=== PATIENT | male | born 1960 | race Caucasian/White ===

== ENCOUNTER 2018-11-19 22:18 | Emergency (ER) | payer OTHER ==
[2018-11-19 22:23] VITALS: TEMP 98.4
[2018-11-19] MEDS ORDERED: hydrALAZINE HCL 20 MG/ML 1 ML VIAL IM STA (22:52)
--- NOTE | 2018-11-19 22:57 | ED ---
Wound/Laceration HPI - General Source: patient Mode of arrival: ambulatory Limitations: no limitations <Karey Christensen - Last Filed: 11/20/18 03:23> <Ariane Topete - Last Filed: 11/20/18 04:32> - General Chief Complaint: Wound/Laceration Stated Complaint: IHS-Finger injury Time Seen by Provider: 11/19/18 22:42 - History of Present Illness Initial Comments: 58-year-old male past medical history of hypertension who has been out of his lisinopril for the past month presented for chief complaint of right fourth finger laceration. Patient states that at 9:30 PM while at work, at [employer]. He was pushing a sterile cart when his right fourth digit caught in a machine, he states it pulled his right finger, he denies amputation or gross dislocation. Patient states it caused a laceration to the finger. Patient states his tetanus was updated 4 months ago. Patient denies numbness tingling loss sensation, gross deformity. Patient admits to the swelling of the digits and pain at the site of laceration, remaining ROS (-), patient denies any recent fever, chills, shortness of breath, chest pain, back pain, abdominal pain, nausea or vomiting, numbness or tingling, dysuria or hematuria, constipation or diarrhea, oliguria, anuria, dizziness, headaches or visual changes, or any other complaints. Upon arrival pt BP elevated, pt states he has been out of his blood pressure medication for the past month as have known hypertension. (Karey Christensen) - Related Data Previous Rx's Medication Instructions Recorded Cephalexin [Keflex] 500 mg PO Q8HR 5 Days #15 cap 11/20/18 Lisinopril [Zestril] 40 mg PO DAILY 15 Days #15 tablet 11/20/18 Allergies Allergy/AdvReac Type Severity Reaction Status Date / Time No Known Allergies Allergy Verified 11/19/18 22:22 Review of Systems ROS Other: All systems not noted in ROS Statement are negative. <Karey Christensen - Last Filed: 11/20/18 03:23> ROS Other: All systems not noted in ROS Statement are negative. <Ariane Topete - Last Filed: 11/20/18 04:32> ROS Statement: Those systems with pertinent positive or pertinent negative responses have been documented in the HPI. Past Medical History Past Medical History: Hypertension History of Any Multi-Drug Resistant Organisms: None Reported Additional Past Surgical History / Comment(s): Aorta repairt Past Psychological History: No Psychological Hx Reported Smoking Status: Current every day smoker Past Alcohol Use History: Daily Past Drug Use History: None Reported <Karey Chritsensen - Last Filed: 11/20/18 03:23> General Exam Limitations: no limitations <Karey Christensen - Last Filed: 11/20/18 03:23> - General Exam Comments Initial Comments: General: The patient is awake and alert, in no distress, and does not appear acutely ill. Eye: +3 mm pupils are equal, round and reactive to light, extra-ocular movements are intact. No nystagmus. There is normal conjunctiva bilaterally. No signs of icterus. Ears, nose, mouth and throat: There are moist mucous membranes and no oral lesions. Neck: The neck is supple, there is no tenderness or JVD. Cardiovascular: There is a regular rate and rhythm. No murmur, rub or gallop is appreciated. Respiratory: Lungs are clear to auscultation, respirations are non-labored, br eath sounds are equal. No wheezes, stridor, rales, or rhonchi. Gastrointestinal: Soft, non-distended, non-tender abdomen without masses or organomegaly noted. There is no rebound or guarding present. Musculoskeletal: Normal ROM of all 5 digits of right hand, pain at laceration site, denies joint pain Strength 5/5 of all 5 digits of the right hand equal comparison the left including isolation of ectopy DIP and PIP joints. Sensation intact both proximal and distal to injury site equal comparison with unaffected extremity. Radial pulses equal bilaterally 2+. Neurological: A&O x 3. CN II-XII intact, There are no obvious motor or sensory deficits. Coordination appears grossly intact. Speech is normal. Skin: Skin is warm and dry and no rashes or lesions are noted. 1.5cm irregular laceration of the ventral surface of 4th right digit between MPT and PIP. Psychiatric: Cooperative, appropriate mood & affect, normal judgment. (Karey Christensen) Course Vital Signs 11/19/18 11/20/18 11/20/18 22:20 00:16 00:51 Temperature 98.4 F Pulse Rate 104 H 96 110 H Respiratory 20 18 20 Rate Blood Pressure 239/106 205/130 203/136 O2 Sat by Pulse 96 98 100 Oximetry 11/20/18 01:10 Temperature Pulse Rate Respiratory Rate Blood Pressure 182/122 O2 Sat by Pulse Oximetry Procedures - Laceration Laceration #2 Consent Obtained: verbal consent Indication: laceration Site: hand (right 4th digit) Size (cm): 2 (1.5cm) Description: irregular Depth: simple, single layer Anesthetic Used: lidocaine 1% Anesthesia Technique: nerve block Amount (mls): 3 Pre-repair: wound explored, irrigated extensively, deep structures intact Type of Sutures: nylon Size of Sutures: 5-0 Number of Sutures: 4 Technique: simple, interrupted Patient Tolerated Procedure: well, no complications <Karey Christensen - Last Filed: 11/20/18 03:23> - Laceration Laceration #2 Additional Comments: Finger irrigated extensively. Cleansed with iodine. Sutures placed. Wound edges approximated to the best of ability however wound edges are regular-minor skin tearing occured during the suturing process. Patient tolerated procedure well. Bacitracin and bandage applied. (Karey Christensen) Medical Decision Making <Karey Christensen - Last Filed: 11/20/18 03:23> <Ariane Topete - Last Filed: 11/20/18 04:32> - Medical Decision Making 58-year-old male presenting for suture repair after finger injury. No acute osseous injury on imaging studies. I reviewed imaging studies myself. Ring was removed using a ring cutter-with patient permission, patient requested ring be cut. Patient has full strength of digits of the right hand. No obvious tendon injury. Pt tetanus UTD. Patient wound edges approximated to best of my ability. Patient started on keflex for infection ppx. Since beginning a patient's stay emergency department blood pressure elevated. Patient states he has been out of his medication lisinopril 40 mg daily. Patient given 20mg hydralazine as well as 0.2 mg of Catapres. Minimal improvement in blood pressure. Patient denies any other associated symptoms. No concerning physical examination findings. Patient states that he would like to leave, he states he will follow up outpatient for elevated blood pressure. Urged patient to stay for management however patient refused. Patient discharged appearing well. Discussed return parameters for suture removal as well as all suture care. Patient provided work note as well as work restrictions. I did consult attending provider Dr. Topete during case management. (Karey Christensen) I was available for consultation in the emergency department. The history and physical exam were done by the midlevel provider. I was consulted for this patient's care. I reviewed the case with the midlevel provider and based on their presentation of the patient, I agree with the assessment, medical decision making and plan of care as documented. (Ariane Topete) Disposition Is patient prescribed a controlled substance at d/c from ED?: No Time of Disposition: 00:27 <Karey Christensen - Last Filed: 11/20/18 03:23> <Ariane Topete - Last Filed: 11/20/18 04:32> Clinical Impression: Finger laceration, Elevated blood pressure reading Disposition: HOME SELF-CARE Condition: Good Instructions (If sedation given, give patient instructions): Care For Your Stitches (ED), Finger Laceration (ED) Additional Instructions: Please use medication as discussed. Please follow-up with family doctor in the next 2 days for elevated blood pressure, please return for suture removal in 7 days. Please return to emergency room if the symptoms increase or worsen or for any other concerns. Prescriptions: Cephalexin [Keflex] 500 mg PO Q8HR 5 Days #15 cap Lisinopril [Zestril] 40 mg PO DAILY 15 Days #15 tablet Referrals: Nonstaff,Physician [Primary Care Provider] - 1-2 days [facility],Clinic [REFERRING] - 1-2 days [facility] [NON-STAFF] - 1-2 days
--- NOTE | 2018-11-19 23:01 | XR ---
EXAM: XR Right Finger(s), 2 or More Views CLINICAL HISTORY: Jammed 4th digit, pain/laceration ITS.REASON XR Reason: Pain TECHNIQUE: Frontal, lateral and oblique views of finger(s) of the right hand. COMPARISON: No relevant prior studies available. FINDINGS: Limitations: Evaluation limited by presence of ring. Bones/joints: Questionable irregularity at the base of the middle phalanx at the palmar aspect. Otherwise, no acute fracture. Soft tissues: Punctate opacities at the tip of the finger. Soft tissue irregularity, may be related to history of laceration. IMPRESSION: 1. Limited study, as above. Questionable irregularity at the base of the middle phalanx. Correlate with focal tenderness. 2. Punctate opacities at the tip of the finger. Correlate clinically to exclude foreign body.
[2018-11-19] MEDS ORDERED: LIDOCAINE 1% INJ 10MG/ML (20 ML MDV) SQ ONE (23:05)
[2018-11-20] MEDS ORDERED: cloNIDine HCL 0.2 MG TAB PO STA (00:08)
[2018-11-20 00:52] VITALS: PULSE 110; RESP 20
[2018-11-20 01:13] VITALS: BP 182/122
== END 2018-11-20 01:10 | disposition home or self-care (01) ==
LOC: EC 22:18
DX: S61.214A Laceration without foreign body of right ring finger without damage to nail, initial encounter (principal); I10 Essential (primary) hypertension; F17.200 Nicotine dependence, unspecified, uncomplicated; W31.9XXA Contact with unspecified machinery, initial encounter; Y92.69 Other specified industrial and construction area as the place of occurrence of the external cause; Y99.0 Civilian activity done for income or pay
CPT/HCPCS: 73140; 99283; 12001; 96372; J0360; J2001

== ENCOUNTER → 2018-11-27 | Outpatient (CLI) | payer OTHER ==
--- NOTE | 2018-11-27 15:30 | XR ---
EXAMINATION TYPE: XR hand complete RT DATE OF EXAM: 11/27/2018 COMPARISON: NONE HISTORY: 58-year-old male right fourth digit contusion on November 19. Pain. TECHNIQUE: 3 views FINDINGS: There is fusiform soft tissue swelling especially along the ulnar aspect of the proximal fourth finge r. Underlying degenerative change at the third MCP joint with joint space narrowing and some marginal spurring. No acute fracture, subluxation, or dislocation is seen. IMPRESSION: 1. Soft tissue swelling involving the proximal aspect of the fourth digit. No underlying acute or hea ling fracture seen. 2. Some degenerative joint space narrowing particularly at the third MCP joint.
== END | disposition home or self-care (01) ==
LOC: RADXRMAIN 14:54
PROVIDERS: ATTEND Emergency Medicine
DX: M19.041 Primary osteoarthritis, right hand (principal); M79.89 Other specified soft tissue disorders

== ENCOUNTER → 2020-01-13 | Outpatient (CLI) | payer OTHER ==
--- NOTE | 2020-01-13 11:29 | XR ---
EXAMINATION TYPE: XR elbow complete RT DATE OF EXAM: 01/13/2020 CLINICAL HISTORY: Right elbow pain with no known injury. Right elbow joint pain and edema. TECHNIQUE: Frontal, lateral and oblique images of the right elbow are obtained. COMPARISON: None FINDINGS: Well-corticated oval densities of the medial and lateral epicondyles are seen. There is no acute fracture/dislocation evident in the right elbow. No abnormal fat pad signs are seen. The over lying soft tissue demonstrates mild soft tissue swelling. IMPRESSION: 1. No acute fracture or dislocation in the right elbow. 2. Enthesophytes or calcific tendinosis of the common extensor and common flexor tendons. Correlate f or both lateral and medial epicondylitis. Given the nontraumatic soft tissue swelling of the elbow ar thropathies or gout should also be considered.
== END | disposition home or self-care (01) ==
LOC: RADXRMAIN 11:03
PROVIDERS: ATTEND Emergency Medicine
DX: M79.89 Other specified soft tissue disorders (principal)

== ENCOUNTER 2021-01-10 00:20 | Inpatient (IN) | payer OTHER ==
--- NOTE | 2021-01-10 00:42 | ED ---
General Adult HPI - General Chief complaint: Nausea/Vomiting/Diarrhea Stated complaint: Weakness Time Seen by Provider: 01/10/21 00:23 Source: patient, EMS Mode of arrival: EMS Limitations: no limitations - History of Present Illness Initial comments: 's patient is a 60-year-old man who presents to be evaluated for suspected dehydration. He notes that probably for the past 3 days she has been feeling very weak and lightheaded when he stands up. He had been having vomiting and diarrhea and felt he was getting dehydrated. He started drinking more fluids but continued to have episodes of vomiting and diarrhea. Patient states that over the past day he had tried electrolyte solution and was not feeling much better. Patient denies pains. No focal weakness. He does feel better when he is lying down and the symptoms get much worse. Tries to stand up and walk. Onset/Timin -: days(s) Severity scale (1-10): 0 Consistency: constant Improves with: none Worsens with: movement, other (Standing) Associated Symptoms: nausea/vomiting - Related Data Home Medications Medication Instructions Recorded Confirmed Allopurinol [Zyloprim] 100 mg PO DAILY@1600 01/10/21 01/10/21 Lisinopril-Hctz 20-25 mg 1 tab PO DAILY@1600 01/10/21 01/10/21 [Zestoretic 20-25] Allergies Allergy/AdvReac Type Severity Reaction Status Date / Time No Known Allergies Allergy Verified 01/10/21 07:19 Review of Systems ROS Statement: Those systems with pertinent positive or pertinent negative responses have been documented in the HPI. ROS Other: All systems not noted in ROS Statement are negative. Constitutional: Reports: weakness. Denies: fever, chills Eyes: Denies: vision change Respiratory: Denies: cough, dyspnea, wheezes Cardiovascular: Reports: syncope. Denies: chest pain, palpitations, orthopnea, edema Gastrointestinal: Reports: nausea, vomiting, diarrhea. Denies: abdominal pain, constipation, hematemesis, melena, hematochezia Genitourinary: Denies: dysuria, frequency, hematuria Musculoskeletal: Denies: back pain Skin: Denies: rash Neurological: Denies: headache, weakness, numbness, paresthesias, confusion Past Medical History Past Medical History: Hypertension History of Any Multi-Drug Resistant Organisms: None Reported Additional Past Surgical History / Comment(s): Aorta repairt Past Psychological History: No Psychological Hx Reported Smoking Status: Current every day smoker Past Alcohol Use History: Daily Past Drug Use History: None Reported General Exam Limitations: no limitations General appearance: alert, in no apparent distress Head exam: Present: atraumatic, normocephalic Eye exam: Present: normal appearance, PERRL, EOMI. Absent: scleral icterus, conjunctival injection ENT exam: Present: mucous membranes dry Neck exam: Present: normal inspection, full ROM. Absent: tenderness Respiratory exam: Present: normal lung sounds bilaterally. Absent: respiratory distress, wheezes, rales, rhonchi, stridor Cardiovascular Exam: Present: regular rate, normal rhythm, normal heart sounds. Absent: systolic murmur, diastolic murmur, rubs, gallop GI/Abdominal exam: Present: soft. Absent: distended, tenderness, guarding, rebound, rigid, mass Extremities exam: Present: normal inspection, normal capillary refill. Absent: pedal edema, calf tenderness Back exam: Present: normal inspection. Absent: CVA tenderness (R), CVA tenderness (L) Neurological exam: Present: alert, oriented X3. Absent: motor sensory deficit Skin exam: Present: warm, dry, intact, normal color. Absent: rash Course Vital Signs 01/10/21 01/10/21 01/10/21 00:21 00:51 02:58 Temperature 98 F Pulse Rate 99 105 H 96 Respiratory 16 16 18 Rate Blood Pressure 68/47 105/76 78/48 O2 Sat by Pulse 90 L 98 95 Oximetry 01/10/21 01/10/21 01/10/21 04:14 06:52 08:03 Temperature Pulse Rate 97 102 H 104 H Respiratory 18 16 16 Rate Blood Pressure 79/46 79/49 91/54 O2 Sat by Pulse 97 95 96 Oximetry 01/10/21 01/10/21 01/10/21 09:21 09:49 10:27 Temperature Pulse Rate 104 H 115 H Respiratory 16 18 Rate Blood Pressure 72/47 83/53 87/66 O2 Sat by Pulse 94 L 93 L Oximetry 01/10/21 01/10/21 01/10/21 11:27 12:03 12:08 Temperature Pulse Rate 123 H 122 H 105 H Respiratory 18 20 Rate Blood Pressure 92/58 77/45 O2 Sat by Pulse 89 L Oximetry 0501/10/21 01/10/21 12:20 12:26 12:41 Temperature 98.2 F Pulse Rate 100 104 H Respiratory 18 Rate Blood Pressure 82/52 O2 Sat by Pulse 90 L 91 L Oximetry 01/10/21 01/10/21 01/10/21 13:04 13:58 15:02 Temperature Pulse Rate 93 107 H 99 Respiratory 18 18 18 Rate Blood Pressure 80/57 94/64 108/63 O2 Sat by Pulse 90 L 93 L 88 L Oximetry 01/10/21 01/10/21 01/10/21 16:04 16:25 16:33 Temperature Pulse Rate 98 98 95 Respiratory 18 Rate Blood Pressure 103/68 O2 Sat by Pulse 93 L Oximetry 01/10/21 01/10/21 01/10/21 17:02 18:08 18:57 Temperature 98.1 F Pulse Rate 98 100 99 Respiratory 18 18 18 Rate Blood Pressure 95/65 103/73 102/67 O2 Sat by Pulse 93 L 92 L 92 L Oximetry 01/10/21 01/10/21 01/10/21 20:00 20:17 20:28 Temperature 98.5 F Pulse Rate 98 98 101 H Respiratory 20 Rate Blood Pressure 104/67 O2 Sat by Pulse 93 L Oximetry 01/10/21 20:29 Temperature Pulse Rate Respiratory Rate Blood Pressure O2 Sat by Pulse 93 L Oximetry EKG Findings - EKG Results: EKG: interpreted by ERMD, sinus rhythm (Rate 97 bpm), normal axis - Blocks, [place], Hypertrophy, ST Abn: Repolarization changes or abnormalities: Q-T interval prolongation - [place], Pacemaker, Normal: Myocardial infarction: inferior [place] (old age indeterminate) Procedures - Sepsis Sepsis Focused Exam #1 Sepsis Focused Exam Date: 01/10/21 Sepsis Focused Exam Time: 05:00 Sepsis Focused Exam Complete: Yes Vital Signs & RN Notes Reviewed: Yes Capillary Refill: < 2 Seconds: Fingers Peripheral Pulses: Normal: Radial (R) Skin Color: Normal for Patient Respiratory Exam: wheezes Cardiovascular Exam: regular rate Medical Decision Making - Lab Data Result diagrams: 01/10/21 16:41 01/10/21 16:41 Lab Results 01/10/21 01/10/21 01/10/21 Range/Units 00:37 00:37 00:37 WBC 29.9 H (3.8-10.6) k/uL RBC 3.45 L (4.30-5.90) m/uL Hgb 13.4 (13.0-17.5) gm/dL Hct 40.0 (39.0-53.0) % MCV 115.9 H (80.0-100.0) fL MCH 38.8 H (25.0-35.0) pg MCHC 33.5 (31.0-37.0) g/dL RDW 18.5 H (11.5-15.5) % Plt Count 170 (150-450) k/uL MPV 8.1 Neutrophils % 92 % Lymphocytes % 3 % Monocytes % 3 % Eosinophils % 1 % Basophils % 0 % Neutrophils # 27.5 H (1.3-7.7) k/uL Lymphocytes # 1.0 (1.0-4.8) k/uL Monocytes # 1.0 (0-1.0) k/uL Eosinophils # 0.2 (0-0.7) k/uL Basophils # 0.1 (0-0.2) k/uL Manual Slide Review Performed Toxic Vacuolation Present Polychromasia Present Anisocytosis Slight Macrocytosis Marked A PT 10.9 (9.0-12.0) sec INR 1.0 (<1.2) APTT 25.4 (22.0-30.0) sec Sodium (137-145) mmol/L Potassium (3.5-5.1) mmol/L Chloride (98-107) mmol/L Carbon Dioxide (22-30) mmol/L Anion Gap mmol/L BUN (9-20) mg/dL Creatinine (0.66-1.25) mg/dL Est GFR (CKD-EPI)AfAm (>60 ml/min/1.73 sqM) Est GFR (CKD-EPI)NonAf (>60 ml/min/1.73 sqM) Glucose (74-99) mg/dL Lactic Ac Sepsis Rflx Plasma Lactic Acid Dimitris (0.7-2.0) mmol/L Calcium (8.4-10.2) mg/dL Total Bilirubin (0.2-1.3) mg/dL AST (17-59) U/L ALT (4-49) U/L Alkaline Phosphatase (38-126) U/L Troponin I (0.000-0.034) ng/mL Total Protein (6.3-8.2) g/dL Albumin (3.5-5.0) g/dL Procalcitonin (0.02-0.09) ng/mL Urine Color Yellow Urine Appearance Clear (Clear) Urine pH 6.0 (5.0-8.0) Ur Specific [place] 1.007 (1.001-1.035) Urine Protein 1+ H (Negative) Urine Glucose (UA) 3+ H (Negative) Urine Ketones 1+ H (Negative) Urine Blood Small H (Negative) Urine Nitrite Negative (Negative) Urine Bilirubin Negative (Negative) Urine Urobilinogen <2.0 (<2.0) mg/dL Ur Leukocyte Esterase Negative (Negative) Urine WBC 3 (0-5) /hpf Amorphous Sediment Occasional H (None) /hpf Hyaline Casts 5 H (0-2) /lpf Urine Mucus Rare H (None) /hpf Influenza Type A (PCR) (Not Detectd) Influenza Type B (PCR) (Not Detectd) RSV (PCR) (Not Detectd) SARS-CoV-2 (PCR) (Not Detectd) 01/10/21 01/10/21 01/10/21 Range/Units 00:37 00:37 00:37 WBC (3.8-10.6) k/uL RBC (4.30-5.90) m/uL Hgb (13.0-17.5) gm/dL Hct (39.0-53.0) % MCV (80.0-100.0) fL MCH (25.0-35.0) pg MCHC (31.0-37.0) g/dL RDW (11.5-15.5) % Plt Count (150-450) k/uL MPV Neutrophils % % Lymphocytes % % Monocytes % % Eosinophils % % Basophils % % Neutrophils # (1.3-7.7) k/uL Lymphocytes # (1.0-4.8) k/uL Monocytes # (0-1.0) k/uL Eosinophils # (0-0.7) k/uL Basophils # (0-0.2) k/uL Manual Slide Review Toxic Vacuolation Polychromasia Anisocytosis Macrocytosis PT (9.0-12.0) sec INR (<1.2) APTT (22.0-30.0) sec Sodium 128 L (137-145) mmol/L Potassium 2.7 L* (3.5-5.1) mmol/L Chloride 82 L (98-107) mmol/L Carbon Dioxide 32 H (22-30) mmol/L Anion Gap 14 mmol/L BUN 38 H (9-20) mg/dL Creatinine 3.28 H (0.66-1.25) mg/dL Est GFR (CKD-EPI)AfAm 22 (>60 ml/min/1.73 sqM) Est GFR (CKD-EPI)NonAf 19 (>60 ml/min/1.73 sqM) Glucose 104 H (74-99) mg/dL Lactic Ac Sepsis Rflx Plasma Lactic Acid Dimitris 3.2 H* (0.7-2.0) mmol/L Calcium 8.5 (8.4-10.2) mg/dL Total Bilirubin 1.4 H (0.2-1.3) mg/dL AST 49 (17-59) U/L ALT 27 (4-49) U/L Alkaline Phosphatase 73 (38-126) U/L Troponin I 0.110 H* (0.000-0.034) ng/mL Total Protein 6.0 L (6.3-8.2) g/dL Albumin 3.3 L (3.5-5.0) g/dL Procalcitonin (0.02-0.09) ng/mL Urine Color Urine Appearance (Clear) Urine pH (5.0-8.0) Ur Specific [place] (1.001-1.035) Urine Protein (Negative) Urine Glucose (UA) (Negative) Urine Ketones (Negative) Urine Blood (Negative) Urine Nitrite (Negative) Urine Bilirubin (Negative) Urine Urobilinogen (<2.0) mg/dL Ur Leukocyte Esterase (Negative) Urine WBC (0-5) /hpf Amorphous Sediment (None) /hpf Hyaline Casts (0-2) /lpf Urine Mucus (None) /hpf Influenza Type A (PCR) (Not Detectd) Influenza Type B (PCR) (Not Detectd) RSV (PCR) (Not Detectd) SARS-CoV-2 (PCR) (Not Detectd) 01/10/21 01/10/21 01/10/21 Range/Units 00:37 00:37 01:25 WBC (3.8-10.6) k/uL RBC (4.30-5.90) m/uL Hgb (13.0-17.5) gm/dL Hct (39.0-53.0) % MCV (80.0-100.0) fL MCH (25.0-35.0) pg MCHC (31.0-37.0) g/dL RDW (11.5-15.5) % Plt Count (150-450) k/uL MPV Neutrophils % % Lymphocytes % % Monocytes % % Eosinophils % % Basophils % % Neutrophils # (1.3-7.7) k/uL Lymphocytes # (1.0-4.8) k/uL Monocytes # (0-1.0) k/uL Eosinophils # (0-0.7) k/uL Basophils # (0-0.2) k/uL Manual Slide Review Toxic Vacuolation Polychromasia Anisocytosis Macrocytosis PT (9.0-12.0) sec INR (<1.2) APTT (22.0-30.0) sec Sodium (137-145) mmol/L Potassium (3.5-5.1) mmol/L Chloride (98-107) mmol/L Carbon Dioxide (22-30) mmol/L Anion Gap mmol/L BUN (9-20) mg/dL Creatinine (0.66-1.25) mg/dL Est GFR (CKD-EPI)AfAm (>60 ml/min/1.73 sqM) Est GFR (CKD-EPI)NonAf (>60 ml/min/1.73 sqM) Glucose (74-99) mg/dL Lactic Ac Sepsis Rflx Y Plasma Lactic Acid Dimitris (0.7-2.0) mmol/L Calcium (8.4-10.2) mg/dL Total Bilirubin (0.2-1.3) mg/dL AST (17-59) U/L ALT (4-49) U/L Alkaline Phosphatase (38-126) U/L Troponin I (0.000-0.034) ng/mL Total Protein (6.3-8.2) g/dL Albumin (3.5-5.0) g/dL Procalcitonin 0.74 H (0.02-0.09) ng/mL Urine Color Urine Appearance (Clear) Urine pH (5.0-8.0) Ur Specific [place] (1.001-1.035) Urine Protein (Negative) Urine Glucose (UA) (Negative) Urine Ketones (Negative) Urine Blood (Negative) Urine Nitrite (Negative) Urine Bilirubin (Negative) Urine Urobilinogen (<2.0) mg/dL Ur Leukocyte Esterase (Negative) Urine WBC (0-5) /hpf Amorphous Sediment (None) /hpf Hyaline Casts (0-2) /lpf Urine Mucus (None) /hpf Influenza Type A (PCR) Not Detected (Not Detectd) Influenza Type B (PCR) Not Detected (Not Detectd) RSV (PCR) Not Detected (Not Detectd) SARS-CoV-2 (PCR) Not Detected (Not Detectd) Disposition Clinical Impression: Dehydration, Hyponatremia, Hypokalemia, Acute kidney injury, Elevated troponin Disposition: ADMITTED IP TO THIS HOSP Condition: Serious
[2021-01-10] MEDS: SODIUM CHLORIDE 0.9% 500 ML 500 ML IV SCH ×3 (00:47→02:13)
[2021-01-10] MEDS: SODIUM CHLORIDE 0.9% 1,000 ML IV SCH ×3 (00:47→16:16)
[2021-01-10 01:06] LABS: Albumin 3.3 g/dL (3.5-5.0); Calcium 8.5 mg/dL (8.4-10.2); Total Bilirubin 1.4 mg/dL (0.2-1.3)
[2021-01-10 01:16] LABS: Partial Thromboplastin Time 25.4 sec (22.0-30.0); Prothrombin Time 10.9 sec (9.0-12.0)
[2021-01-10 01:17] LABS: Anisocytosis Slight; Basophils # (A) 0.1 k/uL (0-0.2); Basophils % (A) 0 %; Eosinophils # (A) 0.2 k/uL (0-0.7); Eosinophils % (A) 1 %; HGB 13.4 gm/dL (13.0-17.5); Lymphocytes % (A) 3 %; MCH 38.8 pg (25.0-35.0); MCHC 33.5 g/dL (31.0-37.0); MCV 115.9 fL (80.0-100.0); Macrocytosis Marked; Mean Platelet Volume 8.1; Monocytes % (A) 3 %; Neutrophils # (A) 27.5 k/uL (1.3-7.7); Neutrophils % (A) 92 %; Platelet Count 170 k/uL (150-450); RBC 3.45 m/uL (4.30-5.90); RDW 18.5 % (11.5-15.5); WBC 29.9 k/uL (3.8-10.6)
[2021-01-10 01:30] LABS: Potassium 2.7 mmol/L (3.5-5.1)
[2021-01-10] MEDS ORDERED: SODIUM CHLORIDE 0.9% 1,000 ML IV ONE ×3 (01:33→09:13)
--- NOTE | 2021-01-10 01:36 | XR ---
EXAM: XR Chest, 1 View CLINICAL HISTORY: ITS.REASON XR Reason: Fever TECHNIQUE: Frontal view of the chest. COMPARISON: No relevant prior studies available. FINDINGS: Lungs: Patchy medial right base opacity. Streaky left base opacity. Pleural space: Unremarkable. No pneumothorax. Heart: Unremarkable. No cardiomegaly. Mediastinum: Unremarkable. Bones/joints: Unremarkable. IMPRESSION: Patchy medial right base opacity which may be due to aspiration or infection. Streaky left base opacity favored to be due to atelectasis.
[2021-01-10] MEDS ORDERED: POTASSIUM CHLORIDE ER 20 MEQ TAB.ER PO STA (03:06)
[2021-01-10] MEDS ORDERED: NALOXONE 0.4 MG/ML 1 ML VIAL IV PRN (03:07)
[2021-01-10] MEDS ORDERED: ACETAMINOPHEN TAB 325 MG TAB PO PRN (03:07)
[2021-01-10] MEDS ORDERED: ONDANSETRON 4 MG/2 ML VIAL IVP PRN (03:07)
[2021-01-10] MEDS ORDERED: THIAMINE 100 MG/ML 2 ML VIAL IM STA (03:10)
[2021-01-10] MEDS ORDERED: LORazepam 2 MG/ML INJ IV PRN ×2 (03:10)
[2021-01-10 03:23] LABS: Polychromasia Present
[2021-01-10 03:25] LABS: Toxic Vacuolation Present
[2021-01-10] MEDS ORDERED: THIAMINE 100 MG TAB PO SCH (07:30)
[2021-01-10] MEDS ORDERED: NOREPINEPHRINE 4 MG in SODIUM CHLORIDE 0.9% 250 ML IV ONE (07:30)
--- NOTE | 2021-01-10 08:43 | P.HPIM ---
History of Present Illness This is a pleasant 6 years old male with a cigarette smoker and past medical history of hypertension. He follows up in the [place] [facility]. Patient presents with nausea vomiting and diarrhea for 3 days duration. Patient for the last couple days stating that he feels dehydrated and he has postural dizziness whenever he has to stand up he cannot and he has to crawl to the restroom. Also he is complaining of from some abdominal pain around the umbilicus but he is more tenderness in the left lower quadrant, no rebound tenderness. His pain currently is 67/10, it was 5/10 yesterday. Threadlike pinching pain is been going on for 3 days. Also patient has been vomiting. His vomiting stopped today. He has diarrhea about twice yesterday, it looked soft brown with no blood in it. He denies any respiratory symptoms no chest pain or dyspnea or coughing He smokes 1 pack per day and he was counseled and wants to quit but he declined nicotine patch. He drinks alcohol occasionally and he did not drink anything for the last 4 days as he states. No illicit drugs. Blood pressure on the low side currently 79/49, slightly tachycardic at 102. Afebrile and his saturation 95% on 2 L , Not showing leukocytosis of 29.9, hemoglobin 13.4. INR is 1.0. Sodium is 128, potassium 2.7, creatinine 3.2, unknown baseline. Troponin are elevated 0.12. Boyce virus and influenza virus are not detected EKG showing normal sinus rhythm at [address] depression on the lateral lytes. QTC is 553. Chest x-ray:Patchy medial right base opacity which may be due to aspiration or infection. Streaky left basilar opacity favored to be due to atelectasis in the emergency room he got about 4.5 L of normal saline, and currently his fluids running at 1:30 milliliters per hour. Blood pressure is 76/44 He did get some Levophed yesterday but it was stopped later on CT of the abdomen and pelvis ordered and results pending Review of Systems CONSTITUTIONAL: No fever, no malaise, no fatigue. HEENT: No recent visual problems or hearing problems. Denied any sore throat. CARDIOVASCULAR: No orthopnea, PND, no palpitations, no syncope. PULMONARY: No shortness of breath, no cough, no hemoptysis. GASTROINTESTINAL: No constipation. Normoactive bowel sounds. NEUROLOGICAL: No headaches, no weakness, no numbness. HEMATOLOGICAL: Denies any bleeding or petechiae. GENITOURINARY: Denies any burning micturition, frequency, or urgency. MUSCULOSKELETAL/RHEUMATOLOGICAL: Denies any joint pain, swelling, or any muscle pain. ENDOCRINE: Denies any polyuria or polydipsia. Past Medical History Past Medical History: Hypertension History of Any Multi-Drug Resistant Organisms: None Reported Additional Past Surgical History / Comment(s): Aorta repairt Past Psychological History: No Psychological Hx Reported Smoking Status: Current every day smoker Past Alcohol Use History: Daily Past Drug Use History: None Reported Medications and Allergies Home Medications Medication Instructions Recorded Confirmed Type Allopurinol [Zyloprim] 100 mg PO DAILY@1600 01/10/21 01/10/21 History Lisinopril-Hctz 20-25 mg 1 tab PO DAILY@159901/10/21 01/10/21 History [Zestoretic 20-25] Allergies Allergy/AdvReac Type Severity Reaction Status Date / Time No Known Allergies Allergy Verified 01/10/21 07:19 Physical Exam Vitals: Vital Signs Temp Pulse Resp BP Pulse Ox 01/10/21 06:52 102 H 16 79/49 95 01/10/21 04:14 97 18 79/46 97 01/10/21 02:58 96 18 78/48 95 01/10/21 00:51 105 H 16 105/76 98 01/10/21 00:21 98 F 99 16 68/47 90 L Intake and Output 01/09/21 01/10/21 01/10/21 22:59 06:59 14:59 Other: Weight 86.183 kg GENERAL: The patient is alert and oriented x3, not in any acute distress. Well developed, well nourished. HEENT: Pupils are round and equally reacting to light. EOMI. No scleral icterus. No conjunctival pallor. Normocephalic, atraumatic. No pharyngeal erythema. No thyromegaly. CARDIOVASCULAR: S1 and S2 present. No murmurs, rubs, or gallops. PULMONARY: Chest is clear to auscultation, no wheezing or crackles. -ABDOMEN: Soft, periumbilical tenderness, more in the left lower quadrant, no rebound tenderness or guarding, nondistended, normoactive bowel sounds. No palpable organomegaly. MUSCULOSKELETAL: No joint swelling or deformity. EXTREMITIES: No cyanosis, clubbing, or pedal edema. NEUROLOGICAL: Gross neurological examination did not reveal any focal deficits. SKIN: No rashes. No petechiae Results CBC & Chem 7: 01/10/21 00:37 01/10/21 00:37 Labs: Abnormal Lab Results - Last 24 Hours (Table) 01/10/21 01/10/21 01/10/21 Range/Units 00:37 00:37 00:37 WBC 29.9 H (3.8-10.6) k/uL RBC 3.45 L (4.30-5.90) m/uL MCV 115.9 H (80.0-100.0) fL MCH 38.8 H (25.0-35.0) pg RDW 18.5 H (11.5-15.5) % Neutrophils # 27.5 H (1.3-7.7) k/uL Macrocytosis Marked A Sodium 128 L (137-145) mmol/L Potassium 2.7 L* (3.5-5.1) mmol/L Chloride 82 L (98-107) mmol/L Carbon Dioxide 32 H (22-30) mmol/L BUN 38 H (9-20) mg/dL Creatinine 3.28 H (0.66-1.25) mg/dL Glucose 104 H (74-99) mg/dL Plasma Lactic Acid Dimitris 3.2 H* (0.7-2.0) mmol/L Total Bilirubin 1.4 H (0.2-1.3) mg/dL Troponin I (0.000-0.034) ng/mL Total Protein 6.0 L (6.3-8.2) g/dL Albumin 3.3 L (3.5-5.0) g/dL 01/10/21 01/10/21 Range/Units 00:37 04:20 WBC (3.8-10.6) k/uL RBC (4.30-5.90) m/uL MCV (80.0-100.0) fL MCH (25.0-35.0) pg RDW (11.5-15.5) % Neutrophils # (1.3-7.7) k/uL Macrocytosis Sodium (137-145) mmol/L Potassium (3.5-5.1) mmol/L Chloride (98-107) mmol/L Carbon Dioxide (22-30) mmol/L BUN (9-20) mg/dL Creatinine (0.66-1.25) mg/dL Glucose (74-99) mg/dL Plasma Lactic Acid Dimitris (0.7-2.0) mmol/L Total Bilirubin (0.2-1.3) mg/dL Troponin I 0.110 H* 0.110 H* (0.000-0.034) ng/mL Total Protein (6.3-8.2) g/dL Albumin (3.5-5.0) g/dL Assessment and Plan Assessment: Acute gastroenteritis. Rule out diverticulitis Right lower lobe pneumonia, possible aspiration pneumonia Elevated troponin, rule out cardiac causes. Could be also due to renal disease electrolyte abnormality with hyponatremia and hypokalemia Acute kidney injury Hypertension Alcohol abuse at-risk of alcohol withdrawal Plan: this is a pleasant 60 years old male who presents with pneumonia, acute kidney injury. Patient has had troponin. we'll do serial troponin. Check echocardiogram. Cardiology consult. Continue with aspirin Continue with Zosyn. Sputum culture. Check procalcitonin. Continue with IV hydration. Consult nephrology and continue with IV fluids and monitor lactic acid Consults surgery team. Follow-up CAT scan of the abdomen and pelvis. continue with CIWA protocol and vitamin follow-up CT of the abdomen and pelvis ordered by the emergency room team Labs and medication were reviewed.. Continue same treatment. Continue with symptomatic treatment. Resume home medication. Monitor lytes and vitals. DVT and GI prophylaxis. Further recommendations depends on the clinical course of the patient DVT prophylaxis: Subcutaneous heparin GI Prophylaxis: Pepcid PT/OT: Pending Prognosis is guarded
[2021-01-10] MEDS ORDERED: DOXYCYCLINE 100 MG in SODIUM CHLORIDE 0.9% 100 ML IVPB SCH (09:00)
[2021-01-10] MEDS ORDERED: FAMOTIDINE 20 MG TAB PO SCH (09:00)
[2021-01-10] MEDS ORDERED: MAGNESIUM OXIDE 400 MG TAB PO SCH (09:00)
--- NOTE | 2021-01-10 09:00 | CT ---
EXAMINATION TYPE: CT abdomen pelvis wo con DATE OF EXAM: 01/10/2021 COMPARISON: None HISTORY: leukocytosis CT DLP: 870.6 mGycm Automated exposure control for dose reduction was used. TECHNIQUE: Helical acquisition of images was performed from the lung bases through the pelvis. FINDINGS: LUNG BASES: Bilateral lower lobe infiltrate greater on the right. Basilar bronchiectasis noted. LIVER/GB: Multiple small gallstones seen. PANCREAS: No significant abnormality is seen. SPLEEN: No significant abnormality is seen. ADRENALS: No significant abnormality is seen. KIDNEYS: Right kidney is atrophic relative to the left with 2 punctate nonobstructing. Left kidney de monstrates no hydronephrosis. ADENOPATHY: None visualized. OSSEOUS STRUCTURES: Hypertrophic and degenerative change of the spine. BOWEL: Changes of diverticulosis with mild stranding seen involving the sigmoid colon suggestive of acute diverticulitis. Bowel gas pattern nonspecific. OTHER: There is a abdominal aortic aneurysm originating above the renal arteries measuring a maximal dimension 4 cm. Ectasia of the iliac arteries. Fat-containing bilateral inguinal hernia. Prostate roxy cifications noted. IMPRESSION: 1. Findings suggestive of acute diverticulitis involving sigmoid and left colon. Colitis not excluded . Prominent small bowel loops may represent a reactive ileus rather than obstruction. Correlate clini carl. 2. Bilateral lower lobe infiltrate. 3. Cholelithiasis. 4. There is a abdominal aortic aneurysm measuring 4 cm. 5. Nonobstructing right renal calculi. Left kidney appears markedly enlarged relative to the right co rrelate for chronic medical renal disease. Correlate with urinalysis.
[2021-01-10] MEDS: PIPERACILLIN-TAZOBACTAM 3.375 GM in SODIUM CHLORIDE 0.9% 100 ML IVPB SCH ×2 (09:34→18:53)
[2021-01-10] MEDS: HEPARIN SODIUM,PORCINE/PF 5,000 UNIT/0.5 ML SYRINGE SQ SCH ×2 (09:35→20:37)
[2021-01-10] MEDS: POTASSIUM CHLORIDE ER 20 MEQ TAB.ER PO SCH ×3 (09:35→21:21)
[2021-01-10] MEDS: ASPIRIN 81 MG PO SCH (09:35)
[2021-01-10] MEDS: NOREPINEPHRINE 4 MG in SODIUM CHLORIDE 0.9% 250 ML IV SCH ×2 (09:53→18:54)
[2021-01-10 10:01] LABS: Albumin 2.2 g/dL (3.5-5.0); Calcium 6.8 mg/dL (8.4-10.2); Total Bilirubin 0.9 mg/dL (0.2-1.3); Total Protein 4.5 g/dL (6.3-8.2)
[2021-01-10 10:56] LABS: Anisocytosis Slight; Basophils # (A) 0.1 k/uL (0-0.2); Basophils % (A) 0 %; Eosinophils # (A) 0.4 k/uL (0-0.7); Eosinophils % (A) 1 %; HCT 32.8 % (39.0-53.0); HGB 10.8 gm/dL (13.0-17.5); Lymphocytes # (A) 1.1 k/uL (1.0-4.8); Lymphocytes % (A) 4 %; MCH 39.6 pg (25.0-35.0); MCV 119.9 fL (80.0-100.0); Macrocytosis Marked; Mean Platelet Volume 7.6; Monocytes % (A) 3 %; Neutrophils # (A) 27.5 k/uL (1.3-7.7); Neutrophils % (A) 91 %; Platelet Count 171 k/uL (150-450); RBC 2.74 m/uL (4.30-5.90); RDW 18.5 % (11.5-15.5)
[2021-01-10 11:07] LABS: WBC 30.2 k/uL (3.8-10.6)
[2021-01-10] MEDS ORDERED: IPRATROPIUM-ALBUTEROL 3 ML NEB INHALATION PRN (11:47)
--- NOTE | 2021-01-10 11:59 | P.CNPUL ---
History of Present Illness Consult date: 01/10/21 Requesting physician: Mando E Oswald Reason for consult: other Chief complaint: Nausea, vomiting and diarrhea History of present illness: 60-year-old white male patient who follows with [facility] [place], with past medical history of hypertension, COPD with home oxygen on as needed basis, 2 pack a day current smoker for 30 years, ETOH (drinks a fifth of vodka daily), previous hx of abdominal aortic aneurysm repair, who presented to the emergency department on 01/10/2021 with a 3 day history of feeling very weak, lightheaded, vomiting and diarrhea. Patient was trying to drink more fluids including electrolyte solutions, but continued to have episodes of vomiting and diarrhea. No fever, no complaints of chest pain, did have increased shortness of breath during episodes of exertion and trying to stand up. Has some wheezing and phlegm production. His lab work showed leukocytosis with a white blood cell count of 29.9, hemoglobin was 13.4, sodium of 128, potassium is 2.7, chloride is 82, CO2 is 32, BUN of 38, creatinine is 3.28, plasma lactic acid was 3.2, LFTs were within normal limits, total bilirubin was 1.4, patient had troponin elevation of 0.110, his viral panel including influenza A and B, RSV and COVID- 19 were negative. Chest x-ray showed patchy medial right base opacity streaky left base opacity. Patient's blood pressure was 68/47, patient is tachycardic but in sinus mechanism. Abdominal and pelvis CT showed findings suggestive of acute diverticulitis involving sigmoid and left colon, colitis was not excluded, there were prominent small bowel loops that could represent a reactive ileus rather than obstruction, there was cholelithiasis, nonobstructing right renal calculi with markedly enlarged left kidney. And there was a abdominal aortic aneurysm measuring 4 cm. Patient has received 4-1/2 L of fluid boluses, and despite that remains hypotensive, requiring vasopressor support initiation, surgical consult was requested. Follow-up labs this morning show sodium of 129, potassium is 3.0, chloride is 96, BUN of 37 and creatinine is 3.17. He was give n a dose of Rocephin in the emergency department, and his antibiotic coverage was switched to Zosyn, he continues on IV fluids at 130 ML per hour, he is awaiting placement in the intensive care unit. His most recent lactic acid is down to 1.0. He was started on norepinephrine at 0.05 mics per kilo per minute. No complaints of chest pain, echocardiogram has been ordered and pending, blood urine and sputum cultures are ordered and pending. Patient had an episode of watery bowel movement in the ER, with possibility of blood in it. Surg consult is pending, mild lower abd tenderness to palpation, but no guarding, rigidity, abd soft. Review of Systems All systems: negative Constitutional: Denies chills, Denies fever Eyes: denies blurred vision, denies pain Ears, nose, mouth and throat: Denies headache, Denies sore throat Cardiovascular: Denies chest pain, Denies shortness of breath Respiratory: Denies cough Gastrointestinal: Reports diarrhea, Reports nausea, Reports vomiting, Denies abdominal pain Musculoskeletal: Denies myalgias Integumentary: Denies pruritus, Denies rash Neurological: Denies numbness, Denies weakness Psychiatric: Denies anxiety, Denies depression Endocrine: Denies fatigue, Denies weight change Past Medical History Past Medical History: Hypertension History of Any Multi-Drug Resistant Organisms: None Reported Additional Past Surgical History / Comment(s): Aorta repairt Past Psychological History: No Psychological Hx Reported Smoking Status: Current every day smoker Past Alcohol Use History: Daily Past Drug Use History: None Reported Medications and Allergies Home Medications Medication Instructions Recorded Confirmed Type Allopurinol [Zyloprim] 100 mg PO DAILY@1600 01/10/21 01/10/21 History Lisinopril-Hctz 20-25 mg 1 tab PO DAILY@1600 01/10/21 01/10/21 History [Zestoretic 20-25] Allergies Allergy/AdvReac Type Severity Reaction Status Date / Time No Known Allergies Allergy Verified 01/10/21 07:19 Physical Exam Vitals: Vital Signs Temp Pulse Resp BP Pulse Ox 01/10/21 10:27 115 H 18 87/66 93 L 01/10/21 09:49 83/53 01/10/21 09:21 104 H 16 72/47 94 L 01/10/21 08:03 104 H 16 91/54 96 01/10/21 06:52 102 H 16 79/49 95 01/10/21 04:14 97 18 79/46 97 01/10/21 02:58 96 18 78/48 95 01/10/21 00:51 105 H 16 105/76 98 01/10/21 00:21 98 F 99 16 68/47 90 L Intake and Output 01/09/21 01/10/21 01/10/21 22:59 06:59 14:59 Other: Weight 86.183 kg GENERAL EXAM: Alert, very pleasant, 60-year-old white male, seen in the emergency department, resting on the gurney, on room air with pulse ox of 93%, appears weak, but no signs of acute respiratory distress. HEAD: Normocephalic/atraumatic. EYES: Normal reaction of pupils, equal size. Conjunctiva pink, sclera white. NOSE: Clear with pink turbinates. THROAT: No erythema or exudates. NECK: No masses, no JVD, no thyroid enlargement, no adenopathy. CHEST: No chest wall deformity. Symmetrical expansion. LUNGS: Equal air entry with no crackles, wheeze, rhonchi or dullness. CVS: Regular rate and rhythm, normal S1 and S2, no gallops, no murmurs, no rubs ABDOMEN: Soft, nontender. No hepatosplenomegaly, normal bowel sounds, no guarding or rigidity. EXTREMITIES: No clubbing, no edema, no cyanosis, 2+ pulses and upper and lower extremities. MUSCULOSKELETAL: Muscle strength and tone normal. SPINE: No scoliosis or deformity SKIN: No rashes CENTRAL NERVOUS SYSTEM: Alert and oriented -3. No focal deficits, tone is normal in all 4 extremities. PSYCHIATRIC: Alert and oriented -3. Appropriate affect. Intact judgment and insight. Results - Laboratory Findings CBC and BMP: 01/10/21 10:33 01/10/21 06:20 PT/INR, D-dimer PT 10.9 sec (9.0-12.0) 01/10/21 00:37 INR 1.0 (<1.2) 01/10/21 00:37 Abnormal lab findings: Abnormal Labs 01/10/21 01/10/21 01/10/21 00:37 00:37 00:37 WBC 29.9 H RBC 3.45 L MCV 115.9 H MCH 38.8 H RDW 18.5 H Neutrophils # 27.5 H Macrocytosis Marked A Sodium 128 L Potassium 2.7 L* Chloride 82 L Carbon Dioxide 32 H BUN 38 H Creatinine 3.28 H Glucose 104 H Plasma Lactic Acid Dimitris 3.2 H* Calcium Total Bilirubin 1.4 H Troponin I Total Protein 6.0 L Albumin 3.3 L 01/10/21 01/10/21 01/10/21 00:37 04:20 06:20 WBC RBC MCV MCH RDW Neutrophils # Macrocytosis Sodium 129 L Potassium 3.0 L Chloride 96 L Carbon Dioxide BUN 37 H Creatinine 3.17 H Glucose Plasma Lactic Acid Dimitris Calcium 6.8 L Total Bilirubin Troponin I 0.110 H* 0.110 H* Total Protein 4.5 L Albumin 2.2 L 01/10/21 06:40 WBC RBC MCV MCH RDW Neutrophils # Macrocytosis Sodium Potassium Chloride Carbon Dioxide BUN Creatinine Glucose Plasma Lactic Acid Dimitris Calcium Total Bilirubin Troponin I 0.110 H* Total Protein Albumin - Diagnostic Findings Chest x-ray: report reviewed, image reviewed Additional studies: CT of the abdomen and pelvis reviewed, EKG reviewed, chest x-ray reviewed Assessment and Plan Plan: Assessment: #1. Acute diverticulitis involving the sigmoid and left colon, and possibility of colitis. Patient tested negative for COVID-19, RSV and influenza A and B #2. Vomiting and diarrhea, lightheadedness and dizziness related to dehydration #3. Hypotension, related to hypovolemic and possibly septic shock, related to acute diverticulitis #4. Acute kidney injury related to ATN, dehydration #5. Hyponatremia, hypovolemic #6. Hypochloremic hypokalemia related to diarrhea #7. Elevated troponin, rule out possibility of non-ST elevated [place] #8. Leukocytosis, related to acute diverticulitis #9. History of hypertension #10. 2 pack a day smoker for 30 years #11. Abdominal aortic aneurysm measuring 4 cm seen in the CT of abdomen and pelvis #12. Nonobstructing right renal calculi, and enlarged left kidney #14. Chronic ETOH abuse, drinks a fifth of vodka daily (last drink a week ago) #15. COPD on home oxygen on as needed basis #16. Acute COPD exacerbation Plan: Continue IV fluids at current rate, patient has received 4 and half liters of fluid boluses Continue norepinephrine infusion, patient may need additional fluid boluses Chest x-ray has been reviewed, showing mild bibasilar opacities, possibly atelectasis, or infiltrates Continue with current antibiotic coverage We will add breathing treatments, IV steroids Surgical consultation is pending, keep NPO until seen except for ice chips CIWA protocol Maintain safety precautions Nephrology consultation is pending Lactic acid has improved, electrolytes are improving, replace serum potassium per protocol Troponin level remains elevated, echocardiogram is pending no complaints of chest discomfort Continue close hemodynamic monitoring, patient is awaiting placement in the intensive care unit. I performed a history & physical examination of the patient and discussed their management with my nurse practitioner, Karen Denis. I reviewed the nurse practitioner's note and agree with the documented findings and plan of care. Lung sounds are positive for diminished breath sounds. The findings and the impression was discussed with the patient. I attest to the documentation by the nurse practitioner. Time with Patient: Greater than 30
[2021-01-10] MEDS: IPRATROPIUM-ALBUTEROL 3 ML NEB INHALATION SCH ×3 (12:02→20:16)
[2021-01-10 12:37] LABS: Amorphous Sediment,Urine Occasional /hpf; Appearance,Urine Clear (Clear); Bilirubin,Urine Negative (Negative); Blood,Urine Small (Negative); Color,Urine Yellow; Glucose,Urine (UA) 3+ (Negative); Hyaline Casts,Urine 5 /lpf (0-2); Ketones,Urine 1+ (Negative); Leukocyte Esterase,Urine Negative (Negative); Mucus,Urine Rare /hpf; Nitrite,Urine Negative (Negative); Protein,Urine 1+ (Negative); Specific Gravity,Urine 1.007 (1.001-1.035); Urobilinogen,Urine <2.0 mg/dL (<2.0); WBC,Urine 3 /hpf (0-5)
[2021-01-10 12:45] LABS: Calcium 6.8 mg/dL (8.4-10.2); Potassium 2.8 mmol/L (3.5-5.1)
[2021-01-10 13:40] LABS: Glucose,Whole Blood 101 mg/dL (75-99)
[2021-01-10] MEDS: INSULIN ASPART (NovoLOG) 100 UNIT/ML VIAL SQ SCH ×3 (13:48→21:16)
[2021-01-10] MEDS: PANTOPRAZOLE 40 MG/10 ML VIAL IVP SCH ×2 (13:59→20:34)
[2021-01-10] MEDS: methylPREDNISolone SOD SUCCI 40 MG/ML 1 ML VIAL IV SCH ×2 (14:04→20:33)
--- NOTE | 2021-01-10 16:34 | P.GSCN ---
History of Present Illness Consult date: 01/10/21 History of present illness: CHIEF COMPLAINT: Abdominal pain HISTORY OF PRESENT ILLNESS: The patient is a 60-year-old male presented acutely to the emergency room with generalized abdominal pain. Reports his abdominal pain has been lower abdominal ongoing for over 3 days since . He presented with elevated lactate over 3.0. He also came with acute renal failure creatinine over 3.0. With his abdominal pain, additional diagnostic studies were obtained. Features are consistent with diverticulitis. Gentle surgeries consulted. Patient does report change in bowel habits. He also reports past history of colonoscopy 7 years ago with history of polyps for which he is overdue. He is hungry. He reports his down pain has improved since admission. PAST MEDICAL HISTORY: See list and reviewed PAST SURGICAL HISTORY: See list and reviewed MEDICATIONS: See list and reviewed ALLERGIES: See list and reviewed SOCIAL HISTORY: See list and reviewed FAMILY HISTORY: See list and reviewed REVIEW OF ORGAN SYSTEMS: CONSTITUTIONAL: No fevers or chills. No recent weight loss. EYES: Denies any trouble with vision. No glasses. HEENT: No difficulties with hearing. No nosebleeds. No difficulty swallowing. RESPIRATORY: CARDIOVASCULAR: Denies any chest pain, palpitations, or recent heart attacks. GASTROINTESTINAL: Has change in bowel habits and gas bloat. Past colonoscopy over 7 years ago with history of polyps. GENITOURINARY: Denies any blood in urine or increased urinary frequency. NEUROLOGICAL: Denies any numbness or tingling along the distal extremities. No seizure disorders or headaches. MUSCULOSKELETAL: Has back pain, stiffness or joint arthritis. SKIN: No current skin cancer. No rash. PSYCHIATRIC: Denies current depression or suicidal thoughts. ENDOCRINE: Denies current thyroid disorders. Denies any blood sugar glucose i ntolerance. HEME/LYMPHATIC: Denies any lumps and bumps around the neck. No recent deep venous thrombosis. ALLERGY/IMMUNOLOGY: No immunoglobulin therapy. No immune deficiencies. BREAST: Denies current breast lumps, pain or nipple discharge. PHYSICAL EXAM: VITALS: Reviewed CONSTITUTIONAL: Well developed and in no acute distress. EYES: Conjuctivae without sclera icterus. Pupils are equally round and reactive to light. Extraocular movements grossly intact. HEAD, EARS, NOSE, THROAT: Moist buccal mucosa. Head is atraumatic, normocephalic. Hears conversational speech. No nasal drainage. NECK: Supple. No JV distention. No thyroidomegaly. RESPIRATORY: Non-labored respirations and equal bilateral excursions. No gross wheezes. CARDIOVASCULAR: Regular rate and rhythm. Extremities without moderate edema. Palpable 2+ radial pulses. ABDOMEN: No peritonitis. Mild tenderness bilateral lower abdomen. LYMPH: No neck lymphadenopathy. No axillary lymphadenopathy. MUSCULOSKELETAL: Nail and fingers with good capillary refill. SKIN: Warm and well perfused with good skin turgor. NEUROLOGIC: Cranial nerves II through XII grossly intact. Sensation upper and extremities intact. No focal or lateralizing signs. PSYCH: Appropriate affect. Alert and oriented to person, place and time. Displays appropriate insight. CLINCAL LABS: Reviewed. Creatinine elevated over 3.0. White count elevated over 30,000. Troponins elevated IMAGING: Independently reviewed CT of the abdomen and pelvis without contrast demonstrates inflammatory changes along the sigmoid colon. No free air or perforation identified. This is my independent interpretation. RADIOLOGY: Report reviewed with CT of the abdomen and pelvis consistent with sigmoid diverticulitis. Presence of gallstones including kidney stones. ASSESSMENT: 1. Diverticulitis with sepsis 2. Lactic acidosis with acute renal failure 3. Elevated troponins PLAN: 1. Recommend IV fluid hydration to correct lactic acidosis 2. Clinically, patient does not have peritonitis. May start of liquids as abdominal pain has improved 3. Overall, patient presents with extreme is with sepsis and agree with intensive care admission ADVANCE DIRECTIVE: At this time, patient does not have advanced directive. Family at bedside. Past Medical History Past Medical History: Hypertension History of Any Multi-Drug Resistant Organisms: None Reported Additional Past Surgical History / Comment(s): Aorta repairt Past Psychological History: No Psychological Hx Reported Smoking Status: Current every day smoker Past Alcohol Use History: Daily Past Drug Use History: None Reported Medications and Allergies Home Medications Medication Instructions Recorded Confirmed Type Allopurinol [Zyloprim] 100 mg PO DAILY@1600 01/10/21 01/10/21 History Lisinopril-Hctz 20-25 mg 1 tab PO DAILY@1600 01/10/21 01/10/21 History [Zestoretic 20-25] Allergies Allergy/AdvReac Type Severity Reaction Status Date / Time No Known Allergies Allergy Verified 01/10/21 07:19 Surgical - Exam Vital Signs Temp Pulse Resp BP Pulse Ox 98 F 99 16 68/47 90 L 01/10/21 00:21 01/10/21 00:21 01/10/21 00:21 01/10/21 00:21 01/10/21 00:21 Results - Labs 01/10/21 10:33 01/10/21 10:33 Abnormal Lab Results - Last 24 Hours (Table) 01/10/21 01/10/21 01/10/21 Range/Units 00:37 00:37 00:37 WBC 29.9 H (3.8-10.6) k/uL RBC 3.45 L (4.30-5.90) m/uL Hgb (13.0-17.5) gm/dL Hct (39.0-53.0) % MCV 115.9 H (80.0-100.0) fL MCH 38.8 H (25.0-35.0) pg RDW 18.5 H (11.5-15.5) % Neutrophils # 27.5 H (1.3-7.7) k/uL Macrocytosis Marked A Sodium 128 L (137-145) mmol/L Potassium 2.7 L* (3.5-5.1) mmol/L Chloride 82 L (98-107) mmol/L Carbon Dioxide 32 H (22-30) mmol/L BUN 38 H (9-20) mg/dL Creatinine 3.28 H (0.66-1.25) mg/dL Glucose 104 H (74-99) mg/dL POC Glucose (mg/dL) (75-99) mg/dL Plasma Lactic Acid Dimitris (0.7-2.0) mmol/L Calcium (8.4-10.2) mg/dL Total Bilirubin 1.4 H (0.2-1.3) mg/dL Troponin I (0.000-0.034) ng/mL Total Protein 6.0 L (6.3-8.2) g/dL Albumin 3.3 L (3.5-5.0) g/dL Procalcitonin (0.02-0.09) ng/mL Urine Protein 1+ H (Negative) Urine Glucose (UA) 3+ H (Negative) Urine Ketones 1+ H (Negative) Urine Blood Small H (Negative) Amorphous Sediment Occasional H (None) /hpf Hyaline Casts 5 H (0-2) /lpf Urine Mucus Rare H (None) /hpf 01/10/21 01/10/21 01/10/21 Range/Units 00:37 00:37 00:37 WBC (3.8-10.6) k/uL RBC (4.30-5.90) m/uL Hgb (13.0-17.5) gm/dL Hct (39.0-53.0) % MCV (80.0-100.0) fL MCH (25.0-35.0) pg RDW (11.5-15.5) % Neutrophils # (1.3-7.7) k/uL Macrocytosis Sodium (137-145) mmol/L Potassium (3.5-5.1) mmol/L Chloride (98-107) mmol/L Carbon Dioxide (22-30) mmol/L BUN (9-20) mg/dL Creatinine (0.66-1.25) mg/dL Glucose (74-99) mg/dL POC Glucose (mg/dL) (75-99) mg/dL Plasma Lactic Acid Dimitris 3.2 H* (0.7-2.0) mmol/L Calcium (8.4-10.2) mg/dL Total Bilirubin (0.2-1.3) mg/dL Troponin I 0.110 H* (0.000-0.034) ng/mL Total Protein (6.3-8.2) g/dL Albumin (3.5-5.0) g/dL Procalcitonin 0.74 H (0.02-0.09) ng/mL Urine Protein (Negative) Urine Glucose (UA) (Negative) Urine Ketones (Negative) Urine Blood (Negative) Amorphous Sediment (None) /hpf Hyaline Casts (0-2) /lpf Urine Mucus (None) /hpf 01/10/21 01/10/21 01/10/21 Range/Units 04:20 06:20 06:40 WBC (3.8-10.6) k/uL RBC (4.30-5.90) m/uL Hgb (13.0-17.5) gm/dL Hct (39.0-53.0) % MCV (80.0-100.0) fL MCH (25.0-35.0) pg RDW (11.5-15.5) % Neutrophils # (1.3-7.7) k/uL Macrocytosis Sodium 129 L (137-145) mmol/L Potassium 3.0 L (3.5-5.1) mmol/L Chloride 96 L (98-107) mmol/L Carbon Dioxide (22-30) mmol/L BUN 37 H (9-20) mg/dL Creatinine 3.17 H (0.66-1.25) mg/dL Glucose (74-99) mg/dL POC Glucose (mg/dL) (75-99) mg/dL Plasma Lactic Acid Dimitris (0.7-2.0) mmol/L Calcium 6.8 L (8.4-10.2) mg/dL Total Bilirubin (0.2-1.3) mg/dL Troponin I 0.110 H* 0.110 H* (0.000-0.034) ng/mL Total Protein 4.5 L (6.3-8.2) g/dL Albumin 2.2 L (3.5-5.0) g/dL Procalcitonin (0.02-0.09) ng/mL Urine Protein (Negative) Urine Glucose (UA) (Negative) Urine Ketones (Negative) Urine Blood (Negative) Amorphous Sediment (None) /hpf Hyaline Casts (0-2) /lpf Urine Mucus (None) /hpf 01/10/21 01/10/21 01/10/21 Range/Units 10:33 10:33 13:39 WBC 30.2 H (3.8-10.6) k/uL RBC 2.74 L (4.30-5.90) m/uL Hgb 10.8 L (13.0-17.5) gm/dL Hct 32.8 L (39.0-53.0) % MCV 119.9 H (80.0-100.0) fL MCH 39.6 H (25.0-35.0) pg RDW 18.5 H (11.5-15.5) % Neutrophils # 27.5 H (1.3-7.7) k/uL Macrocytosis Marked A Sodium 131 L (137-145) mmol/L Potassium 2.8 L (3.5-5.1) mmol/L Chloride (98-107) mmol/L Carbon Dioxide 21 L (22-30) mmol/L BUN 34 H (9-20) mg/dL Creatinine 3.13 H (0.66-1.25) mg/dL Glucose (74-99) mg/dL POC Glucose (mg/dL) 101 H (75-99) mg/dL Plasma Lactic Acid Dimitris (0.7-2.0) mmol/L Calcium 6.8 L (8.4-10.2) mg/dL Total Bilirubin (0.2-1.3) mg/dL Troponin I (0.000-0.034) ng/mL Total Protein (6.3-8.2) g/dL Albumin (3.5-5.0) g/dL Procalcitonin (0.02-0.09) ng/mL Urine Protein (Negative) Urine Glucose (UA) (Negative) Urine Ketones (Negative) Urine Blood (Negative) Amorphous Sediment (None) /hpf Hyaline Casts (0-2) /lpf Urine Mucus (None) /hpf Diabetes panel 01/10/21 01/10/21 01/10/21 Range/Units 00:37 06:20 10:33 Sodium 128 L 129 L 131 L (137-145) mmol/L Potassium 2.7 L* 3.0 L 2.8 L (3.5-5.1) mmol/L Chloride 82 L 96 L 99 (98-107) mmol/L Carbon Dioxide 32 H 23 21 L (22-30) mmol/L BUN 38 H 37 H 34 H (9-20) mg/dL Creatinine 3.28 H 3.17 H 3.13 H (0.66-1.25) mg/dL Glucose 104 H 97 85 (74-99) mg/dL Calcium 8.5 6.8 L 6.8 L (8.4-10.2) mg/dL AST 49 40 (17-59) U/L ALT 27 16 (4-49) U/L Alkaline Phosphatase 73 55 (38-126) U/L Total Protein 6.0 L 4.5 L (6.3-8.2) g/dL Albumin 3.3 L 2.2 L (3.5-5.0) g/dL Calcium panel 01/10/21 01/10/21 01/10/21 Range/Units 00:37 06:20 10:33 Calcium 8.5 6.8 L 6.8 L (8.4-10.2) mg/dL Albumin 3.3 L 2.2 L (3.5-5.0) g/dL Pituitary panel 01/10/21 01/10/21 01/10/21 Range/Units 00:37 06:20 10:33 Sodium 128 L 129 L 131 L (137-145) mmol/L Potassium 2.7 L* 3.0 L 2.8 L (3.5-5.1) mmol/L Chloride 82 L 96 L 99 (98-107) mmol/L Carbon Dioxide 32 H 23 21 L (22-30) mmol/L BUN 38 H 37 H 34 H (9-20) mg/dL Creatinine 3.28 H 3.17 H 3.13 H (0.66-1.25) mg/dL Glucose 104 H 97 85 (74-99) mg/dL Calcium 8.5 6.8 L 6.8 L (8.4-10.2) mg/dL Adrenal panel 01/10/21 01/10/21 01/10/21 Range/Units 00:37 06:20 10:33 Sodium 128 L 129 L 131 L (137-145) mmol/L Potassium 2.7 L* 3.0 L 2.8 L (3.5-5.1) mmol/L Chloride 82 L 96 L 99 (98-107) mmol/L Carbon Dioxide 32 H 23 21 L (22-30) mmol/L BUN 38 H 37 H 34 H (9-20) mg/dL Creatinine 3.28 H 3.17 H 3.13 H (0.66-1.25) mg/dL Glucose 104 H 97 85 (74-99) mg/dL Calcium 8.5 6.8 L 6.8 L (8.4-10.2) mg/dL Total Bilirubin 1.4 H 0.9 (0.2-1.3) mg/dL AST 49 40 (17-59) U/L ALT 27 16 (4-49) U/L Alkaline Phosphatase 73 55 (38-126) U/L Total Protein 6.0 L 4.5 L (6.3-8.2) g/dL Albumin 3.3 L 2.2 L (3.5-5.0) g/dL
--- NOTE | 2021-01-10 16:36 | P.NPCON ---
History of Present Illness - Reason for Consult Consult date: 01/10/21 acute renal failure - Chief Complaint Diarrhea and weakness. - History of Present Illness Coming to the hospital with the above complaints. He denies any renal problems in the past, no previous nephrology care. He had 2-3 days history of diarrhea associated with decreased oral intake. Denies diabetes. History of hypertension takes lisinopril hydrochlorothiazide at home. On admission serum c reatinine was 3.2, potassium of 3 with a sodium of 129. He was hypotensive with a systolic blood pressure in 60s and 70s. He got 6 L of fluid bolus currently on levo. He could not empty the bladder, [place] catheter was placed and currently has 500 ML's of urine in her [place]. He also has history of alcohol abuse. Denies NSAID use or recent contrast studies. Computed tomography scan of the abdomen pelvis consistent with diverticulitis/colitis. CT also shows left atrophic kidney. Review of Systems Constitutional: Reports as per HPI Past Medical History Past Medical History: Hypertension History of Any Multi-Drug Resistant Organisms: None Reported Additional Past Surgical History / Comment(s): Aorta repairt Past Psychological History: No Psychological Hx Reported Smoking Status: Current every day smoker Past Alcohol Use History: Daily Past Drug Use History: None Reported Medications and Allergies Home Medications Medication Instructions Recorded Confirmed Type Allopurinol [Zyloprim] 100 mg PO DAILY@1600 01/10/21 01/10/21 History Lisinopril-Hctz 20-25 mg 1 tab PO DAILY@1600 01/10/21 01/10/21 History [Zestoretic 20-25] Allergies Allergy/AdvReac Type Severity Reaction Status Date / Time No Known Allergies Allergy Verified 01/10/21 07:19 Physical Exam Vitals: Vital Signs Temp Pulse Resp BP Pulse Ox 01/10/21 16:25 98 01/10/21 16:04 98 18 103/68 93 L 01/10/21 15:02 99 18 108/63 88 L 01/10/21 13:58 107 H 18 94/64 93 L 01/10/21 13:04 93 18 80/57 90 L 01/10/21 12:41 98.2 F 104 H 18 82/52 91 L 01/10/21 12:26 90 L 01/10/21 12:20 100 01/10/21 12:08 105 H 20 77/45 01/10/21 12:03 122 H 01/10/21 11:27 123 H 18 92/58 89 L 01/10/21 10:27 115 H 18 87/66 93 L 01/10/21 09:49 83/53 01/10/21 09:21 104 H 16 72/47 94 L 01/10/21 08:03 104 H 16 91/54 96 01/10/21 06:52 102 H 16 79/49 95 01/10/21 04:14 97 18 79/46 97 01/10/21 02:58 96 18 78/48 95 01/10/21 00:51 105 H 16 105/76 98 01/10/21 00:21 98 F 99 16 68/47 90 L Intake and Output 01/10/21 01/10/21 01/10/21 06:59 14:59 22:59 Intake Total 43.508 Balance 43.508 Intake: Intake, IV Titration 43.508 Amount Norepinephrine 4 mg In 43.508 Sodium Chloride 0.9% 250 ml @ 0.05 MCG/KG/MIN 16. 418 mls/hr IV .[id number] [facility] Rx#:[id number] Other: Weight 86.183 kg No acute distress S1-S2 heard Lungs clear Abdomen soft No edema Results - Lab Results Most recent lab results Calcium 6.8 mg/dL (8.4-10.2) L 01/10/21 10:33 01/10/21 10:33 01/10/21 10:33 Assessment and Plan Assessment: #1 acute kidney injury, nonoliguric secondary to prerenal process progressing to hemodynamic ATN. 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 Hemodynamically stable. #2 agree with holding lisinopril and hydrochlorothiazide. Also hold allopuri nol. #3 glycosuria with proteinuria on UA. No history of diabetes. #4 strict ins and outs. #5 avoid nephrotoxic agents. No acute indication for SUPERVISING NURSE at this time.
[2021-01-10 16:57] LABS: Anisocytosis Slight; Basophils % (A) 0 %; Eosinophils # (A) 0.4 k/uL (0-0.7); Eosinophils % (A) 2 %; HCT 34.8 % (39.0-53.0); HGB 11.1 gm/dL (13.0-17.5); Lymphocytes # (A) 0.6 k/uL (1.0-4.8); Lymphocytes % (A) 2 %; MCH 38.9 pg (25.0-35.0); MCV 121.5 fL (80.0-100.0); Mean Platelet Volume 7.3; Monocytes # (A) 0.5 k/uL (0-1.0); Monocytes % (A) 2 %; Neutrophils % (A) 94 %; Platelet Count 181 k/uL (150-450); RBC 2.86 m/uL (4.30-5.90); RDW 18.3 % (11.5-15.5); WBC 28.4 k/uL (3.8-10.6)
[2021-01-10 17:15] LABS: Albumin 2.4 g/dL (3.5-5.0); Potassium 3.1 mmol/L (3.5-5.1); Total Bilirubin 0.9 mg/dL (0.2-1.3); Total Protein 4.7 g/dL (6.3-8.2)
[2021-01-10 17:23] LABS: Macrocytosis Marked; Neutrophils # (A) 26.7 k/uL (1.3-7.7)
[2021-01-10 20:44] LABS: Glucose,Whole Blood 147 mg/dL (75-99)
[2021-01-11] MEDS: SODIUM CHLORIDE 0.9% 1,000 ML IV SCH ×2 (00:25→10:15)
[2021-01-11] MEDS: PIPERACILLIN-TAZOBACTAM 3.375 GM in SODIUM CHLORIDE 0.9% 100 ML IVPB SCH ×3 (02:13→18:00)
[2021-01-11 04:21] LABS: Anisocytosis Slight; Basophils % (A) 0 %; Eosinophils # (A) 0.1 k/uL (0-0.7); Eosinophils % (A) 1 %; HCT 32.1 % (39.0-53.0); HGB 10.9 gm/dL (13.0-17.5); Lymphocytes # (A) 0.7 k/uL (1.0-4.8); Lymphocytes % (A) 3 %; MCH 40.8 pg (25.0-35.0); MCHC 33.8 g/dL (31.0-37.0); MCV 120.5 fL (80.0-100.0); Macrocytosis Marked; Mean Platelet Volume 7.8; Monocytes # (A) 0.4 k/uL (0-1.0); Monocytes % (A) 2 %; Neutrophils # (A) 25.3 k/uL (1.3-7.7); Neutrophils % (A) 95 %; Platelet Count 209 k/uL (150-450); RBC 2.66 m/uL (4.30-5.90); RDW 17.9 % (11.5-15.5); WBC 26.6 k/uL (3.8-10.6)
[2021-01-11 04:44] LABS: Albumin 2.6 g/dL (3.5-5.0); Calcium 7.8 mg/dL (8.4-10.2); Potassium 3.8 mmol/L (3.5-5.1); Total Bilirubin 0.7 mg/dL (0.2-1.3); Total Protein 5.1 g/dL (6.3-8.2)
[2021-01-11] MEDS: NOREPINEPHRINE 4 MG in SODIUM CHLORIDE 0.9% 250 ML IV SCH (05:19)
[2021-01-11] MEDS: methylPREDNISolone SOD SUCCI 40 MG/ML 1 ML VIAL IV SCH ×2 (05:32→09:39)
[2021-01-11 08:14] LABS: Glucose,Whole Blood 149 mg/dL (75-99)
--- NOTE | 2021-01-11 08:53 | P.PN ---
Subjective Progress Note Date: 01/11/21 60-year-old white male patient who follows with [facility] in [place], with louis weldon medical history of hypertension, COPD with home oxygen on as needed basis, 2 pack a day current smoker for 30 years, ETOH (drinks a fifth of vodka daily), previous hx of abdominal aortic aneurysm repair, who presented to the emergency department on 01/10/2021 with a 3 day history of feeling very weak, lightheaded, vomiting and diarrhea. Patient was trying to drink more fluids including electrolyte solutions, but continued to have episodes of vomiting and diarrhea. No fever, no complaints of chest pain, did have increased shortness of breath during episodes of exertion and trying to stand up. Has some wheezing and phlegm production. His lab work showed leukocytosis with a white blood cell count of 29.9, hemoglobin was 13.4, sodium of 128, potassium is 2.7, chloride is 82, CO2 is 32, BUN of 38, creatinine is 3.28, plasma lactic acid was 3.2, LFTs were within normal limits, total bilirubin was 1.4, patient had troponin elevation of 0.110, his viral panel including influenza A and B, RSV and COVID- 19 were negative. Chest x-ray showed patchy medial right base opacity streaky left base opacity. Patient's blood pressure was 68/47, patient is tachycardic but in sinus mechanism. Abdominal and pelvis CT showed findings suggestive of acute diverticulitis involving sigmoid and left colon, colitis was not excluded, there were prominent small bowel loops that could represent a reactive ileus rather than obstruction, there was cholelithiasis, nonobstructing right renal calculi with markedly enlarged left kidney. And there was a abdominal aortic aneurysm measuring 4 cm. Patient has received 4-1/2 L of fluid boluses, and despite that remains hypotensive, requiring vasopressor support initiation, surgical consult was requested. Follow-up labs this morning show sodium of 129, potassium is 3.0, chloride is 96, BUN of 37 and creatinine is 3.17. He was given a dose of Rocephin in the emergency department, and his antibiotic coverage was switched to Zosyn, he continues on IV fluids at 130 ML per hour, he is awaiting placement in the intensive care unit. His most recent lactic acid is down to 1.0. He was started on norepinephrine at 0.05 mics per kilo per minute. No complaints of chest pain, echocardiogram has been ordered and pending, blood urine and sputum cultures are ordered and pending. Patient had an episode of watery bowel movement in the ER, with possibility of blood in it. Surg consult is pending, mild lower abd tenderness to palpation, but no guarding, rigidity, abd soft. On today's evaluation of 02/07/2021, the patient is quite anxious and angry and nervous. He tells me that he has been infected for around 4-5 days and he wants to eat. I told him that I cannot make the decision as long as abdomen is glory hole tender and it final decision hasn't been made by general surgery. He remains nothing by mouth. His white cell count is 26.6. His renal function is abnormal with a creatinine of 3.1 and a BUN of 32. He remains on IV fluids at half-federica l at the rate of 75 mL an hour with multivitamins and the patient is still on IV Zosyn. The patient norepinephrine infusion which is currently running at 0.05 mcg/kg per minute. Urine output is in order of 30-40 mL an hour and the patient has a Medina catheter in place. No signs of any delirium tremens at this point in time. The patient was quite bronchospastic and wheezy on yesterday's evaluat ion and for that reason the patient was started on a combination of bronchodilators and steroids. The patient is also on DuoNeb nebulized units [id number]. His main concern remains food. Objective - Vital Signs Vital signs: Vital Signs Temp 98.5 F 01/10/21 20:00 Pulse 93 01/11/21 06:00 Resp 18 01/11/21 06:00 BP 115/87 01/11/21 06:00 Pulse Ox 91 L 01/11/21 06:00 Intake & Output 01/10/21 01/11/21 01/11/21 18:59 06:59 18:59 Intake Total 329.213 5810.2 Output Total 3250 Balance 242.491 -1984.8 Intake: Intake, IV Titration 159.066 6196.2 Amount Mvi, Adult No.4 with Vit 1011.2 K 10 ml Thiamine 100 mg Folic Acid 1 mg In 0.9% NaCl with KCl 20 Meq/l 1, 000 ml @ 100 mls/hr IV . BY DURATION [facility] Rx#: [id number] Norepinephrine 4 mg In 242.491 254 Sodium Chloride 0.9% 250 ml @ 0.05 MCG/KG/MIN 16. 418 mls/hr IV .[id number] [facility] Rx#:[id number] Output: Urine 3250 - Exam GENERAL EXAM: Alert, very pleasant, 60-year-old white male, seen in the emergency department, resting on the gurney, on room air with pulse ox of 93%, appears weak, but no signs of acute respiratory distress. She is currently on 4 L of oxygen by nasal cannula HEAD: Normocephalic/atraumatic. EYES: Normal reaction of pupils, equal size. Conjunctiva pink, sclera white. NOSE: Clear with pink turbinates. THROAT: No erythema or exudates. NECK: No masses, no JVD, no thyroid enlargement, no adenopathy. CHEST: No chest wall deformity. Symmetrical expansion. LUNGS: Equal air entry with no crackles, wheeze, rhonchi or dullness. CVS: Regular rate and rhythm, normal S1 and S2, no gallops, no murmurs, no rubs ABDOMEN: The patient continues to have tenderness in his lower abdomen bilaterally. Bowel sounds are present. There is direct tenderness. No hepatosplenomegaly, normal bowel sounds, no guarding or rigidity. EXTREMITIES: No clubbing, no edema, no cyanosis, 2+ pulses and upper and lower extremities. MUSCULOSKELETAL: Muscle strength and tone normal. SPINE: No scoliosis or deformity SKIN: No rashes CENTRAL NERVOUS SYSTEM: Alert and oriented -3. No focal deficits, tone is normal in all 4 extremities. PSYCHIATRIC: Alert and oriented -3. Appropriate affect. Intact judgment and insight. - Labs CBC & Chem 7: 01/11/21 03:10 01/11/21 03:10 Labs: Abnormal Lab Results - Last 24 Hours (Table) 01/10/21 01/10/21 01/10/21 Range/Units 00:37 00:37 06:20 WBC (3.8-10.6) k/uL RBC (4.30-5.90) m/uL Hgb (13.0-17.5) gm/dL Hct (39.0-53.0) % MCV (80.0-100.0) fL MCH (25.0-35.0) pg RDW (11.5-15.5) % Neutrophils # (1.3-7.7) k/uL Lymphocytes # (1.0-4.8) k/uL Macrocytosis Sodium 129 L (137-145) mmol/L Potassium 3.0 L (3.5-5.1) mmol/L Chloride 96 L (98-107) mmol/L Carbon Dioxide (22-30) mmol/L BUN 37 H (9-20) mg/dL Creatinine 3.17 H (0.66-1.25) mg/dL Glucose (74-99) mg/dL POC Glucose (mg/dL) (75-99) mg/dL Calcium 6.8 L (8.4-10.2) mg/dL Total Protein 4.5 L (6.3-8.2) g/dL Albumin 2.2 L (3.5-5.0) g/dL Procalcitonin 0.74 H (0.02-0.09) ng/mL Urine Protein 1+ H (Negative) Urine Glucose (UA) 3+ H (Negative) Urine Ketones 1+ H (Negative) Urine Blood Small H (Negative) Amorphous Sediment Occasional H (None) /hpf Hyaline Casts 5 H (0-2) /lpf Urine Mucus Rare H (None) /hpf 01/10/21 01/10/21 01/10/21 Range/Units 10:33 10:33 13:39 WBC 30.2 H (3.8-10.6) k/uL RBC 2.74 L (4.30-5.90) m/uL Hgb 10.8 L (13.0-17.5) gm/dL Hct 32.8 L (39.0-53.0) % MCV 119.9 H (80.0-100.0) fL MCH 39.6 H (25.0-35.0) pg RDW 18.5 H (11.5-15.5) % Neutrophils # 27.5 H (1.3-7.7) k/uL Lymphocytes # (1.0-4.8) k/uL Macrocytosis Marked A Sodium 131 L (137-145) mmol/L Potassium 2.8 L (3.5-5.1) mmol/L Chloride (98-107) mmol/L Carbon Dioxide 21 L (22-30) mmol/L BUN 34 H (9-20) mg/dL Creatinine 3.13 H (0.66-1.25) mg/dL Glucose (74-99) mg/dL POC Glucose (mg/dL) 101 H (75-99) mg/dL Calcium 6.8 L (8.4-10.2) mg/dL Total Protein (6.3-8.2) g/dL Albumin (3.5-5.0) g/dL Procalcitonin (0.02-0.09) ng/mL Urine Protein (Negative) Urine Glucose (UA) (Negative) Urine Ketones (Negative) Urine Blood (Negative) Amorphous Sediment (None) /hpf Hyaline Casts (0-2) /lpf Urine Mucus (None) /hpf 01/10/21 01/10/21 01/10/21 Range/Units 16:41 16:41 20:43 WBC 28.4 H (3.8-10.6) k/uL RBC 2.86 L (4.30-5.90) m/uL Hgb 11.1 L (13.0-17.5) gm/dL Hct 34.8 L (39.0-53.0) % MCV 121.5 H (80.0-100.0) fL MCH 38.9 H (25.0-35.0) pg RDW 18.3 H (11.5-15.5) % Neutrophils # 26.7 H (1.3-7.7) k/uL Lymphocytes # 0.6 L (1.0-4.8) k/uL Macrocytosis Marked A Sodium 132 L (137-145) mmol/L Potassium 3.1 L (3.5-5.1) mmol/L Chloride (98-107) mmol/L Carbon Dioxide 18 L (22-30) mmol/L BUN 32 H (9-20) mg/dL Creatinine 3.07 H (0.66-1.25) mg/dL Glucose 117 H (74-99) mg/dL POC Glucose (mg/dL) 147 H (75-99) mg/dL Calcium 7.0 L (8.4-10.2) mg/dL Total Protein 4.7 L (6.3-8.2) g/dL Albumin 2.4 L (3.5-5.0) g/dL Procalcitonin (0.02-0.09) ng/mL Urine Protein (Negative) Urine Glucose (UA) (Negative) Urine Ketones (Negative) Urine Blood (Negative) Amorphous Sediment (None) /hpf Hyaline Casts (0-2) /lpf Urine Mucus (None) /hpf 01/11/21 01/11/21 01/11/21 Range/Units 03:10 03:10 08:12 WBC 26.6 H (3.8-10.6) k/uL RBC 2.66 L (4.30-5.90) m/uL Hgb 10.9 L (13.0-17.5) gm/dL Hct 32.1 L (39.0-53.0) % MCV 120.5 H (80.0-100.0) fL MCH 40.8 H (25.0-35.0) pg RDW 17.9 H (11.5-15.5) % Neutrophils # 25.3 H (1.3-7.7) k/uL Lymphocytes # 0.7 L (1.0-4.8) k/uL Macrocytosis Marked A Sodium (137-145) mmol/L Potassium (3.5-5.1) mmol/L Chloride 109 H (98-107) mmol/L Carbon Dioxide 20 L (22-30) mmol/L BUN 32 H (9-20) mg/dL Creatinine 3.14 H (0.66-1.25) mg/dL Glucose 117 H (74-99) mg/dL POC Glucose (mg/dL) 149 H (75-99) mg/dL Calcium 7.8 L (8.4-10.2) mg/dL Total Protein 5.1 L (6.3-8.2) g/dL Albumin 2.6 L (3.5-5.0) g/dL Procalcitonin (0.02-0.09) ng/mL Urine Protein (Negative) Urine Glucose (UA) (Negative) Urine Ketones (Negative) Urine Blood (Negative) Amorphous Sediment (None) /hpf Hyaline Casts (0-2) /lpf Urine Mucus (None) /hpf Microbiology - Last 24 Hours (Table) 01/10/21 00:50 Blood Culture - Preliminary Blood No Growth after 24 hours 01/10/21 00:35 Blood Culture - Preliminary Blood No Growth after 24 hours Assessment and Plan Plan: #1. Acute diverticulitis involving the sigmoid and left colon, and possibility of colitis. Patient tested negative for COVID-19, RSV and influenza A and B. The patient presented to leukocytosis and hypotension, possibly septic and the patient is still requiring low-dose pressors. White cell count remains elevated. Abdomen is glory hole tender. Lactic acid level is improved. #2. Vomiting and diarrhea, lightheadedness and dizziness related to dehydration, improved #3. Hypotension, related to hypovolemic and possibly septic shock, related to acute diverticulitis the patient is currently on IV pressors at the low dose. #4. Acute kidney injury related to ATN, dehydration And on today's at 3.1, also suspect an underlying chronic kidney disease based on the CAT scan findings that showed left atrophic kidney #5. Hyponatremia, hypovolemic improvement in sodium level is at 138 #6. Hypochloremic hypokalemia related to diarrhea, improved #7. Elevated troponin, rule out possibility of non-ST elevated [facility] #8. Leukocytosis, related to acute diverticulitis #9. History of hypertension #10. Smoker , 2 pack a day smoker for 30 years #11. Abdominal aortic aneurysm measuring 4 cm seen in the CT of abdomen and pelvis , post repair #12. Nonobstructing right renal calculi, and enlarged left kidney #14. Chronic ETOH abuse, drinks a fifth of vodka daily (last drink a week ago) #15. COPD on home oxygen on as needed basis #16. Acute COPD exacerbation Plan: Continue IV fluids at current rate, patient has received 4 and half liters of fluid boluses Continue norepinephrine infusion, in addition to IV fluids of D5 half-normal saline at rate of 75 mL an hour. Requiring low-dose pressors at this point in time. Try to wean off the pressors over the next 24 hours. Chest x-ray has been reviewed, showing mild bibasilar opacities, possibly atelectasis, or infiltrates Continue with current antibiotic coverage, currently on IV Zosyn Continue the bronchodilators AND IV SOLU-MEDROL TO 40 MG ONCE A DAY. Surgical consultation is pending, keep NPO until seen except for ice chips [facility] protocol Maintain safety precautions Nephrology consultation completed and input is appreciated Lactic acid has improved, electrolytes are improving, replace serum potassium per protocol Troponin level remains elevated, echocardiogram is pending no complaints of chest discomfort Continue close hemodynamic monitoring, patient is awaiting placement in the intensive care unit.
[2021-01-11] MEDS: PANTOPRAZOLE 40 MG/10 ML VIAL IVP SCH ×2 (09:41→22:23)
[2021-01-11] MEDS: POTASSIUM CHLORIDE ER 20 MEQ TAB.ER PO SCH ×3 (09:52→22:24)
[2021-01-11] MEDS: ASPIRIN 81 MG PO SCH (09:52)
[2021-01-11] MEDS: HEPARIN SODIUM,PORCINE/PF 5,000 UNIT/0.5 ML SYRINGE SQ SCH ×2 (09:55→22:24)
[2021-01-11] MEDS: INSULIN ASPART (NovoLOG) 100 UNIT/ML VIAL SQ SCH ×4 (09:57→22:42)
[2021-01-11 10:50] LABS: Glucose,Whole Blood 106 mg/dL (75-99)
[2021-01-11] MEDS: IPRATROPIUM-ALBUTEROL 3 ML NEB INHALATION SCH ×4 (11:20→19:22)
--- NOTE | 2021-01-11 12:00 | P.CRDCN ---
History of Present Illness History of present illness: 60-year-old white male patient who [facility] [place], with past medical history of hypertension, COPD with home oxygen on as needed basis, 1-2 packs a day current smoker for 30 years, ETOH (drinks a fifth of vodka daily and drinks beers), previous hx of abdominal aortic aneurysm repair. 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 We are being consulted for elevated troponin. Patient presented to the emergency department on 01/10/2021 with a 3 day history of feeling very weak, lightheaded, vomiting and diarrhea. He states he became really lightheaded and passed out at home. He had 2-3 days history of diarrhea associated with decreased oral intake. On admission TR, patient's blood pressure 68/47, heart rate 99, 90% on room air. Patient received 4L IV Boluses and required vasopressor support. CMP revealed sodium 128, potassium 2.7, serum creatinine 3.28, lactate 3.2. He denies symptoms of chest pain, palpitations, shortness of breath, lower extremity edema. He denies symptoms of orthopnea or PND. He is a nondiabetic. He denies illicit drug use. Current home cardiac medications include lisinoprilhydrothiazide 2025 milligrams daily. DIAGNOSTICS EKG reveals sinus rhythm, heart rate 97, no significant STT wave abnormalities, prolonged QT. No prior EKG to compare Telemetry tracings indicate sinus tachycardia HR 100s Chest xray patchy medial right base opacity may be aspiration versus infection CT abdomen and pelvis revealed acute diverticulitis involving sigmoid and left colon, colitis was not excluded, there were prominent small bowel loops that co uld represent a reactive ileus rather than obstruction, there was cholelithiasis, nonobstructing right renal calculi with markedly enlarged left kidney. Laboratory reviewed today, sodium 129, potassium 3.0, serum creatinine 3.17, BUN 37, lactate 1.0, liver enzymes within normal limits, COVID-19 negative, viral PCR negative REVIEW OF SYSTEMS At the time of my exam: CONSTITUTIONAL: Denies fever or chills. CARDIOVASCULAR: Denies chest pain, shortness of breath, orthopnea, PND or palpitations. RESPIRATORY: Denies cough. GASTROINTESTINAL: + abdominal pain, +diarrhea, +nausea +vomiting. MUSCULOSKELETAL: Denies myalgias. NEUROLOGIC: Denies numbness, tingling, headacbe or weakness. ENDOCRINE: + fatigue, weight change, polydipsia or polyurina. GENITOURINARY: Denies burning, hematuria or urgency with micturation. HEMATOLOGIC: Denies history of anemia or bleeding. PHYSICAL EXAMINATION Blood pressure 130/76 heart rate 96 afebrile and maintaining oxygen saturation 93% on 5 L high flow nasal cannula CONSTITUTIONAL: No apparent distress. HEENT: Head is normocephalic. Pupils are equal, round. Sclerae anicteric. Mucous membranes of the mouth are moist. No JVD. No carotid bruit. CHEST EXAMINATION: Lungs are clear to auscultation. No chest wall tenderness is noted on palpation or with deep breathing. HEART EXAMINATION: Regular rate and rhythm. S1, S2 heard. No murmurs, gallops or rub. ABDOMEN: Soft, nontender. Positive bowel sounds. EXTREMITIES: 2+ peripheral pulses, no lower extremity edema and no calf tenderness. SKIN: intact NEUROLOGIC EXAMINATION: Patient is awake, alert and oriented x3. ASSESSMENT: -History of hypertension- hypotensive on admission -Acute on chronic kidney injury -Elevated troponin- 0.11 x 3, EKG with no ischemic changes, patient without chest discomfort. Most likely related to hypotension, dehydration and acute kidney injury. -Acute diverticulitis -Alcohol dependence -Nicotine dependence -Hypokalemia- being replaced -Hyponatremia PLAN Obtain 2D echocardiogram and doppler study to assess cardiac structure and function. Will start metoprolol tartrate 12.5mg BID, hold if SBP <100 or HR <60 Surgery, Pulmonary, Nephrology consulted and following patient Smoking and alcohol cessation discussed and highly recommended. Further recommendations based on clinical course. Nurse Practitioner note has been reviewed, I agree with a documented findings and plan of care. Patient was seen and examined. Past Medical History Past Medical History: Hypertension History of Any Multi-Drug Resistant Organisms: None Reported Additional Past Surgical History / Comment(s): Aorta repairt Past Psychological History: No Psychological Hx Reported Smoking Status: Current every day smoker Past Alcohol Use History: Daily Past Drug Use History: None Reported - Past Family History Father Additional Family Medical History / Comment(s): Pt declined answering. Mother Additional Family Medical History / Comment(s): Pt declined answering. Medications and Allergies Home Medications Medication Instructions Recorded Confirmed Type Allopurinol [Zyloprim] 100 mg PO DAILY@1600 01/10/01/10/21 History Lisinopril-Hctz 20-25 mg 1 tab PO DAILY@159901/10/21 01/10/21 History [Zestoretic 20-25] Allergies Allergy/AdvReac Type Severity Reaction Status Date / Time No Known Allergies Allergy Verified 01/10/21 07:19 Physical Exam Vitals: Vital Signs Temp Pulse Resp BP Pulse Ox 01/11/21 09:29 124/81 01/11/21 09:00 96 20 130/76 92 L 01/11/21 08:00 102 H 18 133/90 93 L 01/11/21 07:00 86 18 115/81 95 01/11/21 06:00 93 18 115/87 91 L 01/11/21 05:00 91 18 96/68 92 L 01/11/21 04:00 94 18 120/97 92 L 01/11/21 03:00 91 17 110/70 91 L 01/11/21 02:00 95 16 109/76 90 L 01/11/21 01:00 107 H 18 115/78 92 L 01/11/21 00:05 100 18 110/73 93 L 01/11/21 00:00 105 H 16 113/74 92 L 01/10/21 23:00 103 H 18 93/63 92 L 01/10/21 22:00 108 H 18 104/64 92 L 01/10/21 21:00 105 H 18 107/69 93 L 01/10/21 20:29 93 L 01/10/21 20:28 101 H 01/10/21 20:17 98 01/10/21 20:00 98.5 F 98 20 104/67 93 L 01/10/21 18:57 98.1 F 99 18 102/67 92 L 01/10/21 18:08 100 18 103/73 92 L 01/10/21 17:02 98 18 95/65 93 L 01/10/21 16:33 95 01/10/21 16:25 98 01/10/21 16:04 98 18 103/68 93 L 01/10/21 15:02 99 18 108/63 88 L 01/10/21 13:58 107 H 18 94/64 93 L 01/10/21 13:04 93 18 80/57 90 L 01/10/21 12:41 98.2 F 104 H 18 82/52 91 L 01/10/21 12:26 90 L 01/10/21 12:20 100 01/10/21 12:08 105 H 20 77/45 01/10/21 12:03 122 H 01/10/21 11:27 123 H 18 92/58 89 L 01/10/21 10:27 115 H 18 87/66 93 L 01/10/21 09:49 83/53 Intake and Output 01/10/21 01/11/21 01/11/21 22:59 06:59 14:59 Intake Total 856.845 1155.2 98.014 Output Total 1350 1900 250 Balance -1151.017 -634.8 -151.986 Intake: Intake, IV Titration 023.404 2901.2 98.014 Amount Mvi, Adult No.4 with Vit 1011.2 K 10 ml Thiamine 100 mg Folic Acid 1 mg In 0.9% NaCl with KCl 20 Meq/l 1, 000 ml @ 100 mls/hr IV . BY DURATION [facility] Rx#: [id number] Norepinephrine 4 mg In 198.983 254 98.014 Sodium Chloride 0.9% 250 ml @ 0.05 MCG/KG/MIN 16. 418 mls/hr IV .[id number] [facility] Rx#:[id number] Output: Urine 1350 1900 250 Results 01/11/21 03:10 01/11/21 03:10 Cardiac Enzymes 01/10/21 01/10/21 01/11/21 Range/Units 06:20 16:41 03:10 AST 40 38 40 (17-59) U/L CBC 01/10/21 01/10/21 01/11/21 Range/Units 10:33 16:41 03:10 WBC 30.2 H 28.4 H 26.6 H (3.8-10.6) k/uL RBC 2.74 L 2.86 L 2.66 L (4.30-5.90) m/uL Hgb 10.8 L 11.1 L 10.9 L (13.0-17.5) gm/dL Hct 32.8 L 34.8 L 32.1 L (39.0-53.0) % Plt Count 171 181 209 (150-450) k/uL Comprehensive Metabolic Panel 01/10/21 01/10/21 01/10/21 Range/Units 06:20 10:33 16:41 Sodium 129 L 131 L 132 L (137-145) mmol/L Potassium 3.0 L 2.8 L 3.1 L (3.5-5.1) mmol/L Chloride 96 L 99 105 (98-107) mmol/L Carbon Dioxide 23 21 L 18 L (22-30) mmol/L BUN 37 H 34 H 32 H (9-20) mg/dL Creatinine 3.17 H 3.13 H 3.07 H (0.66-1.25) mg/dL Glucose 97 85 117 H (74-99) mg/dL Calcium 6.8 L 6.8 L 7.0 L (8.4-10.2) mg/dL AST 40 38 (17-59) U/L ALT 16 18 (4-49) U/L Alkaline Phosphatase 55 59 (38-126) U/L Total Protein 4.5 L 4.7 L (6.3-8.2) g/dL Albumin 2.2 L 2.4 L (3.5-5.0) g/dL 01/11/21 Range/Units 03:10 Sodium 138 (137-145) mmol/L Potassium 3.8 (3.5-5.1) mmol/L Chloride 109 H (98-107) mmol/L Carbon Dioxide 20 L (22-30) mmol/L BUN 32 H (9-20) mg/dL Creatinine 3.14 H (0.66-1.25) mg/dL Glucose 117 H (74-99) mg/dL Calcium 7.8 L (8.4-10.2) mg/dL AST 40 (17-59) U/L ALT 20 (4-49) U/L Alkaline Phosphatase 75 (38-126) U/L Total Protein 5.1 L (6.3-8.2) g/dL Albumin 2.6 L (3.5-5.0) g/dL Current Medications Generic Name Dose Route Start Last Admin Trade Name Freq PRN Reason Stop Dose Admin Acetaminophen 650 mg 01/10/21 03:07 01/10/21 09:35 Acetaminophen Tab 325 Mg Tab PO 650 mg Q6HR PRN Administration Mild Pain or Fever > 100.5 Albuterol/Ipratropium 3 ml 01/10/21 12:00 01/10/21 20:16 Ipratropium-Albuterol 3 Ml Neb INHALATION 3 ml RT-QID [facility] Administration Albuterol/Ipratropium 3 ml 01/10/21 11:47 Ipratropium-Albuterol 3 Ml Neb INHALATION RT-Q2H PRN Shortness Of Breath Or Wheezing Aspirin 81 mg 01/10/21 09:00 01/10/21 09:35 Aspirin 81 Mg PO 81 mg DAILY [facility] Administration Heparin Sodium (Porcine) 5,000 unit 01/10/21 09:00 01/10/21 20:37 Heparin Sodium,Porcine/Pf 5,000 Unit/0.5 Ml Syringe SQ 5,000 unit Q12HR [facility] Administration Piperacillin Sod/Tazobactam 100 mls @ 25 mls/hr 01/10/21 10:00 01/11/21 02:13 Sod 3.375 gm/ Sodium Chloride IVPB 25 mls/hr Q8H [facility] Administration Norepinephrine Bitartrate 4 mg 254 mls @ 16.418 mls/hr 01/10/21 10:00 01/11/21 08:38 / Sodium Chloride IV 0.05 mcg/kg/min .[id number] [facility] 16.418 mls/hr Titration Protocol 0.05 MCG/KG/MIN Parenteral Vitamin Supplement 1,011.2 mls @ 100 mls/hr 01/10/21 13:00 01/11/21 02:04 10 ml/ Thiamine HCl 100 mg/ IV Infused Folic Acid 1 mg/ Potassium .BY DURATION [facility] Infusion Chloride/Sodium Chloride Potassium Chloride/Sodium Chloride 1,000 mls @ 100 mls/hr 01/10/21 13:00 01/11/21 02:13 Ns-Kcl 20 Meq/L Iv Solution IV 100 mls/hr .BY DURATION [facility] Administration Insulin Aspart 0 unit 01/10/21 12:30 01/10/21 21:16 Insulin Aspart (Novolog) 100 Unit/Ml Vial SQ Not Given ACHS [facility] Protocol Lorazepam 1 mg 01/10/21 03:10 Lorazepam 2 Mg/Ml Inj IV Q2HR PRN CIWA 8 or 9 Lorazepam 1 mg 01/10/21 03:10 Lorazepam 2 Mg/Ml Inj IV Q1HR PRN CIWA 10 to 15 Lorazepam 2 mg 01/10/21 03:10 Lorazepam 2 Mg/Ml Inj IV 01/12/21 03:10 Q10M PRN CIWA 16 or higher Methylprednisolone Sodium Succinate 40 mg 01/11/21 09:00 Methylprednisolone Sod Succi 40 Mg/Ml 1 Ml Vial IV DAILY [facility] Naloxone HCl 0.2 mg 01/10/21 03:07 Naloxone 0.4 Mg/Ml 1 Ml Vial IV Q2M PRN Opioid Reversal Ondansetron HCl 4 mg 01/10/21 03:07 Ondansetron 4 Mg/2 Ml Vial IVP Q8HR PRN Nausea And Vomiting Pantoprazole Sodium 40 mg 01/10/21 12:00 01/10/21 20:34 Pantoprazole 40 Mg/10 Ml Vial IVP 40 mg BID [facility] Administration Potassium Chloride 40 meq 01/10/21 09:00 01/10/21 21:21 Potassium Chloride Er 20 Meq Tab.Er PO 40 meq TID [facility] Administration Intake and Output 01/10/21 01/11/21 01/11/21 22:59 06:59 14:59 Intake Total 407.781 2985.2 98.014 Output Total 1350 1900 250 Balance -1151.017 -634.8 -151.986 Intake: Intake, IV Titration 133.513 3199.2 98.014 Amount Mvi, Adult No.4 with Vit 1011.2 K 10 ml Thiamine 100 mg Folic Acid 1 mg In 0.9% NaCl with KCl 20 Meq/l 1, 000 ml @ 100 mls/hr IV . BY DURATION [facility] Rx#: [id number] Norepinephrine 4 mg In 198.983 254 98.014 Sodium Chloride 0.9% 250 ml @ 0.05 MCG/KG/MIN 16. 418 mls/hr IV .[id number] [facility] Rx#:[id number] Output: Urine 1350 1900 250 01/11/21 03:10 01/11/21 03:10
[2021-01-11] MEDS ORDERED: SODIUM CHLORIDE 0.9% 1,000 ML IV SCH (12:30)
--- NOTE | 2021-01-11 12:59 | ECHOF ---
Referral Reason:Rule out heart disease MEASUREMENTS -------- HEIGHT: 167.6 cm WEIGHT: 86.2 kg BP: RVIDd: 3.2 cm (< 3.3) IVSd: 1.1 cm (0.6 - 1.1) LVIDd: 4.0 cm (3.9 - 5.3) LVPWd: 1.1 cm (0.6 - 1.1) IVSs: 2.0 cm LVIDs: 3.1 cm LVPWs: 1.9 cm LAESV Index (A-L): 22.24 ml/m Ao Diam: 3.9 cm (2.0 - 3.7) AV Cusp: 2.3 cm (1.5 - 2.6) LA Diam: 2.9 cm (2.7 - 3.8) MV EXCURSION: 8.330 mm (> 18.000) MV EF SLOPE: 97 mm/s (70 - 150) EPSS: 1.1 cm MV E Uriah: 0.74 m/s MV DecT: 105 ms MV A Uriah: 1.07 m/s MV E/A Ratio: 0.69 RAP: 20.00 mmHg RVSP: 42.25 mmHg FINDINGS -------- This was a technically good study. The left ventricular size is normal. Left ventricular wall thickness is normal. Overall left vent ricular systolic function is normal with, an EF between 55 - 60 %. Normal LAP Grade 1 Diastolic Dys function. The right ventricle is normal in size. The left atrial size is normal. Normal LA size by volume 22+/-6 ml/m2. The right atrial size is normal. Suboptimal images of the intratrial septum. Cannot exclude ASD with possible color flow noted howeve r no RV or RA enlargement noted. May conisder BOYD or bubble study if clinical concern of ASD/PFO. The aortic valve is trileaflet and appears structurally normal. The mitral valve is normal. Mild mitral regurgitation is present. The tricuspid valve appears structurally normal. Mild tricuspid regurgitation present. There is m ild pulmonary hypertension. The right ventricular systolic pressure, as measured by Doppler, is 42. 25mmHg. There is no pulmonic regurgitation present. The aortic root and ascending aorta are dilated measuring up to 3.9 cm. The inferior vena cava is dilated with no significant inspiratory collapse which is consistent estima rupa right atrial pressure of >20 mmHg. There is no pericardial effusion. CONCLUSIONS -------- 1. The left ventricular size is normal. 2. Left ventricular wall thickness is normal. 3. Overall left ventricular systolic function is normal with, an EF between 55 - 60 %. 4. Normal LAP Grade 1 Diastolic Dysfunction. 5. Suboptimal images of the intratrial septum. Cannot exclude ASD with possible color flow noted how ever no RV or RA enlargement noted. May conisder BOYD or bubble study if clinical concern of ASD/PFO. 6. Mild mitral regurgitation is present. 7. Mild tricuspid regurgitation present. 8. There is mild pulmonary hypertension. 9. The right ventricular systolic pressure, as measured by Doppler, is 42.25mmHg. 10. The aortic root and ascending aorta are dilated measuring up to 3.9 cm. 11. There is no pericardial effusion. BAR CAPTAIN: Roselia Chavira RDCS
--- NOTE | 2021-01-11 13:10 | P.PN ---
<Yoana Tarango - Last Filed: 01/11/21 13:01> Subjective Progress Note Date: 01/11/21 CHIEF COMPLAINT: Abdominal pain HISTORY OF PRESENT ILLNESS: he patient is a 60-year-old male presented acutely to the emergency room with generalized abdominal pain. Reports his abdominal pain has been lower abdominal ongoing for over 3 days since . He presented with elevated lactate over 3.0. He also came with acute renal failure creatinine over 3.0. With his abdominal pain, additional diagnostic studies were obtained. Features are consistent with diverticulitis. Last colonoscopy 7 years ago with history of polyps. Patient is currently in the ICU. Patient has had no improvement in abdominal pain. He has been hypotensive and required vasopressors. Afebrile. WBC 26.6 hemoglobin 10.9 platelets 209 sodium 138 creatinine 3.14 PHYSICAL EXAM: VITAL SIGNS: Reviewed GENERAL: Well-developed in no acute distress. HEENT: No sclera icterus. Extraocular movements grossly intact. Moist buccal mucosa. Head is atraumatic, normocephalic. Hears conversational speech. No nasal drainage. NECK: Supple without lymphadenopathy. CHEST: Non-labored respirations and equal bilateral excursions. CARDIOVASCULAR: Palpable 2+ radial pulses. ABDOMEN: Tenderness bilateral lower abdomen MUSCULOSKELETAL: No clubbing or cyanosis. NEUROLOGIC: No focal or lateralizing signs. Cranial nerves II through XII grossly intact. PSYCH: Patient is slightly confused. He did know the month and his name. SKIN: Well perfused. Good skin turgor. ASSESSMENT: 1. Diverticulitis with sepsis 2. Lactic acidosis with acute renal failure 3. Elevated troponins being followed by cardiology 4. Daily alcohol use PLAN: -Keep patient nothing by mouth except for ice chips -Continue to monitor patient closely -Continue antibiotics -Continue CIWA protocol and banana bag -Continue ICU management -Continue supportive care Physician Desktop Publishing Associate note has been reviewed by physician. Signing provider agrees with the documented findings, assessment, and plan of care. Objective - Vital Signs Vital signs: Vital Signs Temp 98.5 F 01/10/21 20:00 Pulse 97 01/11/21 09:30 Resp 13 01/11/21 09:30 BP 124/81 01/11/21 09:30 Pulse Ox 93 L 01/11/21 09:30 Intake & Output 01/10/21 01/11/21 01/11/21 18:59 06:59 18:59 Intake Total 129.261 2671.2 98.014 Output Total 3250 375 Balance 242.491 -1984.8 -276.986 Weight 86.183 kg Intake: Intake, IV Titration 932.269 9748.2 98.014 Amount Mvi, Adult No.4 with Vit 1011.2 K 10 ml Thiamine 100 mg Folic Acid 1 mg In 0.9% NaCl with KCl 20 Meq/l 1, 000 ml @ 100 mls/hr IV . BY DURATION [facility] Rx#: [id number] Norepinephrine 4 mg In 242.491 254 98.014 Sodium Chloride 0.9% 250 ml @ 0.05 MCG/KG/MIN 16. 418 mls/hr IV .[id number] [facility] Rx#:[id number] Output: Urine 3250 375 - Labs CBC & Chem 7: 01/11/21 03:10 01/11/21 03:10 Labs: Abnormal Lab Results - Last 24 Hours (Table) 01/10/21 01/10/21 01/10/21 Range/Units 13:39 16:41 16:41 WBC 28.4 H (3.8-10.6) k/uL RBC 2.86 L (4.30-5.90) m/uL Hgb 11.1 L (13.0-17.5) gm/dL Hct 34.8 L (39.0-53.0) % MCV 121.5 H (80.0-100.0) fL MCH 38.9 H (25.0-35.0) pg RDW 18.3 H (11.5-15.5) % Neutrophils # 26.7 H (1.3-7.7) k/uL Lymphocytes # 0.6 L (1.0-4.8) k/uL Macrocytosis Marked A Sodium 132 L (137-145) mmol/L Potassium 3.1 L (3.5-5.1) mmol/L Chloride (98-107) mmol/L Carbon Dioxide 18 L (22-30) mmol/L BUN 32 H (9-20) mg/dL Creatinine 3.07 H (0.66-1.25) mg/dL Glucose 117 H (74-99) mg/dL POC Glucose (mg/dL) 101 H (75-99) mg/dL Calcium 7.0 L (8.4-10.2) mg/dL Total Protein 4.7 L (6.3-8.2) g/dL Albumin 2.4 L (3.5-5.0) g/dL 01/10/21 01/11/21 01/11/21 Range/Units 20:43 03:10 03:10 WBC 26.6 H (3.8-10.6) k/uL RBC 2.66 L (4.30-5.90) m/uL Hgb 10.9 L (13.0-17.5) gm/dL Hct 32.1 L (39.0-53.0) % MCV 120.5 H (80.0-100.0) fL MCH 40.8 H (25.0-35.0) pg RDW 17.9 H (11.5-15.5) % Neutrophils # 25.3 H (1.3-7.7) k/uL Lymphocytes # 0.7 L (1.0-4.8) k/uL Macrocytosis Marked A Sodium (137-145) mmol/L Potassium (3.5-5.1) mmol/L Chloride 109 H (98-107) mmol/L Carbon Dioxide 20 L (22-30) mmol/L BUN 32 H (9-20) mg/dL Creatinine 3.14 H (0.66-1.25) mg/dL Glucose 117 H (74-99) mg/dL POC Glucose (mg/dL) 147 H (75-99) mg/dL Calcium 7.8 L (8.4-10.2) mg/dL Total Protein 5.1 L (6.3-8.2) g/dL Albumin 2.6 L (3.5-5.0) g/dL 01/11/21 01/11/21 Range/Units 08:12 10:46 WBC (3.8-10.6) k/uL RBC (4.30-5.90) m/uL Hgb (13.0-17.5) gm/dL Hct (39.0-53.0) % MCV (80.0-100.0) fL MCH (25.0-35.0) pg RDW (11.5-15.5) % Neutrophils # (1.3-7.7) k/uL Lymphocytes # (1.0-4.8) k/uL Macrocytosis Sodium (137-145) mmol/L Potassium (3.5-5.1) mmol/L Chloride (98-107) mmol/L Carbon Dioxide (22-30) mmol/L BUN (9-20) mg/dL Creatinine (0.66-1.25) mg/dL Glucose (74-99) mg/dL POC Glucose (mg/dL) 149 H 106 H (75-99) mg/dL Calcium (8.4-10.2) mg/dL Total Protein (6.3-8.2) g/dL Albumin (3.5-5.0) g/dL Microbiology - Last 24 Hours (Table) 01/10/21 00:50 Blood Culture - Preliminary Blood No Growth after 24 hours 01/10/21 00:35 Blood Culture - Preliminary Blood No Growth after 24 hours <Shiloh Zee N - Last Filed: 01/11/21 19:36> Subjective Patient seen and evaluated. Has left lower quadrant abdominal pain. Continue nothing by mouth. Objective - Vital Signs Vital signs: Vital Signs Temp 97.8 F 01/11/21 16:00 Pulse 105 H 01/11/21 18:00 Resp 22 01/11/21 18:00 BP 136/94 01/11/21 18:00 Pulse Ox 91 L 01/11/21 18:00 Intake & Output 01/11/21 01/11/21 01/12/21 06:59 18:59 06:59 Intake Total 1265.2 798.014 Output Total 3250 970 Balance -1984.8 -171.986 Weight 86.183 kg Intake: Intake, IV Titration 1265.2 798.014 Amount 0.9% NaCl with KCl 20 Meq 700 /l 1,000 ml @ 100 mls/hr IV .BY DURATION [facility] Rx#: [id number] Mvi, Adult No.4 with Vit 1011.2 K 10 ml Thiamine 100 mg Folic Acid 1 mg In 0.9% NaCl with KCl 20 Meq/l 1, 000 ml @ 75 mls/hr IV .BY DURATION [facility] Rx#: [id number] Norepinephrine 4 mg In 254 98.014 Sodium Chloride 0.9% 250 ml @ 0.05 MCG/KG/MIN 16. 418 mls/hr IV .[id number] [facility] Rx#:[id number] Output: Urine 3250 970 Other: Voiding Method Indwelling Catheter - Labs CBC & Chem 7: 01/11/21 03:10 01/11/21 03:10 Labs: Abnormal Lab Results - Last 24 Hours (Table) 01/10/21 01/11/21 01/11/21 Range/Units 20:43 03:10 03:10 WBC 26.6 H (3.8-10.6) k/uL RBC 2.66 L (4.30-5.90) m/uL Hgb 10.9 L (13.0-17.5) gm/dL Hct 32.1 L (39.0-53.0) % MCV 120.5 H (80.0-100.0) fL MCH 40.8 H (25.0-35.0) pg RDW 17.9 H (11.5-15.5) % Neutrophils # 25.3 H (1.3-7.7) k/uL Lymphocytes # 0.7 L (1.0-4.8) k/uL Macrocytosis Marked A Chloride 109 H (98-107) mmol/L Carbon Dioxide 20 L (22-30) mmol/L BUN 32 H (9-20) mg/dL Creatinine 3.14 H (0.66-1.25) mg/dL Glucose 117 H (74-99) mg/dL POC Glucose (mg/dL) 147 H (75-99) mg/dL Calcium 7.8 L (8.4-10.2) mg/dL Total Protein 5.1 L (6.3-8.2) g/dL Albumin 2.6 L (3.5-5.0) g/dL 01/11/21 01/11/21 01/11/21 Range/Units 08:12 10:46 16:37 WBC (3.8-10.6) k/uL RBC (4.30-5.90) m/uL Hgb (13.0-17.5) gm/dL Hct (39.0-53.0) % MCV (80.0-100.0) fL MCH (25.0-35.0) pg RDW (11.5-15.5) % Neutrophils # (1.3-7.7) k/uL Lymphocytes # (1.0-4.8) k/uL Macrocytosis Chloride (98-107) mmol/L Carbon Dioxide (22-30) mmol/L BUN (9-20) mg/dL Creatinine (0.66-1.25) mg/dL Glucose (74-99) mg/dL POC Glucose (mg/dL) 149 H 106 H 107 H (75-99) mg/dL Calcium (8.4-10.2) mg/dL Total Protein (6.3-8.2) g/dL Albumin (3.5-5.0) g/dL Microbiology - Last 24 Hours (Table) 01/10/21 00:50 Blood Culture - Preliminary Blood No Growth after 24 hours 01/10/21 00:35 Blood Culture - Preliminary Blood No Growth after 24 hours
--- NOTE | 2021-01-11 13:16 | PN ---
PROGRESS NOTE Patient is seen for followup for acute kidney injury. He was admitted to the hospital with a creatinine of 3.28. It is down to about 3.0 to 3.1 now. No previous labs available for comparison. The patient was hypotensive requiring Levophed. He currently just come off of Levophed. CAT scan shows evidence of possible diverticulitis, acute diverticulitis involving the sigmoid and left colon. The patient has nonobstructive right renal calculi and right kidney is atrophic. Left kidney appears larger, but no hydronephrosis was noted. Urine output currently for 24 hours was about 3.2 L. Overall patient states he is feeling better. PHYSICAL EXAMINATION: On examination today, blood pressure 124/81, heart rate 96 per minute. He is afebrile. EXAMINATION OF THE HEART: S1, S2. EXAMINATION OF THE LUNGS: Bilateral breath sounds are heard. Abdomen is soft, nontender. Examination of lower extremities shows no evidence of edema. 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 LABS: Labs show hemoglobin 10.9, white cell count 26.6, sodium 138, potassium 3.8, BUN 32, creatinine 3.1. UA shows 1+ protein, ketones and small blood noted, WBCs 3. ASSESSMENT: 1. Acute kidney injury, acute tubular necrosis, secondary to hypotension, sepsis, currently nonoliguric with creatinine staying at about 3.0-3.1. Admission creatinine was 3.29. The patient is maintained on IV fluids. He was on KELLI inhibitors and diuretics which are currently on hold. The patient does have an atrophic right kidney. 2. Sepsis with diverticulitis. 3. Possible underlying chronic kidney disease, most likely from ischemic nephropathy with atrophic left kidney. 4. History of abdominal aortic aneurysm. 5. History of chronic obstructive pulmonary disease. 6. Hypovolemic hyponatremia. 7. Hypokalemia secondary to gastrointestinal fluid loss from diarrhea. PLAN: Repeat labs in a.m. Continue with antibiotics. Continue with IV fluids and avoid nephrotoxic agents. MMODL / IJN: [id number] /
[2021-01-11] MEDS: METOPROLOL TARTRATE 12.5 MG TAB PO SCH ×3 (13:18→15:59)
[2021-01-11] MEDS: NICOTINE 21MG/24HR PATCH TRANSDERM SCH (16:00)
[2021-01-11 16:39] LABS: Glucose,Whole Blood 107 mg/dL (75-99)
[2021-01-11] MEDS: DEXTROSE 5%-0.45% NACL 1,000 ML IV SCH (22:25)
[2021-01-11 22:40] LABS: Glucose,Whole Blood 96 mg/dL (75-99)
[2021-01-12] MEDS: LORazepam 2 MG/ML INJ IV PRN ×2 (00:43→04:40)
[2021-01-12] MEDS: PIPERACILLIN-TAZOBACTAM 3.375 GM in SODIUM CHLORIDE 0.9% 100 ML IVPB SCH ×2 (02:23→10:39)
--- NOTE | 2021-01-12 04:08 | P.PN ---
Subjective This is a pleasant 6 years old male with a cigarette smoker and past medical history of hypertension. He follows up in the [facility] clinic. Patient presents with nausea vomiting and diarrhea for 3 days duration. Patient for the last couple days stating that he feels dehydrated and he has postural dizziness whenever he has to stand up he cannot and he has to crawl to the restroom. Also he is complaining of from some abdominal pain around the umbilicus but he is more tenderness in the left lower quadrant, no rebound tenderness. His pain currently is 67/10, it was 5/10 yesterday. Threadlike pinching pain is been going on for 3 days. Also patient has been vomiting. His vomiting stopped today. He has diarrhea about twice yesterday, it looked soft brown with no blood in it. He denies any respiratory symptoms no chest pain or dyspnea or coughing He smokes 1 pack per day and he was counseled and wants to quit but he declined nicotine patch. He drinks alcohol occasionally and he did not drink anything for the last 4 days as he states. No illicit drugs. Blood pressure on the low side currently 79/49, slightly tachycardic at 102. Afebrile and his saturation 95% on 2 L , Not showing leukocytosis of 29.9, hemoglobin 13.4. INR is 1.0. Sodium is 128, potassium 2.7, creatinine 3.2, unknown baseline. Troponin are elevated 0.12. Boyce virus and influenza virus are not detected EKG showing normal sinus rhythm at [address] depression on the lateral lytes. QTC is 553. Chest x-ray:Patchy medial right base opacity which may be due to aspiration or infection. Streaky left basilar opacity favored to be due to atelectasis in the emergency room he got about 4.5 L of normal saline, and currently his fluids running at 1:30 milliliters per hour. Blood pressure is 76/44 He did get some Levophed yesterday but it was stopped later on CT of the abdomen and pelvis ordered and results pending 01/11/2021 this is a pleasant 6 years old male who presents with diverticulitis with secondary mild septic shock currently on low dose pressors of levophed and IV fluids. Patient was sitting up in bed does not look in distress however he still complaining from left lower quadrant pain and tenderness. 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 Creatinine is stable around 23 and currently 3.14, most likely secondary to sepsis and hypotension on the top of he was using KELLI inhibitor and diuretics which are old. Also patient with history of atrophic right kidney. He is not oliguric. His oxygen saturations as an 90s with 3 L via nasal cannula. Surgery team on board and the recommend may keep monitoring the patient. Patient is currently covered with [employer]. Also he is on CIWA protocol and Solu- Medrol 40 mg prescribed for him by Dr. Christianson yesterday Review of Systems CONSTITUTIONAL: No fever, no malaise, no fatigue. HEENT: No recent visual problems or hearing problems. Denied any sore throat. CARDIOVASCULAR: No orthopnea, PND, no palpitations, no syncope. PULMONARY: No shortness of breath, no cough, no hemoptysis. GASTROINTESTINAL: No constipation. Normoactive bowel sounds. Active Medications Generic Name Dose Route Start Last Admin Trade Name Freq PRN Reason Stop Dose Admin Acetaminophen 650 mg 01/10/21 03:07 01/10/21 09:35 Acetaminophen Tab 325 Mg Tab PO 650 mg Q6HR PRN Administration Mild Pain or Fever > 100.5 Albuterol/Ipratropium 3 ml 01/10/21 12:00 01/11/21 19:22 Ipratropium-Albuterol 3 Ml Neb INHALATION Not Given RT-QID [facility] Albuterol/Ipratropium 3 ml 01/10/21 11:47 Ipratropium-Albuterol 3 Ml Neb INHALATION RT-Q2H PRN Shortness Of Breath Or Wheezing Aspirin 81 mg 01/10/21 09:00 01/11/21 09:52 Aspirin 81 Mg PO 81 mg DAILY KERMIT Administration Heparin Sodium (Porcine) 5,000 unit 01/10/21 09:00 01/11/21 22:24 Heparin Sodium,Porcine/Pf 5,000 Unit/0.5 Ml Syringe SQ 5,000 unit Q12HR KERMIT Administration Piperacillin Sod/Tazobactam 100 mls @ 25 mls/hr 01/10/21 10:00 01/11/21 18:00 Sod 3.375 gm/ Sodium Chloride IVPB 25 mls/hr Q8H K[facility] Administration Norepinephrine Bitartrate 4 mg 254 mls @ 16.418 mls/hr 01/10/21 10:00 01/11/21 08:38 / Sodium Chloride IV 0.05 mcg/kg/min .[id number] KERMIT 16.418 mls/hr Titration Protocol 0.05 MCG/KG/MIN Dextrose/Sodium Chloride 1,000 mls @ 75 mls/hr 01/11/21 22:30 01/11/21 22:25 Dextrose 5%-1/2ns Iv Soln IV 75 mls/hr .[id number] KERMIT Administration Parenteral Vitamin Supplement 1,011.2 mls @ 75 mls/hr 01/12/21 01:30 10 ml/ Thiamine HCl 100 mg/ IV Folic Acid 1 mg/ Potassium .BY DURATION KERMIT Chloride/Sodium Chloride Potassium Chloride/Sodium Chloride 1,000 mls @ 100 mls/hr 01/12/21 01:30 01/12/21 02:23 Ns-Kcl 20 Meq/L Iv Solution IV 100 mls/hr .BY DURATION [facility]MIT Administration Insulin Aspart 0 unit 01/10/21 12:30 01/11/21 22:42 Insulin Aspart (Novolog) 100 Unit/Ml Vial SQ Not Given ACHS [facility] Protocol Lorazepam 1 mg 01/10/21 03:10 01/11/21 09:44 Lorazepam 2 Mg/Ml Inj IV 1 mg Q2HR PRN Administration CIWA 8 or 9 Lorazepam 1 mg 01/10/21 03:10 01/12/21 00:43 Lorazepam 2 Mg/Ml Inj IV 1 mg Q1HR PRN Administration CIWA 10 to 15 Methylprednisolone Sodium Succinate 40 mg 01/11/21 09:00 01/11/21 09:39 Methylprednisolone Sod Succi 40 Mg/Ml 1 Ml Vial IV 40 mg DAILY KERMIT Administration Metoprolol Tartrate 12.5 mg 01/11/21 10:00 01/11/21 15:59 Metoprolol Tartrate 12.5 Mg Tab PO Not Given BID KERMIT Naloxone HCl 0.2 mg 01/10/21 03:07 Naloxone 0.4 Mg/Ml 1 Ml Vial IV Q2M PRN Opioid Reversal Nicotine 1 patch 01/11/21 15:15 01/11/21 16:00 Nicotine 21mg/24hr Patch TRANSDERM 1 patch DAILY KER[facility] Administration Ondansetron HCl 4 mg 01/10/21 03:07 Ondansetron 4 Mg/2 Ml Vial IVP Q8HR PRN Nausea And Vomiting Pantoprazole Sodium 40 mg 01/10/21 12:00 01/11/21 22:23 Pantoprazole 40 Mg/10 Ml Vial IVP 40 mg BID KERMIT Administration Potassium Chloride 40 meq 01/10/21 09:00 01/11/21 22:24 Potassium Chloride Er 20 Meq Tab.Er PO 40 meq TID KERMIT Administration Objective - Vital Signs Vital signs: Vital Signs Temp 98.5 F 01/10/21 20:00 Pulse 116 H 01/11/21 13:00 Resp 30 H 01/11/21 13:00 BP 129/84 01/11/21 13:00 Pulse Ox 89 L 01/11/21 13:00 Intake & Output 01/10/21 01/11/21 01/11/21 18:59 06:59 18:59 Intake Total 833.636 1609.2 323.014 Output Total 3250 600 Balance 242.491 -1984.8 -276.986 Weight 86.183 kg Intake: Intake, IV Titration 977.519 4684.2 323.014 Amount Mvi, Adult No.4 with Vit 1011.2 K 10 ml Thiamine 100 mg Folic Acid 1 mg In 0.9% NaCl with KCl 20 Meq/l 1, 000 ml @ 100 mls/hr IV . BY DURATION [facility], [facility] Rx#: [id number] Norepinephrine 4 mg In 242.491 254 98.014 Sodium Chloride 0.9% 250 ml @ 0.05 MCG/KG/MIN 16. 418 mls/hr IV .[id number] [facility] Rx#:[id number] Sodium Chloride 0.9% 1, 225 000 ml @ 75 mls/hr IV . [id number] [facility] Rx#:[id number] Output: Urine 3250 600 - Labs CBC & Chem 7: 01/11/21 03:10 01/11/21 03:10 Labs: Abnormal Lab Results - Last 24 Hours (Table) 01/10/21 01/10/21 01/10/21 Range/Units 16:41 16:41 20:43 WBC 28.4 H (3.8-10.6) k/uL RBC 2.86 L (4.30-5.90) m/uL Hgb 11.1 L (13.0-17.5) gm/dL Hct 34.8 L (39.0-53.0) % MCV 121.5 H (80.0-100.0) fL MCH 38.9 H (25.0-35.0) pg RDW 18.3 H (11.5-15.5) % Neutrophils # 26.7 H (1.3-7.7) k/uL Lymphocytes # 0.6 L (1.0-4.8) k/uL Macrocytosis Marked A Sodium 132 L (137-145) mmol/L Potassium 3.1 L (3.5-5.1) mmol/L Chloride (98-107) mmol/L Carbon Dioxide 18 L (22-30) mmol/L BUN 32 H (9-20) mg/dL Creatinine 3.07 H (0.66-1.25) mg/dL Glucose 117 H (74-99) mg/dL POC Glucose (mg/dL) 147 H (75-99) mg/dL Calcium 7.0 L (8.4-10.2) mg/dL Total Protein 4.7 L (6.3-8.2) g/dL Albumin 2.4 L (3.5-5.0) g/dL 01/11/21 01/11/21 01/11/21 Range/Units 03:10 03:10 08:12 WBC 26.6 H (3.8-10.6) k/uL RBC 2.66 L (4.30-5.90) m/uL Hgb 10.9 L (13.0-17.5) gm/dL Hct 32.1 L (39.0-53.0) % MCV 120.5 H (80.0-100.0) fL MCH 40.8 H (25.0-35.0) pg RDW 17.9 H (11.5-15.5) % Neutrophils # 25.3 H (1.3-7.7) k/uL Lymphocytes # 0.7 L (1.0-4.8) k/uL Macrocytosis Marked A Sodium (137-145) mmol/L Potassium (3.5-5.1) mmol/L Chloride 109 H (98-107) mmol/L Carbon Dioxide 20 L (22-30) mmol/L BUN 32 H (9-20) mg/dL Creatinine 3.14 H (0.66-1.25) mg/dL Glucose 117 H (74-99) mg/dL POC Glucose (mg/dL) 149 H (75-99) mg/dL Calcium 7.8 L (8.4-10.2) mg/dL Total Protein 5.1 L (6.3-8.2) g/dL Albumin 2.6 L (3.5-5.0) g/dL 01/11/21 Range/Units 10:46 WBC (3.8-10.6) k/uL RBC (4.30-5.90) m/uL Hgb (13.0-17.5) gm/dL Hct (39.0-53.0) % MCV (80.0-100.0) fL MCH (25.0-35.0) pg RDW (11.5-15.5) % Neutrophils # (1.3-7.7) k/uL Lymphocytes # (1.0-4.8) k/uL Macrocytosis Sodium (137-145) mmol/L Potassium (3.5-5.1) mmol/L Chloride (98-107) mmol/L Carbon Dioxide (22-30) mmol/L BUN (9-20) mg/dL Creatinine (0.66-1.25) mg/dL Glucose (74-99) mg/dL POC Glucose (mg/dL) 106 H (75-99) mg/dL Calcium (8.4-10.2) mg/dL Total Protein (6.3-8.2) g/dL Albumin (3.5-5.0) g/dL Microbiology - Last 24 Hours (Table) 01/10/21 00:50 Blood Culture - Preliminary Blood No Growth after 24 hours 01/10/21 00:35 Blood Culture - Preliminary Blood No Growth after 24 hours Assessment and Plan Assessment: Acute diverticulitis Acute kidney injury, with atrophic right kidney Right lower lobe pneumonia, possible aspiration pneumonia. Chest x-ray showing bilateral infiltrates Elevated troponin, rule out cardiac causes. Could be also due to renal disease electrolyte abnormality with hyponatremia and hypokalemia Hypertension Alcohol abuse at-risk of alcohol withdrawal Possibly Acute COPD exacerbation Plan: this is a pleasant 60 years old male who presents with pneumonia, acute kidney injury. Patient has had troponin. we'll do serial troponin. Check echocardiogram. Cardiology consult. Continue with aspirin Continue with Zosyn. Sputum culture. Check procalcitonin. Continue with IV hydration. Consult nephrology and continue with IV fluids and monitor lactic acid Consults surgery team. Follow-up CAT scan of the abdomen and pelvis. continue with CIWA protocol and vitamin follow-up CT of the abdomen and pelvis ordered by the emergency room team Labs and medication were reviewed.. Continue same treatment. Continue with sy mptomatic treatment. Resume home medication. Monitor lytes and vitals. DVT and GI prophylaxis. Further recommendations depends on the clinical course of the patient DVT prophylaxis: Subcutaneous heparin GI Prophylaxis: Pepcid PT/OT: Pending Prognosis is guarded after round,Service was transferred to Dr. abrams upon pt request as he has family member who works in his office
[2021-01-12 04:26] LABS: Anisocytosis Slight; Basophils % (A) 0 %; Eosinophils # (A) 0.1 k/uL (0-0.7); Eosinophils % (A) 1 %; HCT 30.7 % (39.0-53.0); HGB 10.1 gm/dL (13.0-17.5); Hypochromasia Slight; Lymphocytes # (A) 0.8 k/uL (1.0-4.8); Lymphocytes % (A) 4 %; MCH 41.2 pg (25.0-35.0); MCV 124.7 fL (80.0-100.0); Mean Platelet Volume 7.4; Monocytes # (A) 1.1 k/uL (0-1.0); Monocytes % (A) 5 %; Neutrophils # (A) 18.5 k/uL (1.3-7.7); Platelet Count 192 k/uL (150-450); RBC 2.46 m/uL (4.30-5.90); RDW 17.8 % (11.5-15.5); WBC 20.8 k/uL (3.8-10.6)
[2021-01-12 04:51] LABS: Albumin 2.4 g/dL (3.5-5.0); Calcium 8.3 mg/dL (8.4-10.2); Potassium 4.6 mmol/L (3.5-5.1); Total Bilirubin 0.5 mg/dL (0.2-1.3); Total Protein 4.7 g/dL (6.3-8.2)
[2021-01-12 05:25] LABS: Macrocytosis Marked
[2021-01-12 06:54] LABS: Glucose,Whole Blood 91 mg/dL (75-99)
[2021-01-12] MEDS: IPRATROPIUM-ALBUTEROL 3 ML NEB INHALATION SCH ×5 (07:01→20:23)
--- NOTE | 2021-01-12 07:19 | P.PN ---
Subjective Progress Note Date: 01/12/21 60-year-old white male patient who follows with ID system in [place], with louis weldon medical history of hypertension, COPD with home oxygen on as needed basis, 2 pack a day current smoker for 30 years, ETOH (drinks a fifth of vodka daily), previous hx of abdominal aortic aneurysm repair, who presented to the emergency department on 01/10/2021 with a 3 day history of feeling very weak, lightheaded, vomiting and diarrhea. Patient was trying to drink more fluids including electrolyte solutions, but continued to have episodes of vomiting and diarrhea. No fever, no complaints of chest pain, did have increased shortness of breath during episodes of exertion and trying to stand up. Has some wheezing and phlegm production. His lab work showed leukocytosis with a white blood cell count of 29.9, hemoglobin was 13.4, sodium of 128, potassium is 2.7, chloride is 82, CO2 is 32, BUN of 38, creatinine is 3.28, plasma lactic acid was 3.2, LFTs were within normal limits, total bilirubin was 1.4, patient had troponin elevation of 0.110, his viral panel including influenza A and B, RSV and COVID- 19 were negative. Chest x-ray showed patchy medial right base opacity streaky left base opacity. Patient's blood pressure was 68/47, patient is tachycardic but in sinus mechanism. Abdominal and pelvis CT showed findings suggestive of acute diverticulitis involving sigmoid and left colon, colitis was not excluded, there were prominent small bowel loops that could represent a reactive ileus rather than obstruction, there was cholelithiasis, nonobstructing right renal calculi with markedly enlarged left kidney. And there was a abdominal aortic aneurysm measuring 4 cm. Patient has received 4-1/2 L of fluid boluses, and despite that remains hypotensive, requiring vasopressor support initiation, surgical consult was requested. Follow-up labs this morning show sodium of 129, potassium is 3.0, chloride is 96, BUN of 37 and creatinine is 3.17. He was given a dose of Rocephin in the emergency department, and his antibiotic coverage was switched to Zosyn, he continues on IV fluids at 130 ML per hour, he is awaiting placement in the intensive care unit. His most recent lactic acid is down to 1.0. He was started on norepinephrine at 0.05 mics per kilo per minute. No complaints of chest pain, echocardiogram has been ordered and pending, blood urine and sputum cultures are ordered and pending. Patient had an episode of watery bowel movement in the ER, with possibility of blood in it. Surg consult is pending, mild lower abd tenderness to palpation, but no guarding, rigidity, abd soft. On today's evaluation of 01/11/2021, the patient is quite anxious and angry and n ervous. He tells me that he has been infected for around 4-5 days and he wants to eat. 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 He remains nothing by mouth. His white cell count is 26.6. His renal function is abnormal with a creatinine of 3.1 and a BUN of 32. He remains on IV fluids at half-normal at the rate of 75 mL an hour with multivitamins and the patient is still on IV Zosyn. The patient norepinephrine infusion which is currently running at 0.05 mcg/kg per minute. Urine output is in order of 30-40 mL an hour and the patient has a Medina catheter in place. No signs of any delirium tremens at this point in time. The patient was quite bronchospastic and wheezy on yesterday's evaluation and for that reason the patient was started on a combination of bronchodilators and steroids. The patient is also on DuoNeb nebulized units [id number]. His main concern remains food. 01/12/2021, the patient is being seen in follow-up in the intensive care units. This is a 60-year-old male patient, known history of COPD, hypertension, alcoholism, previous abdominal aortic aneurysm repair who came into the hospital, quite septic, having abdominal pain and CAT scan of the abdomen was s uggestive of an acute diverticulitis involving the sigmoid and the left colon. The patient was started on broad-spectrum antibiotics and the patient was started on IV fluids. The patient was in the emergency department yesterday got transferred to the intensive care unit. She was quite anxious and nervous and tremulous yesterday. Overnight as of 6 PM, the patient became more aggressive, confused, delirious and agitated. He was given Ativan and he was placed in 4. restraints. I was told that on few occasions, Mr. loera was also involved in his care. Meanwhile, the patient was kept on IV fluids and he is currently receiving D5 half normal state rate of 75 mL an hour. He is still on IV Zosyn 3.375 g every 8 hours. He was taken off the pressors. He is producing adequate amount of urine output. The fluid balance over the past 24 hours is +388 mL. The creatinine is improving and the creatinine is currently down to 2.7. He is producing adequate amount of urine output. His white cell count is down to 20.8 with hemoglobin of 10.1. Platelets of 192. He is still receiving nebulized treatment with still bronchospastic and wheezy on examination. He was also given IV Solu Medrol because of his extensive bronchospasm and wheezing over the past 24 hours. The lactic acid level is down to 1. Troponin maxed was at 0.11, stool for C. diff has been negative. Blood cultures been negative. The patient has a mid line in his left upper extremity. Objective - Vital Signs Vital signs: Vital Signs Temp 97.7 F 01/12/21 04:00 Pulse 88 01/12/21 07:01 Resp 27 H 01/12/21 07:01 BP 117/90 01/12/21 07:00 Pulse Ox 88 L 01/12/21 07:01 Intake & Output 01/11/21 01/12/21 01/12/21 18:59 06:59 18:59 Intake Total 534.374 7013 Output Total 970 1415 Balance -171.986 560 Weight 86.183 kg 84.5 kg Intake: IV 1875 0.9% NaCl with KCl 20 Meq 500 /l 1,000 ml @ 100 mls/hr IV .BY DURATION [facility] Rx#: [id number] Dextrose 5%-0.45% NaCl 1, 675 000 ml @ 75 mls/hr IV . [id number] KERMIT Rx#:[id number] Mvi, Adult No.4 with Vit 700 K 10 ml Thiamine 100 mg Folic Acid 1 mg In 0.9% NaCl with KCl 20 Meq/l 1, 000 ml @ 75 mls/hr IV .BY DURATION [facility] Rx#: [id number] Intake, IV Titration 798.014 100 Amount 0.9% NaCl with KCl 20 Meq 700 100 /l 1,000 ml @ 100 mls/hr IV .BY DURATION [facility] Rx#: [id number] Norepinephrine 4 mg In 98.014 Sodium Chloride 0.9% 250 ml @ 0.05 MCG/KG/MIN 16. 418 mls/hr IV .[id number] [facility] Rx#:[id number] Output: Urine 970 1415 Other: Voiding Method Indwelling Catheter Indwelling Catheter # Bowel Movements 1 - Exam GENERAL EXAM: Alert, very pleasant, 60-year-old white male, currently confused, delirious, 6 L by nasal cannula with a pulse is 88% HEAD: Normocephalic/atraumatic. EYES: Normal reaction of pupils, equal size. Conjunctiva pink, sclera white. NOSE: Clear with pink turbinates. THROAT: No erythema or exudates. NECK: No masses, no JVD, no thyroid enlargement, no adenopathy. CHEST: No chest wall deformity. Symmetrical expansion. LUNGS: Equal air entry with no crackles, wheeze, rhonchi or dullness. CVS: Regular rate and rhythm, normal S1 and S2, no gallops, no murmurs, no rubs ABDOMEN: The patient continues to have tenderness in his lower abdomen bilaterally, abdomen is less tender compared to yesterday, Bowel sounds are present. There is direct tenderness. No hepatosplenomegaly, normal bowel sounds, no guarding or rigidity. EXTREMITIES: No clubbing, no edema, no cyanosis, 2+ pulses and upper and lower extremities. MUSCULOSKELETAL: Muscle strength and tone normal. SPINE: No scoliosis or deformity SKIN: No rashes CENTRAL NERVOUS SYSTEM: Confused, delirious, agitated, moving all 4 extremities. The patient has received Ativan, total of 5 mg of anterior was given overnight and currently she is doing more rested and sedated. PSYCHIATRIC: Unable to complete - Labs CBC & Chem 7: 01/12/21 03:43 01/12/21 03:43 Labs: Abnormal Lab Results - Last 24 Hours (Table) 01/11/21 01/11/21 01/11/21 Range/Units 08:12 10:46 16:37 WBC (3.8-10.6) k/uL RBC (4.30-5.90) m/uL Hgb (13.0-17.5) gm/dL Hct (39.0-53.0) % MCV (80.0-100.0) fL MCH (25.0-35.0) pg RDW (11.5-15.5) % Neutrophils # (1.3-7.7) k/uL Lymphocytes # (1.0-4.8) k/uL Monocytes # (0-1.0) k/uL Macrocytosis Chloride (98-107) mmol/L Carbon Dioxide (22-30) mmol/L BUN (9-20) mg/dL Creatinine (0.66-1.25) mg/dL POC Glucose (mg/dL) 149 H 106 H 107 H (75-99) mg/dL Calcium (8.4-10.2) mg/dL Total Protein (6.3-8.2) g/dL Albumin (3.5-5.0) g/dL 01/12/21 01/12/21 Range/Units 03:43 03:43 WBC 20.8 H (3.8-10.6) k/uL RBC 2.46 L (4.30-5.90) m/uL Hgb 10.1 L (13.0-17.5) gm/dL Hct 30.7 L (39.0-53.0) % MCV 124.7 H (80.0-100.0) fL MCH 41.2 H (25.0-35.0) pg RDW 17.8 H (11.5-15.5) % Neutrophils # 18.5 H (1.3-7.7) k/uL Lymphocytes # 0.8 L (1.0-4.8) k/uL Monocytes # 1.1 H (0-1.0) k/uL Macrocytosis Marked A Chloride 115 H (98-107) mmol/L Carbon Dioxide 18 L (22-30) mmol/L BUN 31 H (9-20) mg/dL Creatinine 2.72 H (0.66-1.25) mg/dL POC Glucose (mg/dL) (75-99) mg/dL Calcium 8.3 L (8.4-10.2) mg/dL Total Protein 4.7 L (6.3-8.2) g/dL Albumin 2.4 L (3.5-5.0) g/dL Microbiology - Last 24 Hours (Table) 01/10/21 00:50 Blood Culture - Preliminary Blood No Growth after 48 hours 01/10/21 00:35 Blood Culture - Preliminary Blood No Growth after 48 hours Assessment and Plan Plan: #1. Acute diverticulitis involving the sigmoid and left colon, and possibility of colitis. Patient tested negative for COVID-19, RSV and influenza A and B. The patient presented to the ED, septic with secondary leukocytosis and hypotension, possibly septic and the patient was resuscitated IV fluids, pressors and the patient is currently off levo fed. #2. Vomiting and diarrhea, lightheadedness and dizziness related to dehydration, improved #3. Hypotension, related to hypovolemic and possibly septic shock, improved and the patient is currently off levo fed. #4. Acute kidney injury related to ATN, dehydration, creatinine is improving is down to 2.7 also suspect an underlying chronic kidney disease based on the CAT scan findings that showed left atrophic kidney #5. Altered mental status, consider metabolic encephalopathy, consider delirium tremens secondary to his previous alcohol use. #6. Hypochloremic hypokalemia related to diarrhea, improved #7. Elevated troponin, rule out possibility of non-ST elevated MD #8. Leukocytosis, related to acute diverticulitis, improving and the white cell count is down to 20 #9. History of hypertension #10. Smoker , 2 pack a day smoker for 30 years #11. Abdominal aortic aneurysm measuring 4 cm seen in the CT of abdomen and pelvis , post repair #12. Nonobstructing right renal calculi, and enlarged left kidney #14. Chronic ETOH abuse, drinks a fifth of vodka daily (last drink a week ago) #15. COPD on home oxygen on as needed basis #16. Acute COPD exacerbation, currently on a combination of bronchodilators and steroids. Plan: Continue IV fluids and increase the rate to 125 mL an hour Currently on no pressors Keep same antibiotics Haldol 1 mg every 2-3 hours for agitation and combination with Ativan. Try to avoid benzodiazepines Chest x-ray from yesterday was showing some atelectatic changes. We'll try to obtain a follow-up chest x-ray as long as the patient is more rested. Unable to complete a morning chest x-ray because of his agitation. Continue with current antibiotic coverage, currently on IV Zosyn Continue the bronchodilators AND IV SOLU-MEDROL TO 40 MG ONCE A DAY. Surgical consultation is pending, keep NPO until seen except for ice chips [facility] protocol Nephrology consultation appreciated We'll discuss the need for TPN. My understanding that the patient has not had any adequate oral intake for the past week or so. A dietary consultation will be obtained and if agreeable, we'll proceed with CPAP for nutritional support. Consult interventional radiology for a PICC line insertion Lactic acid has improved, electrolytes are improving, replace serum potassium pe r protocol Troponin level remains elevated, echocardiogram showing an ejection fraction of 55-60%. Questionable ASD. Questionable PFO. There is a [id number] component of pulmonary hypertension with a PA pressure 42. Ascending aortic root is around 3.9 cm in size. Continue close hemodynamic monitoring, and keep the patient in the intensive care unit for now.
[2021-01-12] MEDS: INSULIN ASPART (NovoLOG) 100 UNIT/ML VIAL SQ SCH ×4 (07:48→20:39)
--- NOTE | 2021-01-12 08:56 | PN ---
PROGRESS NOTE Mr. Gerardo was seen by me yesterday in the emergency room mainly because of elevated troponin. His troponin profile does not suggest myocardial injury. Echo revealed preserved systolic function. Patient, however, has acute on chronic renal failure with significant altered mental status. Possibility of underlying alcoholism should be considered. There is also possibility of a neurological issue as well. It is unclear if his encephalopathy is neurological or metabolic. I am recommending a neurology evaluation as well. Hemodynamically stable. No chest pain. Maintaining sinus rhythm. His creatinine is actually improved after modest hydration. I am unable to communicate meaningfully with the patient. He does have history of hypertension, has been on Levophed yesterday but this has been discontinued. PHYSICAL EXAMINATION: Blood pressure today is 118/70, pulse rate is 88, sinus with nonspecific ST changes. There is no JVD. S1 and S2 are heard normally with a short systolic murmur. Lungs reveal diminished air entry bilateral lung west. Abdomen is soft. Lower extremities reveal diminished pulses. Central nervous system assessment was not performed. Echo revealed sinus mechanism with a possibility of a small PFO or an ASD. However, the right side is not enlarged and I do not think this is significant. I would recommend no intervention for elevated troponins as this may not be suggestive of myocardial injury. I am recommending a neurology evaluation to rule out any neurological issues. Prognosis remains guarded. MMODL / IJN: [id number] /
[2021-01-12] MEDS: HALOPERIDOL LACTATE 5 MG/ML 1 ML VIAL IVP PRN ×3 (10:39→20:43)
[2021-01-12] MEDS: PANTOPRAZOLE 40 MG/10 ML VIAL IVP SCH ×2 (10:39→20:42)
[2021-01-12] MEDS: HEPARIN SODIUM,PORCINE/PF 5,000 UNIT/0.5 ML SYRINGE SQ SCH ×3 (10:39→20:42)
[2021-01-12] MEDS: methylPREDNISolone SOD SUCCI 40 MG/ML 1 ML VIAL IV SCH (10:39)
[2021-01-12] MEDS: NICOTINE 21MG/24HR PATCH TRANSDERM SCH (11:11)
[2021-01-12] MEDS: NOREPINEPHRINE 4 MG in SODIUM CHLORIDE 0.9% 250 ML IV SCH ×2 (11:20→23:58)
[2021-01-12] MEDS: METOPROLOL TARTRATE 12.5 MG TAB PO SCH ×2 (11:45→20:40)
[2021-01-12] MEDS: DEXTROSE 5%-0.45% NACL 1,000 ML IV SCH ×2 (11:45→20:41)
[2021-01-12] MEDS: POTASSIUM CHLORIDE ER 20 MEQ TAB.ER PO SCH ×2 (11:46→15:43)
[2021-01-12] MEDS: ASPIRIN 81 MG PO SCH (11:46)
--- NOTE | 2021-01-12 11:55 | XR ---
EXAMINATION TYPE: XR chest 1V portable DATE OF EXAM: 01/12/2021 COMPARISON: 01/10/2021 INDICATION: Increased wheezing, desaturation TECHNIQUE: Single frontal view of the chest is obtained. FINDINGS: The heart size is normal. The pulmonary vasculature is normal. Diffuse perihilar and left lower lobe infiltrates have developed over the interval. Findings are nons pecific. Correlate for atypical pneumonia IMPRESSION: 1. Perihilar and lower lung field infiltrates. Correlate for atypical pneumonia.
--- NOTE | 2021-01-12 11:59 | P.PN ---
<Yoana Tarango - Last Filed: 01/12/21 11:52> Subjective Progress Note Date: 01/12/21 CHIEF COMPLAINT: Abdominal pain HISTORY OF PRESENT ILLNESS: he patient is a 60-year-old male presented acutely to the emergency room with generalized abdominal pain. Reports his abdominal pain has been lower abdominal ongoing for over 3 days since . He presented with elevated lactate over 3.0. He also came with acute renal failure creatinine over 3.0. With his abdominal pain, additional diagnostic studies were obtained. Features are consistent with diverticulitis. Last colonoscopy 7 years ago with history of polyps. Patient is currently in the ICU. No new or increased abdominal pain reported. He is currently off of vasopressors. He is scheduled for PICC line today. Afebrile. WBC 20.8 hemoglobin 10.1 platelets 192 sodium 138 creatinine 3.14 PHYSICAL EXAM: VITAL SIGNS: Reviewed GENERAL: Well-developed in no acute distress. HEENT: No sclera icterus. Extraocular movements grossly intact. Moist buccal mucosa. Head is atraumatic, normocephalic. Hears conversational speech. No nasal drainage. NECK: Supple without lymphadenopathy. CHEST: Non-labored respirations and equal bilateral excursions. CARDIOVASCULAR: Palpable 2+ radial pulses. ABDOMEN: Tenderness left lower quadrant MUSCULOSKELETAL: No clubbing or cyanosis. NEUROLOGIC: No focal or lateralizing signs. Cranial nerves II through XII grossly intact. PSYCH: Patient is confused. Alert and orientated 1 his name only SKIN: Well perfused. Good skin turgor. ASSESSMENT: 1. Diverticulitis with sepsis 2. Lactic acidosis with acute renal failure 3. Elevated troponins being followed by cardiology 4. Daily alcohol use PLAN: -Keep patient nothing by mouth except for ice chips -Continue to monitor patient closely -Continue antibiotics -Continue CIWA protocol and banana bag -Continue ICU management -Continue supportive care Physician Box Lining Machine Operator note has been reviewed by physician. Signing provider agrees with the documented findings, assessment, and plan of care. Objective - Vital Signs Vital signs: Vital Signs Temp 97.2 F L 01/12/21 08:00 Pulse 85 01/12/21 11:21 Resp 24 01/12/21 11:21 BP 138/92 01/12/21 11:00 Pulse Ox 85 L 01/12/21 11:00 Intake & Output 01/11/21 01/12/21 01/12/21 18:59 06:59 18:59 Intake Total 099.234 9524 1055.986 Output Total 970 1415 500 Balance -171.986 560 555.986 Weight 86.183 kg 84.5 kg 84.5 kg Intake: IV 1875 900 0.9% NaCl with KCl 20 Meq 500 400 /l 1,000 ml @ 100 mls/hr IV .BY DURATION [facility] Rx#: [id number] Dextrose 5%-0.45% NaCl 1, 675 500 000 ml @ 125 mls/hr IV . Q8H [facility] Rx#:[id number] Mvi, Adult No.4 with Vit 700 K 10 ml Thiamine 100 mg Folic Acid 1 mg In 0.9% NaCl with KCl 20 Meq/l 1, 000 ml @ 75 mls/hr IV .BY DURATION [facility] Rx#: [id number] Intake, IV Titration 798.014 100 155.986 Amount 0.9% NaCl with KCl 20 Meq 700 100 /l 1,000 ml @ 100 mls/hr IV .BY DURATION [facility]MIT Rx#: [id number] Norepinephrine 4 mg In 98.014 155.986 Sodium Chloride 0.9% 250 ml @ 0.05 MCG/KG/MIN 16. 418 mls/hr IV .[id number] [facility] Rx#:[id number] Output: Urine 970 1415 500 Other: Voiding Method Indwelling Catheter Indwelling Catheter # Bowel Movements 1 - Labs CBC & Chem 7: 01/12/21 03:43 01/12/21 03:43 Labs: Abnormal Lab Results - Last 24 Hours (Table) 01/11/21 01/12/21 01/12/21 Range/Units 16:37 03:43 03:43 WBC 20.8 H (3.8-10.6) k/uL RBC 2.46 L (4.30-5.90) m/uL Hgb 10.1 L (13.0-17.5) gm/dL Hct 30.7 L (39.0-53.0) % MCV 124.7 H (80.0-100.0) fL MCH 41.2 H (25.0-35.0) pg RDW 17.8 H (11.5-15.5) % Neutrophils # 18.5 H (1.3-7.7) k/uL Lymphocytes # 0.8 L (1.0-4.8) k/uL Monocytes # 1.1 H (0-1.0) k/uL Macrocytosis Marked A Chloride 115 H (98-107) mmol/L Carbon Dioxide 18 L (22-30) mmol/L BUN 31 H (9-20) mg/dL Creatinine 2.72 H (0.66-1.25) mg/dL POC Glucose (mg/dL) 107 H (75-99) mg/dL Calcium 8.3 L (8.4-10.2) mg/dL Total Protein 4.7 L (6.3-8.2) g/dL Albumin 2.4 L (3.5-5.0) g/dL Microbiology - Last 24 Hours (Table) 01/10/21 00:50 Blood Culture - Preliminary Blood No Growth after 48 hours 01/10/21 00:35 Blood Culture - Preliminary Blood No Growth after 48 hours <Shiloh Zee N - Last Filed: 01/12/21 22:07> Subjective Patient seen and evaluated Objective - Vital Signs Vital signs: Vital Signs Temp 97.3 F L 01/12/21 12:00 Pulse 96 01/12/21 21:00 Resp 18 01/12/21 21:00 BP 130/82 01/12/21 21:00 Pulse Ox 94 L 01/12/21 21:00 Intake & Output 01/12/21 01/12/21 01/13/21 06:59 18:59 06:59 Intake Total 1975 1655.986 150 Output Total 1415 3825 1200 Balance 560 -2169.014 -1050 Weight 84.5 kg 84.5 kg Intake: IV 1875 1500 150 0.9% NaCl with KCl 20 Meq 500 400 /l 1,000 ml @ 100 mls/hr IV .BY DURATION [facility] Rx#: [id number] Dextrose 5%-0.45% NaCl 1, 675 1100 150 000 ml @ 75 mls/hr IV . [id number] [facility] Rx#:[id number] Mvi, Adult No.4 with Vit 700 K 10 ml Thiamine 100 mg Folic Acid 1 mg In 0.9% NaCl with KCl 20 Meq/l 1, 000 ml @ 75 mls/hr IV .BY DURATION [facility]MIT Rx#: [id number] Intake, IV Titration 100 155.986 Amount 0.9% NaCl with KCl 20 Meq 100 /l 1,000 ml @ 100 mls/hr IV .BY DURATION KERMIT Rx#: [id number] Norepinephrine 4 mg In 155.986 Sodium Chloride 0.9% 250 ml @ 0.05 MCG/KG/MIN 16. 418 mls/hr IV .[id number] [facility]ERMIT Rx#:[id number] Output: Urine 1415 3825 1200 Other: Voiding Method Indwelling Catheter Indwelling Catheter Indwelling Catheter # Bowel Movements 1 1 - Labs CBC & Chem 7: 01/12/21 03:43 01/12/21 03:43 Labs: Abnormal Lab Results - Last 24 Hours (Table) 01/12/21 01/12/21 01/12/21 Range/Units 03:43 03:43 20:35 WBC 20.8 H (3.8-10.6) k/uL RBC 2.46 L (4.30-5.90) m/uL Hgb 10.1 L (13.0-17.5) gm/dL Hct 30.7 L (39.0-53.0) % MCV 124.7 H (80.0-100.0) fL MCH 41.2 H (25.0-35.0) pg RDW 17.8 H (11.5-15.5) % Neutrophils # 18.5 H (1.3-7.7) k/uL Lymphocytes # 0.8 L (1.0-4.8) k/uL Monocytes # 1.1 H (0-1.0) k/uL Macrocytosis Marked A Chloride 115 H (98-107) mmol/L Carbon Dioxide 18 L (22-30) mmol/L BUN 31 H (9-20) mg/dL Creatinine 2.72 H (0.66-1.25) mg/dL POC Glucose (mg/dL) 126 H (75-99) mg/dL Calcium 8.3 L (8.4-10.2) mg/dL Total Protein 4.7 L (6.3-8.2) g/dL Albumin 2.4 L (3.5-5.0) g/dL Microbiology - Last 24 Hours (Table) 01/10/21 00:50 Blood Culture - Preliminary Blood No Growth after 48 hours 01/10/21 00:35 Blood Culture - Preliminary Blood No Growth after 48 hours
[2021-01-12 12:22] LABS: Glucose,Whole Blood 98 mg/dL (75-99)
[2021-01-12] MEDS ORDERED: FUROSEMIDE 10 MG/ML 4 ML VIAL IV STA (12:53)
[2021-01-12 13:00] LABS: Magnesium 1.7 mg/dL (1.6-2.3); Phosphorus 3.9 mg/dL (2.5-4.5)
--- NOTE | 2021-01-12 13:56 | PN ---
PROGRESS NOTE Patient is seen for followup for acute kidney injury. He is currently seen in the ICU. Patient is maintained on IV fluids. He is confused. He is in soft restraints. PHYSICAL EXAMINATION: On examination today, blood pressure was 133/53, heart rate 83 per minute. He is afebrile. Patient is awake. He is arousable. He is confused. EXAMINATION OF THE HEART: S1, S2. EXAMINATION OF LUNGS: Decreased breath sounds at bases. Abdomen is soft, nontender. Examination of lower extremities shows no evidence of edema. DIRECTOR OF CATEGORY MANAGEMENT exam shows patient moving all 4 extremities. Mentation simental, he is confused. LABS: Labs show sodium 142, potassium 4.6, chloride 115, CO2 is 18, BUN 31, creatinine 2.72. TSH 1.5. ASSESSMENT: 1. Acute kidney injury, acute tubular necrosis, secondary to sepsis hypotension. Renal function is slightly improved. The patient's urine output is at about 125 mL an hour. He is maintained on IV fluids. He is off of pressors. 2. Diverticulitis, maintained on antibiotics. 3. Hypotension from sepsis, currently improved. Patient is off of pressors. 4. History of chronic obstructive pulmonary disease. 5. History of abdominal aortic aneurysm. 6. Chronic kidney disease most likely ischemic nephropathy with atrophic left kidney. PLAN: Continue with IV fluids. Repeat labs in a.m. MMODL / IJN: [id number] /
--- NOTE | 2021-01-12 15:05 | P.CNNES ---
History of Present Illness Consult date: 01/12/21 Requesting physician: Latha Ryder Reason for Consult: Mental status changes History of Present Illness: Patient is a 60-year-old male came to the hospital by ambulance 2 days ago on 01/10/2021, shortly after midnight at 12:20 AM for 3 days history of feeling weak and lightheaded when standing up. He has been having vomiting and diarrhea and was feeling getting dehydrated. He started drinking more fluids but con tinued to have episodes of vomiting and diarrhea. EMS flow sheet not available in the chart. Vital signs arrival but pressure was 68/47, pulse and 19 and temperature 98.4. Patient's blood pressures stayed low until almost 5 PM when it improved to 95/65 and then 103/73. CT of abdomen and pelvis revealed findings suggestive of acute diverticulitis involving sigmoid and left colon. Colitis not excluded. Prominent small bowel loops may represent a reactive IDS rather than obstruction. Correlate clinically. Bilateral lower lobe infiltrate. Cholelithiasis. Abdominal aortic aneurysm measuring 4 cm. Nonobstructing right renal calculi. Left kidney appears markedly enlarged relative to the right correlate for chronic medical renal disease. EKG shows normal sinus rhythm, inferior infarct, age and remained. Her chest x-ray with patchy medial right base opacity which may be due to aspiration or infection. 2-D echo revealed normal left ventricular size. Normal left ventricular wall thickness. EF is 55-60%. Patient's blood test on arrival shows WBC 29.9, hemoglobin 13.4, platelets 170. Sodium was 128 potassium 2.7, BUN 38, creatinine 3.28, elevated plasma lactic acid 3.2. Infl uenza screen, RSV and SARS Cov-2 PCR negative. Most recent blood test shows WBC 20.8 hemoglobin 10.1 with highly elevated MCV 124.7, platelets 192. Electrolytes are normal, BUN 31, creatinine 2.72. Hepatic panel normal. C. diff negative. Troponins mildly elevated 0.110. Patient was diagnosed with diverticulitis with sepsis, lactic acidosis with acute renal failure and elevated troponins. Patient also has history of alcoholism, as reported by patient's daughter. Patient drinks a fifth of vodka a day for years. Because he was feeling sick, he stopped drinking in the last drink was on 01/10/2021. Patient's daughter has mentioned that he has never gone into DTs. Patient at present is sedated. He was given Haldol because of agitation. History not able to be obtained from the patient. Review of Systems Patient did admit to not having any headache or any body pain. Did not answer to other questions. ROS unobtainable: due to mental status Past Medical History Past Medical History: Hypertension Additional Past Medical History / Comment(s): Gout L foot/ankle/very painful to touch and pain increases with activity/ambulation, AAA repair for aneurysm. History of Any Multi-Drug Resistant Organisms: None Reported Additional Past Surgical History / Comment(s): Aorta repairt Past Anesthesia/Blood Transfusion Reactions: Unable to Obtain Additional Past Anesthesia/Blood Transfusion Reaction / Comment(s): Ptdeclined answering. Past Psychological History: No Psychological Hx Reported Smoking Status: Current every day smoker Past Alcohol Use History: Daily Past Drug Use History: None Reported - Past Family History Father Additional Family Medical History / Comment(s): Pt declined answering. Mother Additional Family Medical History / Comment(s): Pt declined answering. Medications and Allergies Home Medications Medication Instructions Recorded Confirmed Type Allopurinol [Zyloprim] 100 mg PO DAILY@1600 01/10/21 01/10/21 History Lisinopril-Hctz 20-25 mg 1 tab PO DAILY@1600 01/10/21 01/10/21 History [Zestoretic 20-25] Allergies Allergy/AdvReac Type Severity Reaction Status Date / Time No Known Allergies Allergy Verified 01/10/21 07:19 Physical Examination - Vital Signs Vital Signs: Vital Signs Temp Pulse Resp BP Pulse Ox 01/12/21 07:06 88 27 H 01/12/21 07:01 88 27 H 88 L 01/12/21 07:00 77 22 117/90 85 L 01/12/21 06:00 87 25 H 119/79 91 L 01/12/21 05:00 84 23 124/88 91 L 01/12/21 04:00 97.7 F 77 24 116/84 90 L 01/12/21 03:00 83 26 H 101/68 87 L 01/12/21 02:00 82 23 121/88 94 L 01/12/21 01:00 90 25 H 116/87 91 L 01/12/21 00:00 97.7 F 79 32 H 103/73 92 L 01/11/21 23:15 67 23 103/73 94 L 01/11/21 23:00 79 18 97/65 93 L 01/11/21 22:00 87 27 H 118/75 91 L 01/11/21 21:00 91 18 137/94 92 L 01/11/21 20:00 98 F 105 H 28 H 116/77 90 L 01/11/21 19:00 108 H 26 H 125/86 93 L 01/11/21 18:00 105 H 22 136/94 91 L 01/11/21 17:00 91 24 126/84 96 01/11/21 16:00 97.8 F 105 H 12 110/83 97 01/11/21 15:00 107 H 0 L 108/75 95 01/11/21 14:00 105 H 19 126/85 87 L 01/11/21 13:00 116 H 30 H 129/84 89 L 01/11/21 12:00 107 H 22 125/79 96 01/11/21 11:00 114 H 17 92 L 01/11/21 10:00 108 H 18 121/80 93 L 01/11/21 09:30 97 13 124/81 93 L 01/11/21 09:29 124/81 Intake and Output 01/11/21 01/12/21 01/12/21 22:59 06:59 14:59 Intake Total 800 1575 Output Total 745 1040 Balance 55 535 Intake: IV 300 1575 0.9% NaCl with KCl 20 Meq 500 /l 1,000 ml @ 100 mls/hr IV .BY DURATION KERMIT Rx#: [id number] Dextrose 5%-0.45% NaCl 1, 675 000 ml @ 75 mls/hr IV . [id number] KERMIT Rx#:[id number] Mvi, Adult No.4 with Vit 300 400 K 10 ml Thiamine 100 mg Folic Acid 1 mg In 0.9% NaCl with KCl 20 Meq/l 1, 000 ml @ 75 mls/hr IV .BY DURATION KERMIT Rx#: [id number] Intake, IV Titration 500 Amount 0.9% NaCl with KCl 20 Meq 500 /l 1,000 ml @ 100 mls/hr IV .BY DURATION KERMIT Rx#: [id number] Output: Urine 745 1040 Other: Voiding Method Indwelling Catheter Indwelling Catheter # Bowel Movements 1 Weight 84.5 kg On examination patient is a middle aged male, who is sleeping, and somewhat dosing. On calling his name, he did not open his eyes, but tried to m ove. Later on I reexamined the patient and he was slightly more awake, stated does not have any headache. He shouldn't did not speak much, was still somnolent. His pupils are round and reacting. Visual west could not be tested as he would not open the eyes. Face is symmetric. Visual west could not be tested. Hearing, tongue palate and shoulders could not be tested. Tone is equal bilaterally. Patient did not cooperate for checking of his arms and legs. Reflexes are 1+ and plantars are withdrawal bilaterally. Cerebellar functions and gait could not be tested. No seizure-like activity. No rash. Chest is clear, abdomen is soft. Peripheral pulses present. No bruit or murmur. Results - Laboratory Findings CBC and BMP: 01/12/21 03:43 01/12/21 03:43 Abnormal Lab Findings: Abnormal Labs 01/10/21 01/10/21 01/10/21 00:37 00:37 00:37 WBC 29.9 H RBC 3.45 L Hgb Hct MCV 115.9 H MCH 38.8 H RDW 18.5 H Neutrophils # 27.5 H Lymphocytes # Monocytes # Macrocytosis Marked A Sodium 128 L Potassium 2.7 L* Chloride 82 L Carbon Dioxide 32 H BUN 38 H Creatinine 3.28 H Glucose 104 H POC Glucose (mg/dL) Plasma Lactic Acid Dimitris Calcium Total Bilirubin 1.4 H Troponin I Total Protein 6.0 L Albumin 3.3 L Procalcitonin Urine Protein 1+ H Urine Glucose (UA) 3+ H Urine Ketones 1+ H Urine Blood Small H Amorphous Sediment Occasional H Hyaline Casts 5 H Urine Mucus Rare H 01/10/21 01/10/21 01/10/21 00:37 00:37 00:37 WBC RBC Hgb Hct MCV MCH RDW Neutrophils # Lymphocytes # Monocytes # Macrocytosis Sodium Potassium Chloride Carbon Dioxide BUN Creatinine Glucose POC Glucose (mg/dL) Plasma Lactic Acid Dimitris 3.2 H* Calcium Total Bilirubin Troponin I 0.110 H* Total Protein Albumin Procalcitonin 0.74 H Urine Protein Urine Glucose (UA) Urine Ketones Urine Blood Amorphous Sediment Hyaline Casts Urine Mucus 01/10/21 01/10/21 01/10/21 04:20 06:20 06:40 WBC RBC Hgb Hct MCV MCH RDW Neutrophils # Lymphocytes # Monocytes # Macrocytosis Sodium 129 L Potassium 3.0 L Chloride 96 L Carbon Dioxide BUN 37 H Creatinine 3.17 H Glucose POC Glucose (mg/dL) Plasma Lactic Acid Dimitris Calcium 6.8 L Total Bilirubin Troponin I 0.110 H* 0.110 H* Total Protein 4.5 L Albumin 2.2 L Procalcitonin Urine Protein Urine Glucose (UA) Urine Ketones Urine Blood Amorphous Sediment Hyaline Casts Urine Mucus 01/10/21 01/10/21 01/10/21 10:33 10:33 13:39 WBC 30.2 H RBC 2.74 L Hgb 10.8 L Hct 32.8 L MCV 119.9 H MCH 39.6 H RDW 18.5 H Neutrophils # 27.5 H Lymphocytes # Monocytes # Macrocytosis Marked A Sodium 131 L Potassium 2.8 L Chloride Carbon Dioxide 21 L BUN 34 H Creatinine 3.13 H Glucose POC Glucose (mg/dL) 101 H Plasma Lactic Acid Dimitris Calcium 6.8 L Total Bilirubin Troponin I Total Protein Albumin Procalcitonin Urine Protein Urine Glucose (UA) Urine Ketones Urine Blood Amorphous Sediment Hyaline Casts Urine Mucus 01/10/21 01/10/21 01/10/21 16:41 16:41 20:43 WBC 28.4 H RBC 2.86 L Hgb 11.1 L Hct 34.8 L MCV 121.5 H MCH 38.9 H RDW 18.3 H Neutrophils # 26.7 H Lymphocytes # 0.6 L Monocytes # Macrocytosis Marked A Sodium 132 L Potassium 3.1 L Chloride Carbon Dioxide 18 L BUN 32 H Creatinine 3.07 H Glucose 117 H POC Glucose (mg/dL) 147 H Plasma Lactic Acid Dimitris Calcium 7.0 L Total Bilirubin Troponin I Total Protein 4.7 L Albumin 2.4 L Procalcitonin Urine Protein Urine Glucose (UA) Urine Ketones Urine Blood Amorphous Sediment Hyaline Casts Urine Mucus 01/11/21 01/11/21 01/11/21 03:10 03:10 08:12 WBC 26.6 H RBC 2.66 L Hgb 10.9 L Hct 32.1 L MCV 120.5 H MCH 40.8 H RDW 17.9 H Neutrophils # 25.3 H Lymphocytes # 0.7 L Monocytes # Macrocytosis Marked A Sodium Potassium Chloride 109 H Carbon Dioxide 20 L BUN 32 H Creatinine 3.14 H Glucose 117 H POC Glucose (mg/dL) 149 H Plasma Lactic Acid Dimitris Calcium 7.8 L Total Bilirubin Troponin I Total Protein 5.1 L Albumin 2.6 L Procalcitonin Urine Protein Urine Glucose (UA) Urine Ketones Urine Blood Amorphous Sediment Hyaline Casts Urine Mucus 01/11/21 01/11/21 01/12/21 10:46 16:37 03:43 WBC 20.8 H RBC 2.46 L Hgb 10.1 L Hct 30.7 L MCV 124.7 H MCH 41.2 H RDW 17.8 H Neutrophils # 18.5 H Lymphocytes # 0.8 L Monocytes # 1.1 H Macrocytosis Marked A Sodium Potassium Chloride Carbon Dioxide BUN Creatinine Glucose POC Glucose (mg/dL) 106 H 107 H Plasma Lactic Acid Dimitris Calcium Total Bilirubin Troponin I Total Protein Albumin Procalcitonin Urine Protein Urine Glucose (UA) Urine Ketones Urine Blood Amorphous Sediment Hyaline Casts Urine Mucus 01/12/21 03:43 WBC RBC Hgb Hct MCV MCH RDW Neutrophils # Lymphocytes # Monocytes # Macrocytosis Sodium Potassium Chloride 115 H Carbon Dioxide 18 L BUN 31 H Creatinine 2.72 H Glucose POC Glucose (mg/dL) Plasma Lactic Acid Dimitris Calcium 8.3 L Total Bilirubin Troponin I Total Protein 4.7 L Albumin 2.4 L Procalcitonin Urine Protein Urine Glucose (UA) Urine Ketones Urine Blood Amorphous Sediment Hyaline Casts Urine Mucus Assessment and Plan Assessment: * Altered mental status, probably related to toxic metabolic encephalopathy, probable alcohol withdrawal. * Long-standing history of alcoholism, stopped drinking 2 days ago, now probably in some degree of withdrawals. * Acute diverticulitis involving the sigmoid and left:, Possibility of colitis. Sepsis and leukocytosis. * Vomiting diarrhea, dehydration, hypotension * Acute kidney injury, improving. * Elevated troponin, rule out possibility of non-STEMI * Hypertension * Tobacco use 2 pack per day for 30 years * Abdominal aortic aneurysm measuring [address] abdomen and pelvis. Postrepair. * COPD Plan: * Patient's altered mental status is likely due to metabolic encephalopathy and alcohol withdrawals. * Continue CIWA protocol. * Patient has received Haldol at 10:40 AM and now is somewhat somnolent. Agitation has improved. * We will follow patient clinically. * Discussed with nursing staff and patient's daughter in detail.
--- NOTE | 2021-01-12 18:51 | PN ---
PROGRESS NOTE CHIEF COMPLAINT: Diverticulitis and sepsis. HISTORY OF PRESENT ILLNESS: This gentleman seems to be improving. His vital signs seem to be stable at the present time. He is sleeping at this time and he cannot be wakened for questioning. PHYSICAL EXAMINATION: Breath sounds are clear on both sides. The cardiac exam is normal sinus rhythm. Abdomen seems soft and nontender. Extremities are normal. IMPRESSION: 1. Diverticulitis. 2. Septic shock. 3. Renal failure. 4. Chronic obstructive pulmonary disease. 5. History of alcoholism. PLAN: Continue with ICU supportive efforts until he is able to be stable enough to move out of ICU. MMODL / IJN: [id number] /
[2021-01-12 20:37] LABS: Glucose,Whole Blood 126 mg/dL (75-99)
[2021-01-12] MEDS: POTASSIUM CHLORIDE 10 MEQ in WATER FOR INJECTION 1 100ML.BAG IVPB SCH (23:59)
[2021-01-13 01:35] LABS: Folate, Serum 5.9 ng/mL
[2021-01-13] MEDS: PIPERACILLIN-TAZOBACTAM 3.375 GM in SODIUM CHLORIDE 0.9% 100 ML IVPB SCH ×3 (02:00→18:19)
[2021-01-13 03:49] LABS: Albumin 2.7 g/dL (3.5-5.0); Calcium 8.6 mg/dL (8.4-10.2); Magnesium 1.6 mg/dL (1.6-2.3); Potassium 3.8 mmol/L (3.5-5.1); Total Bilirubin 0.7 mg/dL (0.2-1.3); Total Protein 5.3 g/dL (6.3-8.2)
[2021-01-13 03:52] LABS: Ionized Calcium 5.3 mg/dL (4.5-5.3)
[2021-01-13 06:40] LABS: Glucose,Whole Blood 95 mg/dL (75-99)
--- NOTE | 2021-01-13 07:17 | P.PN ---
Subjective Progress Note Date: 01/13/21 60-year-old white male patient who follows with [facility] in [place], with louis weldno medical history of hypertension, COPD with home oxygen on as needed basis, 2 pack a day current smoker for 30 years, ETOH (drinks a fifth of vodka daily), previous hx of abdominal aortic aneurysm repair, who presented to the emergency department on 01/10/2021 with a 3 day history of feeling very weak, lightheaded, vomiting and diarrhea. Patient was trying to drink more fluids including electrolyte solutions, but continued to have episodes of vomiting and diarrhea. No fever, no complaints of chest pain, did have increased shortness of breath during episodes of exertion and trying to stand up. Has some wheezing and phlegm production. His lab work showed leukocytosis with a white blood cell count of 29.9, hemoglobin was 13.4, sodium of 128, potassium is 2.7, chloride is 82, CO2 is 32, BUN of 38, creatinine is 3.28, plasma lactic acid was 3.2, LFTs were within normal limits, total bilirubin was 1.4, patient had troponin elevation of 0.110, his viral panel including influenza A and B, RSV and COVID- 19 were negative. Chest x-ray showed patchy medial right base opacity streaky left base opacity. Patient's blood pressure was 68/47, patient is tachycardic but in sinus mechanism. Abdominal and pelvis CT showed findings suggestive of acute diverticulitis involving sigmoid and left colon, colitis was not excluded, there were prominent small bowel loops that could represent a reactive ileus rather than obstruction, there was cholelithiasis, nonobstructing right renal calculi with markedly enlarged left kidney. And there was a abdominal aortic aneurysm measuring 4 cm. Patient has received 4-1/2 L of fluid boluses, and despite that remains hypotensive, requiring vasopressor support initiation, surgical consult was requested. Follow-up labs this morning show sodium of 129, potassium is 3.0, chloride is 96, BUN of 37 and creatinine is 3.17. He was given a dose of Rocephin in the emergency department, and his antibiotic coverage was switched to Zosyn, he continues on IV fluids at 130 ML per hour, he is awaiting placement in the intensive care unit. His most recent lactic acid is down to 1.0. He was started on norepinephrine at 0.05 mics per kilo per minute. No complaints of chest pain, echocardiogram has been ordered and pending, blood urine and sputum cultures are ordered and pending. Patient had an episode of watery bowel movement in the ER, with possibility of blood in it. Surg consult is pending, mild lower abd tenderness to palpation, but no guarding, rigidity, abd soft. On today's evaluation of 01/11/2021, the patient is quite anxious and angry and n ervous. He tells me that he has been infected for around 4-5 days and he wants to eat. I told him that I cannot make the decision as long as abdomen is automation tender and it final decision hasn't been made by general surgery. He remains nothing by mouth. His white cell count is 26.6. His renal function is abnormal with a creatinine of 3.1 and a BUN of 32. He remains on IV fluids at half-normal at the rate of 75 mL an hour with multivitamins and the patient is still on IV Zosyn. The patient norepinephrine infusion which is currently running at 0.05 mcg/kg per minute. Urine output is in order of 30-40 mL an hour and the patient has a Medina catheter in place. No signs of any delirium tremens at this point in time. The patient was quite bronchospastic and wheezy on yesterday's evaluation and for that reason the patient was started on a combination of bronchodilators and steroids. The patient is also on DuoNeb nebulized units [id number]. His main concern remains food. 01/12/2021, the patient is being seen in follow-up in the intensive care units. This is a 60-year-old male patient, known history of COPD, hypertension, alcoholism, previous abdominal aortic aneurysm repair who came into the hospital, quite septic, having abdominal pain and CAT scan of the abdomen was s uggestive of an acute diverticulitis involving the sigmoid and the left colon. The patient was started on broad-spectrum antibiotics and the patient was started on IV fluids. The patient was in the emergency department yesterday got transferred to the intensive care unit. She was quite anxious and nervous and tremulous yesterday. Overnight as of 6 PM, the patient became more aggressive, confused, delirious and agitated. He was given Ativan and he was placed in 4. restraints. I was told that on few occasions, Mr. loera was also involved in his care. Meanwhile, the patient was kept on IV fluids and he is currently receiving D5 half normal state rate of 75 mL an hour. He is still on IV Zosyn 3.375 g every 8 hours. He was taken off the pressors. He is producing adequate amount of urine output. The fluid balance over the past 24 hours is +388 mL. The creatinine is improving and the creatinine is currently down to 2.7. He is producing adequate amount of urine output. His white cell count is down to 20.8 with hemoglobin of 10.1. Platelets of 192. He is still receiving nebulized treatment with still bronchospastic and wheezy on examination. He was also given IV Solu Medrol because of his extensive bronchospasm and wheezing over the past 24 hours. The lactic acid level is down to 1. Troponin maxed was at 0.11, stool for C. diff has been negative. Blood cultures been negative. The patient has a mid line in his left upper extremity. 2020, the patient is being seen for a follow-up. This morning, his, comfortable and seems to be well rested. The patient is still confused however his not as aggressive as the patient was given a combination of Haldol and Ativan. He is currently resting comfortably in bed. No focal neurological deficit at this point in time. The patient presented to us with difficulties with abdominal pain and the patient was diagnosed having acute diverticulitis involving the sigmoid colon in the left colon and the patient was placed on broad-spectrum antibiotics, IV fluids and pressors. Hemodynamically, the patient has done well. He is currently on no pressors. He is receiving IV fluids in the form of D5 for 5 D5 half-normal at the rate of 75 mL an hour and is producing adequate amount of urine output. Yesterday, we felt that the patient was getting only vessel congestion and for that reason he was given Lasix and he diuresed extensively following Lasix administration. His white cell count was down to 20.8 and the follow-up white cell count from today is pending. Renal function continues to improve in the creatinine is down to 2.08 and as mentioned the patient is currently on no pressors. Cultures including blood cultures of been all negative and the patient remains on IV Zosyn in addition to D5 normal half-normal seen at the rate of 75 mL an hour. The patient remains nothing by mouth for now. General surgeries on the case. In terms of his COPD, his last bronchus spastic and wheezy. He remains on bronchodilators with DuoNeb nebulized treatments around the clock and he is also on IV Solu-Medrol. The est x-ray showing stable perihilar and lower lobe pulmonary infiltrates. Echocardiogram showed a preserved LV function with an ejection fraction of 55- 60%. He did have a component of mild to moderate pulmonary hypertension with a PA pressure of around 42 mmHg. Stool for C. diff has been negative. Objective - Vital Signs Vital signs: Vital Signs Temp 97.5 F L 01/13/21 04:00 Pulse 90 01/13/21 05:00 Resp 22 01/13/21 05:00 BP 149/86 01/13/21 05:00 Pulse Ox 97 01/13/21 05:00 Intake & Output 01/12/21 01/13/21 01/13/21 18:59 06:59 18:59 Intake Total 1655.986 825 Output Total 3825 2810 Balance - Weight 84.5 kg 83.2 kg Intake: IV 1500 825 0.9% NaCl with KCl 20 Meq 400 /l 1,000 ml @ 100 mls/hr IV .BY DURATION [facility]MIT Rx#: [id number] Dextrose 5%-0.45% NaCl 1, 1100 825 000 ml @ 75 mls/hr IV . [id number] [facility] Rx#:[id number] Intake, IV Titration 155.986 Amount Norepinephrine 4 mg In 155.986 Sodium Chloride 0.9% 250 ml @ 0.05 MCG/KG/MIN 16. 418 mls/hr IV .[id number] [facility] Rx#:[id number] Output: Urine 3825 2810 Other: Voiding Method Indwelling Catheter Indwelling Catheter # Bowel Movements 1 - Exam GENERAL EXAM: Alert, very pleasant, 60-year-old white male, currently confused, delirious, on room air oxygen and the patient's pulse ox is around 90%. Overnight he was placed on HEAD: Normocephalic/atraumatic. EYES: Normal reaction of pupils, equal size. Conjunctiva pink, sclera white. NOSE: Clear with pink turbinates. THROAT: No erythema or exudates. NECK: No masses, no JVD, no thyroid enlargement, no adenopathy. CHEST: No chest wall deformity. Symmetrical expansion. LUNGS: Equal air entry with no crackles, wheeze, rhonchi or dullness. CVS: Regular rate and rhythm, normal S1 and S2, no gallops, no murmurs, no rubs ABDOMEN: The patient is much less tender and nearly no significant tenderness on today's evaluation No hepatosplenomegaly, normal bowel sounds, no guarding or rigidity. EXTREMITIES: No clubbing, no edema, no cyanosis, 2+ pulses and upper and lower extremities. MUSCULOSKELETAL: Muscle strength and tone normal. SPINE: No scoliosis or deformity SKIN: No rashes CENTRAL NERVOUS SYSTEM: Confused, no agitation. Moving all 4 extremities without any limitation. Neurologic exam is nonfocal. No cranial nerve deficits. PSYCHIATRIC: Unable to complete, the patient is emotionally very labile, he does occasionally get very emotional and cries. - Labs CBC & Chem 7: 01/12/21 03:43 01/13/21 03:14 Labs: Abnormal Lab Results - Last 24 Hours (Table) 01/12/21 01/13/21 Range/Units 20:35 03:14 Chloride 111 H (98-107) mmol/L BUN 24 H (9-20) mg/dL Creatinine 2.05 H (0.66-1.25) mg/dL POC Glucose (mg/dL) 126 H (75-99) mg/dL Total Protein 5.3 L (6.3-8.2) g/dL Albumin 2.7 L (3.5-5.0) g/dL Triglycerides 178 H (<150) mg/dL Microbiology - Last 24 Hours (Table) 01/10/21 00:50 Blood Culture - Preliminary Blood No Growth after 72 hours 01/10/21 00:35 Blood Culture - Preliminary Blood No Growth after 72 hours Assessment and Plan Plan: #1. Acute diverticulitis involving the sigmoid and left colon, and possibility of colitis. Patient tested negative for COVID-19, RSV and influenza A and B. The patient presented to the ED, septic with secondary leukocytosis and hypotension, possibly septic and the patient was resuscitated IV fluids, pressors. His evaluation, the patient's abdominal pain is pretty much subsided. His abdominal exam is quite soft. He does have positive bowel sounds. He is on no pressors. White cell count was gradually improving and the renal function was also improving. As such, the patient is more stable and the patient remains on IV Zosyn. He is also on IV fluids receiving D5 half-normal at the rate of 75 mL an hour #2. Vomiting and diarrhea, lightheadedness and dizziness related to dehydration, improved #3. Septic shock and secondary IPO tension, recovered #4. Acute kidney injury related to ATN, dehydration, creatinine is improving and is currently down to 2.0 #6. Hypochloremic hypokalemia related to diarrhea, improved #7. Elevated troponin, rule out possibility of non-ST elevated DE #8. Leukocytosis, related to acute diverticulitis, improving and the white cell count is down to 20 him a awaiting follow-up labs from today #9. History of hypertension #10. Smoker , 2 pack a day smoker for 30 years #11. Abdominal aortic aneurysm measuring 4 cm seen in the CT of abdomen and pelvis , post repair #12. Nonobstructing right renal calculi, and enlarged left kidney #14. Chronic ETOH abuse, drinks a fifth of vodka daily (last drink a week ago) #15. COPD on home oxygen on as needed basis #16. Acute COPD exacerbation, currently on a combination of bronchodilators and steroids. Clinically much improved. #17 acute hypoxic respiratory failure, currently on room air oxygen. Perihilar and lower lobe pulmonary infiltrates were noted. Consider acute lung injury. consider aspiration. Plan: Continue IV fluids and increase the rate to 75 mL an hour no pressors Keep same antibiotics with IV Zosyn Haldol 1 mg every 2-3 hours for agitation and combination with Ativan. Try to avoid benzodiazepines Chest x-ray is showing some perihilar bilateral pulmonary infiltrates, consider a component of acute lung injury. Pneumonia is felt to be less likely.. There component of COPD exacerbation which is obviously improving. Continue with current antibiotic coverage, currently on IV Zosyn Continue the bronchodilators and this continued IV Solu-Medrol. May possibly tolerate some clear liquid diet and the patient will be reevaluated by general surgery prior to being fed [facility] protocol Nephrology consultation appreciated Consult interventional radiology for a PICC line insertion Possible TPN if he is unable to take oral Lactic acid has improved, electrolytes are improving, replace serum potassium per protocol Troponin level remains elevated, echocardiogram showing an ejection fraction of 55-60%. Questionable ASD. Questionable PFO. There is a [id number] component of pulmonary hypertension with a PA pressure 42. Ascending aortic root is around 3.9 cm in size. Continue close hemodynamic monitoring, and keep the patient in the intensive care unit for now.
--- NOTE | 2021-01-13 07:38 | XR ---
EXAMINATION TYPE: XR chest 1V portable DATE OF EXAM: 01/13/2021 HISTORY: Shortness of breath. COMPARISON: 01/12/2021 TECHNIQUE: Single view of the chest is submitted. FINDINGS: Demonstrated are scattered senescent parenchymal change. Patchy perihilar and basilar infiltrates persist. The heart is stable. Hilar and mediastinal structures are within normal limits. Degenerative changes are seen of the dorsal spine. IMPRESSION: 1. Stable chest.
[2021-01-13] MEDS: INSULIN ASPART (NovoLOG) 100 UNIT/ML VIAL SQ SCH ×4 (07:43→21:19)
[2021-01-13] MEDS: ASPIRIN 81 MG PO SCH (08:03)
[2021-01-13] MEDS: METOPROLOL TARTRATE 12.5 MG TAB PO SCH ×2 (08:03→23:48)
[2021-01-13] MEDS: HEPARIN SODIUM,PORCINE/PF 5,000 UNIT/0.5 ML SYRINGE SQ SCH ×2 (08:03→23:02)
[2021-01-13] MEDS: NICOTINE 21MG/24HR PATCH TRANSDERM SCH (08:03)
[2021-01-13] MEDS: PANTOPRAZOLE 40 MG/10 ML VIAL IVP SCH ×2 (08:03→23:02)
[2021-01-13] MEDS: IPRATROPIUM-ALBUTEROL 3 ML NEB INHALATION SCH ×4 (09:18→21:05)
--- NOTE | 2021-01-13 09:34 | P.PN ---
Subjective This is a 60-year-old male patient who follows with [facility] [place] past medical history of hypertension, COPD with home oxygen on as needed basis, 1-2 packs a day current smoker for 30 years, ETOH (drinks a fifth of vodka daily and drinks beers), previous hx of abdominal aortic aneurysm repair. 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 We are being consulted for elevated troponin. Patient presented to the emergency department on 01/10/2021 with a 3 day history of feeling very weak, lightheaded, vomiting and diarrhea. He states he became really lightheaded and passed out at home. He had 2-3 days history of diarrhea associated with decreased oral intake. On admission TR, patient's blood pressure 68/47, heart rate 99, 90% on room air. Patient received 4L IV Boluses and required vasopressor support. CMP revealed sodium 128, potassium 2.7, serum creatinine 3.28, lactate 3.2. He denies symptoms of chest pain, palpitations, shortness of breath, lower extremity edema. He denies symptoms of orthopnea or PND. He is a nondiabetic. He denies illicit drug use. Current home cardiac medications include lisinoprilhydrothiazide 2025 milligrams daily. 01/13/2021 He is seen and examined resting comfortably laying flat in bed in no acute distress. He is still confused and not really answering appropriately. Per the nurse he has been refusing medications. Neurology has seen him and diagnosed with metabolic encephalopathy. Blood pressure 133/90 heart rate 96 afebrile and maintaining oxygen saturation on room air. Laboratory data reviewed, sodium 142, potassium 3.8, creatinine 2.05, magnesium 1.6. Currently maintained on metoprolol 12.5 mg twice a day and aspirin 81 mg daily. Repeat chest x-ray this morning reveals ongoing scattered sensitive parenchymal changes. Overall stable. GENERAL: Well-appearing, well-nourished and in no acute distress. NECK: Supple without JVD or thyromegaly. LUNGS: Breath sounds clear to auscultation bilaterally. Respiration equal and unlabored. No wheezes, rales or rhonchi. Diminished bilaterally. HEART: Regular rate and rhythm with systolic ejection murmur at the base, no rubs or gallops. S1 and S2 heard. EXTREMITIES: Normal range of motion, bilateral lower extremity edema. No clubbing or cyanosis. Peripheral pulses intact. ASSESSMENT Metabolic encephalopathy Altered mental status Alcohol withdrawal Acute kidney injury Diverticulitis Hypertension Troponin leak, not related to primary myocardial injury COPD Chronic nicotine dependence Alcohol abuse PLAN Troponin leak is not related to primary myocardial injury. Continue medical therapy. Encourage oral intake of medications. We will follow along as needed, please call with further questions or concerns. Nurse Practitioner note has been reviewed, I agree with a documented findings and plan of care. Patient was seen and examined. Objective - Vital Signs Vital signs: Vital Signs Temp 97.5 F L 01/13/21 04:00 Pulse 96 01/13/21 07:00 Resp 22 01/13/21 08:00 BP 133/90 01/13/21 08:00 Pulse Ox 91 L 01/13/21 08:00 Intake & Output 01/12/21 01/13/21 01/13/21 18:59 06:59 18:59 Intake Total 1655.986 825 100 Output Total 3825 2810 200 Balance -2169.014 -1984 - Weight 84.5 kg 83.2 kg Intake: IV 1500 825 0.9% NaCl with KCl 20 Meq 400 /l 1,000 ml @ 100 mls/hr IV .BY DURATION KERMIT Rx#: [id number] Dextrose 5%-0.45% NaCl 1, 1100 825 000 ml @ 75 mls/hr IV . [id number] KERMIT Rx#:[id number] Intake, IV Titration 155.986 Amount Norepinephrine 4 mg In 155.986 Sodium Chloride 0.9% 250 ml @ 0.05 MCG/KG/MIN 16. 418 mls/hr IV .[id number] KERMIT Rx#:[id number] Oral 100 Output: Urine 3825 2810 200 Other: Voiding Method Indwelling Catheter Indwelling Catheter Indwelling Catheter # Bowel Movements 1 - Labs CBC & Chem 7: 01/12/21 03:43 01/13/21 03:14 Labs: Abnormal Lab Results - Last 24 Hours (Table) 01/12/21 01/13/21 Range/Units 20:35 03:14 Chloride 111 H (98-107) mmol/L BUN 24 H (9-20) mg/dL Creatinine 2.05 H (0.66-1.25) mg/dL POC Glucose (mg/dL) 126 H (75-99) mg/dL Total Protein 5.3 L (6.3-8.2) g/dL Albumin 2.7 L (3.5-5.0) g/dL Triglycerides 178 H (<150) mg/dL Microbiology - Last 24 Hours (Table) 01/10/21 00:50 Blood Culture - Preliminary Blood No Growth after 72 hours 01/10/21 00:35 Blood Culture - Preliminary Blood No Growth after 72 hours
[2021-01-13] MEDS: FOLIC ACID 1 MG TAB PO SCH (10:46)
[2021-01-13] MEDS: DEXTROSE 5%-0.45% NACL 1,000 ML IV SCH ×2 (10:46→23:03)
[2021-01-13 11:18] LABS: Glucose,Whole Blood 90 mg/dL (75-99)
--- NOTE | 2021-01-13 12:46 | PN ---
PROGRESS NOTE Patient is seen for followup for acute kidney injury. His renal function is improving. Patient is currently maintained on IV fluids. Mentation has improved as well. Creatinine is down to 2.05 from 3.28 on initial admission. Urine output is good with 24-hour output of about 2.3 L. PHYSICAL EXAMINATION: Patient is comfortable, awake. He is not in any acute distress. Blood pressure 124/87, heart rate 79 per minute. He is afebrile. EXAMINATION OF THE HEART: S1, S2. EXAMINATION OF THE LUNGS: Bilateral breath sounds are heard. Abdomen is soft, nontender. Examination of lower extremities shows no evidence of edema. HAND DECORATOR exam shows patient is following commands. He is awake, moving all 4 extremities. LABS: Labs show sodium 142, potassium 3.8, chloride 111, BUN 24, creatinine 2.04. ASSESSMENT: 1. Acute kidney injury, acute tubular necrosis, associated with sepsis, hypotension, currently improved. The patient had been on pressors. He has been maintained on IV fluids, which we will continue. Renal function continues to improve. 2. Hypotension related to underlying infection with diverticulitis and volume depletion. 3. History of abdominal aortic aneurysm. 4. Chronic kidney disease most likely ischemic nephropathy with atrophic left kidney. No previous labs available for baseline creatinine. Possibly stage 3. PLAN: Continue with IV fluids. Repeat labs in a.m. MMODL / IJN: [id number] /
--- NOTE | 2021-01-13 14:19 | P.PN ---
Subjective Progress Note Date: 01/13/21 CHIEF COMPLAINT: Abdominal pain HISTORY OF PRESENT ILLNESS: he patient is a 60-year-old male presented acutely to the emergency room with generalized abdominal pain. Reports his abdominal pain has been lower abdominal ongoing for over 3 days since . He presented with elevated lactate over 3.0. He also came with acute renal failure creatinine over 3.0. With his abdominal pain, additional diagnostic studies were obtained. Features are consistent with diverticulitis. Last colonoscopy 7 years ago with history of polyps. Patient is currently in the ICU. Patient denies any abdominal pain. He had a nonbloody bowel movement. He is tolerating popsicles. Patient is less agitated and confused per nursing staff. He is currently resting comfortably. Afebrile. Creatinine 2.05 Patient is also being evaluated by neurology who felt that the altered mental status was likely due to metabolic encephalopathy and alcohol withdrawal. Patient has been receiving Haldol as needed for agitation. PHYSICAL EXAM: VITAL SIGNS: Reviewed GENERAL: Well-developed in no acute distress. HEENT: No sclera icterus. Extraocular movements grossly intact. Moist buccal mucosa. Head is atraumatic, normocephalic. Hears conversational speech. No nasal drainage. NECK: Supple without lymphadenopathy. CHEST: Non-labored respirations and equal bilateral excursions. CARDIOVASCULAR: Palpable 2+ radial pulses. ABDOMEN: Minimal Tenderness left lower quadrant MUSCULOSKELETAL: No clubbing or cyanosis. NEUROLOGIC: No focal or lateralizing signs. Cranial nerves II through XII grossly intact. PSYCH: Patient is confused. Alert and orientated 1 his name only SKIN: Well perfused. Good skin turgor. ASSESSMENT: 1. Diverticulitis with sepsis 2. Lactic acidosis with acute renal failure 3. Elevated troponins being followed by cardiology 4. Daily alcohol use PLAN: -Advance diet to clear liquids -Continue to monitor patient closely -Continue antibiotics -Continue CIWA protocol -Continue ICU management -Continue supportive care Physician Color Checker Roving Or Yarn note has been reviewed by physician. Signing provider agrees with the documented findings, assessment, and plan of care. Objective - Vital Signs Vital signs: Vital Signs Temp 98.3 F 01/13/21 12:00 Pulse 79 01/13/21 13:00 Resp 29 H 01/13/21 13:00 BP 103/76 01/13/21 13:00 Pulse Ox 94 L 01/13/21 13:00 Intake & Output 01/12/21 01/13/21 01/13/21 18:59 06:59 18:59 Intake Total 1655.986 825 672 Output Total 3825 2810 675 Balance -2169.014 -1985 -3 Weight 84.5 kg 83.2 kg Intake: IV 1500 825 250 0.9% NaCl with KCl 20 Meq 400 /l 1,000 ml @ 100 mls/hr IV .BY DURATION KERMIT Rx#: [id number] Dextrose 5%-0.45% NaCl 1, 1100 825 150 000 ml @ 75 mls/hr IV . [id number] [facility] Rx#:[id number] Piperacillin-Tazobactam 3 100 .375 gm In Sodium Chloride 0.9% 100 ml @ 25 mls/hr IVPB Q8H [facility]ERMIT Rx#: [id number] Intake, IV Titration 155.986 Amount Norepinephrine 4 mg In 155.986 Sodium Chloride 0.9% 250 ml @ 0.05 MCG/KG/MIN 16. 418 mls/hr IV .[id number] KERMIT Rx#:[id number] Oral 422 Output: Urine 3825 2810 675 Other: Voiding Method Indwelling Catheter Indwelling Catheter Indwelling Catheter # Bowel Movements 1 - Labs CBC & Chem 7: 01/12/21 03:43 01/13/21 03:14 Labs: Abnormal Lab Results - Last 24 Hours (Table) 01/12/21 01/13/21 Range/Units 20:35 03:14 Chloride 111 H (98-107) mmol/L BUN 24 H (9-20) mg/dL Creatinine 2.05 H (0.66-1.25) mg/dL POC Glucose (mg/dL) 126 H (75-99) mg/dL Total Protein 5.3 L (6.3-8.2) g/dL Albumin 2.7 L (3.5-5.0) g/dL Triglycerides 178 H (<150) mg/dL Microbiology - Last 24 Hours (Table) 01/10/21 00:50 Blood Culture - Preliminary Blood No Growth after 72 hours 01/10/21 00:35 Blood Culture - Preliminary Blood No Growth after 72 hours
[2021-01-13] MEDS ORDERED: FAT EMULSION 20% 250 ML IV SCH (16:00)
[2021-01-13] MEDS ORDERED: MVI, ADULT NO.4 WITH VIT K 10 ML, TRACE (CONC-1ML/DOSE) 1 ML, SODIUM ACETATE 40 MEQ, PO... IV ONE ×7 (16:00)
[2021-01-13] MEDS: NOREPINEPHRINE 4 MG in SODIUM CHLORIDE 0.9% 250 ML IV SCH (17:36)
--- NOTE | 2021-01-13 17:52 | PN ---
PROGRESS NOTE DATE OF SERVICE: 01/13/2021 CHIEF COMPLAINT: Septic shock, probably secondary to diverticulitis. HISTORY OF PRESENT ILLNESS: This gentleman is slowly improving. He is off pressors. He is still lethargic, but he is responsive. He is breathing on his own. BUN and creatinine are improving. Vital signs are currently stable. He is being followed by Nephrology, General Surgery and Cardiology. He is also being seen by Neurology. PHYSICAL EXAMINATION: Gaze is conjugate. Neck veins are not distended. Chest demonstrates good breath sounds bilaterally and the cardiac exam is normal. The abdomen is soft. Extremities are normal. IMPRESSION: 1. Septic shock secondary to diverticulitis. 2. Chronic alcoholism. 3. Possible delirium tremens. 4. Less likely acute on chronic renal failure. 5. Abdominal aortic aneurysm. PLAN: Continue to follow with Intensive Medicine, Cardiology, General Surgery and Neurology as well as Nephrology. MMODL / IJN: [id number] /
--- NOTE | 2021-01-13 18:21 | P.PN ---
Subjective Progress Note Date: 01/13/21 Patient was seen for a follow-up. Patient is doing much better. He is alert and awake. Patient very well oriented. Still slightly encephalopathic. Patient able to tell that he used to drink 7-8 beers, about 4 days a week. He would drink beer or booz. Objective - Vital Signs Vital signs: Vital Signs Temp 98.3 F 01/13/21 12:00 Pulse 79 01/13/21 13:00 Resp 29 H 01/13/21 13:00 BP 103/76 01/13/21 13:00 Pulse Ox 94 L 01/13/21 13:00 Intake & Output 01/12/21 01/13/21 01/13/21 18:59 06:59 18:59 Intake Total 1655.986 825 672 Output Total 3825 2810 675 Balance -2169.014 -1985 -3 Weight 84.5 kg 83.2 kg Intake: IV 1500 825 250 0.9% NaCl with KCl 20 Meq 400 /l 1,000 ml @ 100 mls/hr IV .BY [facility] Rx#: [id number] Dextrose 5%-0.45% NaCl 1, 1100 825 150 000 ml @ 75 mls/hr IV . [id number] [facility] Rx#:[id number] Piperacillin-Tazobactam 3 100 .375 gm In Sodium Chloride 0.9% 100 ml @ 25 mls/hr IVPB Q8H [facility] Rx#: [id number] Intake, IV Titration 155.986 Amount Norepinephrine 4 mg In 155.986 Sodium Chloride 0.9% 250 ml @ 0.05 MCG/KG/MIN 16. 418 mls/hr IV .[id number] [facility] Rx#:[id number] Oral 422 Output: Urine 3825 2810 675 Other: Voiding Method Indwelling Catheter Indwelling Catheter Indwelling Catheter # Bowel Movements 1 - Exam Patient is much more arousable, wakes up, it keeps his eyes closed. Patient knows it is January and the year is 2020 and that he is in [facility]. Speech and leg which functions are normal. Pupils are round and reactive to light, visual west are full, face is symmetric. Patient's strength is normal in the arms and legs. Tone and bulk of muscles normal. Patient apparently was feeling hungry and wanted to eat. - Labs CBC & Chem 7: 05/04/21 03:43 01/13/21 03:14 Labs: Abnormal Lab Results - Last 24 Hours (Table) 01/12/21 01/13/21 Range/Units 20:35 03:14 Chloride 111 H (98-107) mmol/L BUN 24 H (9-20) mg/dL Creatinine 2.05 H (0.66-1.25) mg/dL POC Glucose (mg/dL) 126 H (75-99) mg/dL Total Protein 5.3 L (6.3-8.2) g/dL Albumin 2.7 L (3.5-5.0) g/dL Triglycerides 178 H (<150) mg/dL Microbiology - Last 24 Hours (Table) 01/10/21 00:50 Blood Culture - Preliminary Blood No Growth after 72 hours 01/10/21 00:35 Blood Culture - Preliminary Blood No Growth after 72 hours Assessment and Plan Assessment: * Altered mental status, probably related to toxic metabolic encephalopathy, probable alcohol withdrawal. Mentation much improved today. * Long-standing history of alcoholism, stopped drinking 2 days ago, now probably in some degree of withdrawals. * Acute diverticulitis involving the sigmoid and left:, Possibility of colitis. Sepsis and leukocytosis. * Vomiting diarrhea, dehydration, hypotension * Acute kidney injury, improving. * Elevated troponin, rule out possibility of non-STEMI * Folate deficiency * Hypertension * Tobacco use 2 pack per day for 30 years * Abdominal aortic aneurysm measuring [address] abdomen and pelvis. Postrepair . * COPD Plan: * Patient's mentation has much improved. His examination is nonfocal. Patient is fully oriented at this time. Patient admits to drinking heavily 4 days a week. * Continue CIWA protocol. * B12 440, folic acid is low 5.9. Patient will be started on folate repl acement. TSH is normal 1.56. BUN 24, creatinine 2.05. RPR nonreactive. Anemia <9. * We will follow patient clinically.
[2021-01-13 18:38] LABS: Glucose,Whole Blood 102 mg/dL (75-99)
[2021-01-13 21:29] LABS: Glucose,Whole Blood 105 mg/dL (75-99)
[2021-01-14] MEDS: PIPERACILLIN-TAZOBACTAM 3.375 GM in SODIUM CHLORIDE 0.9% 100 ML IVPB SCH ×3 (02:25→18:01)
[2021-01-14] MEDS: NOREPINEPHRINE 4 MG in SODIUM CHLORIDE 0.9% 250 ML IV SCH ×2 (02:26→20:53)
[2021-01-14 06:33] LABS: Anisocytosis Slight; Basophils % (A) 0 %; Eosinophils # (A) 0.1 k/uL (0-0.7); Eosinophils % (A) 1 %; HCT 36.4 % (39.0-53.0); HGB 12.1 gm/dL (13.0-17.5); Lymphocytes # (A) 0.8 k/uL (1.0-4.8); Lymphocytes % (A) 9 %; MCH 39.9 pg (25.0-35.0); MCHC 33.2 g/dL (31.0-37.0); MCV 120.3 fL (80.0-100.0); Macrocytosis Marked; Mean Platelet Volume 7.6; Monocytes # (A) 0.7 k/uL (0-1.0); Monocytes % (A) 8 %; Neutrophils # (A) 7.2 k/uL (1.3-7.7); Neutrophils % (A) 80 %; Platelet Count 286 k/uL (150-450); RBC 3.03 m/uL (4.30-5.90); RDW 18.4 % (11.5-15.5); WBC 8.9 k/uL (3.8-10.6)
--- NOTE | 2021-01-14 07:45 | XR ---
EXAMINATION TYPE: XR chest 1V portable DATE OF EXAM: 01/14/2021 CLINICAL HISTORY: Difficulty breathing and pneumonia progress study. TECHNIQUE: Single AP portable frontal upright view of the chest is obtained. COMPARISON: Chest x-ray from one day earlier and older studies. FINDINGS: Persistent mid lung opacities show some interval improvement. Persistent left basilar opac ity with small left pleural effusion. Cardiac silhouette size stable and within normal limits. Osseou s structures are intact. IMPRESSION: Improving but persistent bilateral perihilar and left basilar acute infiltrates with smal l left pleural effusion. No new infiltrates.
[2021-01-14 07:52] LABS: Glucose,Whole Blood 100 mg/dL (75-99)
[2021-01-14] MEDS: INSULIN ASPART (NovoLOG) 100 UNIT/ML VIAL SQ SCH ×2 (08:18→12:30)
[2021-01-14] MEDS: PANTOPRAZOLE 40 MG/10 ML VIAL IVP SCH ×2 (08:19→20:10)
[2021-01-14] MEDS: ASPIRIN 81 MG PO SCH (08:19)
[2021-01-14] MEDS: HEPARIN SODIUM,PORCINE/PF 5,000 UNIT/0.5 ML SYRINGE SQ SCH ×2 (08:19→20:10)
[2021-01-14] MEDS: FOLIC ACID 1 MG TAB PO SCH (08:19)
[2021-01-14] MEDS: NICOTINE 21MG/24HR PATCH TRANSDERM SCH (08:19)
[2021-01-14] MEDS: METOPROLOL TARTRATE 12.5 MG TAB PO SCH ×2 (09:17→20:10)
[2021-01-14 09:38] LABS: African American GFR (CKD) 62.8 (60.0-200.0); Albumin 2.7 g/dL (3.80-4.90); Albumin/Globulin Ratio 1.59 (1.60-3.17); Anion Gap 7.9 mmol/L (4.00-12.00); Calcium 7.7 mg/dL (8.7-10.3); Carbon Dioxide 25.1 mmol/L (21.6-31.8); Globulin 1.7 g/dL (1.6-3.3); Non-African American GFR(CKD) 54.2 (60.0-200.0); Phosphorus 1.5 mg/dL (2.4-5.1); Potassium 3.3 mmol/L (3.5-5.5); Total Bilirubin 0.5 mg/dL (0.2-1.2); Total Protein 4.4 g/dL (6.2-8.2)
[2021-01-14] MEDS: IPRATROPIUM-ALBUTEROL 3 ML NEB INHALATION SCH ×4 (09:42→19:47)
[2021-01-14 11:59] LABS: Glucose,Whole Blood 99 mg/dL (75-99)
--- NOTE | 2021-01-14 12:14 | P.PN ---
Subjective Progress Note Date: 01/14/21 60-year-old white male patient who follows with [facility] in [place], with louis weldon medical history of hypertension, COPD with home oxygen on as needed basis, 2 pack a day current smoker for 30 years, ETOH (drinks a fifth of vodka daily), previous hx of abdominal aortic aneurysm repair, who presented to the emergency department on 01/10/2021 with a 3 day history of feeling very weak, lightheaded, vomiting and diarrhea. Patient was trying to drink more fluids including electrolyte solutions, but continued to have episodes of vomiting and diarrhea. No fever, no complaints of chest pain, did have increased shortness of breath during episodes of exertion and trying to stand up. Has some wheezing and phlegm production. His lab work showed leukocytosis with a white blood cell count of 29.9, hemoglobin was 13.4, sodium of 128, potassium is 2.7, chloride is 82, CO2 is 32, BUN of 38, creatinine is 3.28, plasma lactic acid was 3.2, LFTs were within normal limits, total bilirubin was 1.4, patient had troponin elevation of 0.110, his viral panel including influenza A and B, RSV and COVID- 19 were negative. Chest x-ray showed patchy medial right base opacity streaky left base opacity. Patient's blood pressure was 68/47, patient is tachycardic but in sinus mechanism. Abdominal and pelvis CT showed findings suggestive of acute diverticulitis involving sigmoid and left colon, colitis was not excluded, there were prominent small bowel loops that could represent a reactive ileus rather than obstruction, there was cholelithiasis, nonobstructing right renal calculi with markedly enlarged left kidney. And there was a abdominal aortic aneurysm measuring 4 cm. Patient has received 4-1/2 L of fluid boluses, and despite that remains hypotensive, requiring vasopressor support initiation, surgical consult was requested. Follow-up labs this morning show sodium of 129, potassium is 3.0, chloride is 96, BUN of 37 and creatinine is 3.17. He was given a dose of Rocephin in the emergency department, and his antibiotic coverage was switched to Zosyn, he continues on IV fluids at 130 ML per hour, he is awaiting placement in the intensive care unit. His most recent lactic acid is down to 1.0. He was started on norepinephrine at 0.05 mics per kilo per minute. No complaints of chest pain, echocardiogram has been ordered and pending, blood urine and sputum cultures are ordered and pending. Patient had an episode of watery bowel movement in the ER, with possibility of blood in it. Surg consult is pending, mild lower abd tenderness to palpation, but no guarding, rigidity, abd soft. On today's evaluation of 01/11/2021, the patient is quite anxious and angry and n ervous. He tells me that he has been infected for around 4-5 days and he wants to eat. I told him that I cannot make the decision as long as abdomen is still operator gin and it final decision hasn't been made by general surgery. He remains nothing by mouth. His white cell count is 26.6. His renal function is abnormal with a creatinine of 3.1 and a BUN of 32. He remains on IV fluids at half-normal at the rate of 75 mL an hour with multivitamins and the patient is still on IV Zosyn. The patient norepinephrine infusion which is currently running at 0.05 mcg/kg per minute. Urine output is in order of 30-40 mL an hour and the patient has a Medina catheter in place. No signs of any delirium tremens at this point in time. The patient was quite bronchospastic and wheezy on yesterday's evaluation and for that reason the patient was started on a combination of bronchodilators and steroids. The patient is also on DuoNeb nebulized units [id number]. His main concern remains food. 01/12/2021, the patient is being seen in follow-up in the intensive care units. This is a 60-year-old male patient, known history of COPD, hypertension, alcoholism, previous abdominal aortic aneurysm repair who came into the hospital, quite septic, having abdominal pain and CAT scan of the abdomen was s uggestive of an acute diverticulitis involving the sigmoid and the left colon. The patient was started on broad-spectrum antibiotics and the patient was started on IV fluids. The patient was in the emergency department yesterday got transferred to the intensive care unit. She was quite anxious and nervous and tremulous yesterday. Overnight as of 6 PM, the patient became more aggressive, confused, delirious and agitated. He was given Ativan and he was placed in 4. restraints. I was told that on few occasions, Mr. loera was also involved in his care. Meanwhile, the patient was kept on IV fluids and he is currently receiving D5 half normal state rate of 75 mL an hour. He is still on IV Zosyn 3.375 g every 8 hours. He was taken off the pressors. He is producing adequate amount of urine output. The fluid balance over the past 24 hours is +388 mL. The creatinine is improving and the creatinine is currently down to 2.7. He is producing adequate amount of urine output. His white cell count is down to 20.8 with hemoglobin of 10.1. Platelets of 192. He is still receiving nebulized treatment with still bronchospastic and wheezy on examination. He was also given IV Solu Medrol because of his extensive bronchospasm and wheezing over the past 24 hours. The lactic acid level is down to 1. Troponin maxed was at 0.11, stool for C. diff has been negative. Blood cultures been negative. The patient has a mid line in his left upper extremity. 2020, the patient is being seen for a follow-up. This morning, his, comfortable and seems to be well rested. The patient is still confused however his not as aggressive as the patient was given a combination of Haldol and Ativan. He is currently resting comfortably in bed. No focal neurological deficit at this point in time. The patient presented to us with difficulties with abdominal pain and the patient was diagnosed having acute diverticulitis involving the sigmoid colon in the left colon and the patient was placed on broad-spectrum antibiotics, IV fluids and pressors. Hemodynamically, the patient has done well. He is currently on no pressors. He is receiving IV fluids in the form of D5 for 5 D5 half-normal at the rate of 75 mL an hour and is producing adequate amount of urine output. Yesterday, we felt that the patient was getting only vessel congestion and for that reason he was given Lasix and he diuresed extensively following Lasix administration. His white cell count was down to 20.8 and the follow-up white cell count from today is pending. Renal function continues to improve in the creatinine is down to 2.08 and as mentioned the patient is currently on no pressors. Cultures including blood cultures of been all negative and the patient remains on IV Zosyn in addition to D5 normal half-normal seen at the rate of 75 mL an hour. The patient remains nothing by mouth for now. General surgeries on the case. In terms of his COPD, his last bronchus spastic and wheezy. He remains on bronchodilators with DuoNeb nebulized treatments around the clock and he is also on IV Solu-Medrol. The est x-ray showing stable perihilar and lower lobe pulmonary infiltrates. Echocardiogram showed a preserved LV function with an ejection fraction of 55- 60%. He did have a component of mild to moderate pulmonary hypertension with a PA pressure of around 42 mmHg. Stool for C. diff has been negative. On 01/14/2021, patient is being seen for a follow-up. The patient is doing well. The patient got transferred out of the intensive care unit yesterday. The patient was treated for diverticulitis/colitis with broad-spectrum antibiotics. The patient's abdominal pain subsided and the patient is to lerating his diet and his diet is being gradually advanced. He was hypotensive and he has recovered. His current creatinine is down to 1.4 with a BUN of 14. Sodium is at 140. White cell count at 8.5 is afebrile. No other significant events otherwise for now. He was also treated for COPD exacerbation and his overall pulmonary status improved significantly. No chest pain. No cough. No sputum production. No chest tightness. No wheezing. No fever. No chills. Mental status has been also stable. The patient was seen by neurology in consultation yesterday. The patient is an alcoholic. He drinks beer and excess. His oral intake has been poor and is somewhat hypo-nourishment because of his chronic alcohol ingestion. Objective - Vital Signs Vital signs: Vital Signs Temp 98.5 F 01/14/21 05:00 Pulse 86 01/14/21 09:54 Resp 16 01/14/21 09:46 BP 113/69 01/14/21 05:00 Pulse Ox 91 L 01/14/21 05:00 Intake & Output 01/13/21 01/14/21 01/14/21 18:59 06:59 18:59 Intake Total 1047 800 360 Output Total 1100 1 Balance -53 799 360 Intake: IV 625 700 Dextrose 5%-0.45% NaCl 1, 525 600 000 ml @ 75 mls/hr IV . [id number] [facility] Rx#:[id number] Piperacillin-Tazobactam 3 100 100 .375 gm In Sodium Chloride 0.9% 100 ml @ 25 mls/hr IVPB Q8H [facility] Rx#: [id number] Oral 422 100 360 Output: Urine 1100 Urine/Stool Mix 1 Other: Voiding Method Indwelling Catheter Urinal Urinal # Voids 3 - Exam GENERAL EXAM: Alert, very pleasant, 60-year-old white male, on room air oxygen and the patient's pulse ox is around 90%. Overnight he was placed on HEAD: Normocephalic/atraumatic. EYES: Normal reaction of pupils, equal size. Conjunctiva pink, sclera white. NOSE: Clear with pink turbinates. THROAT: No erythema or exudates. NECK: No masses, no JVD, no thyroid enlargement, no adenopathy. CHEST: No chest wall deformity. Symmetrical expansion. LUNGS: Equal air entry with no crackles, wheeze, rhonchi or dullness. CVS: Regular rate and rhythm, normal S1 and S2, no gallops, no murmurs, no rubs ABDOMEN: The patient is much less tender and nearly no significant tenderness on today's evaluation No hepatosplenomegaly, normal bowel sounds, no guarding or rigidity. EXTREMITIES: No clubbing, no edema, no cyanosis, 2+ pulses and upper and lower extremities. MUSCULOSKELETAL: Muscle strength and tone normal. SPINE: No scoliosis or deformity SKIN: No rashes CENTRAL NERVOUS SYSTEM: Confused, no agitation. Moving all 4 extremities without any limitation. Neurologic exam is nonfocal. No cranial nerve deficits. PSYCHIATRIC: Unable to complete, the patient is emotionally very labile, he does occasionally get very emotional and cries. - Labs CBC & Chem 7: 01/14/21 05:46 01/14/21 05:46 Labs: Abnormal Lab Results - Last 24 Hours (Table) 01/13/21 01/13/21 01/14/21 Range/Units 18:35 21:11 05:46 RBC 3.03 L (4.30-5.90) m/uL Hgb 12.1 L (13.0-17.5) gm/dL Hct 36.4 L (39.0-53.0) % MCV 120.3 H (80.0-100.0) fL MCH 39.9 H (25.0-35.0) pg RDW 18.4 H (11.5-15.5) % Lymphocytes # 0.8 L (1.0-4.8) k/uL Macrocytosis Marked A Potassium (3.5-5.5) mmol/L Est GFR (CKD-EPI)NonAf (60.0-200.0) BUN/Creatinine Ratio (12.00-20.00) Ratio POC Glucose (mg/dL) 102 H 105 H (75-99) mg/dL Calcium (8.7-10.3) mg/dL Phosphorus (2.4-5.1) mg/dL AST (14-35) U/L Total Protein (6.2-8.2) g/dL Albumin (3.80-4.90) g/dL Albumin/Globulin Ratio (1.60-3.17) g/dL 01/14/21 01/14/21 Range/Units 05:46 07:50 RBC (4.30-5.90) m/uL Hgb (13.0-17.5) gm/dL Hct (39.0-53.0) % MCV (80.0-100.0) fL MCH (25.0-35.0) pg RDW (11.5-15.5) % Lymphocytes # (1.0-4.8) k/uL Macrocytosis Potassium 3.3 L (3.5-5.5) mmol/L Est GFR (CKD-EPI)NonAf 54.2 L (60.0-200.0) BUN/Creatinine Ratio 10.00 L (12.00-20.00) Ratio POC Glucose (mg/dL) 100 H (75-99) mg/dL Calcium 7.7 L (8.7-10.3) mg/dL Phosphorus 1.5 L (2.4-5.1) mg/dL AST 41 H (14-35) U/L Total Protein 4.4 L (6.2-8.2) g/dL Albumin 2.70 L (3.80-4.90) g/dL Albumin/Globulin Ratio 1.59 L (1.60-3.17) g/dL Microbiology - Last 24 Hours (Table) 01/10/21 00:50 Blood Culture - Preliminary Blood No Growth after 96 hours 01/10/21 00:35 Blood Culture - Preliminary Blood No Growth after 96 hours Assessment and Plan Plan: #1. Acute diverticulitis involving the sigmoid and left colon, and possibility of colitis. was treated with antibiotics, fluids and pressors and he is hemodynamically stable and he was transferred out of the intensive care unit. Abdominal pain is subsided and the patient is being seen by general surgeryin clear liquid diet and his diet will be gradually advanced. #2. Vomiting and diarrhea, lightheadedness and dizziness related to dehy dration, improved #3. Septic shock , recovered #4. Acute kidney injury related to ATN, dehydration, creatinine is improving and is currently down to 2.0 #6. Hypochloremic hypokalemia related to diarrhea, improved #7. Elevated troponin, rule out possibility of non-ST elevated RI #8. Leukocytosis, related to acute diverticulitis, improved #9. History of hypertension #10. Smoker , 2 pack a day smoker for 30 years #11. Abdominal aortic aneurysm measuring 4 cm seen in the CT of abdomen and pelvis , post repair #12. Nonobstructing right renal calculi, and enlarged left kidney #14. Chronic ETOH abuse, drinks a fifth of vodka daily (last drink a week ago) #15. COPD on home oxygen on as needed basis #16. Acute COPD exacerbation, currently on a combination of bronchodilators and steroids. Clinically much improved. #17 acute hypoxic respiratory failure, currently on room air oxygen. Perihilar and lower lobe pulmonary infiltrates were noted. Consider acute lung injury. consider aspiration. currently the patient is on room air oxygen. Plan: Continue IV fluids and increase the rate to 75 mL an hour Keep same antibiotics with IV Zosyn mental status normalized No signs of any delirium tremens Advance diet as tolerated, recommended soft diet, clear with surgery Pulmonary critical care services will sign off. Rest of the management is per medicine and the surgical team. His condition is stable for now.
--- NOTE | 2021-01-14 15:08 | P.PN ---
Subjective Progress Note Date: 01/14/21 CHIEF COMPLAINT: Abdominal pain HISTORY OF PRESENT ILLNESS: The patient is a 60-year-old male presented acutely to the emergency room with generalized abdominal pain. Reports his abdominal pain has been lower abdominal ongoing for over 3 days since . He presented with elevated lactate over 3.0. He also came with acute renal failure creatinine over 3.0. With his abdominal pain, additional diagnostic studies were obtained. Features are consistent with diverticulitis. Last colonoscopy 7 years ago with history of polyps. Patient was transferred out of the ICU yesterday to a regular medical floor. He denies any abdominal pain. Denies any nausea or vomiting. He had a bowel movement with no blood. He is afebrile. His white count has normalized at 8.9 hemoglobin 12.1. Patient shows no signs of agitation today and his mentation has improved PHYSICAL EXAM: VITAL SIGNS: Reviewed GENERAL: Well-developed in no acute distress. HEENT: No sclera icterus. Extraocular movements grossly intact. Moist buccal mucosa. Head is atraumatic, normocephalic. Hears conversational speech. No nasal drainage. NECK: Supple without lymphadenopathy. CHEST: Non-labored respirations and equal bilateral excursions. CARDIOVASCULAR: Palpable 2+ radial pulses. ABDOMEN: Minimal Tenderness left lower quadrant MUSCULOSKELETAL: No clubbing or cyanosis. NEUROLOGIC: No focal or lateralizing signs. Cranial nerves II through XII grossly intact. PSYCH: Alert and orientated to 3 SKIN: Well perfused. Good skin turgor. ASSESSMENT: 1. Diverticulitis with sepsis 2. Lactic acidosis with acute renal failure 3. Elevated troponins being followed by cardiology 4. Daily alcohol use PLAN: -Advance diet to low fiber -Consult dietitian to educate patient on low fiber diet -Anticipate discharge tomorrow if patient is tolerating diet -Continue antibiotics Physician General Expeditor note has been reviewed by physician. Signing provider agrees with the documented findings, assessment, and plan of care. Objective - Vital Signs Vital signs: Vital Signs Temp 97.8 F 01/14/21 12:22 Pulse 80 01/14/21 12:23 Resp 17 01/14/21 12:22 BP 100/55 01/14/21 12:22 Pulse Ox 91 L 01/14/21 12:22 Intake & Output 01/13/21 01/14/21 01/14/21 18:59 06:59 18:59 Intake Total 1047 800 600 Output Total 1100 1 Balance -53 799 600 Intake: IV 625 700 Dextrose 5%-0.45% NaCl 1, 525 600 000 ml @ 75 mls/hr IV . [id number] [facility] Rx#:[id number] Piperacillin-Tazobactam 3 100 100 .375 gm In Sodium Chloride 0.9% 100 ml @ 25 mls/hr IVPB Q8H [facility] Rx#: [id number] Oral 422 100 600 Output: Urine 1100 Urine/Stool Mix 1 Other: Voiding Method Indwelling Catheter Urinal Urinal # Voids 3 - Labs CBC & Chem 7: 01/14/21 05:46 01/14/21 05:46 Labs: Abnormal Lab Results - Last 24 Hours (Table) 01/13/21 01/13/21 01/14/21 Range/Units 18:35 21:11 05:46 RBC 3.03 L (4.30-5.90) m/uL Hgb 12.1 L (13.0-17.5) gm/dL Hct 36.4 L (39.0-53.0) % MCV 120.3 H (80.0-100.0) fL MCH 39.9 H (25.0-35.0) pg RDW 18.4 H (11.5-15.5) % Lymphocytes # 0.8 L (1.0-4.8) k/uL Macrocytosis Marked A Potassium (3.5-5.5) mmol/L Est GFR (CKD-EPI)NonAf (60.0-200.0) BUN/Creatinine Ratio (12.00-20.00) Ratio POC Glucose (mg/dL) 102 H 105 H (75-99) mg/dL Calcium (8.7-10.3) mg/dL Phosphorus (2.4-5.1) mg/dL AST (14-35) U/L Total Protein (6.2-8.2) g/dL Albumin (3.80-4.90) g/dL Albumin/Globulin Ratio (1.60-3.17) g/dL 01/14/21 01/14/21 Range/Units 05:46 07:50 RBC (4.30-5.90) m/uL Hgb (13.0-17.5) gm/dL Hct (39.0-53.0) % MCV (80.0-100.0) fL MCH (25.0-35.0) pg RDW (11.5-15.5) % Lymphocytes # (1.0-4.8) k/uL Macrocytosis Potassium 3.3 L (3.5-5.5) mmol/L Est GFR (CKD-EPI)NonAf 54.2 L (60.0-200.0) BUN/Creatinine Ratio 10.00 L (12.00-20.00) Ratio POC Glucose (mg/dL) 100 H (75-99) mg/dL Calcium 7.7 L (8.7-10.3) mg/dL Phosphorus 1.5 L (2.4-5.1) mg/dL AST 41 H (14-35) U/L Total Protein 4.4 L (6.2-8.2) g/dL Albumin 2.70 L (3.80-4.90) g/dL Albumin/Globulin Ratio 1.59 L (1.60-3.17) g/dL Microbiology - Last 24 Hours (Table) 01/10/21 00:50 Blood Culture - Preliminary Blood No Growth after 96 hours 01/10/21 00:35 Blood Culture - Preliminary Blood No Growth after 96 hours
[2021-01-14 15:09] VITALS: BMI 29.6
--- NOTE | 2021-01-14 15:20 | PN ---
PROGRESS NOTE Patient is seen for followup for acute kidney injury, mostly prerenal. His renal function continues to improve, with creatinine down to 1.4 today. Patient is maintained on IV fluids. On examination, he is comfortable, awake, not in any acute distress. Blood pressure 100/55, heart rate 85 per minute. He is afebrile. Examination shows patient is euvolemic. No evidence of edema, bilateral lower extremities. Labs show sodium 140, potassium 3.3, chloride 107. CO2 is 25, BUN 14, creatinine 1.4. ASSESSMENT: 1. Acute kidney injury, prerenal, and an element of acute tubular necrosis with significant hypotension on initial admission. 2. Diverticulitis, maintained on antibiotics, currently improved. 3. Hypokalemia. Will replace. 4. Mental status changes, now improved. 5. Chronic kidney disease, most likely ischemic nephropathy with atrophic left kidney. PLAN: Encourage increased oral intake. May continue with IV fluids for now. Continue with antibiotics as well. MMODL / IJN: [id number] /
[2021-01-14] MEDS ORDERED: 1: MVI, ADULT NO.4 WITH VIT K 10 ML, TRACE (CONC-1ML/DOSE) 1 ML, SODIUM ACETATE 30 MEQ, IV SCH ×7 (16:00)
--- NOTE | 2021-01-14 17:26 | PN ---
PROGRESS NOTE CHIEF COMPLAINT: Septic shock. HISTORY OF PRESENT ILLNESS: This gentleman is slowly improving. He is a little bit more awake and alert. Vital signs have been normal. He is not running a fever. PHYSICAL EXAMINATION: He is arousable and slightly more communicative. Chest is clear. Cardiac exam is normal. Abdomen is soft, nontender. Vital signs are normal. He is afebrile. IMPRESSION: 1. Bacterial septicemia and septic shock secondary to diverticulitis. 2. Alcoholism. PLAN: 1. Progress his activity. 2. Continue with physical therapy. 3. Continue to work on discharge plan. MMODL / IJN: [id number] /
[2021-01-14] MEDS: DEXTROSE 5%-0.45% NACL 1,000 ML IV SCH (18:00)
[2021-01-15] MEDS: PIPERACILLIN-TAZOBACTAM 3.375 GM in SODIUM CHLORIDE 0.9% 100 ML IVPB SCH ×2 (01:47→11:12)
[2021-01-15] MEDS: DEXTROSE 5%-0.45% NACL 1,000 ML IV SCH (01:48)
[2021-01-15 04:14] VITALS: RESP 18
--- NOTE | 2021-01-15 07:38 | XR ---
EXAMINATION TYPE: XR chest 1V portable DATE OF EXAM: 01/15/2021 CLINICAL HISTORY: Difficulty breathing and pneumonia progress study. TECHNIQUE: Single AP portable upright view of the chest is obtained. COMPARISON: Chest x-ray from one day earlier and older studies FINDINGS: Persistent central midlung opacities. Persistent left basilar opacity with small left pleu ral effusion. Cardiac silhouette size stable and within normal limits. Osseous structures are intact. IMPRESSION: Persistent bilateral perihilar and left basilar acute infiltrates with small left pleural effusion. No significant change from one day earlier.
[2021-01-15] MEDS: ASPIRIN 81 MG PO SCH (08:14)
[2021-01-15] MEDS: NICOTINE 21MG/24HR PATCH TRANSDERM SCH (08:14)
[2021-01-15] MEDS: PANTOPRAZOLE 40 MG/10 ML VIAL IVP SCH (08:14)
[2021-01-15] MEDS: HEPARIN SODIUM,PORCINE/PF 5,000 UNIT/0.5 ML SYRINGE SQ SCH (08:14)
[2021-01-15] MEDS: FOLIC ACID 1 MG TAB PO SCH (08:14)
[2021-01-15] MEDS: METOPROLOL TARTRATE 12.5 MG TAB PO SCH (08:15)
[2021-01-15] MEDS: IPRATROPIUM-ALBUTEROL 3 ML NEB INHALATION SCH ×2 (09:31→11:27)
[2021-01-15 10:30] LABS: African American GFR (CKD) 68.7 (60.0-200.0); Albumin/Globulin Ratio 1.76 (1.60-3.17); Anion Gap 8.4 mmol/L (4.00-12.00); BUN/Creat Ratio 9.23 Ratio (12.00-20.00); Calcium 7.6 mg/dL (8.7-10.3); Carbon Dioxide 26.6 mmol/L (21.6-31.8); Globulin 1.7 g/dL (1.6-3.3); Non-African American GFR(CKD) 59.3 (60.0-200.0); Phosphorus 2.1 mg/dL (2.4-5.1); Potassium 3.4 mmol/L (3.5-5.5); Total Bilirubin 0.4 mg/dL (0.3-1.2); Total Protein 4.7 g/dL (6.2-8.2)
--- NOTE | 2021-01-15 11:01 | P.PN ---
Subjective Progress Note Date: 01/15/21 CHIEF COMPLAINT: Diverticulitis HISTORY OF PRESENT ILLNESS: The patient is a 60-year-old male admitted with sepsis including diverticulitis is and left lower quadrant abdominal pain. Patient also had delirium tremens. His abdominal pain had resolved in the past few days. He had tolerated a low fiber diet. He denies any abdominal pain. He is eager to go home. He is alert. ROS: No reports of nausea and vomiting. No fevers or chills. PHYSICAL EXAM: VITAL SIGNS: Reviewed CONSTITUTIONAL: Well developed and in no acute distress. EYES: Conjuctivae without sclera icterus. Extraocular movements grossly intact. HEAD, EARS, NOSE, THROAT: Moist buccal mucosa. Head is atraumatic, normoceph alic. Hears conversational speech. No nasal drainage. NECK: Supple. RESPIRATORY: Non-labored respirations and equal bilateral excursions. CARDIOVASCULAR: Palpable 2+ radial pulses. ABDOMEN: No peritonitis. MUSCULOSKELETAL: No gross deformity of the lower extremities noted. No clubbing. No cyanosis. SKIN: Good skin turgor. Well perfused. NEUROLOGIC: Cranial nerves II through XII grossly intact. No focal or lateralizing signs. PSYCH: Appropriate affect. Alert and oriented to person, place and time. CLINICAL LABS: White blood cell count normal down to 5,600 from over 30,000 on admission ASSESSMENT: 1. Acute diverticulitis. 2. Sepsis on presentation 3. Delirium tremens with alcohol abuse disorder 4. Personal history of colon polyp PLAN: 1. Recommend discharge home with antibiotic coverage per directions of infectious disease. 2. Follow-up in the office 2 weeks 3. Low fiber diet and discharge 4. Will need outpatient colonoscopy 5. Patient clear for discharge from surgical standpoint Objective - Vital Signs Vital signs: Vital Signs Temp 99.2 F 01/15/21 04:13 Pulse 80 01/15/21 04:13 Resp 18 01/15/21 04:13 BP 115/72 01/15/21 04:13 Pulse Ox 95 01/15/21 04:13 Intake & Output 01/14/21 01/15/21 01/15/21 18:59 06:59 18:59 Intake Total 1380 300 Output Total 400 Balance 980 300 Weight 83.2 kg Intake: Oral 1380 300 Output: Urine 400 Other: Voiding Method Urinal Urinal Urinal # Voids 3 - Labs CBC & Chem 7: 01/14/21 05:46 01/15/21 05:38 Labs: Abnormal Lab Results - Last 24 Hours (Table) 01/15/21 Range/Units 05:38 Potassium 3.4 L (3.5-5.5) mmol/L Est GFR (CKD-EPI)NonAf 59.3 L (60.0-200.0) BUN/Creatinine Ratio 9.23 L (12.00-20.00) Ratio Calcium 7.6 L (8.7-10.3) mg/dL Phosphorus 2.1 L (2.4-5.1) mg/dL Total Protein 4.7 L (6.2-8.2) g/dL Albumin 3.00 L (3.80-4.90) g/dL Microbiology - Last 24 Hours (Table) 01/10/21 00:50 Blood Culture - Preliminary Blood No Growth after 120 hours 01/10/21 00:35 Blood Culture - Preliminary Blood No Growth after 120 hours Assessment and Plan (1) Acute diverticulitis Current Visit: Yes Status: Acute Code(s): K57.92 - DVTRCLI OF INTEST, PART UNSP, W/O PERF OR ABSCESS W/O BLEED SNOMED Code(s): 014069563 (2) Sepsis Current Visit: Yes Status: Acute Code(s): A41.9 - SEPSIS, UNSPECIFIED ORGANISM SNOMED Code(s): 57123305 (3) Delirium tremens Current Visit: Yes Status: Acute Code(s): F10.231 - ALCOHOL DEPENDENCE WITH WITHDRAWAL DELIRIUM SNOMED Code(s): 9790996 (4) Alcohol abuse with alcohol-induced disorder Current Visit: Yes Status: Acute Code(s): F10.19 - ALCOHOL ABUSE WITH UNSPECIFIED ALCOHOL-INDUCED DISORDER SNOMED Code(s): 050209090 (5) Personal history of colonic polyps Current Visit: Yes Status: Acute Code(s): Z86.010 - PERSONAL HISTORY OF COLONIC POLYPS SNOMED Code(s): 683229160 (6) Acute kidney injury Current Visit: Yes Status: Acute Code(s): N17.9 - ACUTE KIDNEY FAILURE, UNSPECIFIED SNOMED Code(s): 23503454 (7) Elevated troponin Current Visit: Yes Status: Acute Code(s): R77.8 - OTHER SPECIFIED ABNORMALITIES OF PLASMA PROTEINS SNOMED Code(s): 880122704
[2021-01-15] MEDS: NOREPINEPHRINE 4 MG in SODIUM CHLORIDE 0.9% 250 ML IV SCH (11:19)
[2021-01-15 11:46] VITALS: BP 126/83; PULSE 83; TEMP 98.6
--- NOTE | 2021-01-15 14:27 | PN ---
PROGRESS NOTE Patient is seen for followup for acute kidney injury mostly prerenal currently improved with IV hydration. Serum creatinine is down to 1.3. There are plans for possible discharge. PHYSICAL EXAMINATION: On examination today, blood pressure was 115/72, heart rate 80 per minute. He is afebrile. EXAMINATION OF THE HEART: S1, S2. EXAMINATION OF THE LUNGS: Bilateral breath sounds are heard. Abdomen is soft, nontender. Examination of lower extremities shows no evidence of edema. 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 LABS: Labs show sodium 142, potassium 3.4, BUN 12, creatinine 1.3. ASSESSMENT: 1. Acute kidney injury secondary to sepsis, hypotension, currently improved. 2. Metabolic acidosis on initial admission, now resolved. 3. Mental status changes, currently improved. 4. Chronic kidney disease most likely ischemic nephropathy with atrophic left kidney. No previous creatinine available however currently down to 1.3. 5. Diverticulitis, maintained on antibiotics and improving. PLAN: Can discontinue IV fluids. Encourage increased oral intake. MMODL / IJN: [id number] /
[2021-01-15] MEDS ORDERED: metroNIDAZOLE 500 MG TAB PO SCH (16:00)
--- NOTE | 2021-01-15 18:25 | DS ---
DISCHARGE SUMMARY CHIEF COMPLAINT: Fever, abdominal pain and hypotension. HISTORY OF PRESENT ILLNESS AND PHYSICAL EXAMINATION: Details of this man's history and physical can be found in the initial workup. LABORATORY STUDIES: While he was the hospital, he had laboratory studies, details of which can be found in the laboratory section of his chart. COURSE IN THE HOSPITAL: After admission, he was placed on bedrest and started on intravenous fluids and placed in ICU. He was diagnosed as having diverticulitis as the cause of septic shock. He was started on pressors. He was in acute renal failure. However, he responded to antibiotics and his blood pressure began to rise. Eventually he was able to be taken off pressors and his renal function started to improve. He eventually became more awake and alert. He was transferred to a regular floor where he continued to improve. He became fully awake and alert and regained his normal physiologic and mental status and was doing well and felt he could go home on January 15. He will go home on his usual activity and diet and was admonished not to drink alcohol or smoke any longer. This was discussed with his daughter. FINAL DIAGNOSES: 1. Septic shock. 2. Diverticulitis. 3. Acute renal failure. 4. Chronic alcoholism. 5. DTs. 6. Chronic obstructive pulmonary disease. OPERATIONS: None. CONSULTATION: Intensive Medicine, General Surgery and Infectious Disease. He is improved. MMJOSE / KURTIS: [id number] /
[2021-01-15] MEDS ORDERED: AMOXIC-POT CLAV 875-125MG 1 EACH TAB PO SCH (21:00)
--- NOTE | 2021-01-17 16:45 | P.PN ---
Subjective Progress Note Date: 01/14/21 Patient was seen for a follow-up. Patient is doing much better. He is alert and awake. Patient very well oriented. Encephalopathy has now resolved. Patient denies headache, no numbness or tingling, no visual issues, no pain. Patient denies any history of seizure in the past. Patient able to tell that he used to drink 7-8 beers, about 4 days a week. He would drink beer or booz. Objective - Vital Signs Vital signs: Vital Signs Temp 98.5 F 01/14/21 05:00 Pulse 86 01/14/21 09:54 Resp 16 01/14/21 09:46 BP 113/69 01/14/21 05:00 Pulse Ox 91 L 01/14/21 05:00 Intake & Output 01/13/21 01/14/21 01/14/21 18:59 06:59 18:59 Intake Total 1047 800 360 Output Total 1100 1 Balance -53 799 360 Intake: IV 625 700 Dextrose 5%-0.45% NaCl 1, 525 600 000 ml @ 75 mls/hr IV . [id number] [facility] Rx#:[id number] Piperacillin-Tazobactam 3 100 100 .375 gm In Sodium Chloride 0.9% 100 ml @ 25 mls/hr IVPB Q8H [facility] Rx#: [id number] Oral 422 100 360 Output: Urine 1100 Urine/Stool Mix 1 Other: Voiding Method Indwelling Catheter Urinal Urinal # Voids 3 - Exam Patient is now fully alert and awake, well-oriented. Cranial nerves are normal. Muscle strength is normal. No ataxia. Patient knows it is January and the year is 2020 and that he is in [facility]. Speech and leg which functions are normal. Pupils are round and reactive to light, visual west are full, face is symmetric. Patient's strength is normal in the arms and legs. Tone and bulk of muscles normal. - Labs CBC & Chem 7: 01/14/21 05:46 01/15/21 05:38 Labs: Abnormal Lab Results - Last 24 Hours (Table) 01/13/21 01/13/21 01/14/21 Range/Units 18:35 21:11 05:46 RBC 3.03 L (4.30-5.90) m/uL Hgb 12.1 L (13.0-17.5) gm/dL Hct 36.4 L (39.0-53.0) % MCV 120.3 H (80.0-100.0) fL MCH 39.9 H (25.0-35.0) pg RDW 18.4 H (11.5-15.5) % Lymphocytes # 0.8 L (1.0-4.8) k/uL Macrocytosis Marked A Potassium (3.5-5.5) mmol/L Est GFR (CKD-EPI)NonAf (60.0-200.0) BUN/Creatinine Ratio (12.00-20.00) Ratio POC Glucose (mg/dL) 102 H 105 H (75-99) mg/dL Calcium (8.7-10.3) mg/dL Phosphorus (2.4-5.1) mg/dL AST (14-35) U/L Total Protein (6.2-8.2) g/dL Albumin (3.80-4.90) g/dL Albumin/Globulin Ratio (1.60-3.17) g/dL 01/14/21 01/14/21 Range/Units 05:46 07:50 RBC (4.30-5.90) m/uL Hgb (13.0-17.5) gm/dL Hct (39.0-53.0) % MCV (80.0-100.0) fL MCH (25.0-35.0) pg RDW (11.5-15.5) % Lymphocytes # (1.0-4.8) k/uL Macrocytosis Potassium 3.3 L (3.5-5.5) mmol/L Est GFR (CKD-EPI)NonAf 54.2 L (60.0-200.0) BUN/Creatinine Ratio 10.00 L (12.00-20.00) Ratio POC Glucose (mg/dL) 100 H (75-99) mg/dL Calcium 7.7 L (8.7-10.3) mg/dL Phosphorus 1.5 L (2.4-5.1) mg/dL AST 41 H (14-35) U/L Total Protein 4.4 L (6.2-8.2) g/dL Albumin 2.70 L (3.80-4.90) g/dL Albumin/Globulin Ratio 1.59 L (1.60-3.17) g/dL Microbiology - Last 24 Hours (Table) 01/10/21 00:50 Blood Culture - Preliminary Blood No Growth after 96 hours 01/10/21 00:35 Blood Culture - Preliminary Blood No Growth after 96 hours Assessment and Plan Assessment: * Altered mental status, probably related to toxic metabolic encephalopathy, probable alcohol withdrawal. Mentation normal as of today. * Long-standing history of alcoholism, stopped drinking 2 days ago, now probably in some degree of withdrawals. * Acute diverticulitis involving the sigmoid and left:, Possibility of colitis. Sepsis and leukocytosis. * Vomiting diarrhea, dehydration, hypotension * Acute kidney injury, resolved. * Elevated troponin, rule out possibility of non-STEMI * Folate deficiency * Hypertension * Tobacco use 2 pack per day for 30 years * Abdominal aortic aneurysm measuring [address] abdomen and pelvis. Postrepair. * COPD Plan: * Patient's mentation is now back to normal. His examination is nonfocal. Patient is fully oriented at this time. Patient admits to drinking heavily 4 days a week. * Continue CIWA protocol. * B12 440, folic acid is low 5.9. Continue folate replacement. TSH is normal 1.56. Patient's renal functions have not returned to normal BUN 12 and creatinine 1.3. RPR nonreactive. * Neurology will sign off. Please reconsult if any concerns.
== END 2021-01-15 13:35 | disposition home or self-care (01) | DRG 871 ==
LOC: EC 00:20 → 3SCARD 03:10 → 2SICU 10:15 → 5NMEDONC 01-13 21:00
PROVIDERS: ADMIT Family Medicine; ATTEND Family Medicine
PROC: 3E033XZ Introduction of Vasopressor into Peripheral Vein, Percutaneous Approach (ICD-10-PCS; principal; 2021-01-10)
DX: A41.9 Sepsis, unspecified organism (principal); G92 Toxic encephalopathy; J69.0 Pneumonitis due to inhalation of food and vomit; N17.0 Acute kidney failure with tubular necrosis; R65.21 Severe sepsis with septic shock; E87.1 Hypo-osmolality and hyponatremia; E87.2 Acidosis; F10.231 Alcohol dependence with withdrawal delirium; J44.1 Chronic obstructive pulmonary disease with (acute) exacerbation; J98.11 Atelectasis; K57.32 Diverticulitis of large intestine without perforation or abscess without bleeding; E86.0 Dehydration; E86.1 Hypovolemia; E87.6 Hypokalemia; E87.8 Other disorders of electrolyte and fluid balance, not elsewhere classified; F17.210 Nicotine dependence, cigarettes, uncomplicated; I12.9 Hypertensive chronic kidney disease with stage 1 through stage 4 chronic kidney disease, or unspecified chronic kidney disease; I27.20 Pulmonary hypertension, unspecified; I71.4 Abdominal aortic aneurysm, without rupture; K52.9 Noninfective gastroenteritis and colitis, unspecified; Z86.010 Personal history of colon polyps; K80.20 Calculus of gallbladder without cholecystitis without obstruction; N18.9 Chronic kidney disease, unspecified; R45.1 Restlessness and agitation; N20.0 Calculus of kidney; I25.2 Old myocardial infarction; N28.81 Hypertrophy of kidney; Z20.822 Contact with and (suspected) exposure to COVID-19; Z78.1 Physical restraint status; Z79.82 Long term (current) use of aspirin; Z79.899 Other long term (current) drug therapy; Z99.81 Dependence on supplemental oxygen
CPT/HCPCS: 36415; 71045; 74176; 80048; 80053; 81001; 82140; 82330; 82607; 82746; 83605; 83735; 83921; 84100; 84132; 84145; 84443; 84478; 84484; 85025; 85610; 85730; 86780; 87040; 87324; 87636; 93005; 93306; 94640; 94760; 96361; 96374; 99285

== ENCOUNTER → 2022-01-10 | Outpatient (CLI) | payer OTHER ==
--- NOTE | 2022-01-10 21:20 | US ---
EXAMINATION TYPE: US duplex aorta DATE OF EXAM: 01/10/2022 COMPARISON: CT abdomen and pelvis January 10, 2021 CLINICAL HISTORY: AAA I71.4. History of aortic aneurysm repair a couple years ago per patient. Curr ent smoker. EXAM MEASUREMENTS: Abdominal Aorta: Proximal: 4.1 x 3.9 cm. Mid: 3.4 x 3.8 cm. Distal: 3.9 x 4.1 cm. Bifurcation: Obscured by gas, unable to clearly visualize. Aneurysm noted throughout abdominal aorta. Aortic waveform appears diminished. Exam is limited due to gas. IMPRESSION: Suboptimal study with diffuse AAA up to 4.1 cm identified on images saved. Aorta not succ essfully visualized through the bifurcation. Advise CTA or MRA imaging with and without contrast to b ruthy evaluate and characterize if desired.
== END | disposition home or self-care (01) ==
LOC: RADUSWWP 16:37
PROVIDERS: ATTEND Family Medicine
DX: I71.4 Abdominal aortic aneurysm, without rupture (principal); F17.200 Nicotine dependence, unspecified, uncomplicated
CPT/HCPCS: 93979

== ENCOUNTER → 2022-02-11 | Outpatient (CLI) | payer OTHER ==
--- NOTE | 2022-02-13 10:35 | CT ---
EXAMINATION TYPE: CT angio thor/abd pel aorta DATE OF EXAM: 02/11/2022 COMPARISON: CT abdomen and pelvis January 10, 2021 HISTORY: Abdominal aortic aneurysm. Pain in both upper and lower extremities. CT DLP: 980.0 mGycm. Automated Exposure Control for Dose Reduction was Utilized. CONTRAST: CTA scan of the thorax and abdomen are performed without oral and without and with IV Contrast, patie nt injected with 100 mL of Isovue 300. Three-D reconstructed images created on an independent worksta tion and reviewed. requested pulmonary embolism and abdominal aortic aneurysm protocol. FINDINGS: LUNGS: Mild anterior bibasilar linear scarring and/or atelectasis. No suspicious nodules or masses. N o pleural effusion or pneumothorax seen bilaterally. MEDIASTINUM: Suboptimal study as most dense contrast in the SVC. No central pulmonary embolism. Ascen ding aorta measures up to 4.0 cm in diameter axial image 27. Normal three-vessel origin. Heart size i s within normal limits. Coronary artery calcification is present. No pericardial effusion seen. OTHER: Right greater than left bilateral gynecomastia is felt present. Correlate clinically. LIVER/GB: Some intraluminal gallstones in contracted gallbladder. PANCREAS: No significant abnormality is seen. SPLEEN: No significant abnormality is seen. ADRENALS: No significant abnormality is seen. KIDNEYS: Diminished size to right kidney versus left kidney. BOWEL: Scattered colonic diverticula greatest at the sigmoid colon. LYMPH NODES: No greater than 1cm abdominal lymph nodes are appreciated. OSSEOUS STRUCTURES: No significant abnormality is seen. OTHER: Redemonstration of AAA measuring up to 4.5 cm transversely axial image 89 at the bifurcation. There is lobulated contour along the anterior margin redemonstrated at this level. The aneurysm measu res 4.3 x 4.2 cm at level of diaphragmatic hiatus axial image 62. Moderate to severe noncalcified ladarius que is present. There is patency through the iliac bifurcation. Patent celiac artery and SMA along wi th single bilateral renal arteries. Occluded ANUP. IMPRESSION: 1. No central pulmonary embolism. No suspicious acute cardiopulmonary process. 2. Long segment AAA measuring up to 4.5 cm redemonstrated. Advise vascular surgical assessment.
== END | disposition home or self-care (01) ==
LOC: RADCTMAIN 06:59
PROVIDERS: ATTEND Family Medicine
DX: I71.4 Abdominal aortic aneurysm, without rupture (principal)
CPT/HCPCS: 71275; 74174; Q9967

== ENCOUNTER 2022-02-17 08:44 | Day surgery (SDC) | payer OTHER ==
[2022-02-16 10:04] VITALS: BMI 25.8
[~2022-02-17 08:44] MED LIST: LACTATED RINGERS 1,000 ML IV SCH
[2022-02-17 09:23] VITALS: TEMP 97.4
[2022-02-17] MEDS ORDERED: PROPOFOL 10 MG/ML 20 ML VIAL IV ONE (10:03)
[2022-02-17] MEDS ORDERED: LIDOCAINE 2% INJ 20 MG/ML (2 ML VIAL) ONE (10:03)
--- NOTE | 2022-02-17 10:05 | P.GSHP ---
History of Present Illness H&P Date: 02/17/22 Chief Complaint: Epigastric pain, GI bleed This 61-year-old male presents today for EGD and colonoscopy. He is issues with epigastric pain and GI bleed. Patient appears history of diverticulosis. Past Medical History Past Medical History: Hypertension Additional Past Medical History / Comment(s): Gout, AAA repair for aneurysm. History of Any Multi-Drug Resistant Organisms: None Reported Additional Past Surgical History / Comment(s): Aorta repair - ANEURYSM Past Anesthesia/Blood Transfusion Reactions: Unable to Obtain Additional Past Anesthesia/Blood Transfusion Reaction / Comment(s): Pt declined answering. Smoking Status: Current every day smoker - Past Family History Father Additional Family Medical History / Comment(s): Pt declined answering. Mother Additional Family Medical History / Comment(s): Pt declined answering. Medications and Allergies Home Medications Medication Instructions Recorded Confirmed Type Thiamine [Vitamin B-1] 100 mg PO BID-W/MEALS #30 tab 09/02/21 02/17/22 Rx HYDROcodone/APAP 5-325MG [[place] 1 tab PO BID 02/16/22 02/17/22 History 5-325] Dazey-3/Dha/Epa/Fish Oil [Fish Oil 1 each PO DAILY 02/16/22 02/17/22 History 500 mg Softgel] Allergies Allergy/AdvReac Type Severity Reaction Status Date / Time No Known Allergies Allergy Verified 02/17/22 09:10 Surgical - Exam Vital Signs Temp Pulse Resp BP Pulse Ox 97.4 F L 70 16 190/110 97 02/17/22 09:20 02/17/22 09:20 02/17/22 09:20 02/17/22 09:20 02/17/22 09:20 - General well developed, well nourished, no distress - Eyes PERRL - ENT normal pinna - Neck no masses - Respiratory normal expansion - Cardiovascular Rhythm: regular - Abdomen Abdomen: soft, non tender Assessment and Plan Assessment: Epigastric pain, GI bleed. We'll perform EGD and colonoscopy.
--- NOTE | 2022-02-17 10:31 | P.OP ---
Date of Procedure: 02/17/22 Preoperative Diagnosis: Epigastric pain GI bleed Postoperative Diagnosis: Antral gastritis Mild diverticulosis Procedure(s) Performed: EGD Colonoscopy Anesthesia: MAC Surgeon: Ritchie Woodson Pathology: other (Antrum) Condition: stable Disposition: PACU Description of Procedure: The patient's placed on the endoscopy table in the lateral position. He received IV sedation. The gastroscope placed oropharynx passed in the esophagus and stomach. Scope was then placed through the pylorus. The first and second portion of the scope was then brought back the antrum this. Mildly inflamed. A biopsies performed. The scope was then retroflexed and remainder of the stomach appeared normal. The GE junction was at 40 cm. The distal esophagus appeared normal. Proximal esophagus appeared normal. Scope withdrawn for patient. Next digital rectal exam was performed which revealed a patulous anus. There is decreased anal suture told. The patient had a hard time keeping the insufflation air within the colon. The flexible colonoscope was then placed patient anus and passed throughout the entire colon. The ileocecal valve was visualized. The cecum, ascending and transverse colon appeared normal. In the descending and sigmoid colon there is mild diverticular changes. Scope was then brought back the rectum and this appeared normal. Scope withdrawn for patient. There was no evidence of any GI bleed. His presumed patient may have bleeding from gastritis.
[2022-02-17] MEDS ORDERED: hydrALAZINE HCL 20 MG/ML 1 ML VIAL ONE (11:02)
[2022-02-17] MEDS ORDERED: hydrALAZINE HCL 20 MG/ML 1 ML VIAL IVP ONE (11:03)
[2022-02-17 11:23] VITALS: BP 168/96; PULSE 81; RESP 19
== END 2022-02-17 11:54 | disposition home or self-care (01) ==
LOC: ORWHC2ENDO 08:44
PROVIDERS: ATTEND Surgery
DX: K29.50 Unspecified chronic gastritis without bleeding (principal); K57.30 Diverticulosis of large intestine without perforation or abscess without bleeding; K92.2 Gastrointestinal hemorrhage, unspecified; I10 Essential (primary) hypertension; M10.9 Gout, unspecified; Z98.890 Other specified postprocedural states; F17.200 Nicotine dependence, unspecified, uncomplicated; Z79.891 Long term (current) use of opiate analgesic
CPT/HCPCS: 88305; 45378; 43239; J0360; J2704; J2001

== ENCOUNTER 2023-11-15 06:40 | Inpatient (IN) | payer OTHER, MEDICARE ==
--- NOTE | 2023-11-15 07:00 | ED ---
Weakness HPI - General Chief complaint: Weakness Stated complaint: Fall 2 days ago, Weakness Time Seen by Provider: 11/15/23 06:42 Source: patient, EMS, RN notes reviewed Mode of arrival: EMS Limitations: no limitations - History of Present Illness Initial comments: This is a 63-year-old male who presents to the emergency department for weakness. Patient states that he was wearing a Fitbit watch to keep track of his blood pressure. It was well-controlled and he stopped taking his medications. He has not taken his blood pressure medication or most of his other medication for a month. He then started to notice that he was getting swelling in his extremities. Patient fell about 2 days ago and was on the ground for about 8 hours before getting himself up. He did start taking his BP medication again yesterday. States that he has since had increasing pain to his legs and is now having difficulty moving as a result, prompting him to call EMS. EMS found him to have an oxygen saturation of around 90%, however patient denies any substantial chest pain or shortness of breath at this time. Patient does live alone. MD Complaint: generalized weakness - Related Data Home Medications Medication Instructions Recorded Confirmed HYDROcodone/APAP 5-325MG [[place] 1 tab PO TID 02/16/22 11/15/23 5-325] Allergies Allergy/AdvReac Type Severity Reaction Status Date / Time No Known Allergies Allergy Verified 11/15/23 09:01 Review of Systems ROS Statement: Those systems with pertinent positive or pertinent negative responses have been documented in the HPI. ROS Other: All systems not noted in ROS Statement are negative. Past Medical History Past Medical History: Hypertension Additional Past Medical History / Comment(s): Gout L foot/ankle/very painful to touch and pain increases with activity/ambulation, AAA repair for aneurysm. History of Any Multi-Drug Resistant Organisms: None Reported Additional Past Surgical History / Comment(s): Aorta repair Past Anesthesia/Blood Transfusion Reactions: Unable to Obtain Additional Past Anesthesia/Blood Transfusion Reaction / Comment(s): Ptdeclined answering. Additional Past Alcohol Use History / Comment(s): Pt started smoking in his 20s. Pt declined answering anything further. - Past Family History Father Additional Family Medical History / Comment(s): Pt declined answering. Mother Additional Family Medical History / Comment(s): Pt declined answering. General Exam Limitations: no limitations General appearance: alert, in no apparent distress Head exam: Present: atraumatic, normocephalic, normal inspection Respiratory exam: Present: decreased breath sounds, prolonged expiratory Cardiovascular Exam: Present: regular rate, normal rhythm, normal heart sounds. Absent: systolic murmur, diastolic murmur, rubs, gallop, clicks Extremities exam: Present: other (Tenderness, swelling, and erythema to the bilateral lower extremities and bilateral hands.) Neurological exam: Present: alert, oriented X3, CN II-XII intact Psychiatric exam: Present: normal affect, normal mood Skin exam: Present: warm, dry, intact Course Vital Signs 11/15/23 11/15/23 11/15/23 06:42 07:41 08:09 Temperature 98.7 F Pulse Rate 79 82 78 Respiratory 20 18 16 Rate Blood Pressure 161/114 176/136 169/114 O2 Sat by Pulse 93 L 92 L 95 Oximetry 11/15/23 11/15/23 11/15/23 08:44 09:00 10:00 Temperature 99.0 F Pulse Rate 76 84 80 Respiratory 18 14 19 Rate Blood Pressure 152/104 152/104 172/130 O2 Sat by Pulse 94 L 92 L Oximetry 11/15/23 11/15/23 11/15/23 11:00 13:00 14:00 Temperature Pulse Rate 76 84 71 Respiratory 21 18 18 Rate Blood Pressure 145/96 143/98 158/109 O2 Sat by Pulse 92 L 93 L Oximetry Medical Decision Making - Medical Decision Making This is a 63 year old male who presents to the emergency department for weakness. Was pt. sent in by a medical professional or institution? @ -No Did you speak to anyone other than the patient for history? @ -No Did you review nursing and triage notes? @ -Yes, and I agree, it is accurate with regards to the patient's symptoms. Were old charts reviewed? @ -No Differential Diagnosis? @ -Differential Weakness: Hypoglycemia, shock, sepsis, hyponatremia, anemia, infection, KS, ETOH, adverse medicine reaction, overdose, stroke, this is not meant to be an all-inclusive list. EKG interpreted by me (3pts min.)? @ -EKG interpreted by me demonstrating the following: Sinus rhythm. Ventricular rate 77 bpm, TN interval 189 ms, QRS duration 91 ms, QTc 393 ms. X-rays interpreted by me (1pt min.)? @ -Chest x-ray obtained. My interpretation identifies a right perihilar density. CT interpreted by me (1pt min.)? @ -Not obtained U/S interpreted by me (1pt. min.)? @ -Duplex US of the bilateral LEs obtained. My interpretation identifies no evidence of DVTs. What testing was considered but not performed? (CT, X-rays, U/S, labs)? Why? @ -None What meds were considered but not given? Why? @ -None Did you discuss the management of the patient with other professionals? @ -Yes, Ariane Gonzalez with [facility], who accepts the patient for admission. Did you reconcile home meds? @ -No Was smoking cessation discussed for >3mins.? @ -I discussed smoking cessation for greater than 3 minutes. The risk of smoking were discussed with the patient including but not limited to risks of cancer, stroke, coronary artery disease and COPD. Also discussed with patient were multiple methods of quitting smoking. Lastly we discussed the financial cost of smoking. Was critical care preformed (if so, how long)? @ -No Were there social determinants of health that impacted care today? How? (Homelessness, low income, unemployed, alcoholism, drug addiction, transportation, low edu. Level, literacy, decrease access to med. care, shelter, rehab)? @ -Alcoholism, potentially contributing to the fall and overall poor health status. Was there de-escalation of care discussed even if they declined? (Discuss DNR or withdrawal of care, Hospice)? @ -No What co-morbidities impacted this encounter? (DM, HTN, Smoking, COPD, CAD, Cancer, CVA, Hep., AIDS, mental health diagnosis, sleep apnea, morbid obesity)? @ -HTN, alcohol abuse, smoking Was patient admitted / discharged? @ -Admitted. Lab work demonstrates an CHALO with a creatinine of 2.32 and GFR of 29. BNP elevated at 16,900. Troponin elevated as well at 0.258. COVID, influenza, and RSV testing negative. Chest x-ray demonstrates right perihilar increased density which may reflect atelectasis and/or infiltrate. Duplex ultrasound of the bilateral lower extremities negative for DVT. Patient denies a history of congestive heart failure. He does take 40 mg of Lasix daily, but had not been taking it for a month, and just resumed this yesterday. Does not follow with cardiology. Patient may have a component of cardiorenal syndrome going on. Because the patient is supposed to be on Lasix and has fluid retention in his bilateral upper and lower extremities, 40mg of IV lasix was administered. Patient admitted to medicine for further evaluation and management. Consult placed for cardiology and nephrology. Serial troponins ordered. Undiagnosed new problem with uncertain prognosis? @ -None Drug Therapy requiring intensive monitoring for toxicity (Heparin, Nitro, Insulin, Cardizem)? @ -None Were any procedures done? @ -None Diagnosis/symptom? @ -CHALO Acute, or Chronic, or Acute on Chronic? @ -Acute Uncomplicated (without systemic symptoms) or Complicated (systemic symptoms)? @ -Complicated Side effects of treatment? @ -None Exacerbation, Progression, or Severe Exacerbation] @ -Not applicable Poses a threat to life or bodily function? @ -Yes Diagnosis/symptom? @ -Cardiorenal syndrome with renal failure Acute, or Chronic, or Acute on Chronic? @ -Acute Uncomplicated (without systemic symptoms) or Complicated (systemic symptoms)? @ -Complicated Side effects of treatment? @ -None Exacerbation, Progression, or Severe Exacerbation] @ -Not applicable Poses a threat to life or bodily function? @ -Yes This case was discussed in detail with the attending ED physician, Dr. Cadena. Presentation, findings, and treatment plan discussed in detail as well. - Lab Data Result diagrams: 11/15/23 07:00 11/15/23 08:16 Lab Results 11/15/23 11/15/23 11/15/23 Range/Units 07:00 07:00 07:00 WBC 7.3 (3.8-10.6) k/uL RBC 4.44 (4.30-5.90) m/uL Hgb 15.6 (13.0-17.5) gm/dL Hct 48.3 (39.0-53.0) % MCV 108.7 H (80.0-100.0) fL MCH 35.2 H (25.0-35.0) pg MCHC 32.3 (31.0-37.0) g/dL RDW 15.0 (11.5-15.5) % Plt Count 200 (150-450) k/uL MPV 8.0 Neutrophils % 79 % Lymphocytes % 9 % Monocytes % 9 % Eosinophils % 2 % Basophils % 1 % Neutrophils # 5.7 (1.3-7.7) k/uL Lymphocytes # 0.7 L (1.0-4.8) k/uL Monocytes # 0.6 (0-1.0) k/uL Eosinophils # 0.1 (0-0.7) k/uL Basophils # 0.1 (0-0.2) k/uL Manual Slide Review Performed Hypochromasia Slight Macrocytosis Marked A PT 12.8 H (10.0-12.5) sec INR 1.2 H (<1.2) APTT 28.4 (22.0-30.0) sec Sodium 139 (137-145) mmol/L Potassium 5.8 H (3.5-5.1) mmol/L Chloride 108 H (98-107) mmol/L Carbon Dioxide 26 (22-30) mmol/L Anion Gap 5 mmol/L BUN 37 H (9-20) mg/dL Creatinine 2.32 H (0.66-1.25) mg/dL Est GFR (CKD-EPI)AfAm 33 (>60 ml/min/1.73 sqM) Est GFR (CKD-EPI)NonAf 29 (>60 ml/min/1.73 sqM) Glucose 101 H (74-99) mg/dL Plasma Lactic Acid Dimitris (0.7-2.0) mmol/L Calcium 8.8 (8.4-10.2) mg/dL Magnesium 2.2 (1.6-2.3) mg/dL Total Bilirubin 0.9 (0.2-1.3) mg/dL AST 27 (17-59) U/L ALT 16 (4-49) U/L Alkaline Phosphatase 72 (38-126) U/L Creatine Kinase 62 (55-170) U/L Troponin I (0.000-0.034) ng/mL C-Reactive Protein (<1.0) mg/dL NT-Pro-B Natriuret Pep 60670 pg/mL Total Protein 6.7 (6.3-8.2) g/dL Albumin 4.0 (3.5-5.0) g/dL Serum Alcohol <10 mg/dL Influenza Type A (PCR) (Not Detectd) Influenza Type B (PCR) (Not Detectd) RSV (PCR) (Not Detectd) SARS-CoV-2 (PCR) (Not Detectd) 11/15/23 11/15/23 11/15/23 Range/Units 07:00 07:00 07:00 WBC (3.8-10.6) k/uL RBC (4.30-5.90) m/uL Hgb (13.0-17.5) gm/dL Hct (39.0-53.0) % MCV (80.0-100.0) fL MCH (25.0-35.0) pg MCHC (31.0-37.0) g/dL RDW (11.5-15.5) % Plt Count (150-450) k/uL MPV Neutrophils % % Lymphocytes % % Monocytes % % Eosinophils % % Basophils % % Neutrophils # (1.3-7.7) k/uL Lymphocytes # (1.0-4.8) k/uL Monocytes # (0-1.0) k/uL Eosinophils # (0-0.7) k/uL Basophils # (0-0.2) k/uL Manual Slide Review Hypochromasia Macrocytosis PT (10.0-12.5) sec INR (<1.2) APTT (22.0-30.0) sec Sodium (137-145) mmol/L Potassium (3.5-5.1) mmol/L Chloride (98-107) mmol/L Carbon Dioxide (22-30) mmol/L Anion Gap mmol/L BUN (9-20) mg/dL Creatinine (0.66-1.25) mg/dL Est GFR (CKD-EPI)AfAm (>60 ml/min/1.73 sqM) Est GFR (CKD-EPI)NonAf (>60 ml/min/1.73 sqM) Glucose (74-99) mg/dL Plasma Lactic Acid Dimitris 0.7 (0.7-2.0) mmol/L Calcium (8.4-10.2) mg/dL Magnesium (1.6-2.3) mg/dL Total Bilirubin (0.2-1.3) mg/dL AST (17-59) U/L ALT (4-49) U/L Alkaline Phosphatase (38-126) U/L Creatine Kinase (55-170) U/L Troponin I 0.258 H* (0.000-0.034) ng/mL C-Reactive Protein (<1.0) mg/dL NT-Pro-B Natriuret Pep pg/mL Total Protein (6.3-8.2) g/dL Albumin (3.5-5.0) g/dL Serum Alcohol mg/dL Influenza Type A (PCR) Not Detected (Not Detectd) Influenza Type B (PCR) Not Detected (Not Detectd) RSV (PCR) Not Detected (Not Detectd) SARS-CoV-2 (PCR) Not Detected (Not Detectd) 11/15/23 Range/Units 07:00 WBC (3.8-10.6) k/uL RBC (4.30-5.90) m/uL Hgb (13.0-17.5) gm/dL Hct (39.0-53.0) % MCV (80.0-100.0) fL MCH (25.0-35.0) pg MCHC (31.0-37.0) g/dL RDW (11.5-15.5) % Plt Count (150-450) k/uL MPV Neutrophils % % Lymphocytes % % Monocytes % % Eosinophils % % Basophils % % Neutrophils # (1.3-7.7) k/uL Lymphocytes # (1.0-4.8) k/uL Monocytes # (0-1.0) k/uL Eosinophils # (0-0.7) k/uL Basophils # (0-0.2) k/uL Manual Slide Review Hypochromasia Macrocytosis PT (10.0-12.5) sec INR (<1.2) APTT (22.0-30.0) sec Sodium (137-145) mmol/L Potassium (3.5-5.1) mmol/L Chloride (98-107) mmol/L Carbon Dioxide (22-30) mmol/L Anion Gap mmol/L BUN (9-20) mg/dL Creatinine (0.66-1.25) mg/dL Est GFR (CKD-EPI)AfAm (>60 ml/min/1.73 sqM) Est GFR (CKD-EPI)NonAf (>60 ml/min/1.73 sqM) Glucose (74-99) mg/dL Plasma Lactic Acid Dimitris (0.7-2.0) mmol/L Calcium (8.4-10.2) mg/dL Magnesium (1.6-2.3) mg/dL Total Bilirubin (0.2-1.3) mg/dL AST (17-59) U/L ALT (4-49) U/L Alkaline Phosphatase (38-126) U/L Creatine Kinase (55-170) U/L Troponin I (0.000-0.034) ng/mL C-Reactive Protein 0.8 (<1.0) mg/dL NT-Pro-B Natriuret Pep pg/mL Total Protein (6.3-8.2) g/dL Albumin (3.5-5.0) g/dL Serum Alcohol mg/dL Influenza Type A (PCR) (Not Detectd) Influenza Type B (PCR) (Not Detectd) RSV (PCR) (Not Detectd) SARS-CoV-2 (PCR) (Not Detectd) - Radiology Data Radiology results: report reviewed, image reviewed Disposition Clinical Impression: CHALO (acute kidney injury), Nicotine dependence, Cardiorenal syndrome with renal failure Disposition: ADMITTED IP TO THIS [facility] Time of Disposition: 08:16
[2023-11-15 07:21] LABS: ALT 16 U/L (4-49); African American GFR (CKD) 33 (>60 ml/min/1.73 sqM); Alcohol <10 mg/dL; Anion Gap 5 mmol/L; Blood Urea Nitrogen 37 mg/dL (9-20); Calcium 8.8 mg/dL (8.4-10.2); Carbon Dioxide 26 mmol/L (22-30); Chloride 108 mmol/L (98-107); Creatine Kinase 62 U/L (55-170); Glucose 101 mg/dL (74-99); Non-African American GFR(CKD) 29 (>60 ml/min/1.73 sqM); Sodium 139 mmol/L (137-145); Total Bilirubin 0.9 mg/dL (0.2-1.3); Total Protein 6.7 g/dL (6.3-8.2)
[2023-11-15 07:26] LABS: INR 1.2 (<1.2); Partial Thromboplastin Time 28.4 sec (22.0-30.0); Prothrombin Time 12.8 sec (10.0-12.5)
[2023-11-15 07:29] LABS: AST 27 U/L (17-59); Alkaline Phosphatase 72 U/L (38-126); Magnesium 2.2 mg/dL (1.6-2.3); NT-Pro-B-Type Natriuretic Pept 16900 pg/mL; Potassium 5.8 mmol/L (3.5-5.1)
[2023-11-15 07:46] LABS: Basophils # (A) 0.1 k/uL (0-0.2); Basophils % (A) 1 %; Eosinophils # (A) 0.1 k/uL (0-0.7); Eosinophils % (A) 2 %; HCT 48.3 % (39.0-53.0); HGB 15.6 gm/dL (13.0-17.5); Hypochromasia Slight; Lymphocytes # (A) 0.7 k/uL (1.0-4.8); Lymphocytes % (A) 9 %; MCH 35.2 pg (25.0-35.0); MCHC 32.3 g/dL (31.0-37.0); MCV 108.7 fL (80.0-100.0); Macrocytosis Marked; Monocytes # (A) 0.6 k/uL (0-1.0); Monocytes % (A) 9 %; Neutrophils # (A) 5.7 k/uL (1.3-7.7); Neutrophils % (A) 79 %; Platelet Count 200 k/uL (150-450); RBC 4.44 m/uL (4.30-5.90); WBC 7.3 k/uL (3.8-10.6)
--- NOTE | 2023-11-15 07:52 | US ---
EXAMINATION TYPE: US venous doppler duplex LE BI DATE OF EXAM: 11/15/2023 7:45 AM COMPARISON: NONE CLINICAL INDICATION: Male, 63 years old with history of Pain and swelling; Pain and swelling x couple weeks. No hx of DVT. Patient not taking thinners. SIDE PERFORMED: Bilateral TECHNIQUE: The lower extremity deep venous system is examined utilizing real time linear array sonog leana with graded compression, doppler sonography and color-flow sonography. VESSELS IMAGED: Common Femoral Vein Deep Femoral Vein Greater Saphenous Vein * Femoral Vein Popliteal Vein Small Saphenous Vein * Proximal Calf Veins (* superficial vessels) Right Leg: No evidence of DVT. Left Leg: No evidence of DVT. IMPRESSION:
[2023-11-15] MEDS: MORPHINE SULFATE 2 MG/ML SYRINGE IVP STA (08:00)
[2023-11-15] MEDS: KETOROLAC 15 MG/ML 1 ML VIAL IVP STA (08:01)
--- NOTE | 2023-11-15 08:07 | XR ---
EXAMINATION TYPE: XR chest 2V DATE OF EXAM: 11/15/2023 COMPARISON: 09/02/2021 HISTORY: Shortness of breath TECHNIQUE: Frontal and lateral views of the chest are obtained. FINDINGS: Scattered senescent parenchymal changes noted. Hyperinflation compatible with COPD. Right perihilar increased density persists which may reflect atelectasis and/or infiltrate. Heart size is stable. Mediastinal structures are stable and grossly unremarkable. No evidence for hilar prominence. Degenerative changes dorsal spine. IMPRESSION: 1. Right perihilar increased density persists which may reflect atelectasis and/or infiltrate.
[2023-11-15] MEDS ORDERED: ONDANSETRON 4 MG/2 ML VIAL IVP PRN (08:17)
[2023-11-15] MEDS ORDERED: NALOXONE 0.4 MG/ML 1 ML VIAL IV PRN (08:17)
[2023-11-15] MEDS ORDERED: MORPHINE SULFATE 4 MG/ML SYRINGE IV PRN (08:17)
[2023-11-15] MEDS: FUROSEMIDE 10 MG/ML 4 ML VIAL IV STA (08:43)
[2023-11-15 08:49] LABS: Appearance,Urine Clear (Clear); Bilirubin,Urine Negative (Negative); Blood,Urine Negative (Negative); Color,Urine Colorless; Glucose,Urine (UA) Negative (Negative); Hyaline Casts,Urine 6 /lpf (0-2); Ketones,Urine Negative (Negative); Leukocyte Esterase,Urine Moderate (Negative); Mucus,Urine Rare /hpf; Nitrite,Urine Negative (Negative); PH, Urine 5.5 (5.0-8.0); Protein,Urine Trace (Negative); Specific Gravity,Urine 1.008 (1.001-1.035); Urobilinogen,Urine <2.0 mg/dL (<2.0); WBC,Urine 17 /hpf (0-5)
--- NOTE | 2023-11-15 13:24 | CT ---
EXAMINATION TYPE: CT brain wo con for TPA DATE OF EXAM: 11/15/2023 COMPARISON: None available. HISTORY: Weakness. CT DLP: 1095.4 mGycm Automated exposure control for dose reduction was used. FINDINGS: There is no acute intracranial hemorrhage, mass, mass effect, midline shift, extra-axial fluid collec tion or hydrocephalus. The saha-white distinction is intact without evidence of an acute major vessel infarct seen at this t dar. The visualized paranasal sinuses and mastoid air cells appear clear. IMPRESSION: No acute intracranial process.
--- NOTE | 2023-11-15 13:26 | P.NPCON ---
History of Present Illness - Reason for Consult acute renal failure - History of Present Illness Patient is a 63-year-old male with history of hypertension who was admitted to the hospital with complaints of increased weakness. Patient noticed increased swelling in his legs recently. Patient had stopped taking his medications for hypertension for about 3-4 weeks.. Patient complained of significant pain in his legs which has worsened recently. Patient did sustain a fall and was on the floor for about 8 hours. No significant urinary symptoms No history of kidney diseases. Serum creatinine was 2.3 on admission. Previous creatinine 1.0 on 09/13/2021. Blood pressure has not been low, it has been high. patient has been voiding. No history of NSAIDs Potassium was 5.8 and decrease to 5.4. Patient did receive Toradol in the ER. Review of Systems As per HPI Past Medical History Past Medical History: Hypertension Additional Past Medical History / Comment(s): Gout L foot/ankle/very painful to touch and pain increases with activity/ambulation, AAA repair for aneurysm. History of Any Multi-Drug Resistant Organisms: None Reported Additional Past Surgical History / Comment(s): Aorta repair Past Anesthesia/Blood Transfusion Reactions: Unable to Obtain Additional Past Anesthesia/Blood Transfusion Reaction / Comment(s): Ptdeclined answering. Additional Past Alcohol Use History / Comment(s): Pt started smoking in his 20s. Pt declined answering anything further. - Past Family History Father Additional Family Medical History / Comment(s): Pt declined answering. Mother Additional Family Medical History / Comment(s): Pt declined answering. Medications and Allergies Home Medications Medication Instructions Recorded Confirmed Type HYDROcodone/APAP 5-325MG [[place] 1 tab PO TID 02/16/22 11/15/23 History 5-325] Allergies Allergy/AdvReac Type Severity Reaction Status Date / Time No Known Allergies Allergy Verified 11/15/23 09:01 Physical Exam Vitals: Vital Signs Temp Pulse Resp BP Pulse Ox 11/15/23 11:00 76 21 145/96 11/15/23 10:00 80 19 172/130 11/15/23 09:00 84 14 152/104 92 L 11/15/23 08:44 99.0 F 76 18 152/104 94 L 11/15/23 08:09 78 16 169/114 95 11/15/23 07:41 82 18 176/136 92 L 11/15/23 06:42 98.7 F 79 20 161/114 93 L Intake and Output 11/14/23 11/15/23 11/15/23 22:59 06:59 14:59 Other: Weight 99.79 kg Patient is awake, comfortable, no acute distress. Examination of the heart S1 and S2 Examination of the lungs bilateral breath sounds are heard Abdomen is soft nontender Examination of lower extremity shows no evidence of edema OPHTHALMIC ASSISTANT exam grossly intact Results - Lab Results Most recent lab results Calcium 8.8 mg/dL (8.4-10.2) 11/15/23 07:00 Magnesium 2.2 mg/dL (1.6-2.3) 11/15/23 07:00 11/15/23 07:00 11/15/23 08:16 Assessment and Plan Assessment: 1. Acute kidney injury, most likely ATN. Rule out urine retention. Possible component of acute kidney injury associated with uncontrolled hypertension. UA shows trace protein 17 WBCs no blood. Check ultrasound of the kidneys 2. Hypertension uncontrolled secondary to patient having stopped medications about 4 weeks ago. 3. Hyperkalemia associated with acute kidney injury, rule out urine retention. Patient received Toradol in the ER. 4. Status post fall with no rhabdomyolysis Plan: Hold diuretics Check ultrasound of the kidneys Check post void bladder scan Repeat labs in a.m. Add amlodipine for blood pressure Avoid use of NSAIDs. Next Thank you for the consultation. We will continue to follow the patient with you during his hospitalization.
--- NOTE | 2023-11-15 17:26 | P.CNNES ---
History of Present Illness Consult date: 11/15/23 Requesting physician: Sathish Stafford Reason for Consult: CVA, fall, weakness History of Present Illness: Patient is a 63-year-old right-handed male with history of peripheral neuropathy, tobacco use, came to the hospital by ambulance today at 6:40 AM for weakness in the legs. Patient states that he bought a Fitbit watch few months ago. He used to watch his blood pressure, oxygen and everything was good and blood pressure used to run around 120/82. He uses a Fitbit for 2 months and then stopped taking the blood pressure medication. About a month after stopping medication, he went to his doctor, and was noted to have high blood pressure, around 140/100 as he states. He started back the medications again about 3 days ago. He noticed that his feet and ankles and knees are swollen. He does have neuropathy in the legs for the last 6 to 7 years. Patient states that he stepped on kids toys, and it startled him and he lost balance and fell. He states that he could not get up and stayed on the floor about 10 hours. Finally he got up by himself and sat on the couch and stayed there for a couple days. He said that he did make it to the bathroom once. Otherwise he did have some accidents. He does have a urinal. Because of persistent weakness, he called the ambulance. EMS sheet not available in the chart. Patient denies any stroke symptoms like slurred speech facial droop, focal numbness tingling. Vital signs on arrival blood pressure 161/114, which went up to 176/136 and then 169/114. Pulse rate 79 temperature 98.7. Blood test shows normal CBC with elevated MCV 108.7. INR is 1.2, PTT 28.4. Sodium 139. Potassium 5.8. BUN 37, creatinine 2.32. Hepatic panel is normal, troponins mildly elevated 0.258. UA shows moderate leukocyte esterase and 17 WBC. Blood alcohol level, influenza, RSV and coronavirus PCR negative. Chest x-ray revealed right perihilar increased density persist which may reflect atelectasis and/or infiltrate. EKG shows sinus rhythm, possible left atrial enlargement. Venous Doppler of bilateral lower extremities, chest x-ray are normal. CT head showed no acute process. I personally reviewed CT head, agree with the findings. Visualized paranasal sinuses are clear. Right EAC has some possible wax. Patient has been seen by myself on 01/14/2021, for altered mental status, probable related to toxic metabolic encephalopathy, probable alcohol withdrawal. Patient has longstanding history of alcoholism, stopped drinking prior to that admission with some withdrawals. He had acute diverticulitis, acute kidney injury, elevated troponin, folate deficiency hypertension, tobacco use abdominal aortic aneurysm and COPD. Patient states that he lives by himself, does not use any assistive device. He has history of neuropathy in his legs for the last 6 or 7 years. The numbness has progressed up to the knees. He also has some numbness of the hands mainly in the fingers dorsally up to the knuckles, and on the palmar aspect up to the mid palm bilaterally. He has developed swelling in the legs for last 1 year. He used to wear compression stockings, which helped. He stopped using it. Patient has smoked tobacco 1 pack/day for 20+ years. Still smokes. Denies any diabetes. He drinks about 4 or 5 beers a day about couple times a week. He occasionally smokes marijuana. Review of Systems Constitutional: Denies chills, Denies fever Eyes: denies blurred vision, denies diplopia, denies pain, denies loss of vision Ears: deny: decreased hearing, ear discharge Ears, nose, mouth and throat: Denies headache, Denies sore throat, Denies v ertigo Cardiovascular: Denies chest pain, Denies lightheadedness, Denies shortness of breath Respiratory: Reports cough, Denies excessive sputum Gastrointestinal: Denies abdominal pain, Denies diarrhea, Denies nausea, Denies vomiting Genitourinary: Reports incontinence (Drips once in a while) Musculoskeletal: Denies low back pain, Denies neck pain Integumentary: Denies pruritus, Denies rash Neurological: Reports as per HPI Psychiatric: Denies anxiety, Denies depression Endocrine: Denies fatigue, Denies weight change Past Medical History Past Medical History: Hypertension Additional Past Medical History / Comment(s): Gout L foot/ankle/very painful to touch and pain increases with activity/ambulation, AAA repair for aneurysm. History of Any Multi-Drug Resistant Organisms: None Reported Additional Past Surgical History / Comment(s): Aorta repair Past Anesthesia/Blood Transfusion Reactions: Unable to Obtain Additional Past Anesthesia/Blood Transfusion Reaction / Comment(s): Ptdeclined answering. Additional Past Alcohol Use History / Comment(s): Pt started smoking in his 20s. Pt declined answering anything further. - Past Family History Father Additional Family Medical History / Comment(s): Pt declined answering. Mother Additional Family Medical History / Comment(s): Pt declined answering. Medications and Allergies Home Medications Medication Instructions Recorded Confirmed Type HYDROcodone/APAP 5-325MG [[place] 1 tab PO TID 02/16/22 11/15/23 History 5-325] Allergies Allergy/AdvReac Type Severity Reaction Status Date / Time No Known Allergies Allergy Verified 11/15/23 09:01 Physical Examination - Vital Signs Vital Signs: Vital Signs Temp Pulse Resp BP Pulse Ox 11/15/23 11:00 76 21 145/96 11/15/23 10:00 80 19 172/130 11/15/23 09:00 84 14 152/104 92 L 11/15/23 08:44 99.0 F 76 18 152/104 94 L 11/15/23 08:09 78 16 169/114 95 11/15/23 07:41 82 18 176/136 92 L 11/15/23 06:42 98.7 F 79 20 161/114 93 L Intake and Output 11/14/23 11/15/23 11/15/23 22:59 06:59 14:59 Other: Weight 99.79 kg Patient is a late middle aged male, in no acute distress. Patient is alert awake oriented to time place and person. Patient knows it is November 2023 and that he is in [facility] in [facility] and name of the current president Ortiz. Speech and language functions are normal. Patient can name and repeat very well. No aphasia or dysarthria. Attention, concentration and fund of knowledge is adequate. On cranial nerve examination, pupils are equal, round and reacting to light, visual west are full on confrontation, with no neglect on double simultaneous stimulation. Extraocular muscles are intact with no nystagmus. Face is symmetric, tongue protrudes to the midline. Palatal elevation and sensation normal, hearing and shoulder shrug normal, facial sensation normal. On muscle strength testing, there is no pronator drift and the strength is normal in arms and legs distally and proximally, except hip flexion, which hip flexion is 5-, and toe extension (R/L) 5-/4-. Patient's hip adduction, hip abduction, knee extension, knee flexion, ankles are normal bilaterally. Deep tendon reflexes are symmetric 1-1+ in bilateral upper extremities, absent in the lower limbs and plantars are flat. Sensory to touch is normal in the upper limbs, but is decreased from toes up to below the knees bilaterally. Cerebellar function showed no ataxia for ntdlia-gy-xgob testing, although patient was slightly tremulous. No dysdiadochokinesia. No ataxia for pzle-il-fnxk testing on either side. Tone and bulk of muscles normal. Gait deferred.. On general examination, there is no carotid bruit or murmur, S1-S2 audible. Chest is clear on consultation. Abdomen is soft nontender. No organomegaly, bowel sounds present. Patient has peripheral edema, right more than left. His right leg is somewhat red, concerning for cellulitis in the distal lower limb. Results - Laboratory Findings CBC and BMP: 11/16/23 06:41 11/16/23 06:40 Abnormal Lab Findings: Abnormal Labs 11/15/23 11/15/23 11/15/23 07:00 07:00 07:00 MCV 108.7 H MCH 35.2 H Lymphocytes # 0.7 L Macrocytosis Marked A PT 12.8 H INR 1.2 H Potassium 5.8 H Chloride 108 H BUN 37 H Creatinine 2.32 H Glucose 101 H Troponin I Urine Protein Ur Leukocyte Esterase Urine WBC Hyaline Casts Urine Mucus 11/15/23 11/15/23 11/15/23 07:00 08:16 08:16 MCV MCH Lymphocytes # Macrocytosis PT INR Potassium 5.4 H Chloride BUN Creatinine Glucose Troponin I 0.258 H* Urine Protein Trace H Ur Leukocyte Esterase Moderate H Urine WBC 17 H Hyaline Casts 6 H Urine Mucus Rare H 11/15/23 11/15/23 09:58 12:14 MCV MCH Lymphocytes # Macrocytosis PT INR Potassium Chloride BUN Creatinine Glucose Troponin I 0.256 H* 0.253 H* Urine Protein Ur Leukocyte Esterase Urine WBC Hyaline Casts Urine Mucus Assessment and Plan Assessment: * Leg weakness, likely due to peripheral neuropathy. * Hyperkalemia * Acute renal failure * Macrocytosis * Tobacco use Plan: * Check B12, folate, B6, TSH, MMA, A1c, RPR, immunofixation electrophoresis, IgG, IgM, VICKI. * Patient may need EMG nerve conduction of bilateral lower limbs as outpatient to evaluate for the cause and type of peripheral neuropathy. * PT OT, evaluate gait. * Patient's right leg is slightly swollen, red, need to rule out cellulitis. * Other medical management as per IM and other specialties on board. * Neurology will follow. Thank you for the consult.
--- NOTE | 2023-11-15 17:33 | CA ---
Transthoracic Echo Report Name: Byron Gerardo Age: 63 Gender: M : 1960 Exam Date: 11/15/2023 14:29 Exam Location: [place] [facility] Ht (in): 66 Wt (lb): 220 Ordering Physician: Sathish Stafford MD Attending/Referring Phys: Orthotics Technician Yaquelin Gerardo RCS Procedure CPT: Indications: stroke Cardiac Hx: Technical Quality: Technically difficult study Contrast 1: Definity Total Dose (mL): 2 Contrast 2: Agitated Saline Total Dose (mL): 20 MEASUREMENTS (Male / Female) Normal Values 2D ECHO LV Diastolic Diameter PLAX 6.4 cm 4.2 - 5.9 / 3.9 - 5.3 cm LV Systolic Diameter PLAX 5.2 cm IVS Diastolic Thickness 1.3 cm 0.6 - 1.0 / 0.6 - 0.9 cm LVPW Diastolic Thickness 1.2 cm 0.6 - 1.0 / 0.6 - 0.9 cm LV Relative Wall Thickness 0.4 RV Internal Dim ED PLAX 3.1 cm LVOT Diameter 2.5 cm LV Diastolic Volume MOD BP 132.5 cm??? 67 - 155 / 56 - 104 cm??? LV Systolic Volume MOD BP 74.6 cm??? 22 - 58 / 19 - 49 cm??? LV Ejection Fraction MOD BP 43.7 % >= 55 % LV Cardiac Index MOD BP 2057.0 cm???/min???m??? LV Diastolic Volume MOD 4C 151.5 cm??? LV Systolic Volume MOD 4C 78.3 cm??? LV Ejection Fraction MOD 4C 48.3 % LV Cardiac Index MOD 4C 2600.7 cm???/min???m??? LV Diastolic Length 4C 9.0 cm LV Systolic Length 4C 7.8 cm LV Diastolic Volume MOD 2C 111.4 cm??? LV Systolic Volume MOD 2C 69.9 cm??? LV Ejection Fraction MOD 2C 37.3 % LV Cardiac Index MOD 2C 1476.5 cm???/min???m??? LV Diastolic Length 2C 8.6 cm LV Systolic Length 2C 7.9 cm LA Volume 105.9 cm??? 18 - 58 / 22 - 52 cm??? LA Volume Index 48.2 cm???/m??? 16 - 28 cm???/m??? Ascending Aorta Diameter 4.2 cm DOPPLER AV Peak Velocity 147.1 cm/s AV Peak Gradient 8.7 mmHg AV Mean Velocity 100.1 cm/s AV Mean Gradient 4.6 mmHg AV Velocity Time Integral 23.1 cm LVOT Peak Velocity 103.8 cm/s LVOT Peak Gradient 4.3 mmHg LVOT Velocity Time Integral 19.4 cm LVOT Stroke Volume 96.1 cm??? LVOT Stroke Volume Index 46.1 ml/m??? LVOT Cardiac Index 3411.1 cm???/min???m??? AV Area Cont Eq vti 4.2 cm??? AV Area Cont Eq pk 3.5 cm??? Mitral E Point Velocity 61.8 cm/s Mitral A Point Velocity 45.3 cm/s Mitral E to A Ratio 1.4 MV Deceleration Time 187.4 ms MV E' Velocity 2.7 cm/s Mitral E to MV E' Ratio 22.6 PV Peak Velocity 61.5 cm/s PV Peak Gradient 1.5 mmHg FINDINGS Left Ventricle Left ventricular ejection fraction is estimated at 35-40 %. Mildly increased septal wall thickness. Mildly increased left ventricular diastolic diameter. Moderately increased left ventricular systolic volume. Moderately decreased left ventricular ejection fraction. Moderately reduced global left ventricular systolic function. Right Ventricle Normal right ventricular size and function. Unable to determine right ventricular systolic pressure. Right Atrium Mild right atrial dilatation by visual. Left Atrium Severely increased left atrial volume. Moderately increased left atrial area. Mitral Valve Structurally normal mitral valve. No evidence for mitral valve prolapse. No mitral stenosis. Trace mitral regurgitation. Aortic Valve Trileaflet aortic valve. No aortic valve stenosis or regurgitation. Tricuspid Valve Structurally normal tricuspid valve. No tricuspid stenosis, regurgitation or prolapse. Pulmonic Valve Pulmonic valve not well visualized. No pulmonic stenosis. No pulmonic regurgitation. Pericardium No pericardial effusion. Aorta Aortic annulus normal. Mildly dilated proximal ascending aorta (tube). CONCLUSIONS Moderate LV systolic dysfunction with an ejection fraction of 35-40% Previewed by: Dr. Amarjit Nicholson MD (Electronically Signed) Final Date: 15 November 2023 17:32
[2023-11-15] MEDS: THIAMINE 100 MG TAB PO SCH (18:25)
--- NOTE | 2023-11-15 18:58 | HP ---
HISTORY AND PHYSICAL I am covering for Dr. Maradiaga. CHIEF COMPLAINT: Weakness. HISTORY OF PRESENT ILLNESS: This is a 63-year-old gentleman with a past medical history of hypertension, was not complaint with medication apparently. The patient apparently fell about 2 days ago and the patient unable to get up around for 8 hours. The patient also noted to have some minimal weakness on the left side also. The patient came to [facility] and admitted for further evaluation. There is no history of any fever, rigors, or chills. I have ordered a stat CT scan and recommended a stat neurology consultation to rule out the possibility of stroke after evaluating the patient this morning. There is no history of any fever, rigors, or chills at this time. PAST MEDICAL HISTORY: Hypertension, gout. Rest of the history and rest of the chart is also reviewed. HOME MEDICATIONS: [place] 5 mg. ALLERGIES: None. FAMILY HISTORY: No history of heart disease or strokes in the family. SOCIAL HISTORY: History of alcohol abuse and nicotine dependence. REVIEW OF SYSTEMS: Fourteen-point review is negative except as mentioned earlier. PHYSICAL EXAMINATION: VITAL SIGNS: Pulse is 84, blood pressure 152/101, respirations 14. HEENT: Conjunctivae normal. NECK: No JVD. CARDIOVASCULAR: S1, S2. RESPIRATIONS: Breath sounds diminished at the bases. No rhonchi. No crackles. ABDOMEN: Soft, nontender. LEGS: No edema. No swelling. NERVOUS SYSTEM: Mild dysarthria present and minimal weakness on the left side with some finger-nose incoordination also present. SKIN: No ulcer, rash, bleeding. JOINTS: No active deforming arthropathy. LABORATORY DATA: Troponin and creatinine 2.32. ASSESSMENT: 1. Weakness and fall, rule out left-sided stroke and right-sided cerebrovascular accident, acute. 2. Troponin . Possible acute gtn-YJ-pmofatp-elevation myocardial infarction. 3. Possible acute kidney injury. 4. Hyperkalemia, mild. 5. Hypertension. 6. Gout. 7. History of noncompliance. 8. Multiple complex medical issues. 9. History of ETOH. 10.History of nicotine dependence. RECOMMENDATIONS AND DISCUSSION: This is a 63-year-old gentleman presented with multiple complex medical issues. At this time, I would recommend a stat CT scan of the brain and further evaluation, neuro checks, complete neurovascular evaluation, neurology consultation. Antiplatelet agents. The patient is probably out of the window for tPA at this time. Other than that, recommend CIWA protocol. Monitor blood pressure closely. Cardiology consultation. Rule out the possibility of [id number] elevation myocardial infarction. Overall prognosis extremely guarded because of multiple complex medical issues as listed above and further recommendations to follow. See orders for further details. MMODL / IJN: [id number] /
[2023-11-16] MEDS: HEPARIN SODIUM,PORCINE 5,000 UNIT/ML 1 ML VIAL SQ SCH (00:13)
[2023-11-16 07:11] LABS: Basophils # (A) 0.1 k/uL (0-0.2); Basophils % (A) 1 %; Eosinophils # (A) 0.2 k/uL (0-0.7); Eosinophils % (A) 2 %; HCT 47.4 % (39.0-53.0); HGB 14.8 gm/dL (13.0-17.5); Hypochromasia Moderate; Lymphocytes # (A) 0.6 k/uL (1.0-4.8); Lymphocytes % (A) 9 %; MCH 34.5 pg (25.0-35.0); MCHC 31.4 g/dL (31.0-37.0); Monocytes # (A) 0.4 k/uL (0-1.0); Monocytes % (A) 6 %; Neutrophils # (A) 5.6 k/uL (1.3-7.7); Neutrophils % (A) 81 %; Platelet Count 169 k/uL (150-450); RBC 4.31 m/uL (4.30-5.90); RDW 14.9 % (11.5-15.5)
[2023-11-16 07:15] LABS: Macrocytosis Marked
[2023-11-16 07:15] LABS: African American GFR (CKD) 34 (>60 ml/min/1.73 sqM); Anion Gap 6 mmol/L; Blood Urea Nitrogen 41 mg/dL (9-20); Calcium 8.3 mg/dL (8.4-10.2); Carbon Dioxide 26 mmol/L (22-30); Chloride 109 mmol/L (98-107); Glucose 103 mg/dL (74-99); Non-African American GFR(CKD) 29 (>60 ml/min/1.73 sqM); Potassium 5.2 mmol/L (3.5-5.1); Sodium 141 mmol/L (137-145)
--- NOTE | 2023-11-16 07:53 | US ---
EXAMINATION TYPE: US carotid duplex BILAT DATE OF EXAM: 11/15/2023 COMPARISON: CLINICAL INDICATION: Male, 63 years old with history of stroke; Fall 2 days ago. Weakness. TECHNIQUE: Carotid duplex ultrasound examination. Indirect Doppler criteria was utilized. FINDINGS: EXAM MEASUREMENTS: RIGHT: Peak Systolic Velocity (PSV) cm/sec ----- Right CCA: 36.9 ----- Right ICA: 76.8 ----- Right ECA: 82.7 ICA/CCA ratio: 2.1 RIGHT: End Diastole cm/sec ----- Right CCA: 9.2 ----- Right ICA: 31.8 ----- Right ECA: 12.8 LEFT: Peak Systolic Velocity (PSV) cm/sec ----- Left CCA: 40.9 ----- Left ICA: 64.7 ----- Left ECA: 72.4 ICA/CCA ratio: 1.6 LEFT: End Diastole cm/sec ----- Left CCA: 9.5 ----- Left ICA: 29.6 ----- Left ECA: 8.7 VERTEBRALS (direction of flow): Right Vertebral: Antegrade Left Vertebral: Antegrade Rhythm: Normal MERCHANDISE ASSOCIATE NOTES: Plaque and wall thickening seen bilaterally. No elevated velocities. IMPRESSION: No evidence for hemodynamically significant stenosis Criteria for Assigning % of Stenosis / Diameter reduction (Estimation based on the indirect measurements of the internal carotid artery velocities (ICA PSV). 1. Normal (no stenosis)=ICA PSV < 125 cm/s: ratio < 2.0: ICA EDV<40 cm/s. 2. Less than 50% stenosis=ICA PSV < 125 cm/s: ratio < 2.0: ICA EDV<40 cm/s. 3. 50 to 69% stenosis=ICA PSV of 125 to 230 cm/s: ration 2.0 ? 4.0: ICA EDV 40-100 cm/s. 4. Greater than 70% stenosis to near occlusion= ICA PSV > 230 cm/s: ratio > 4.0: ICA EDV > 100 cm/s. 5. Near occlusion= ICA PSV velocities may be low or undetectable: variable ratio and ICA EDV. 6. Total occlusion=unable to detect flow.
--- NOTE | 2023-11-16 07:55 | US ---
EXAMINATION TYPE: US kidneys/renal and bladder DATE OF EXAM: 11/15/2023 COMPARISON: CLINICAL INDICATION: Male, 63 years old with history of blayne; Hx atrophy right kidney. EXAM MEASUREMENTS: Right Kidney: 7.8 x 3.9 x 4.3 cm Left Kidney: 11.3 x 5.7 x 5.6 cm Right Kidney: Appears small in size. Trace fluid seen adjacent to kidney. Left Kidney: No hydronephrosis or masses seen Bladder: Distended, anechoic Left Jet seen Incidental finding: echogenic foci seen in gallbladder There is no evidence for hydronephrosis at this point in time. No nephrolithiasis is seen. No juan jose s are identified. The urinary bladder is anechoic. Bilateral ureteral jets are seen. IMPRESSION: Atrophic right kidney. Incidental cholelithiasis.
--- NOTE | 2023-11-16 08:01 | XR ---
EXAMINATION TYPE: XR chest 1V portable DATE OF EXAM: 11/16/2023 HISTORY: Shortness of breath. COMPARISON: 11/15/2023 TECHNIQUE: Single view of the chest is submitted. FINDINGS: Demonstrated are scattered senescent parenchymal change. There is no evidence for focal infiltrate. The heart is stable. Pulmonary venous congestion is improved since prior study. Trace pleural effusio n within the right minor fissure. Hilar and mediastinal structures are within normal limits. Degenerative changes are seen of the dorsal spine. IMPRESSION: 1. Pulmonary venous congestion is improved since prior study. Trace pleural effusion within the righ t minor fissure.
[2023-11-16] MEDS: NICOTINE 14MG/24HR PATCH TRANSDERM SCH (08:09)
[2023-11-16] MEDS: HYDROcodone/APAP 5-325MG 1 EACH TAB PO PRN (08:09)
[2023-11-16] MEDS ORDERED: FUROSEMIDE 10 MG/ML 4 ML VIAL IV SCH (09:00)
[2023-11-16] MEDS: METOPROLOL SUCCINATE (ER) 25 MG TAB.ER.24H PO SCH (10:22)
[2023-11-16] MEDS: ASPIRIN 81 MG PO SCH (10:22)
[2023-11-16] MEDS: FUROSEMIDE 10 MG/ML 4 ML VIAL IV SCH (10:22)
--- NOTE | 2023-11-16 10:55 | P.CRDCN ---
History of Present Illness History of present illness: HISTORY OF PRESENT ILLNESS: This is a 63-year-old male with a past medical history significant for hypertension, gout, alcohol use, nicotine dependence, and AAA repair. [facility] [place] He does not follow with a pension administrator. We have been asked to see the patient in consultation for elevated BNP and troponin. Patient examined at the bedside. Patient states he got a fitbit watch and thought he was doing well from a cardiac standpoint so he stopped taking all of his cardiac medications. He reports he tripped and fell at home and laid on the floor for about 10 hours as he was unable to get up. Patient currently denies chest pain or pressure. He denies SOB. He reports increased lower extremity edema. Patients blood pressure was significantly elevated upon admission to the hospital. DIAGNOSTICS: - EKG reveals sinus mechanism with no signs of acute ischemia. - Chest xray right perihilar increased density persist which may reflect atelectasis and/or infiltrate. -CT of the brain: Negative for acute process - Laboratory data: WBC 7.0. Hemoglobin 14.8. Platelet count 169. Sodium 141. Potassium 5.2. BUN 41. Creatinine 2.29. Troponin 0.258. 0.256. 0.253. - Current home cardiac medications include none -Echocardiogram obtained revealing ejection fraction 35 to 40%, trace MR. -Previous echocardiogram from 2022 revealed ejection fraction 55 to 60% REVIEW OF SYSTEMS: At the time of my exam: CONSTITUTIONAL: Denies fever or chills. HEENT: Denies blurred vision, vision changes, or eye pain. Denies hemoptysis CARDIOVASCULAR: Denies chest pain. Denies orthopnea. Denies PND. Denies palpitations RESPIRATORY: Denies shortness of breath. GASTROINTESTINAL: Denies abdominal pain. Denies nausea or vomiting. HEMATOLOGIC: Denies bleeding disorders. GENITOURINARY: Denies any blood in urine. SKIN: Denies pruitis. Denies rash. PHYSICAL EXAM: VITAL SIGNS: Reviewed. GENERAL: Well-developed in no acute distress. HEENT: Head is normocephalic. Pupils are equal, round. Sclerae anicteric. Mucous membranes of the mouth are moist. Neck supple. No JVD or thyromegaly LUNGS: Respirations even and unlabored. Lungs essentially clear to auscultation bilaterally. HEART: Regular rate and rhythm. S1 and S2 heard. ABDOMEN: Soft. Nondistended. Nontender. EXTREMITIES: Normal range of motion. No clubbing or cyanosis. Peripheral pulses intact. No lower extremity edema NEUROLOGIC: Awake and alert. Oriented x 3. ASSESSMENT: Status post fall, patient laid on the floor for approximately 8-10 hours Acute kidney injury New onset cardiomyopathy, EF 35 to 40%, ischemic versus nonischemic Medication noncompliance, patient stopped taking his blood pressure medications a month ago Acute heart failure with reduced EF, 35-40% Hypertension, uncontrolled History of alcohol abuse Nicotine dependence History of AAA repair History of gout Nicotine dependence Chronic hypoxic respiratory failure, on home o2 PRN PLAN: 2D echo obtained and reviewed Begin aspirin 81 mg daily and Lipitor 40 mg at night Begin metoprolol succinate 25 mg daily Begin IV Lasix 40 mg daily Daily weights, accurate intake and output, and monitoring of kidney function Patient would benefit from KELLI/ARB when kidney function improves Smoking cessation recommended Abstinence from alcohol encouraged Patient will need eventual outpatient ischemic workup due to new onset cardiomyo molly Further recommendations pending patient course Nurse practitioner note has been reviewed by physician. Signing provider agrees with the documented findings, assessment, and plan of care documented by GEAR MACHINE OPERATOR as a scribe. Past Medical History Past Medical History: Hypertension Additional Past Medical History / Comment(s): Gout, ETOH use History of Any Multi-Drug Resistant Organisms: None Reported Additional Past Surgical History / Comment(s): AAA repair Past Anesthesia/Blood Transfusion Reactions: Unable to Obtain Additional Past Anesthesia/Blood Transfusion Reaction / Comment(s): Ptdeclined answering. Past Psychological History: No Psychological Hx Reported Smoking Status: Current every day smoker Past Alcohol Use History: Occasional Past Drug Use History: None Reported - Past Family History Father Additional Family Medical History / Comment(s): Pt declined answering. Mother Additional Family Medical History / Comment(s): Pt declined answering. Medications and Allergies Home Medications Medication Instructions Recorded Confirmed Type HYDROcodone/APAP 5-325MG [[place] 1 tab PO TID 02/16/22 11/15/23 History 5-325] Allergies Allergy/AdvReac Type Severity Reaction Status Date / Time No Known Allergies Allergy Verified 11/15/23 09:01 Physical Exam Vitals: Vital Signs Temp Pulse Pulse Resp BP BP Pulse Ox 11/16/23 04:00 98.2 F 75 16 159/89 93 L 11/16/23 00:45 98.4 F 80 18 162/92 94 L 11/16/23 00:28 78 20 148/111 94 L 11/15/23 22:00 74 18 142/112 96 11/15/23 21:00 20 93 L 11/15/23 20:00 70 20 136/94 100 11/15/23 18:00 84 18 142/84 90 L 11/15/23 17:00 79 21 173/109 94 L 11/15/23 16:43 78 18 173/109 94 L 11/15/23 16:00 74 18 161/112 94 L 11/15/23 15:00 78 20 151/109 93 L 11/15/23 14:00 82 25 H 143/98 92 L 11/15/23 13:00 84 18 143/98 92 L 11/15/23 11:00 76 21 145/96 11/15/23 10:00 80 19 172/130 11/15/23 09:00 84 14 152/104 92 L 11/15/23 08:44 99.0 F 76 18 152/104 94 L 11/15/23 08:09 78 16 169/114 95 11/15/23 07:41 82 18 176/136 92 L Intake and Output 11/15/23 11/16/23 11/16/23 22:59 06:59 14:59 Intake Total 10 Balance 10 Intake: IV 10 Invasive Line 1 10 Other: Voiding Method Diaper External Catheter # Voids 1 # Bowel Movements 1 Weight 99.79 kg Results 11/16/23 06:41 11/16/23 06:40 Cardiac Enzymes 11/15/23 11/15/23 11/15/23 Range/Units 07:00 07:00 09:58 AST 27 (17-59) U/L Troponin I 0.258 H* 0.256 H* (0.000-0.034) ng/mL 11/15/23 Range/Units 12:14 AST (17-59) U/L Troponin I 0.253 H* (0.000-0.034) ng/mL Coagulation 11/15/23 Range/Units 07:00 PT 12.8 H (10.0-12.5) sec APTT 28.4 (22.0-30.0) sec CBC 11/15/23 11/16/23 Range/Units 07:00 06:41 WBC 7.3 7.0 (3.8-10.6) k/uL RBC 4.44 4.31 (4.30-5.90) m/uL Hgb 15.6 14.8 (13.0-17.5) gm/dL Hct 48.3 47.4 (39.0-53.0) % Plt Count 200 169 (150-450) k/uL Comprehensive Metabolic Panel 11/15/23 11/15/23 11/16/23 Range/Units 07:00 08:16 06:40 Sodium 139 141 (137-145) mmol/L Potassium 5.8 H 5.4 H 5.2 H (3.5-5.1) mmol/L Chloride 108 H 109 H (98-107) mmol/L Carbon Dioxide 26 26 (22-30) mmol/L BUN 37 H 41 H (9-20) mg/dL Creatinine 2.32 H 2.29 H (0.66-1.25) mg/dL Glucose 101 H 103 H (74-99) mg/dL Calcium 8.8 8.3 L (8.4-10.2) mg/dL AST 27 (17-59) U/L ALT 16 (4-49) U/L Alkaline Phosphatase 72 (38-126) U/L Total Protein 6.7 (6.3-8.2) g/dL Albumin 4.0 (3.5-5.0) g/dL Current Medications Generic Name Dose Route Start Last Admin Trade Name Freq PRN Reason Stop Dose Admin Acetaminophen 650 mg 11/15/23 08:17 Acetaminophen Tab 325 Mg Tab PO Q6HR PRN Mild Pain or Fever > 100.5 Hydrocodone Bitart/Acetaminophen 1 each 11/15/23 08:17 Hydrocodone/Apap 5-325mg 1 Each Tab PO Q4HR PRN Moderate Pain (Scale 4 to 6) Folic Acid 1 mg 11/16/23 13:30 Folic Acid 1 Mg Tab PO DAILY@1200 [facility] Heparin Sodium (Porcine) 5,000 unit 11/15/23 21:00 11/16/23 00:13 Heparin Sodium,Porcine 5,000 Unit/Ml 1 Ml Vial SQ 5,000 unit Q12HR [facility] Administration Multivitamins 1 each 11/16/23 12:00 Multivitamins, Thera 1 Each Tab PO DAILY@1200 [facility] Naloxone HCl 0.2 mg 11/15/23 08:17 Naloxone 0.4 Mg/Ml 1 Ml Vial IV Q2M PRN Opioid Reversal Nicotine 1 patch 11/16/23 09:00 Nicotine 14mg/24hr Patch TRANSDERM DAILY [facility] Ondansetron HCl 4 mg 11/15/23 08:17 Ondansetron 4 Mg/2 Ml Vial IVP Q8HR PRN Nausea And Vomiting Thiamine HCl 100 mg 11/15/23 17:30 11/16/23 07:03 Thiamine 100 Mg Tab PO 100 mg BID-W/MEALS [facility] Administration Intake and Output 11/15/23 11/16/23 11/16/23 22:59 06:59 14:59 Intake Total 10 Balance 10 Intake: IV 10 Invasive Line 1 10 Other: Voiding Method Diaper External Catheter # Voids 1 # Bowel Movements 1 Weight 99.79 kg 11/16/23 06:41 11/16/23 06:40
[2023-11-16] MEDS: FOLIC ACID 1 MG TAB PO SCH (11:51)
[2023-11-16] MEDS: MULTIVITAMINS, THERA 1 EACH TAB PO SCH (11:51)
[2023-11-16] MEDS: CYANOCOBALAMIN 1,000 MCG/ML 1 ML VIAL IM SCH (11:52)
--- NOTE | 2023-11-16 12:22 | P.PN ---
Subjective Patient is seen for follow-up for acute kidney injury. Currently maintained on IV Lasix 40 mg daily. Good urine output Serum creatinine at 2.29 from 2.3 yesterday. Previous creatinine 1.0 on 09/13/2021. Next Patient has been voiding. Ultrasound shows no hydronephrosis. Bladder is distended and right renal atrophy noted. Objective - Vital Signs Vital signs: Vital Signs Temp 98.5 F 11/16/23 11:56 Pulse 72 11/16/23 11:56 Resp 18 11/16/23 11:56 BP 154/97 11/16/23 11:56 Pulse Ox 96 11/16/23 11:56 FiO2 Intake & Output 11/15/23 11/16/23 11/16/23 18:59 06:59 18:59 Intake Total 10 10 Output Total 200 Balance 10 -190 Weight 99.79 kg Intake: IV 10 10 Invasive Line 1 10 10 Output: Urine 200 Other: Voiding Method Diaper Diaper External Catheter External Catheter # Voids 1 # Bowel Movements 1 - Exam Patient is awake, comfortable, no acute distress. Examination of the heart S1 and S2 Examination of the lungs bilateral breath sounds are heard Abdomen is soft nontender Examination of lower extremity shows trace edema GRINDER OUTSIDE DIAMETER exam grossly intact - Labs CBC & Chem 7: 11/16/23 06:41 11/16/23 06:40 Labs: Abnormal Lab Results - Last 24 Hours (Table) 11/15/23 11/15/23 11/16/23 Range/Units 12:14 14:00 06:40 MCV (80.0-100.0) fL Lymphocytes # (1.0-4.8) k/uL Macrocytosis Potassium 5.2 H (3.5-5.1) mmol/L Chloride 109 H (98-107) mmol/L BUN 41 H (9-20) mg/dL Creatinine 2.29 H (0.66-1.25) mg/dL Glucose 103 H (74-99) mg/dL Calcium 8.3 L (8.4-10.2) mg/dL Troponin I 0.253 H* (0.000-0.034) ng/mL Vitamin B12 161.0 L (200.0-944.0) pg/mL 11/16/23 Range/Units 06:41 MCV 110.0 H (80.0-100.0) fL Lymphocytes # 0.6 L (1.0-4.8) k/uL Macrocytosis Marked A Potassium (3.5-5.1) mmol/L Chloride (98-107) mmol/L BUN (9-20) mg/dL Creatinine (0.66-1.25) mg/dL Glucose (74-99) mg/dL Calcium (8.4-10.2) mg/dL Troponin I (0.000-0.034) ng/mL Vitamin B12 (200.0-944.0) pg/mL Assessment and Plan Assessment: 1. Acute kidney injury, most likely ATN. Rule out urine retention. Possible component of acute kidney injury associated with uncontrolled hypertension. UA shows trace protein 17 WBCs no blood. Ultrasound shows right renal atrophy with right kidney at about 7 cm. Bladder is distended. 2. Hypertension uncontrolled secondary to patient having stopped medications about 4 weeks ago. Started on Toprol. Continue to avoid NSAIDs. 3. Hyperkalemia associated with acute kidney injury, rule out urine retention. Patient received Toradol in the ER. 4. Status post fall with no rhabdomyolysis Plan: Check post void residual Repeat labs in a.m. Patient will need follow-up as outpatient for possible chronic kidney disease and acute kidney injury.
--- NOTE | 2023-11-16 12:38 | P.PN ---
Subjective 63-year-old male with a history of hypertension no history of coronary disease or drug constructively is admitted for recurrent falls patient does not have any focal weakness no clinical evidence of cerebrovascular accident which was actually ruled out neurology evaluated the patient. Patient does have a peripheral neuropathy which may be contributing to his falls. Patient also found to be in acute renal failure baseline creatinine of around 1 on admission his creatinine is 2.3 presently 2.29 this is believed to be secondary to possible acute tubular necrosis or cardiorenal syndrome patient is in CHF patient EF has gone down now and present EF is 35 to 40%, patient does have bilateral pedal edema and does have some crackles on exam with highly elevated BNP of 16,000 and patient was started on IV Lasix today. Patient does not use any oxygen patient is in acute respiratory failure requiring 5 L of oxygen here. Patient is also found to have extremely low B12 for which B12 is being supplemented. Constitutional: Denied any fatigue denied any fever. Cardio vascular: denied any chest pain, palpitations Gastrointestinal denied any nausea vomiting Pulmonary: Patient still has shortness of breath Neurologic denied any new focal deficits All inpatient medications were reviewed and appropriate changes in these medications as dictated in the interval history and assessment and plan. PHYSICAL EXAMINATION: GENERAL: The patient is alert and oriented x3, not in any acute distress. Well developed, well nourished. HEENT: Pupils are round and equally reacting to light. EOMI. No scleral icterus. No conjunctival pallor. Normocephalic, atraumatic. No pharyngeal erythema. No thyromegaly. CARDIOVASCULAR: S1 and S2 present. No murmurs, rubs, or gallops. PULMONARY: Chest is clear to auscultation, no wheezing or crackles. ABDOMEN: Soft, nontender, nondistended, normoactive bowel sounds. No palpable organomegaly. MUSCULOSKELETAL: No joint swelling or deformity. EXTREMITIES: No cyanosis, clubbing, bilateral lower extremity edema NEUROLOGICAL: Gross neurological examination did not reveal any focal deficits. SKIN: No rashes. Assessment and plan -Acute hypoxic respiratory failure requiring 4 L of oxygen: Secondary to sony estive heart failure exacerbation patient has new onset CHF possibly acute CHF or acute on chronic CHF exacerbation cardiology evaluated the patient, patient was started on IV Lasix 40 mg will continue monitor I's and O's cardiac catheterization as per cardiology -Acute renal failure possibility of prerenal azotemia from cardiorenal syndrome. Patient may have acute tubular necrosis as well nephrology evaluated the patient -Peripheral neuropathy secondary to B12 deficiency: Patient was started on B12 supplementation -Generalized weakness secondary to multiple medical problems as mentioned above and peripheral neuropathy for which B12 is being supplemented at this time -Hypertension uncontrolled due to noncompliance with medications -Nicotine dependence: Counseling was provided -DVT prophylaxis: Subcutaneous heparin Objective - Vital Signs Vital signs: Vital Signs Temp 98.5 F 11/16/23 11:56 Pulse 72 11/16/23 11:56 Resp 18 11/16/23 11:56 BP 154/97 11/16/23 11:56 Pulse Ox 96 11/16/23 11:56 FiO2 Intake & Output 11/15/23 11/16/23 11/16/23 18:59 06:59 18:59 Intake Total 10 10 Output Total 200 Balance 10 -190 Weight 99.79 kg Intake: IV 10 10 Invasive Line 1 10 10 Output: Urine 200 Other: Voiding Method Diaper Diaper External Catheter External Catheter # Voids 1 # Bowel Movements 1 - Labs CBC & Chem 7: 11/16/23 06:41 11/16/23 06:40 Labs: Abnormal Lab Results - Last 24 Hours (Table) 11/15/23 11/15/23 11/16/23 Range/Units 12:14 14:00 06:40 MCV (80.0-100.0) fL Lymphocytes # (1.0-4.8) k/uL Macrocytosis Potassium 5.2 H (3.5-5.1) mmol/L Chloride 109 H (98-107) mmol/L BUN 41 H (9-20) mg/dL Creatinine 2.29 H (0.66-1.25) mg/dL Glucose 103 H (74-99) mg/dL Calcium 8.3 L (8.4-10.2) mg/dL Troponin I 0.253 H* (0.000-0.034) ng/mL Vitamin B12 161.0 L (200.0-944.0) pg/mL 11/16/23 Range/Units 06:41 MCV 110.0 H (80.0-100.0) fL Lymphocytes # 0.6 L (1.0-4.8) k/uL Macrocytosis Marked A Potassium (3.5-5.1) mmol/L Chloride (98-107) mmol/L BUN (9-20) mg/dL Creatinine (0.66-1.25) mg/dL Glucose (74-99) mg/dL Calcium (8.4-10.2) mg/dL Troponin I (0.000-0.034) ng/mL Vitamin B12 (200.0-944.0) pg/mL
[2023-11-16 20:01] LABS: Glucose,Whole Blood 108 mg/dL (70-110)
[2023-11-16] MEDS: ATORVASTATIN 40 MG TAB PO SCH (20:04)
[2023-11-17 09:33] LABS: African American GFR (CKD) 33 (>60 ml/min/1.73 sqM); Anion Gap 9 mmol/L; Blood Urea Nitrogen 47 mg/dL (9-20); Calcium 8.7 mg/dL (8.4-10.2); Carbon Dioxide 25 mmol/L (22-30); Chloride 105 mmol/L (98-107); Glucose 101 mg/dL (74-99); Magnesium 2.1 mg/dL (1.6-2.3); Non-African American GFR(CKD) 29 (>60 ml/min/1.73 sqM); Potassium 5.3 mmol/L (3.5-5.1); Sodium 139 mmol/L (137-145)
[2023-11-17] MEDS: amLODIPine 5 MG TAB PO SCH (09:58)
--- NOTE | 2023-11-17 11:05 | P.PN ---
Subjective HISTORY OF PRESENT ILLNESS: This is a 63-year-old male with a past medical history significant for hypertension, gout, alcohol use, nicotine dependence, and AAA repair. [facility] [place] He does not follow with a digital media specialist. We have been asked to see the patient in consultation for elevated BNP and troponin. Patient examined at the bedside. Patient states he got a fitbit watch and thought he was doing well from a cardiac standpoint so he stopped taking all of his cardiac medications. He reports he tripped and fell at home and laid on the floor for about 10 hours as he was unable to get up. Patient currently de nies chest pain or pressure. He denies SOB. He reports increased lower extremity edema. Patients blood pressure was significantly elevated upon admission to the hospital. DIAGNOSTICS: - EKG reveals sinus mechanism with no signs of acute ischemia. - Chest xray right perihilar increased density persist which may reflect atelectasis and/or infiltrate. -CT of the brain: Negative for acute process - Laboratory data: WBC 7.0. Hemoglobin 14.8. Platelet count 169. Sodium 141. Potassium 5.2. BUN 41. Creatinine 2.29. Troponin 0.258. 0.256. 0.253. - Current home cardiac medications include none -Echocardiogram obtained revealing ejection fraction 35 to 40%, trace MR. -Previous echocardiogram from 2022 revealed ejection fraction 55 to 60% 11/17/2023 Patient examined this morning at the bedside. Patient denies chest pain or pressure. He denies shortness of breath. He remains on IV diuretics. Creatinine is stable today at 2.3. Patient's blood pressures remain elevated with a reading of 159/103 this morning. PHYSICAL EXAM: VITAL SIGNS: Reviewed. GENERAL: Well-developed in no acute distress. HEENT: Head is normocephalic. Pupils are equal, round. Sclerae anicteric. Mucous membranes of the mouth are moist. Neck supple. No JVD or thyromegaly LUNGS: Respirations even and unlabored. Lungs essentially clear to auscultation bilaterally. HEART: Regular rate and rhythm. S1 and S2 heard. ABDOMEN: Soft. Nondistended. Nontender. EXTREMITIES: Normal range of motion. No clubbing or cyanosis. Peripheral pulses intact. No lower extremity edema NEUROLOGIC: Awake and alert. Oriented x 3. ASSESSMENT: Status post fall, patient laid on the floor for approximately 8-10 hours Acute kidney injury New onset cardiomyopathy, EF 35 to 40%, ischemic versus nonischemic Medication noncompliance, patient stopped taking his blood pressure medications a month ago Acute heart failure with reduced EF, 35-40% Hypertension, uncontrolled History of alcohol abuse Nicotine dependence History of AAA repair History of gout Nicotine dependence Chronic hypoxic respiratory failure, on home o2 PRN PLAN: Continue current cardiac medications Continue IV Lasix 40 mg daily Daily weights, accurate intake and output, and monitoring of kidney function Add amlodipine 5 mg daily for optimal blood pressure control Patient would benefit from KELLI/ARB when kidney function improves Smoking cessation recommended Abstinence from alcohol encouraged Patient will need eventual outpatient ischemic workup due to new onset cardiomyopathy Further recommendations pending patient course Nurse practitioner note has been reviewed by physician. Signing provider agrees with the documented findings, assessment, and plan of care documented by WEIGHT GUESSER as a scribe. Objective - Vital Signs Vital signs: Vital Signs Temp 98.3 F 11/17/23 09:52 Pulse 69 11/17/23 09:52 Resp 18 11/17/23 09:52 BP 159/103 11/17/23 09:52 Pulse Ox 97 11/17/23 09:52 FiO2 Intake & Output 11/16/23 11/17/23 11/17/23 18:59 06:59 18:59 Intake Total 350 110 250 Output Total 200 Balance 150 110 250 Weight 101.7 kg Intake: IV 10 10 10 Invasive Line 1 10 10 10 Oral 340 100 240 Output: Urine 200 Other: Voiding Method Diaper Toilet Toilet External Catheter Diaper Diaper # Voids 2 1 2 # Bowel Movements 1 - Labs CBC & Chem 7: 11/16/23 06:41 11/17/23 07:27 Labs: Abnormal Lab Results - Last 24 Hours (Table) 11/17/23 Range/Units 07:27 Potassium 5.3 H (3.5-5.1) mmol/L BUN 47 H (9-20) mg/dL Creatinine 2.32 H (0.66-1.25) mg/dL Glucose 101 H (74-99) mg/dL
--- NOTE | 2023-11-17 11:44 | P.PN ---
Subjective Progress Note Date: 11/16/23 Patient was seen for a follow-up. Patient is sitting comfortably in the recliner. He denies any low back pain, denies any neck pain. He believes that he is getting better, has gone to the bathroom and ambulating better. Telemetry monitoring showing sinus rhythm, with some PVCs and PACs. Objective - Vital Signs Vital signs: Vital Signs Temp 98.3 F 11/17/23 09:52 Pulse 69 11/17/23 09:52 Resp 18 11/17/23 09:52 BP 159/103 11/17/23 09:52 Pulse Ox 97 11/17/23 09:52 FiO2 Intake & Output 11/16/23 11/17/23 11/17/23 18:59 06:59 18:59 Intake Total 350 110 250 Output Total 200 Balance 150 110 250 Weight 101.7 kg Intake: IV 10 10 10 Invasive Line 1 10 10 10 Oral 340 100 240 Output: Urine 200 Other: Voiding Method Diaper Toilet Toilet External Catheter Diaper Diaper # Voids 2 1 2 # Bowel Movements 1 - Exam Patient is alert and awake in no distress. Mentation is normal. On muscle strength testing, his hip flexion is 5-/4, toe extension 5/5-4+. - Labs CBC & Chem 7: 11/16/23 06:41 11/17/23 07:27 Labs: Abnormal Lab Results - Last 24 Hours (Table) 11/17/23 Range/Units 07:27 Potassium 5.3 H (3.5-5.1) mmol/L BUN 47 H (9-20) mg/dL Creatinine 2.32 H (0.66-1.25) mg/dL Glucose 101 H (74-99) mg/dL Assessment and Plan Assessment: * Leg weakness, likely due to peripheral neuropathy. Patient found to have significant B12 deficiency. Patient denies any low back pain or neck pain, therefore doubt spinal dysfunction at this time. * Vitamin B12 deficiency * Folate deficiency * Hyperkalemia * Elevated cardiac enzymes * Acute renal failure * Macrocytosis * Tobacco use Plan: * B12 161, folate 5.80, TSH 2.54, A1c 5.6, RPR nonreactive, immunofixation electrophoresis negative for any monoclonal protein, IgG 905, IgM 219, IgA 319, VICKI negative. * Patient has B12 and folate deficiency. Patient started on vitamin B12 injections x 3, and folic acid 1 mg daily. * B6, MMA pending. * Patient may need EMG nerve conduction of bilateral lower limbs as outpatient to evaluate for the cause and type of peripheral neuropathy. * PT OT, evaluate gait. * Patient's right leg is slightly swollen, red, need to rule out cellulitis. * Other medical management as per IM and other specialties on board.
--- NOTE | 2023-11-17 15:09 | P.PN ---
Subjective Patient is seen for follow-up for acute kidney injury. Currently maintained on IV Lasix 40 mg daily. Good urine output Serum creatinine staying at 2.2 to 2.3 mg/dL. Previous creatinine 1.0 on 09/13/2021. Patient has been voiding. Ultrasound shows no hydronephrosis. Postvoid residual not elevated. Objective - Vital Signs Vital signs: Vital Signs Temp 98.3 F 11/17/23 09:52 Pulse 70 11/17/23 11:59 Resp 18 11/17/23 11:59 BP 172/97 11/17/23 11:59 Pulse Ox 96 11/17/23 11:59 FiO2 Intake & Output 11/16/23 11/17/23 11/17/23 18:59 06:59 18:59 Intake Total 350 110 490 Output Total 200 Balance 150 110 490 Weight 101.7 kg Intake: IV 10 10 10 Invasive Line 1 10 10 10 Oral 340 100 480 Output: Urine 200 Other: Voiding Method Diaper Toilet Toilet External Catheter Diaper Diaper # Voids 2 1 2 # Bowel Movements 1 - Exam Patient is awake, comfortable, no acute distress. Examination of the heart S1 and S2 Examination of the lungs bilateral breath sounds are heard Abdomen is soft nontender Examination of lower extremity shows trace edema NATURAL RESOURCES SPECIALIST exam grossly intact - Labs CBC & Chem 7: 11/16/23 06:41 11/17/23 07:27 Labs: Abnormal Lab Results - Last 24 Hours (Table) 11/17/23 Range/Units 07:27 Potassium 5.3 H (3.5-5.1) mmol/L BUN 47 H (9-20) mg/dL Creatinine 2.32 H (0.66-1.25) mg/dL Glucose 101 H (74-99) mg/dL Microbiology - Last 24 Hours (Table) 11/15/23 15:08 Blood Culture - Preliminary Blood Assessment and Plan Assessment: 1. Acute kidney injury, most likely ATN. Currently stable. Maintained on low- dose loop diuretic. Possible component of acute kidney injury associated with uncontrolled hypertension. UA shows trace protein 17 WBCs no blood. Ultrasound shows right renal atrophy with right kidney at about 7 cm. 2. Hypertension uncontrolled secondary to patient having stopped medications about 4 weeks ago. Started on Toprol. Continue to avoid NSAIDs. 3. Hyperkalemia associated with acute kidney injury, rule out urine retention. Patient received Toradol in the ER. 4. Status post fall with no rhabdomyolysis Plan: Okay for discharge from nephrology standpoint. Switch to oral Lasix 40 mg daily upon discharge. Repeat labs in a.m. Patient will need follow-up as outpatient for possible chronic kidney disease and acute kidney injury.
--- NOTE | 2023-11-17 15:10 | CDI ---
Documentation Clarification Form Date: From: Katalina Hairston Phone: [phone] Admit Date: 11/15/2023 08:10:00 AM Patient Name: Byron Gerardo Visit Number: [id number] Discharge Date: ATTENTION: The Clinical Documentation Specialists (CDI) and [facility] Coding Staff appreciate your assistance in clarifying documentation. Please respond to the clarification below the line at the bottom and electronically sign. The CDI & [facility] Coding staff will review the response and follow-up if needed. Please note: Queries are made part of the Legal Health Record. If you have any questions, please contact the author of this message via ITS. Dr. Sharlene Jamison Your patient has elevated troponin levels noted in the Cardiology note on 11/15. Please clarify if there is an additional diagnosis and/or clinical significance related to this value. Patient history/risk factors: "63-year-old male with history of hypertension who was admitted to the hospital with complaints of increased weakness. Patient noticed increased swelling in his legs recently. Patient had stopped taking his medications for hypertension for about 3-4 weeks." - Per Nephrology Note on 11/14 Clinical indicators: "patient denies any substantial chest pain or shortness of breath at this time" - Per ED Note on 11/14 "EKG reveals sinus mechanism with no signs of acute ischemia" "Echocardiogram obtained revealing ejection fraction 35 to 40%, trace MR" "CARDIOVASCULAR: Denies chest pain. Denies orthopnea. Denies PND. Denies palpitations" "Acute kidney injury" "New onset cardiomyopathy" "Acute heart failure with reduced EF" - Per Cardiology Note on 11/15 BP: 11/14 - 161/114, 176/136, 169/114, 172/130, 143/98 Troponin I: 11/14 - 0.258, 0.256, 0.253 Treatment: Per Cardiology Note on 11/15 "Begin aspirin 81 mg daily and Lipitor 40 mg at night Begin metoprolol succinate 25 mg daily Begin IV Lasix 40 mg daily Daily weights, accurate intake and output, and monitoring of kidney function Patient would benefit from KELLI/ARB when kidney function improves" Is there an additional diagnosis and/or clinical significance related to the above lab result/information: [ x] Elevated troponin due to acute myocardial injury without myocardial infarction [ ] Elevated troponin due to chronic myocardial injury without myocardial infarction [ ] No additional diagnosis/Not clinically significant [ ] Other, please specify [ ] Unable to determine MTDD
--- NOTE | 2023-11-17 21:15 | P.PN ---
Subjective Progress Note Date: 11/17/23 63-year-old male with a history of hypertension no history of coronary disease or drug constructively is admitted for recurrent falls patient does not have any focal weakness no clinical evidence of cerebrovascular accident which was actually ruled out neurology evaluated the patient. Patient does have a peripheral neuropathy which may be contributing to his falls. Patient also found to be in acute renal failure baseline creatinine of around 1 on admission his creatinine is 2.3 presently 2.29 this is believed to be secondary to possible acute tubular necrosis or cardiorenal syndrome patient is in CHF patient EF has gone down now and present EF is 35 to 40%, patient does have bilateral pedal edema and does have some crackles on exam with highly elevated BNP of 16,000 and patient was started on IV Lasix today. Patient does not use any oxygen patient is in acute respiratory failure requiring 5 L of oxygen here. Patient is also found to have extremely low B12 for which B12 is being supplemented. 11/17/2023 Patient evaluated today sitting up in the chair. Less short of breath. Continues on IV lasix daily. Continues to require oxygen support has been weaned to 3L of oxygen. Cardiology recommending ischemic work up outpatient. Labs today reveal potassium 5.3, BUN 47, creatinine 2.32. Review of systems. Constitutional: Denied any fatigue denied any fever. Cardio vascular: denied any chest pain, palpitations Gastrointestinal denied any nausea vomiting Pulmonary: Patient still has shortness of breath Neurologic denied any new focal deficits All inpatient medications were reviewed and appropriate changes in these medications as dictated in the interval history and assessment and plan. PHYSICAL EXAMINATION: GENERAL: The patient is alert and oriented x3, not in any acute distress. Well developed, well nourished. HEENT: Pupils are round and equally reacting to light. EOMI. No scleral icterus. No conjunctival pallor. Normocephalic, atraumatic. No pharyngeal erythema. No thyromegaly. CARDIOVASCULAR: S1 and S2 present. No murmurs, rubs, or gallops. PULMONARY: Chest is clear to auscultation, no wheezing or crackles. ABDOMEN: Soft, nontender, nondistended, normoactive bowel sounds. No palpable organomegaly. MUSCULOSKELETAL: No joint swelling or deformity. EXTREMITIES: No cyanosis, clubbing, bilateral lower extremity edema NEUROLOGICAL: Gross neurological examination did not reveal any focal deficits. SKIN: No rashes. Assessment and plan -Acute hypoxic respiratory failure requiring 4 L of oxygen: Secondary to congestive heart failure -Acute systolic heart failure continues on IV lasix daily continue strict intake and output, ischemic work up outpatient -New onset cardiomyopathy patient needs further work up outpatient ischemic vs. non ischemic. -Acute renal failure possibility of prerenal azotemia from cardiorenal syndrome. Patient may have acute tubular necrosis as well nephrology on consultation. -Peripheral neuropathy secondary to B12 deficiency: Patient was started on B12 supplementation -Generalized weakness secondary to multiple medical problems as mentioned above and peripheral neuropathy for which B12 is being supplemented at this time -Hypertension uncontrolled due to noncompliance with medications; amlodipine has been added. -Hx of AAA repair -Nicotine dependence: Counseling was provided -DVT prophylaxis: Subcutaneous heparin The impression and plan of care has been dictated by Renita Pimentel Nurse Practitioner as directed. Dr. Yaquelin MD I have performed a history and physical examination and medical decision making of this patient, discussed the same with the dictator, and agree with the dictators assessment and plan as written, documented as a scribe. Based on total visit time, I have performed more than 50% of this visit. Objective - Vital Signs Vital signs: Vital Signs Temp 98.0 F 11/16/23 20:00 Pulse 62 11/17/23 04:00 Resp 18 11/17/23 04:00 BP 165/101 11/17/23 04:00 Pulse Ox 95 11/17/23 08:46 FiO2 Intake & Output 11/16/23 11/17/23 11/17/23 18:59 06:59 18:59 Intake Total 350 110 Output Total 200 Balance 150 110 Weight 101.7 kg Intake: IV 10 10 Invasive Line 1 10 10 Oral 340 100 Output: Urine 200 Other: Voiding Method Diaper Toilet External Catheter Diaper # Voids 2 1 - Labs CBC & Chem 7: 11/16/23 06:41 11/17/23 07:27 Assessment and Plan Time with Patient: Less than 30
--- NOTE | 2023-11-18 00:52 | P.PN ---
Subjective Progress Note Date: 11/17/23 Patient was seen for a follow-up. Patient is laying comfortably in the bed. Patient states he is received compression stocking, which is helping. His numbness is little better. Denies any new neurological symptoms. Patient denies any low back pain, denies any neck pain. Objective - Vital Signs Vital signs: Vital Signs Temp 98.4 F 11/17/23 16:36 Pulse 60 11/17/23 16:36 Resp 20 11/17/23 16:36 BP 138/73 11/17/23 16:36 Pulse Ox 93 L 11/17/23 16:36 FiO2 Intake & Output 11/17/23 11/17/23 11/18/23 06:59 18:59 06:59 Intake Total 110 608 Balance 110 608 Weight 101.7 kg Intake: IV 10 10 Invasive Line 1 10 10 Oral 100 598 Other: Voiding Method Toilet Toilet Diaper Diaper # Voids 1 1 # Bowel Movements 1 - Exam Patient is alert and awake in no distress. Mentation is normal. Patient knows it is November 2023 and that he is in [facility] in [place]. Cranial nerves are normal. Visual west are full, face is symmetric. Muscle strength is normal in the arms and legs. Sensory to touch is equal with no neglect. No ataxia for [id number] testing bilaterally. - Labs CBC & Chem 7: 11/28/23 08:59 11/27/23 06:57 Labs: Abnormal Lab Results - Last 24 Hours (Table) 11/17/23 Range/Units 07:27 Potassium 5.3 H (3.5-5.1) mmol/L BUN 47 H (9-20) mg/dL Creatinine 2.32 H (0.66-1.25) mg/dL Glucose 101 H (74-99) mg/dL Microbiology - Last 24 Hours (Table) 11/15/23 15:08 Blood Culture - Preliminary Blood Assessment and Plan Assessment: * Leg weakness, likely due to peripheral neuropathy. Patient found to have significant B12 deficiency. Patient denies any low back pain or neck pain, therefore doubt spinal dysfunction at this time. * Vitamin B12 deficiency * Folate deficiency * Hyperkalemia * Elevated cardiac enzymes * Acute renal failure * Macrocytosis * Tobacco use Plan: * B12 161, folate 5.80, TSH 2.54, A1c 5.6, RPR nonreactive, immunofixation electrophoresis negative for any monoclonal protein, IgG 905, IgM 219, IgA 319, VICKI negative. * Patient has B12 and folate deficiency. Patient started on vitamin B12 injections x 3, and folic acid 1 mg daily. * B6 9, MMA 0.64. * Patient may need EMG nerve conduction of bilateral lower limbs as outpatient to evaluate for the cause and type of peripheral neuropathy. * PT OT, evaluate gait. * Patient's symptoms are better since he started using compression stocking. * Other medical management as per IM and other specialties on board. * Neurologically, clear, no other workup indicated. Please call neurology if any concerns. Dr. Carpio covering neurology service over the weekend.
[2023-11-18] MEDS: hydrALAZINE HCL 25 MG TAB PO STA (04:44)
[2023-11-18] MEDS: amLODIPine 10 MG TAB PO SCH (08:20)
[2023-11-18 08:59] LABS: African American GFR (CKD) 28 (>60 ml/min/1.73 sqM); Anion Gap 8 mmol/L; Blood Urea Nitrogen 56 mg/dL (9-20); Calcium 8.2 mg/dL (8.4-10.2); Carbon Dioxide 27 mmol/L (22-30); Chloride 106 mmol/L (98-107); Glucose 98 mg/dL (74-99); Non-African American GFR(CKD) 24 (>60 ml/min/1.73 sqM); Sodium 141 mmol/L (137-145)
[2023-11-18] MEDS ORDERED: hydrALAZINE HCL 20 MG/ML 1 ML VIAL IVP PRN (09:44)
--- NOTE | 2023-11-18 09:45 | P.PN ---
Subjective Patient is seen in follow-up for acute kidney injury. Creatinine 2.7. Admits to good urine output. No chest pain or shortness of breath. On IV Lasix. Blood pressure high this morning. Vital signs are stable. General: No acute distress. HEENT: Head exam is unremarkable. LUNGS: No audible rhonchi or wheezes. HEART: Rate and Rhythm are regular. ABDOMEN: Nontender. EXTREMITITES: Trace edema. Objective - Vital Signs Vital signs: Vital Signs Temp 98.3 F 11/18/23 07:52 Pulse 73 11/18/23 07:52 Resp 18 11/18/23 07:52 BP 188/112 11/18/23 07:52 Pulse Ox 87 L 11/18/23 08:24 FiO2 Intake & Output 11/17/23 11/18/23 11/18/23 18:59 06:59 18:59 Intake Total 608 0 250 Balance 608 0 250 Weight 102.1 kg Intake: IV 10 10 Invasive Line 1 10 10 Oral 598 0 240 Other: Voiding Method Toilet Toilet Diaper Diaper # Voids 1 2 2 # Bowel Movements 1 - Labs CBC & Chem 7: 11/16/23 06:41 11/18/23 07:30 Labs: Abnormal Lab Results - Last 24 Hours (Table) 11/18/23 Range/Units 07:30 BUN 56 H (9-20) mg/dL Creatinine 2.71 H (0.66-1.25) mg/dL Calcium 8.2 L (8.4-10.2) mg/dL Microbiology - Last 24 Hours (Table) 11/15/23 15:08 Blood Culture - Preliminary Blood Assessment and Plan Plan: Assessment: 1. Acute kidney injury secondary to ATN secondary to cardiorenal syndrome and uncontrolled hypertension. Right kidney atrophic. No hydronephrosis. Trace protein on UA, no blood. Creatinine 2.7 today. 2. Acute on chronic systolic CHF with ejection fraction of 35 to 40%. 3. Volume overload. Improved with diuresis. 4. Hypertension secondary to noncompliance with medications. 5. Hyperkalemia secondary to acute kidney injury and NSAIDs. Improved. Plan: Change IV Lasix to torsemide 20 mg once daily. Advised patient to maintain low-salt diet and fluid restriction of less than 50 ounces per day. He was also advised to monitor his weight closely at home and to notify physician if develops worsening edema or gains more than 3 pounds in 1 week duration. Dose of amlodipine increased. Add Farxiga. Add as needed hydralazine. Avoid nephrotoxins. Follow-up outpatient 1 week postdischarge. Repeat BMP and magnesium level 2 to 3 days postdischarge.
--- NOTE | 2023-11-18 12:57 | P.PN ---
Subjective Progress Note Date: 11/18/23 HISTORY OF PRESENT ILLNESS: This is a 63-year-old male with a past medical history significant for hype rtension, gout, alcohol use, nicotine dependence, and AAA repair. [facility] [place] He does not follow with a care director rn. We have been asked to see the patient in consultation for elevated BNP and troponin. Patient examined at the bedside. Patient states he got a fitbit watch and thought he was doing well from a cardiac standpoint so he stopped taking all of his cardiac medications. He reports he tripped and fell at home and laid on the floor for about 10 hours as he was unable to get up. Patient currently denies chest pain or pressure. He denies SOB. He reports increased lower extremity edema. Patients blood pressure was significantly elevated upon admission to the hospital. DIAGNOSTICS: - EKG reveals sinus mechanism with no signs of acute ischemia. - Chest xray right perihilar increased density persist which may reflect atelectasis and/or infiltrate. -CT of the brain: Negative for acute process - Laboratory data: WBC 7.0. Hemoglobin 14.8. Platelet count 169. Sodium 141. Potassium 5.2. BUN 41. Creatinine 2.29. Troponin 0.258. 0.256. 0.253. - Current home cardiac medications include none -Echocardiogram obtained revealing ejection fraction 35 to 40%, trace MR. -Previous echocardiogram from 2022 revealed ejection fraction 55 to 60% 11/17/2023 Patient examined this morning at the bedside. Patient denies chest pain or pressure. He denies shortness of breath. He remains on IV diuretics. Creatinine is stable today at 2.3. Patient's blood pressures remain elevated with a reading of 159/103 this morning. 11/18/2023 Creatinine slightly worse as compared to yesterday. Today 2.7 yesterday it was 2.3. Blood pressure still elevated. Patient's IV diuretics were held today. PHYSICAL EXAM: VITAL SIGNS: Reviewed. GENERAL: Well-developed in no acute distress. HEENT: Head is normocephalic. Pupils are equal, round. Sclerae anicteric. Mucous membranes of the mouth are moist. Neck supple. No JVD or thyromegaly LUNGS: Respirations even and unlabored. Lungs essentially clear to auscultation bilaterally. HEART: Regular rate and rhythm. S1 and S2 heard. ABDOMEN: Soft. Nondistended. Nontender. EXTREMITIES: Normal range of motion. No clubbing or cyanosis. Peripheral pulses intact. No lower extremity edema NEUROLOGIC: Awake and alert. Oriented x 3. ASSESSMENT: Status post fall, patient laid on the floor for approximately 8-10 hours Acute kidney injury New onset cardiomyopathy, EF 35 to 40%, ischemic versus nonischemic Medication noncompliance, patient stopped taking his blood pressure medications a month ago Acute heart failure with reduced EF, 35-40% Hypertension, uncontrolled History of alcohol abuse Nicotine dependence History of AAA repair History of gout Nicotine dependence Chronic hypoxic respiratory failure, on home o2 PRN PLAN: Discontinue IV diuretics. Agree with starting torsemide 20 mg from tomorrow Reduce amlodipine to 5 mg daily Start Imdur 15 mg, hydralazine 25 mg 3 times daily. Uptitrate them as needed Continue Farxiga 5 mg Smoking cessation recommended Abstinence from alcohol encouraged Patient will need eventual outpatient ischemic workup due to new onset cardiomyopathy If patient's hemodynamics are stable tomorrow, okay to be discharged with home O2 evaluation Objective - Vital Signs Vital signs: Vital Signs Temp 98.3 F 11/18/23 07:52 Pulse 62 11/18/23 12:13 Resp 18 11/18/23 12:13 BP 128/75 11/18/23 12:13 Pulse Ox 93 L 11/18/23 12:13 FiO2 Intake & Output 11/17/23 11/18/23 11/18/23 18:59 06:59 18:59 Intake Total 608 0 250 Balance 608 0 250 Weight 102.1 kg Intake: IV 10 10 Invasive Line 1 10 10 Oral 598 0 240 Other: Voiding Method Toilet Toilet Toilet Diaper Diaper Diaper # Voids 1 2 2 # Bowel Movements 1 - Labs CBC & Chem 7: 11/16/23 06:41 11/18/23 07:30 Labs: Abnormal Lab Results - Last 24 Hours (Table) 11/18/23 Range/Units 07:30 BUN 56 H (9-20) mg/dL Creatinine 2.71 H (0.66-1.25) mg/dL Calcium 8.2 L (8.4-10.2) mg/dL Microbiology - Last 24 Hours (Table) 11/15/23 15:08 Blood Culture - Preliminary Blood
[2023-11-18] MEDS: ISOSORBIDE MONONITRATE ER 15 MG TAB PO SCH (13:38)
--- NOTE | 2023-11-18 15:22 | P.PN ---
Subjective Progress Note Date: 11/18/23 63-year-old male with a history of hypertension no history of coronary disease or drug constructively is admitted for recurrent falls patient does not have any focal weakness no clinical evidence of cerebrovascular accident which was actually ruled out neurology evaluated the patient. Patient does have a peripheral neuropathy which may be contributing to his falls. Patient also found to be in acute renal failure baseline creatinine of around 1 on admission his creatinine is 2.3 presently 2.29 this is believed to be secondary to possible acute tubular necrosis or cardiorenal syndrome patient is in CHF patient EF has gone down now and present EF is 35 to 40%, patient does have bilateral pedal edema and does have some crackles on exam with highly elevated BNP of 16,000 and patient was started on IV Lasix today. Patient does not use any oxygen patient is in acute respiratory failure requiring 5 L of oxygen here. Patient is also found to have extremely low B12 for which B12 is being supplemented. 11/17/2023 Patient evaluated today sitting up in the chair. Less short of breath. Continues on IV lasix daily. Continues to require oxygen support has been weaned to 3L of oxygen. Cardiology recommending ischemic work up outpatient. Labs today reveal potassium 5.3, BUN 47, creatinine 2.32. 11/18/2023 Patient seen in follow-up today sitting on the edge of the bed. He remains on oxygen at 3 L of nasal cannula. He has been transitioned to oral torsemide with nephrology following closely. His creatinine today is 2.71. Patient will require home oxygen on discharge his saturations are 86% on room air. Review of systems. Constitutional: Denied any fatigue denied any fever. Cardio vascular: denied any chest pain, palpitations Gastrointestinal denied any nausea vomiting Pulmonary: Patient still has shortness of breath Neurologic denied any new focal deficits All inpatient medications were reviewed and appropriate changes in these medications as dictated in the interval history and assessment and plan. PHYSICAL EXAMINATION: GENERAL: The patient is alert and oriented x3, not in any acute distress. Well developed, well nourished. HEENT: Pupils are round and equally reacting to light. EOMI. No scleral icterus. No conjunctival pallor. Normocephalic, atraumatic. No pharyngeal erythema. No thyromegaly. CARDIOVASCULAR: S1 and S2 present. No murmurs, rubs, or gallops. PULMONARY: Chest is clear to auscultation, no wheezing or crackles. ABDOMEN: Soft, nontender, nondistended, normoactive bowel sounds. No palpable organomegaly. MUSCULOSKELETAL: No joint swelling or deformity. EXTREMITIES: No cyanosis, clubbing, bilateral lower extremity edema NEUROLOGICAL: Gross neurological examination did not reveal any focal deficits. SKIN: No rashes. Assessment and plan -Acute hypoxic respiratory failure requiring 4 L of oxygen: Secondary to congestive heart failure we will repeat a chest x-ray in the morning patient does require home oxygen on discharge [facility] and unable to do so this this will have to be addressed on Monday with so cial work if patient continues to require oxygen. -Acute systolic heart failure transition to oral torsemide recommend to repeat labs in the morning -New onset cardiomyopathy patient needs further work up outpatient ischemic vs. non ischemic. -Acute renal failure possibility of prerenal azotemia from cardiorenal syndrome. Patient may have acute tubular necrosis as well nephrology on consultation. -Peripheral neuropathy secondary to B12 deficiency: Patient was started on B12 supplementation -Generalized weakness secondary to multiple medical problems as mentioned above and peripheral neuropathy for which B12 is being supplemented at this time -Hypertension uncontrolled due to noncompliance with medications; amlodipine has been added. Carvedilol has also been added by cardiology -Hx of AAA repair -Nicotine dependence: Counseling was provided -DVT prophylaxis: Subcutaneous heparin The impression and plan of care has been dictated by Renita Pimentel, Nurse Practitioner as directed. Dr. Yaquelin MD I have performed a history and physical examination and medical decision making of this patient, discussed the same with the dictator, and agree with the dictators assessment and plan as written, documented as a scribe. Based on total visit time, I have performed more than 50% of this visit. Objective - Vital Signs Vital signs: Vital Signs Temp 98.3 F 11/18/23 07:52 Pulse 69 11/18/23 13:55 Resp 18 11/18/23 12:13 BP 128/75 11/18/23 12:13 Pulse Ox 88 L 11/18/23 13:55 FiO2 Intake & Output 11/17/23 11/18/23 11/18/23 18:59 06:59 18:59 Intake Total 608 0 790 Balance 608 0 790 Weight 102.1 kg Intake: IV 10 10 Invasive Line 1 10 10 Oral 598 0 780 Other: Voiding Method Toilet Toilet Toilet Diaper Diaper Diaper # Voids 1 2 2 # Bowel Movements 1 - Labs CBC & Chem 7: 11/16/23 06:41 11/18/23 07:30 Labs: Abnormal Lab Results - Last 24 Hours (Table) 11/18/23 Range/Units 07:30 BUN 56 H (9-20) mg/dL Creatinine 2.71 H (0.66-1.25) mg/dL Calcium 8.2 L (8.4-10.2) mg/dL Microbiology - Last 24 Hours (Table) 11/15/23 15:08 Blood Culture - Preliminary Blood Assessment and Plan Time with Patient: Less than 30
[2023-11-18] MEDS: hydrALAZINE HCL 25 MG TAB PO SCH (16:49)
--- NOTE | 2023-11-19 07:38 | XR ---
EXAMINATION TYPE: XR chest 2V DATE OF EXAM: 11/19/2023 COMPARISON: 11/16/2023 HISTORY: 63-year-old male hypoxia TECHNIQUE: PA and lateral views FINDINGS: Heart is mildly enlarged. Focal bilateral lower lung opacities have worsened. No pleural effusion. IMPRESSION: 1. Similar mild cardiomegaly. 2. There are worsening bilateral lower lung opacities. Consider interstitial pneumonitis, pneumonia, or aspiration.
[2023-11-19 08:03] LABS: African American GFR (CKD) 20 (>60 ml/min/1.73 sqM); Anion Gap 13 mmol/L; Blood Urea Nitrogen 66 mg/dL (9-20); Calcium 8.1 mg/dL (8.4-10.2); Carbon Dioxide 21 mmol/L (22-30); Chloride 105 mmol/L (98-107); Glucose 90 mg/dL (74-99); Non-African American GFR(CKD) 17 (>60 ml/min/1.73 sqM); Sodium 139 mmol/L (137-145)
[2023-11-19 08:06] LABS: Magnesium 1.9 mg/dL (1.6-2.3); Potassium 5.8 mmol/L (3.5-5.1)
[2023-11-19] MEDS: carvediloL 6.25 MG TAB PO SCH (09:37)
[2023-11-19] MEDS: SODIUM ZIRCONIUM CYCLOSILICATE 10 GM PACKET PO ONE (09:38)
[2023-11-19] MEDS: amLODIPine 5 MG TAB PO SCH (09:38)
[2023-11-19] MEDS: DAPAGLIFLOZIN PROPANEDIOL 5 MG TABLET PO SCH (09:38)
[2023-11-19] MEDS: TORSEMIDE 20 MG TAB PO SCH (09:38)
--- NOTE | 2023-11-19 10:05 | P.PN ---
Subjective Patient is seen in follow-up for acute kidney injury. Renal function worse. Admits to good urine output. No chest pain or shortness of breath. On torsemide. Vital signs are stable. General: No acute distress. HEENT: Head exam is unremarkable. LUNGS: No audible rhonchi or wheezes. HEART: Rate and Rhythm are regular. ABDOMEN: Nontender. EXTREMITITES: No edema. Objective - Vital Signs Vital signs: Vital Signs Temp 98.8 F 11/19/23 09:30 Pulse 70 11/19/23 09:30 Resp 20 11/19/23 09:30 BP 165/99 11/19/23 09:30 Pulse Ox 95 11/19/23 09:30 FiO2 Intake & Output 11/18/23 11/19/23 11/19/23 17:59 06:59 18:59 Intake Total 128 Balance 128 Weight Intake: IV 10 Invasive Line 1 10 Oral 118 Other: Voiding Method # Voids - Labs CBC & Chem 7: 11/16/23 06:41 11/19/23 07:06 Labs: Abnormal Lab Results - Last 24 Hours (Table) 11/18/23 11/19/23 Range/Units 07:30 07:06 Potassium 5.8 H (3.5-5.1) mmol/L Carbon Dioxide 21 L (22-30) mmol/L BUN 56 H 66 H (9-20) mg/dL Creatinine 2.71 H 3.56 H (0.66-1.25) mg/dL Calcium 8.2 L 8.1 L (8.4-10.2) mg/dL Microbiology - Last 24 Hours (Table) 11/15/23 15:08 Blood Culture - Preliminary Blood Assessment and Plan Plan: Assessment: 1. Acute kidney injury secondary to ATN secondary to cardiorenal syndrome and uncontrolled hypertension. Right kidney atrophic. No hydronephrosis. Trace protein on UA, no blood. Renal function worse. Creatinine 3.56 today. 2. Acute on chronic systolic CHF with ejection fraction of 35 to 40%. 3. Volume overload. Improved with diuresis. 4. Hypertension secondary to noncompliance with medications. 5. Hyperkalemia secondary to acute kidney injury and NSAIDs. This morning sample was hemolyzed. Plan: Stop torsemide and Farxiga for now. Start normal saline at 50 cc/hr. Check bladder scan to rule out urinary retention. Repeat potassium level. Advised patient to maintain low-salt diet and fluid restriction of less than 50 ounces per day. He was also advised to monitor his weight closely at home and to notify ph ysician if develops worsening edema or gains more than 3 pounds in 1 week duration. Avoid nephrotoxins. Follow-up outpatient 1 week postdischarge. Repeat BMP and magnesium level 2 to 3 days postdischarge.
--- NOTE | 2023-11-19 12:20 | P.PN ---
Subjective Progress Note Date: 11/19/23 63-year-old male with a history of hypertension no history of coronary disease or drug constructively is admitted for recurrent falls patient does not have any focal weakness no clinical evidence of cerebrovascular accident which was actually ruled out neurology evaluated the patient. Patient does have a peripheral neuropathy which may be contributing to his falls. Patient also found to be in acute renal failure baseline creatinine of around 1 on admission his creatinine is 2.3 presently 2.29 this is believed to be secondary to possible acute tubular necrosis or cardiorenal syndrome patient is in CHF patient EF has gone down now and present EF is 35 to 40%, patient does have bilateral pedal edema and does have some crackles on exam with highly elevated BNP of 16,000 and patient was started on IV Lasix today. Patient does not use any oxygen patient is in acute respiratory failure requiring 5 L of oxygen here. Patient is also found to have extremely low B12 for which B12 is being supplemented. 11/17/2023 Patient evaluated today sitting up in the chair. Less short of breath. Continues on IV lasix daily. Continues to require oxygen support has been weaned to 3L of oxygen. Cardiology recommending ischemic work up outpatient. Labs today reveal potassium 5.3, BUN 47, creatinine 2.32. 11/18/2023 Patient seen in follow-up today sitting on the edge of the bed. He remains on oxygen at 3 L of nasal cannula. He has been transitioned to oral torsemide with nephrology following closely. His creatinine today is 2.71. Patient will require home oxygen on discharge his saturations are 86% on room air. 11/19/2023 Patient is seen in follow up today. He remains on oxygen support at 2L nasal cannula 95%. He has been taken off diuretics today. Creatinine is up to 3.56. He is not retaining urine. He was started on carvedilol yesterday with improvement in his blood pressure. Down to 135/82. Potassium 5.8. Review of systems. Constitutional: Denied any fatigue denied any fever. Cardio vascular: denied any chest pain, palpitations Gastrointestinal denied any nausea vomiting Pulmonary: Patient still has shortness of breath Neurologic denied any new focal deficits All inpatient medications were reviewed and appropriate changes in these medications as dictated in the interval history and assessment and plan. PHYSICAL EXAMINATION: GENERAL: The patient is alert and oriented x3, not in any acute distress. Well developed, well nourished. HEENT: Pupils are round and equally reacting to light. EOMI. No scleral icterus. No conjunctival pallor. Normocephalic, atraumatic. No pharyngeal erythema. No thyromegaly. CARDIOVASCULAR: S1 and S2 present. No murmurs, rubs, or gallops. PULMONARY: Chest is clear to auscultation, no wheezing or crackles. ABDOMEN: Soft, nontender, nondistended, normoactive bowel sounds. No palpable organomegaly. MUSCULOSKELETAL: No joint swelling or deformity. EXTREMITIES: No cyanosis, clubbing, bilateral lower extremity edema NEUROLOGICAL: Gross neurological examination did not reveal any focal deficits. SKIN: No rashes. Assessment and plan -Acute hypoxic respiratory failure, weaned down to 2L of oxygen: Secondary to congestive heart failure; does require home oxygen on discharge [facility] and unable to do so this this will have to be addressed on Monday with social work if patient continues to require oxygen. Will need to repeat home oxygen in the AM. -Acute systolic heart failure transition to oral torsemide which is being held -New onset cardiomyopathy patient needs further work up outpatient ischemic vs. non ischemic. -Acute renal failure possibility of prerenal azotemia from cardiorenal syndrome. Patient may have acute tubular necrosis as well nephrology on consultation. Creatinine improved than worsened patient will by hydrated and diuretics held. -Peripheral neuropathy secondary to B12 deficiency: Patient was started on B12 supplementation -Generalized weakness secondary to multiple medical problems as mentioned above and peripheral neuropathy for which B12 is being supplemented at this time -Hypertension uncontrolled due to noncompliance with medications; amlodipine has been added. Carvedilol has also been added by cardiology -Hx of AAA repair -Nicotine dependence: Counseling was provided -DVT prophylaxis: Subcutaneous heparin The impression and plan of care has been dictated by Renita Pimentel Nurse Practitioner as directed. Dr. Yaquelin MD I have performed a history and physical examination and medical decision making of this patient, discussed the same with the dictator, and agree with the dictators assessment and plan as written, documented as a scribe. Based on total visit time, I have performed more than 50% of this visit. Objective - Vital Signs Vital signs: Vital Signs Temp 98.3 F 11/19/23 04:00 Pulse 63 11/19/23 04:00 Resp 18 11/19/23 04:00 BP 135/82 11/19/23 04:00 Pulse Ox 95 11/19/23 04:00 FiO2 Intake & Output 11/18/23 11/19/23 11/19/23 17:59 06:59 18:59 Intake Total 118 Balance 118 Weight Intake: IV Invasive Line 1 Oral 118 Other: Voiding Method # Voids - Labs CBC & Chem 7: 11/16/23 06:41 11/19/23 11:21 Labs: Abnormal Lab Results - Last 24 Hours (Table) 11/18/23 11/19/23 Range/Units 07:30 07:06 Potassium 5.8 H (3.5-5.1) mmol/L Carbon Dioxide 21 L (22-30) mmol/L BUN 56 H 66 H (9-20) mg/dL Creatinine 2.71 H 3.56 H (0.66-1.25) mg/dL Calcium 8.2 L 8.1 L (8.4-10.2) mg/dL Microbiology - Last 24 Hours (Table) 11/15/23 15:08 Blood Culture - Preliminary Blood Assessment and Plan Time with Patient: Less than 30
[2023-11-19] MEDS: SODIUM CHLORIDE 0.9% 1,000 ML IV SCH (13:37)
--- NOTE | 2023-11-19 15:27 | P.PN ---
Subjective Progress Note Date: 11/19/23 HISTORY OF PRESENT ILLNESS: This is a 63-year-old male with a past medical history significant for hype rtension, gout, alcohol use, nicotine dependence, and AAA repair. [facility] [place] He does not follow with a shirt folder. We have been asked to see the patient in consultation for elevated BNP and troponin. Patient examined at the bedside. Patient states he got a fitbit watch and thought he was doing well from a cardiac standpoint so he stopped taking all of his cardiac medications. He reports he tripped and fell at home and laid on the floor for about 10 hours as he was unable to get up. Patient currently denies chest pain or pressure. He denies SOB. He reports increased lower extremity edema. Patients blood pressure was significantly elevated upon admission to the hospital. DIAGNOSTICS: - EKG reveals sinus mechanism with no signs of acute ischemia. - Chest xray right perihilar increased density persist which may reflect atelectasis and/or infiltrate. -CT of the brain: Negative for acute process - Laboratory data: WBC 7.0. Hemoglobin 14.8. Platelet count 169. Sodium 141. Potassium 5.2. BUN 41. Creatinine 2.29. Troponin 0.258. 0.256. 0.253. - Current home cardiac medications include none -Echocardiogram obtained revealing ejection fraction 35 to 40%, trace MR. -Previous echocardiogram from 2022 revealed ejection fraction 55 to 60% 11/17/2023 Patient examined this morning at the bedside. Patient denies chest pain or pressure. He denies shortness of breath. He remains on IV diuretics. Creatinine is stable today at 2.3. Patient's blood pressures remain elevated with a reading of 159/103 this morning. 11/18/2023 Creatinine slightly worse as compared to yesterday. Today 2.7 yesterday it was 2.3. Blood pressure still elevated. Patient's IV diuretics were held today. 11/19/2023 Creatinine is worse today. Creatinine is 3.5 today. Yesterday it was 2.7. Blood pressure ranging from 140s to 150s systolic. He was started on gentle h ydration 50 cc/h by nephrology team. PHYSICAL EXAM: VITAL SIGNS: Reviewed. GENERAL: Well-developed in no acute distress. HEENT: Head is normocephalic. Pupils are equal, round. Sclerae anicteric. Mucous membranes of the mouth are moist. Neck supple. No JVD or thyromegaly LUNGS: Respirations even and unlabored. Lungs essentially clear to auscultation bilaterally. HEART: Regular rate and rhythm. S1 and S2 heard. ABDOMEN: Soft. Nondistended. Nontender. EXTREMITIES: Normal range of motion. No clubbing or cyanosis. Peripheral pulses intact. No lower extremity edema NEUROLOGIC: Awake and alert. Oriented x 3. ASSESSMENT: Status post fall, patient laid on the floor for approximately 8-10 hours Acute kidney injury New onset cardiomyopathy, EF 35 to 40%, ischemic versus nonischemic Medication noncompliance, patient stopped taking his blood pressure medications a month ago Acute heart failure with reduced EF, 35-40% Hypertension, uncontrolled History of alcohol abuse Nicotine dependence History of AAA repair History of gout Nicotine dependence Chronic hypoxic respiratory failure, on home o2 PRN PLAN: Discontinue IV diuretics. Agree with starting torsemide 20 mg from tomorrow Coreg 6.25 mg BID Reduce amlodipine to 5 mg daily Increase Imdur to 30 mg, hydralazine 25 mg 3 times daily. Uptitrate them as needed stop farxiga agree with IV fluids Nephrology recs appreciated for CHALO and ATN Smoking cessation recommended Abstinence from alcohol encouraged Patient will need eventual outpatient ischemic workup due to new onset cardiomyopathy. If patient's hemodynamics are stable tomorrow, okay to be discharged with home O2 evaluation Objective - Vital Signs Vital signs: Vital Signs Temp 97.5 F L 11/19/23 12:46 Pulse 67 11/19/23 12:46 Resp 16 11/19/23 12:46 BP 134/68 11/19/23 12:46 Pulse Ox 93 L 11/19/23 12:46 FiO2 Intake & Output 11/18/23 11/19/23 11/19/23 17:59 06:59 18:59 Intake Total 138 Balance 138 Weight Intake: IV 20 Invasive Line 1 20 Oral 118 Other: Voiding Method Toilet Diaper # Voids 2 - Labs CBC & Chem 7: 11/16/23 06:41 11/19/23 11:21 Labs: Abnormal Lab Results - Last 24 Hours (Table) 11/19/23 Range/Units 07:06 Potassium 5.8 H (3.5-5.1) mmol/L Carbon Dioxide 21 L (22-30) mmol/L BUN 66 H (9-20) mg/dL Creatinine 3.56 H (0.66-1.25) mg/dL Calcium 8.1 L (8.4-10.2) mg/dL Microbiology - Last 24 Hours (Table) 11/15/23 15:08 Blood Culture - Preliminary Blood
[2023-11-19] MEDS: ISOSORBIDE MONONITRATE ER 15 MG TAB PO STA (17:33)
[2023-11-20] MEDS: ISOSORBIDE MONONITRATE ER 30 MG TAB.ER.24H PO SCH (07:47)
[2023-11-20] MEDS: hydrALAZINE HCL 50 MG TAB PO SCH (07:47)
[2023-11-20 08:11] LABS: African American GFR (CKD) 14 (>60 ml/min/1.73 sqM); Anion Gap 13 mmol/L; Blood Urea Nitrogen 73 mg/dL (9-20); Calcium 7.7 mg/dL (8.4-10.2); Carbon Dioxide 21 mmol/L (22-30); Chloride 106 mmol/L (98-107); Glucose 99 mg/dL (74-99); Non-African American GFR(CKD) 12 (>60 ml/min/1.73 sqM); Potassium 5.6 mmol/L (3.5-5.1); Sodium 140 mmol/L (137-145)
[2023-11-20] MEDS: SODIUM ZIRCONIUM CYCLOSILICATE 10 GM PACKET PO SCH (11:06)
--- NOTE | 2023-11-20 11:15 | XR ---
EXAMINATION TYPE: XR chest 1V portable DATE OF EXAM: 11/20/2023 Comparison: 11/19/2023 Clinical History: 63-year-old male shortness of breath, assess for fluid buildup. Findings: The heart is mildly enlarged. Perihilar interstitial density. Patchy bilateral lower lung densities. Suspect trace right pleural effusion. Impression: Mild cardiomegaly with similar to increasing interstitial and patchy mid and lower lung opacities. Tr esperanza right pleural effusion. Correlate for mild pulmonary vascular congestion. Bibasilar opacities cou ld represent patchy pulmonary edema versus infiltrates.
--- NOTE | 2023-11-20 11:35 | P.PN ---
Subjective Patient is seen in follow-up for acute kidney injury. Renal function worsening. Admits to good urine output. No chest pain or shortness of breath. Diuretic stopped November 19, 2023. Currently on IV fluids. Vital signs are stable. General: No acute distress. HEENT: Head exam is unremarkable. On nasal cannula. LUNGS: No audible rhonchi or wheezes. HEART: Rate and Rhythm are regular. ABDOMEN: Nontender. EXTREMITITES: No edema. Objective - Vital Signs Vital signs: Vital Signs Temp 97.9 F 11/20/23 07:40 Pulse 72 11/20/23 07:40 Resp 24 11/20/23 07:40 BP 128/71 11/20/23 07:40 Pulse Ox 93 L 11/20/23 07:40 FiO2 Intake & Output 11/19/23 11/20/23 11/20/23 18:59 06:59 18:59 Intake Total 138 20 660 Balance 138 20 660 Weight 102 kg Intake: IV 20 20 Invasive Line 1 20 20 Oral 118 660 Other: Voiding Method Toilet Toilet Toilet Diaper Diaper Diaper # Voids 2 1 - Labs CBC & Chem 7: 11/16/23 06:41 11/20/23 06:46 Labs: Abnormal Lab Results - Last 24 Hours (Table) 11/16/23 11/20/23 Range/Units 06:41 06:46 Potassium 5.6 H (3.5-5.1) mmol/L Carbon Dioxide 21 L (22-30) mmol/L BUN 73 H (9-20) mg/dL Creatinine 4.75 H (0.66-1.25) mg/dL Calcium 7.7 L (8.4-10.2) mg/dL Methylmalonic Acid 0.64 H (<0.40) umol/L Microbiology - Last 24 Hours (Table) 11/15/23 15:08 Blood Culture - Preliminary Blood Assessment and Plan Plan: Assessment: 1. Acute kidney injury secondary to ATN secondary to cardiorenal syndrome and uncontrolled hypertension. Right kidney atrophic. No hydronephrosis. Trace protein on UA, no blood. Renal function worse. Creatinine 4.75 today. Bladder scans have been negative. 2. Acute on chronic systolic CHF with ejection fraction of 35 to 40%. 3. Volume overload. Improved with diuresis. 4. Hypertension secondary to noncompliance with medications. Currently controlled. 5. Hyperkalemia secondary to acute kidney injury and NSAIDs. 6. Metabolic acidosis secondary to acute kidney injury and IV fluids. Plan: Maintain gentle Iv hydration. Continue to hold diuretics but will challenge with IV Lasix if oliguric. Add Lokelma 10 g twice daily. Repeat potassium level this evening. Renal diet. Strict Is and Os - insert simon catheter for now. Continue to assess daily for need for renal replacement therapy. Discussed with patient.
--- NOTE | 2023-11-20 13:51 | P.PN ---
Subjective Progress Note Date: 11/20/23 HISTORY OF PRESENT ILLNESS: This is a 63-year-old male with a past medical history significant for hype rtension, gout, alcohol use, nicotine dependence, and AAA repair. [facility] [place] He does not follow with a shop fitter. We have been asked to see the patient in consultation for elevated BNP and troponin. Patient examined at the bedside. Patient states he got a fitbit watch and thought he was doing well from a cardiac standpoint so he stopped taking all of his cardiac medications. He reports he tripped and fell at home and laid on the floor for about 10 hours as he was unable to get up. Patient currently denies chest pain or pressure. He denies SOB. He reports increased lower extremity edema. Patients blood pressure was significantly elevated upon admission to the hospital. DIAGNOSTICS: - EKG reveals sinus mechanism with no signs of acute ischemia. - Chest xray right perihilar increased density persist which may reflect atelectasis and/or infiltrate. -CT of the brain: Negative for acute process - Laboratory data: WBC 7.0. Hemoglobin 14.8. Platelet count 169. Sodium 141. Potassium 5.2. BUN 41. Creatinine 2.29. Troponin 0.258. 0.256. 0.253. - Current home cardiac medications include none -Echocardiogram obtained revealing ejection fraction 35 to 40%, trace MR. -Previous echocardiogram from 2022 revealed ejection fraction 55 to 60% 11/17/2023 Patient examined this morning at the bedside. Patient denies chest pain or pressure. He denies shortness of breath. He remains on IV diuretics. Creatinine is stable today at 2.3. Patient's blood pressures remain elevated with a reading of 159/103 this morning. 11/18/2023 Creatinine slightly worse as compared to yesterday. Today 2.7 yesterday it was 2.3. Blood pressure still elevated. Patient's IV diuretics were held today. 11/19/2023 Creatinine is worse today. Creatinine is 3.5 today. Yesterday it was 2.7. Blood pressure ranging from 140s to 150s systolic. He was started on gentle h ydration 50 cc/h by nephrology team. 11/19 Patient denies any new complaints today. Blood pressure 130/53, heart rate in the 70s, pulse ox 93% on 3 L nasal cannula. Repeat blood work reveals worsening renal function and may require hemodialysis. Repeat blood work reveals BUN 73 creatinine 4.75, potassium 5.6. Diuretics were discontinued yesterday. Patient is on IV fluids managed by nephrology. Chest x-ray reveals mild cardiomegaly with similar to increased interstitial and patchy mid to lower lung opacities. Trace right pleural effusion. Correlate for mild pulmonary vascular congestion. Bibasilar opacities could represent patchy pulmonary edema versus infiltrates. PHYSICAL EXAM: VITAL SIGNS: Reviewed. GENERAL: Well-developed in no acute distress. HEENT: Head is normocephalic. Pupils are equal, round. Sclerae anicteric. Mucous membranes of the mouth are moist. Neck supple. No JVD or thyromegaly LUNGS: Respirations even and unlabored. Lungs clear to auscultation bilaterally. HEART: Regular rate and rhythm. S1 and S2 heard. ABDOMEN: Soft. Nondistended. Nontender. EXTREMITIES: No clubbing or cyanosis. Peripheral pulses intact. 1+ lower extremity edema NEUROLOGIC: Awake and alert. Oriented x 3. 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%, ischemic versus nonischemic Medication noncompliance, patient stopped taking his blood pressure medications a month ago Acute heart failure with reduced EF, 35-40% Hypertension, uncontrolled History of alcohol abuse Nicotine dependence History of AAA repair History of gout Nicotine dependence Chronic hypoxic respiratory failure, on home o2 PRN PLAN: Continue diuretics when advised by nephrology Coreg 6.25 mg BID Discontinue amlodipine and increase hydralazine to 50 mg 3 times daily Continue Imdur 30 mg stop farxiga agree with IV fluids Nephrology recs appreciated for CHALO and ATN Smoking cessation recommended Abstinence from alcohol encouraged Patient will need eventual outpatient ischemic workup due to new onset cardiomyopathy. Nurse practitioner note has been reviewed, I agree with documented findings and plan of care. Patient was seen and examined. Objective - Vital Signs Vital signs: Vital Signs Temp 97.9 F 11/20/23 07:40 Pulse 72 11/20/23 07:40 Resp 24 11/20/23 07:40 BP 128/71 11/20/23 07:40 Pulse Ox 93 L 11/20/23 07:40 FiO2 Intake & Output 11/19/23 11/20/23 11/20/23 18:59 06:59 18:59 Intake Total 138 20 660 Balance 138 20 660 Weight 102 kg Intake: IV 20 20 Invasive Line 1 20 20 Oral 118 660 Other: Voiding Method Toilet Toilet Diaper Diaper # Voids 2 1 - Labs CBC & Chem 7: 11/16/23 06:41 11/20/23 06:46 Labs: Abnormal Lab Results - Last 24 Hours (Table) 11/16/23 11/20/23 Range/Units 06:41 06:46 Potassium 5.6 H (3.5-5.1) mmol/L Carbon Dioxide 21 L (22-30) mmol/L BUN 73 H (9-20) mg/dL Creatinine 4.75 H (0.66-1.25) mg/dL Calcium 7.7 L (8.4-10.2) mg/dL Methylmalonic Acid 0.64 H (<0.40) umol/L Microbiology - Last 24 Hours (Table) 11/15/23 15:08 Blood Culture - Preliminary Blood
[2023-11-20 14:05] VITALS: BMI 36.3
[2023-11-21] MEDS: FUROSEMIDE 10 MG/ML 10 ML VIAL IV STA (05:08)
[2023-11-21] MEDS: FUROSEMIDE 10 MG/ML 2 ML VIAL IV ONE (06:00)
[2023-11-21 08:33] LABS: African American GFR (CKD) 10 (>60 ml/min/1.73 sqM); Anion Gap 12 mmol/L; Blood Urea Nitrogen 79 mg/dL (9-20); Calcium 7.5 mg/dL (8.4-10.2); Carbon Dioxide 21 mmol/L (22-30); Chloride 106 mmol/L (98-107); Glucose 104 mg/dL (74-99); Non-African American GFR(CKD) 8 (>60 ml/min/1.73 sqM); Potassium 5.4 mmol/L (3.5-5.1); Sodium 139 mmol/L (137-145)
[2023-11-21] MEDS: hydrALAZINE HCL 25 MG TAB PO SCH (09:51)
--- NOTE | 2023-11-21 10:04 | P.PN ---
Subjective Progress Note Date: 11/21/23 HISTORY OF PRESENT ILLNESS: This is a 63-year-old male with a past medical history significant for hype rtension, gout, alcohol use, nicotine dependence, and AAA repair. [facility] [place] 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 We have been asked to see the patient in consultation for elevated BNP and troponin. Patient examined at the bedside. Patient states he got a fitbit watch and thought he was doing well from a cardiac standpoint so he stopped taking all of his cardiac medications. He reports he tripped and fell at home and laid on the floor for about 10 hours as he was unable to get up. Patient currently denies chest pain or pressure. He denies SOB. He reports increased lower extremity edema. Patients blood pressure was significantly elevated upon admission to the hospital. DIAGNOSTICS: - EKG reveals sinus mechanism with no signs of acute ischemia. - Chest xray right perihilar increased density persist which may reflect atelectasis and/or infiltrate. -CT of the brain: Negative for acute process - Laboratory data: WBC 7.0. Hemoglobin 14.8. Platelet count 169. Sodium 141. Potassium 5.2. BUN 41. Creatinine 2.29. Troponin 0.258. 0.256. 0.253. - Current home cardiac medications include none -Echocardiogram obtained revealing ejection fraction 35 to 40%, trace MR. -Previous echocardiogram from 2022 revealed ejection fraction 55 to 60% 11/17/2023 Patient examined this morning at the bedside. Patient denies chest pain or pressure. He denies shortness of breath. He remains on IV diuretics. Creatinine is stable today at 2.3. Patient's blood pressures remain elevated with a reading of 159/103 this morning. 11/18/2023 Creatinine slightly worse as compared to yesterday. Today 2.7 yesterday it was 2.3. Blood pressure still elevated. Patient's IV diuretics were held today. 11/19/2023 Creatinine is worse today. Creatinine is 3.5 today. Yesterday it was 2.7. Blood pressure ranging from 140s to 150s systolic. He was started on gentle h ydration 50 cc/h by nephrology team. 11/19 Patient denies any new complaints today. Blood pressure 130/53, heart rate in the 70s, pulse ox 93% on 3 L nasal cannula. Repeat blood work reveals worsening renal function and may require hemodialysis. Repeat blood work reveals BUN 73 creatinine 4.75, potassium 5.6. Diuretics were discontinued yesterday. Patient is on IV fluids managed by nephrology. Chest x-ray reveals mild cardiomegaly with similar to increased interstitial and patchy mid to lower lung opacities. Trace right pleural effusion. Correlate for mild pulmonary vascular congestion. Bibasilar opacities could represent patchy pulmonary edema versus infiltrates. 11/20 Again today, patient is in worsening of renal function. BUN is 79 and creatinine 6.48. Potassium 5.4. Blood pressure is running between 103/61- 139/76. Pulse ox was 85% on room air this morning and now 92% on 2 L. Heart rate is running in the 80s and 90s. PHYSICAL EXAM: VITAL SIGNS: Reviewed. GENERAL: Well-developed in no acute distress. HEENT: Head is normocephalic. Pupils are equal, round. Sclerae anicteric. Mucous membranes of the mouth are moist. Neck supple. No JVD or thyromegaly LUNGS: Respirations even and unlabored. Lungs clear to auscultation bilaterally. HEART: Regular rate and rhythm. S1 and S2 heard. ABDOMEN: Soft. Nondistended. Nontender. EXTREMITIES: No clubbing or cyanosis. Peripheral pulses intact. 1+ lower extremity edema NEUROLOGIC: Awake and alert. 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%, ischemic versus nonischemic Medication noncompliance, patient stopped taking his blood pressure medications a month ago Acute heart failure with reduced EF, 35-40% Hypertension, uncontrolled History of alcohol abuse Nicotine dependence History of AAA repair History of gout Nicotine dependence Chronic hypoxic respiratory failure, on home o2 PRN PLAN: Continue diuretics as ordered by nephrology Continue Coreg 6.25 mg BID, aspirin, atorvastatin, Imdur Decrease hydralazine to 25 mg 3 times daily Nephrology recs appreciated for CHALO and ATN Smoking cessation recommended Abstinence from alcohol encouraged Patient will need eventual outpatient ischemic workup due to new onset cardiomyopathy. Nurse practitioner note has been reviewed, I agree with documented findings and plan of care. Patient was seen and examined. Objective - Vital Signs Vital signs: Vital Signs Temp 98.5 F 11/21/23 04:00 Pulse 91 11/21/23 04:00 Resp 18 03/12/24 02:00 BP 103/61 11/21/23 04:00 Pulse Ox 92 L 11/21/23 04:17 FiO2 Intake & Output 11/20/23 11/21/23 11/21/23 18:59 06:59 18:59 Intake Total 1322 120 Output Total 175 20 Balance 1147 100 Weight 102 kg Intake: Oral 1322 120 Output: Urine 175 20 Uretheral ([place]) 20 Other: Voiding Method Indwelling Catheter Indwelling Catheter # Bowel Movements 1 - Labs CBC & Chem 7: 11/16/23 06:41 11/21/23 06:47 Labs: Abnormal Lab Results - Last 24 Hours (Table) 11/21/23 Range/Units 06:47 Potassium 5.4 H (3.5-5.1) mmol/L Carbon Dioxide 21 L (22-30) mmol/L BUN 79 H (9-20) mg/dL Creatinine 6.48 H (0.66-1.25) mg/dL Glucose 104 H (74-99) mg/dL Calcium 7.5 L (8.4-10.2) mg/dL
--- NOTE | 2023-11-21 11:41 | P.PN ---
Subjective Patient is seen in follow-up for acute kidney injury. Renal function worsening. Medina catheter was placed yesterday. Oliguric. Also received 80 mg of IV Lasix earlier this morning with minimal response in urine output. Vital signs are stable. General: No acute distress. HEENT: Head exam is unremarkable. On nasal cannula. LUNGS: No audible rhonchi or wheezes. HEART: Rate and Rhythm are regular. ABDOMEN: Nontender. EXTREMITITES: Trace edema. Objective - Vital Signs Vital signs: Vital Signs Temp 98.5 F 11/21/23 04:00 Pulse 91 11/21/23 04:00 Resp 18 11/21/23 02:00 BP 103/61 11/21/23 04:00 Pulse Ox 92 L 11/21/23 04:17 FiO2 Intake & Output 11/20/23 11/21/23 11/21/23 18:59 06:59 18:59 Intake Total 1322 120 Output Total 175 20 Balance 1147 100 Weight 102 kg Intake: Oral 1322 120 Output: Urine 175 20 Uretheral (Medina) 20 Other: Voiding Method Indwelling Catheter Indwelling Catheter # Bowel Movements 1 - Labs CBC & Chem 7: 11/16/23 06:41 11/21/23 06:47 Labs: Abnormal Lab Results - Last 24 Hours (Table) 11/21/23 Range/Units 06:47 Potassium 5.4 H (3.5-5.1) mmol/L Carbon Dioxide 21 L (22-30) mmol/L BUN 79 H (9-20) mg/dL Creatinine 6.48 H (0.66-1.25) mg/dL Glucose 104 H (74-99) mg/dL Calcium 7.5 L (8.4-10.2) mg/dL Assessment and Plan Plan: Assessment: 1. Acute kidney injury secondary to ATN secondary to cardiorenal syndrome and uncontrolled hypertension. Right kidney atrophic. No hydronephrosis. Trace pr otein on UA, no blood. Renal function worse. Creatinine 6.48 today. Bladder scans have been negative. Now has Medina catheter. 2. Acute on chronic systolic CHF with ejection fraction of 35 to 40%. 3. Volume overload. Improved with diuresis. 4. Hypertension secondary to noncompliance with medications. Currently controlled. 5. Hyperkalemia secondary to acute kidney injury and NSAIDs. 6. Metabolic acidosis secondary to acute kidney injury and IV fluids. Plan: Maintain gentle IV hydration. Status post IV Lasix this morning with no response in urine output. Maintain Lokelma 10 g twice daily. Renal diet. Maintain Medina catheter. Due to worsening renal function, oliguria, initiate renal replacement therapy. Patient agreeable. Consult vascular surgery for dialysis catheter placement. Plan for first treatment of hemodialysis today and second treatment tomorrow.
[2023-11-21] MEDS: SODIUM CHLORIDE 0.9% 1,000 ML IV ONE (13:43)
[2023-11-21] MEDS: MIDAZOLAM 2 MG/2 ML VIAL IVP ONE (14:00)
[2023-11-21] MEDS: fentaNYL (PF) 50 MCG/1 ML VIAL IVP ONE (14:00)
[2023-11-21] MEDS: LIDOCAINE 1% INJ 10MG/ML (20 ML MDV) SQ ONE ×2 (14:00→14:09)
[2023-11-21] MEDS: HEPARIN SODIUM 1,000 UN/ML (10ML VL) IV ONE (14:27)
--- NOTE | 2023-11-21 14:36 | P.GSCN ---
History of Present Illness History of present illness: 63-year-old gentleman consulted for placement of dialysis catheter. Patient has history of hypertension, hyperkalemia, oliguria metabolic acidosis oliguria on examination neck is supple no bruit appreciated Chest is clear The lung bases Abdomen soft nontender vascular femorals are 1+ bilateral Plan is placement of dialysis catheter risk and complications discussed Past Medical History Past Medical History: Hypertension Additional Past Medical History / Comment(s): Gout L foot/ankle/very painful to touch and pain increases with activity/ambulation, AAA repair for aneurysm. History of Any Multi-Drug Resistant Organisms: None Reported Additional Past Surgical History / Comment(s): Aorta repair Past Anesthesia/Blood Transfusion Reactions: Unable to Obtain Additional Past Anesthesia/Blood Transfusion Reaction / Comm: Ptdeclined answering. Additional Past Alcohol Use History / Comment(s): Pt started smoking in his 20s. Pt declined answering anything further. - Past Family History Father Additional Family Medical History / Comment(s): Pt declined answering. Mother Additional Family Medical History / Comment(s): Pt declined answering. Medications and Allergies Home Medications Medication Instructions Recorded Confirmed Type HYDROcodone/APAP 5-325MG [[place] 1 tab PO TID 02/16/22 11/15/23 History 5-325] Allergies Allergy/AdvReac Type Severity Reaction Status Date / Time No Known Allergies Allergy Verified 11/15/23 09:01 Surgical - Exam Vital Signs Temp Pulse Resp BP Pulse Ox 98.7 F 79 20 161/114 93 L 11/15/23 06:42 11/15/23 06:42 11/15/23 06:42 11/15/23 06:42 11/15/23 06:42 Results - Labs 11/16/23 06:41 11/21/23 06:47 Abnormal Lab Results - Last 24 Hours (Table) 11/21/23 Range/Units 06:47 Potassium 5.4 H (3.5-5.1) mmol/L Carbon Dioxide 21 L (22-30) mmol/L BUN 79 H (9-20) mg/dL Creatinine 6.48 H (0.66-1.25) mg/dL Glucose 104 H (74-99) mg/dL Calcium 7.5 L (8.4-10.2) mg/dL Microbiology - Last 24 Hours (Table) 11/15/23 15:08 Blood Culture - Final Blood Diabetes panel 11/20/23 11/21/23 Range/Units 15:42 06:47 Sodium 139 (137-145) mmol/L Potassium 5.0 5.4 H (3.5-5.1) mmol/L Chloride 106 (98-107) mmol/L Carbon Dioxide 21 L (22-30) mmol/L BUN 79 H (9-20) mg/dL Creatinine 6.48 H (0.66-1.25) mg/dL Glucose 104 H (74-99) mg/dL Calcium 7.5 L (8.4-10.2) mg/dL Calcium panel 11/21/23 Range/Units 06:47 Calcium 7.5 L (8.4-10.2) mg/dL Pituitary panel 11/20/23 11/21/23 Range/Units 15:42 06:47 Sodium 139 (137-145) mmol/L Potassium 5.0 5.4 H (3.5-5.1) mmol/L Chloride 106 (98-107) mmol/L Carbon Dioxide 21 L (22-30) mmol/L BUN 79 H (9-20) mg/dL Creatinine 6.48 H (0.66-1.25) mg/dL Glucose 104 H (74-99) mg/dL Calcium 7.5 L (8.4-10.2) mg/dL Adrenal panel 11/20/23 11/21/23 Range/Units 15:42 06:47 Sodium 139 (137-145) mmol/L Potassium 5.0 5.4 H (3.5-5.1) mmol/L Chloride 106 (98-107) mmol/L Carbon Dioxide 21 L (22-30) mmol/L BUN 79 H (9-20) mg/dL Creatinine 6.48 H (0.66-1.25) mg/dL Glucose 104 H (74-99) mg/dL Calcium 7.5 L (8.4-10.2) mg/dL
--- NOTE | 2023-11-21 15:29 | XR ---
EXAMINATION TYPE: XR chest 1V confirm line [facility] DATE OF EXAM: 11/21/2023 COMPARISON: 11/20/2023. HISTORY: Hemodialysis catheter placement. TECHNIQUE: Single frontal view of the chest is obtained. IMPRESSION: There is a right-sided dual-lumen central venous catheter with catheter tip overlying the superior ve na cava. The cardiac silhouette is markedly enlarged and there is mild diffuse interstitial changes at the chavo gs bilaterally which is likely related to mild edema. Question small right pleural effusion.
--- NOTE | 2023-11-21 16:25 | OP ---
OPERATIVE REPORT DATE OF SERVICE : PREOPERATIVE DIAGNOSES: 1. Acute chronic renal failure. 2. Hypertension. 3. Hyperkalemia. POSTOPERATIVE DIAGNOSES: 1. Acute chronic renal failure. 2. Hypertension. 3. Hyperkalemia. PROCEDURES PERFORMED: Ultrasound-guided 23 cm dialysis catheter placed, right jugular approach. DESCRIPTION OF PROCEDURE: The patient was brought to the [facility]. Right side of the neck and chest was prepped and drapes applied in a sterile manner. 1% lidocaine was infiltrated under IV sedation. Ultrasound-guided micropuncture introduced to right jugular vein and micropuncture guidewire was passed. Then, 4-Marshallese dilator advanced on top of the guidewire. Then, we created the tunnel. Through that tunnel, we brought 23 cm dialysis catheter. Then, we passed a regular guidewire, which was parked in the inferior vena cava. The dilator was advanced, then sheath was advanced on top of the guidewire. Through the sheath, we introduced the dialysis catheter. Tip of the catheter in superior vena atrial junction. Flushed with heparin saline and hep-locked, secured with 3-0 nylon and Vicryl. Dressing applied. The patient tolerated the procedure well. PLAN: X-ray of the chest. MMODL / IJN: [id number] /
--- NOTE | 2023-11-21 23:01 | PN ---
PROGRESS NOTE DATE OF SERVICE: 11/20/2023 CHIEF COMPLAINT: Mental status changes, acute kidney injury, elevated troponin and chronic alcoholism. HISTORY OF PRESENT ILLNESS: This gentleman is still quite lethargic and confused. He is apparently not having any chest pain or shortness of breath and there is no vomiting. LABORATORY DATA: Studies reveal potassium of 5.6. Bicarb is 21. BUN 73 with a creatinine of 4.75 and GFR of 29. Troponin was elevated and BNP is 16,900. Echocardiogram reveals EF of 35% to 40%. PHYSICAL EXAMINATION: GENERAL: He is lethargic. LUNGS: Breath sounds are heard bilaterally. CARDIAC: Sounds normal. ABDOMEN: Protuberant, soft, and nontender. IMPRESSION: 1. Acute kidney injury. 2. Chronic kidney disease. 3. History of alcoholism. 4. Elevated troponin. 5. Congestive heart failure. 6. Probable alcoholic cardiomyopathy. 7. Hyperkalemia. PLAN: Continue management of his potassium and renal function while he is being followed both by Cardiology and Nephrology. MMODL / IJN: [id number] /
--- NOTE | 2023-11-21 23:16 | PN ---
PROGRESS NOTE DATE OF SERVICE: 11/21/2023 CHIEF COMPLAINT: Acute kidney injury. HISTORY OF PRESENT ILLNESS: This gentleman is little bit more alert than he was yesterday. However, his BUN and creatinine are still rising. PHYSICAL EXAMINATION: VITAL SIGNS: Normal. He is more alert. CHEST: Clear. CARDIAC: Normal. ABDOMEN: Slightly protuberant. IMPRESSION: 1. Acute kidney injury. 2. Probable chronic kidney disease. 3. Elevated troponin. 4. Congestive heart failure. 5. Alcoholic cardiomyopathy. 6. Alcoholism. PLAN: Continue to follow with Nephrology and Cardiology. MMODL / IJN: [id number] /
[2023-11-22 06:19] LABS: Hepatitis B Surface AB- Quant 3.5 mIU/mL; Hepatitis B Surface Antigen Nonreactive
--- NOTE | 2023-11-22 09:01 | IR ---
EXAMINATION TYPE: IR cvc insert central tunneled DATE OF EXAM: 11/21/2023 FLUOROSCOPY Right-sided hemodialysis catheter, 2.0min fluoro, [id number]. 39 images provided.
--- NOTE | 2023-11-22 11:59 | P.PN ---
Subjective Patient is seen in follow-up for acute kidney injury. Started on hemodialysis November 21, 2023 due to worsening renal function and oliguria. Completed second treatment of hemodialysis this morning. Urine output also improved. Vital signs are stable. General: No acute distress. HEENT: Head exam is unremarkable. On nasal cannula. LUNGS: No audible rhonchi or wheezes. HEART: Rate and Rhythm are regular. ABDOMEN: Nontender. EXTREMITITES: Trace edema. Objective - Vital Signs Vital signs: Vital Signs Temp 98.3 F 11/22/23 11:54 Pulse 77 11/22/23 11:54 Resp 18 11/22/23 11:54 BP 187/93 11/22/23 11:54 Pulse Ox 94 L 11/22/23 11:54 FiO2 Intake & Output 11/21/23 11/22/23 11/22/23 18:59 06:59 18:59 Intake Total 340 400 400 Output Total 20 2120 1420 Balance 320 -1720 -1020 Weight 107 kg Intake: IV 100 Oral 240 0 Hemodialysis 400 400 Output: Urine 20 1220 20 Uretheral (Medina) 20 20 20 Hemodialysis 900 1400 Other: Voiding Method Indwelling Catheter Indwelling Catheter Indwelling Catheter - Labs CBC & Chem 7: 11/16/23 06:41 11/21/23 06:47 Labs: Microbiology - Last 24 Hours (Table) 11/15/23 15:08 Blood Culture - Final Blood Assessment and Plan Plan: Assessment: 1. Acute kidney injury secondary to ATN secondary to cardiorenal syndrome and uncontrolled hypertension. Right kidney atrophic. No hydronephrosis. Trace protein on UA, no blood. Bladder scans have been negative. Now has Medina catheter. Started on hemodialysis November 21, 2023 due to worsening renal function and oliguria. Has permacath. 2. Acute on chronic systolic CHF with ejection fraction of 35 to 40%. 3. Volume overload. Improved with diuresis and ultrafiltration. 4. Hypertension secondary to noncompliance with medications. 5. Hyperkalemia secondary to acute kidney injury and NSAIDs. Expect improvement postdialysis. 6. Metabolic acidosis secondary to acute kidney injury and IV fluids. Expect improvement postdialysis. Plan: Hep-Lock IV fluids. Encouraged oral intake. Add IV Lasix 60 mg twice daily. Renal diet. Maintain Medina catheter. Monitor for renal recovery.
[2023-11-22] MEDS: FUROSEMIDE 10 MG/ML 10 ML VIAL IV SCH (13:07)
--- NOTE | 2023-11-22 15:05 | P.PN ---
Subjective Progress Note Date: 11/22/23 (t) HISTORY OF PRESENT ILLNESS: This is a 63-year-old male with a past medical history significant for hypertension, gout, alcohol use, nicotine dependence, and AAA repair. Patient follows with the [facility] in [place]. 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 We have been asked to see the patient in consultation for elevated BNP and troponin. Patient examined at the bedside. Patient states he got a fitbit watch and thought he was doing well from a cardiac standpoint so he stopped taking all of his cardiac medications. He reports he tripped and fell at home and laid on the floor for about 10 hours as he was unable to get up. Patient currently denies chest pain or pressure. He denies SOB. He reports increased lower extremity edema. Patients blood pressure was significantly elevated upon admission to the hospital. DIAGNOSTICS: - EKG reveals sinus mechanism with no signs of acute ischemia. - Chest xray right perihilar increased density persist which may reflect atelectasis and/or infiltrate. -CT of the brain: Negative for acute process - Laboratory data: WBC 7.0. Hemoglobin 14.8. Platelet count 169. Sodium 141. Potassium 5.2. BUN 41. Creatinine 2.29. Troponin 0.258. 0.256. 0.253. - Current home cardiac medications include none -Echocardiogram obtained revealing ejection fraction 35 to 40%, trace MR. -Previous echocardiogram from 2022 revealed ejection fraction 55 to 60% 11/17/2023 Patient examined this morning at the bedside. Patient denies chest pain or pressure. He denies shortness of breath. He remains on IV diuretics. Creatinine is stable today at 2.3. Patient's blood pressures remain elevated with a reading of 159/103 this morning. 11/18/2023 Creatinine slightly worse as compared to yesterday. Today 2.7 yesterday it was 2.3. Blood pressure still elevated. Patient's IV diuretics were held today. 11/19/2023 Creatinine is worse today. Creatinine is 3.5 today. Yesterday it was 2.7. Blood pressure ranging from 140s to 150s systolic. He was started on gentle hydration 50 cc/h by nephrology team. 11/19 Patient denies any new complaints today. Blood pressure 130/53, heart rate in the 70s, pulse ox 93% on 3 L nasal cannula. Repeat blood work reveals worsening renal function and may require hemodialysis. Repeat blood work reveals BUN 73 creatinine 4.75, potassium 5.6. Diuretics were discontinued yesterday. Patient is on IV fluids managed by nephrology. Chest x-ray reveals mild cardiomegaly with similar to increased interstitial and patchy mid to lower lung opacities. Trace right pleural effusion. Correlate for mild pulmonary vascular congestion. Bibasilar opacities could represent patchy pulmonary edema versus infiltrates. 11/20 Again today, patient is in worsening of renal function. BUN is 79 and creatinine 6.48. Potassium 5.4. Blood pressure is running between 103/61- 139/76. Pulse ox was 85% on room air this morning and now 92% on 2 L. Heart rate is running in the 80s and 90s. 11/21 Patient has started on hemodialysis receiving treatment at this time. No complaints of shortness of breath. Blood pressure 187/93, heart rate 77, pulse ox 94% on 3 L nasal cannula. Repeat blood work ordered for tomorrow. PHYSICAL EXAM: VITAL SIGNS: Reviewed. GENERAL: Well-developed in no acute distress. HEENT: Head is normocephalic. Pupils are equal, round. Sclerae anicteric. Mucous membranes of the mouth are moist. Neck supple. No JVD or thyromegaly LUNGS: Respirations even and unlabored. Lungs clear to auscultation bilaterally. HEART: Regular rate and rhythm. S1 and S2 heard. ABDOMEN: Soft. Nondistended. Nontender. EXTREMITIES: No clubbing or cyanosis. Peripheral pulses intact. 1+ lower extremity edema NEUROLOGIC: Awake and alert. 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%, ischemic versus nonischemic Medication noncompliance, patient stopped taking his blood pressure medications a month ago Acute heart failure with reduced EF, 35-40% Hypertension, uncontrolled History of alcohol abuse Nicotine dependence History of AAA repair History of gout Nicotine dependence Chronic hypoxic respiratory failure, on home o2 PRN PLAN: Continue diuretics as ordered by nephrology Continue Coreg 6.25 mg BID, aspirin, atorvastatin, Imdur Decrease hydralazine to 25 mg 3 times daily Nephrology recs appreciated for CHALO and ATN Smoking cessation recommended Abstinence from alcohol encouraged Patient will need eventual outpatient ischemic workup due to new onset cardiomyopathy. Nurse practitioner note has been reviewed, I agree with documented findings and plan of care. Patient was seen and examined. Objective - Vital Signs Vital signs: Vital Signs Temp 98.1 F 11/21/23 21:00 Pulse 77 11/22/23 05:18 Resp 16 11/22/23 05:18 BP 151/81 11/22/23 05:18 Pulse Ox 92 L 11/22/23 05:18 FiO2 Intake & Output 11/21/23 11/22/23 11/22/23 18:59 06:59 18:59 Intake Total 340 400 Output Total 20 2120 Balance 320 -1720 Weight 107 kg Intake: IV 100 Oral 240 0 Hemodialysis 400 Output: Urine 20 1220 Uretheral (Medina) 20 20 Hemodialysis 900 Other: Voiding Method Indwelling Catheter Indwelling Catheter - Labs CBC & Chem 7: 11/16/23 06:41 11/21/23 06:47 Labs: Microbiology - Last 24 Hours (Table) 11/15/23 15:08 Blood Culture - Final Blood
[2023-11-22 15:22] LABS: African American GFR (CKD) 24 (>60 ml/min/1.73 sqM); Anion Gap 8 mmol/L; Blood Urea Nitrogen 42 mg/dL (9-20); Calcium 7.8 mg/dL (8.4-10.2); Carbon Dioxide 27 mmol/L (22-30); Chloride 103 mmol/L (98-107); Glucose 107 mg/dL (74-99); Magnesium 1.7 mg/dL (1.6-2.3); Non-African American GFR(CKD) 21 (>60 ml/min/1.73 sqM); Phosphorus 4.4 mg/dL (2.5-4.5); Potassium 3.9 mmol/L (3.5-5.1); Sodium 138 mmol/L (137-145)
--- NOTE | 2023-11-22 21:58 | PN ---
PROGRESS NOTE DATE OF SERVICE: 11/22/2023 CHIEF COMPLAINT: Acute congestive heart failure, COPD, elevated troponin, hypertension, and renal failure. HISTORY OF PRESENT ILLNESS: This gentleman is doing a little bit better. He is more awake and alert every day. Blood pressure is still slightly elevated at times. His ejection fraction was 35% to 40%. PHYSICAL EXAMINATION: GENERAL: He is awake and alert. CHEST: Improving. There is still scattered rales and rhonchi. CARDIAC: Normal. ABDOMEN: Slightly distended. IMPRESSION: 1. Congestive heart failure. 2. Kidney failure (acute on chronic). 3. Mental status changes. 4. Alcoholism. PLAN: Continue with current efforts while monitoring his renal function, which is slowly improving. MMODL / IJN: [id number] /
[2023-11-23 09:58] LABS: African American GFR (CKD) 22 (>60 ml/min/1.73 sqM); Anion Gap 7 mmol/L; Blood Urea Nitrogen 49 mg/dL (9-20); Calcium 8.3 mg/dL (8.4-10.2); Carbon Dioxide 28 mmol/L (22-30); Chloride 103 mmol/L (98-107); Glucose 107 mg/dL (74-99); Magnesium 1.8 mg/dL (1.6-2.3); Non-African American GFR(CKD) 19 (>60 ml/min/1.73 sqM); Potassium 4.3 mmol/L (3.5-5.1); Sodium 138 mmol/L (137-145)
--- NOTE | 2023-11-23 11:11 | P.PN ---
Subjective Progress Note Date: 11/23/23 HISTORY OF PRESENT ILLNESS: This is a 63-year-old male with a past medical history significant for hype rtension, gout, alcohol use, nicotine dependence, and AAA repair. [facility] [place] He does not follow with a tablet repair. We have been asked to see the patient in consultation for elevated BNP and troponin. Patient examined at the bedside. Patient states he got a fitbit watch and thought he was doing well from a cardiac standpoint so he stopped taking all of his cardiac medications. He reports he tripped and fell at home and laid on the floor for about 10 hours as he was unable to get up. Patient currently denies chest pain or pressure. He denies SOB. He reports increased lower extremity edema. Patients blood pressure was significantly elevated upon admission to the hospital. DIAGNOSTICS: - EKG reveals sinus mechanism with no signs of acute ischemia. - Chest xray right perihilar increased density persist which may reflect atelectasis and/or infiltrate. -CT of the brain: Negative for acute process - Laboratory data: WBC 7.0. Hemoglobin 14.8. Platelet count 169. Sodium 141. Potassium 5.2. BUN 41. Creatinine 2.29. Troponin 0.258. 0.256. 0.253. - Current home cardiac medications include none -Echocardiogram obtained revealing ejection fraction 35 to 40%, trace MR. -Previous echocardiogram from 2022 revealed ejection fraction 55 to 60% 11/17/2023 Patient examined this morning at the bedside. Patient denies chest pain or pressure. He denies shortness of breath. He remains on IV diuretics. Creatinine is stable today at 2.3. Patient's blood pressures remain elevated with a reading of 159/103 this morning. 11/18/2023 Creatinine slightly worse as compared to yesterday. Today 2.7 yesterday it was 2.3. Blood pressure still elevated. Patient's IV diuretics were held today. 11/19/2023 Creatinine is worse today. Creatinine is 3.5 today. Yesterday it was 2.7. Blood pressure ranging from 140s to 150s systolic. He was started on gentle h ydration 50 cc/h by nephrology team. 11/19 Patient denies any new complaints today. Blood pressure 130/53, heart rate in the 70s, pulse ox 93% on 3 L nasal cannula. Repeat blood work reveals worsening renal function and may require hemodialysis. Repeat blood work reveals BUN 73 creatinine 4.75, potassium 5.6. Diuretics were discontinued yesterday. Patient is on IV fluids managed by nephrology. Chest x-ray reveals mild cardiomegaly with similar to increased interstitial and patchy mid to lower lung opacities. Trace right pleural effusion. Correlate for mild pulmonary vascular congestion. Bibasilar opacities could represent patchy pulmonary edema versus infiltrates. 11/20 Again today, patient is in worsening of renal function. BUN is 79 and creatinine 6.48. Potassium 5.4. Blood pressure is running between 103/61- 139/76. Pulse ox was 85% on room air this morning and now 92% on 2 L. Heart rate is running in the 80s and 90s. 11/21 Patient has started on hemodialysis receiving treatment at this time. No complaints of shortness of breath. Blood pressure 187/93, heart rate 77, pulse ox 94% on 3 L nasal cannula. Repeat blood work ordered for tomorrow. 11/22 Patient states that he is feeling better today, energy is improved. Has minimal lower extremity edema. Patient has a negative fluid balance. Blood pressure 158/87, heart rate 78, pulse ox 95% on 3 L nasal cannula. Patient is scheduled for hemodialysis today. Repeat blood work reveals BUN 49, creatinine 3.26. PHYSICAL EXAM: VITAL SIGNS: Reviewed. GENERAL: Well-developed in no acute distress. HEENT: Head is normocephalic. Pupils are equal, round. Sclerae anicteric. Mucous membranes of the mouth are moist. Neck supple. No JVD or thyromegaly LUNGS: Respirations even and unlabored. Lungs clear to auscultation bilaterally. HEART: Regular rate and rhythm. S1 and S2 heard. ABDOMEN: Soft. Nondistended. Nontender. EXTREMITIES: No clubbing or cyanosis. Peripheral pulses intact. 1+ lower extremity edema NEUROLOGIC: Awake and alert. 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%, ischemic versus nonischemic Medication noncompliance, patient stopped taking his blood pressure medications a month ago Acute heart failure with reduced EF, 35-40% Hypertension, uncontrolled History of alcohol abuse Nicotine dependence History of AAA repair History of gout Nicotine dependence Chronic hypoxic respiratory failure, on home o2 PRN PLAN: Continue diuretics as ordered by nephrology Continue Coreg 6.25 mg BID, aspirin, atorvastatin, Imdur Decrease hydralazine to 25 mg 3 times daily Continue dialysis per nephrology Smoking cessation recommended Abstinence from alcohol encouraged Patient will need eventual outpatient ischemic workup due to new onset cardi omyopathy. Nurse practitioner note has been reviewed, I agree with documented findings and plan of care. Patient was seen and examined. Objective - Vital Signs Vital signs: Vital Signs Temp 98.2 F 11/23/23 04:00 Pulse 78 11/23/23 04:00 Resp 18 11/23/23 04:00 BP 158/87 11/23/23 04:00 Pulse Ox 95 11/23/23 04:00 FiO2 Intake & Output 11/22/23 11/23/23 11/23/23 18:59 06:59 18:59 Intake Total 400 Output Total 2220 545 Balance -1820 -545 Weight 104 kg Intake: Hemodialysis 400 Output: Urine 820 545 Uretheral (Medina) 20 20 Hemodialysis 1400 Other: Voiding Method Indwelling Catheter Indwelling Catheter - Labs CBC & Chem 7: 11/16/23 06:41 11/23/23 09:07 Labs: Abnormal Lab Results - Last 24 Hours (Table) 11/22/23 Range/Units 14:33 BUN 42 H (9-20) mg/dL Creatinine 3.04 H (0.66-1.25) mg/dL Glucose 107 H (74-99) mg/dL Calcium 7.8 L (8.4-10.2) mg/dL
--- NOTE | 2023-11-23 12:16 | P.PN ---
Subjective Patient is seen in follow-up for acute kidney injury. Started on hemodialysis November 21, 2023 due to worsening renal function and oliguria. Completed second treatment of hemodialysis November 22, 2023. Nonoliguric. On IV Lasix. Resting in bed. Vital signs are stable. General: No acute distress. HEENT: Head exam is unremarkable. On nasal cannula. LUNGS: No audible rhonchi or wheezes. HEART: Rate and Rhythm are regular. ABDOMEN: Nontender. EXTREMITITES: Trace edema. Objective - Vital Signs Vital signs: Vital Signs Temp 98.5 F 11/23/23 08:00 Pulse 86 11/23/23 08:00 Resp 16 11/23/23 08:00 BP 151/70 11/23/23 08:00 Pulse Ox 90 L 11/23/23 08:00 FiO2 Intake & Output 11/22/23 11/23/23 11/23/23 18:59 06:59 18:59 Intake Total 400 0 Output Total 2220 545 Balance -1820 -545 0 Weight 104 kg Intake: Oral 0 Hemodialysis 400 Output: Urine 820 545 Uretheral (Medina) 20 20 Hemodialysis 1400 Other: Voiding Method Indwelling Catheter Indwelling Catheter - Labs CBC & Chem 7: 11/16/23 06:41 11/23/23 09:07 Labs: Abnormal Lab Results - Last 24 Hours (Table) 11/22/23 11/23/23 Range/Units 14:33 09:07 BUN 42 H 49 H (9-20) mg/dL Creatinine 3.04 H 3.26 H (0.66-1.25) mg/dL Glucose 107 H 107 H (74-99) mg/dL Calcium 7.8 L 8.3 L (8.4-10.2) mg/dL Assessment and Plan Plan: Assessment: 1. Acute kidney injury secondary to ATN secondary to cardiorenal syndrome and uncontrolled hypertension. Right kidney atrophic. No hydronephrosis. Trace protein on UA, no blood. Bladder scans have been negative. Now has Medina catheter. Started on hemodialysis November 21, 2023 due to worsening renal function and oliguria. Has permacath. 2. Acute on chronic systolic CHF with ejection fraction of 35 to 40%. 3. Volume overload. Improved with diuresis and ultrafiltration. 4. Hypertension secondary to noncompliance with medications. 5. Hyperkalemia secondary to acute kidney injury and NSAIDs. Improved postdialysis. 6. Metabolic acidosis secondary to acute kidney injury and IV fluids. Improved postdialysis. Plan: Maintain IV Lasix. Renal diet. Maintain Medina catheter. Monitor for renal recovery. Last dialysis November 22, 2023.
--- NOTE | 2023-11-23 13:19 | PN ---
PROGRESS NOTE DATE OF SERVICE: 11/23/2023 CHIEF COMPLAINT: Acute renal failure and congestive heart failure. HISTORY OF PRESENT ILLNESS: This gentleman is doing fairly well. He is on dialysis now. PHYSICAL EXAMINATION: GENERAL: He is awake and alert and seems oriented. CHEST: Clear. CARDIAC: Normal. ABDOMEN: Soft, nontender. IMPRESSION: 1. Acute kidney injury. 2. Congestive heart failure. 3. Alcoholism. PLAN: Continue with dialysis and management of his renal function to see if it improves. MMODL / IJN: [id number] /
[2023-11-24] MEDS: hydrALAZINE HCL 25 MG TAB PO STA (09:24)
--- NOTE | 2023-11-24 09:51 | P.PN ---
Subjective Patient is seen in follow-up for acute kidney injury. Started on hemodialysis November 21, 2023 due to worsening renal function and oliguria. Completed second treatment of hemodialysis November 22, 2023. Nonoliguric. On IV Lasix. Urine output over 2.5 L in the last 24 hours. Has Medina catheter. Denies chest pain or shortness of breath. Vital signs are stable. General: No acute distress. HEENT: Head exam is unremarkable. On 3 L nasal cannula. LUNGS: No audible rhonchi or wheezes. HEART: Rate and Rhythm are regular. ABDOMEN: Nontender. EXTREMITITES: Trace edema. Objective - Vital Signs Vital signs: Vital Signs Temp 96.2 F L 11/24/23 08:00 Pulse 91 11/24/23 08:00 Resp 16 11/24/23 08:00 BP 151/68 11/24/23 08:00 Pulse Ox 94 L 11/24/23 08:03 FiO2 Intake & Output 11/23/23 11/24/23 11/24/23 18:59 06:59 18:59 Intake Total 236 240 Output Total 1820 2900 Balance -1584 -2660 Weight 100.5 kg Intake: Oral 236 240 Output: Urine 1820 2900 Uretheral ([facility]) 20 Other: Voiding Method Indwelling Catheter Indwelling Catheter # Voids 0 # Bowel Movements 1 2 - Labs CBC & Chem 7: 11/16/23 06:41 11/23/23 09:07 Labs: Abnormal Lab Results - Last 24 Hours (Table) 11/23/23 Range/Units 09:07 BUN 49 H (9-20) mg/dL Creatinine 3.26 H (0.66-1.25) mg/dL Glucose 107 H (74-99) mg/dL Calcium 8.3 L (8.4-10.2) mg/dL Assessment and Plan Plan: Assessment: 1. Acute kidney injury secondary to ATN secondary to cardiorenal syndrome and uncontrolled hypertension. Right kidney atrophic. No hydronephrosis. Trace protein on UA, no blood. Bladder scans have been negative. Now has Medina catheter. Started on hemodialysis November 21, 2023 due to worsening renal function and oliguria. Has permacath. Last dialysis treatment was November 22, 2023. 2. Acute on chronic systolic CHF with ejection fraction of 35 to 40%. 3. Volume overload. Improved with diuresis and ultrafiltration. 4. Hypertension secondary to noncompliance with medications. 5. Hyperkalemia secondary to acute kidney injury and NSAIDs. Improved. 6. Metabolic acidosis secondary to acute kidney injury and IV fluids. Improved. Plan: Maintain IV Lasix - decrease to 60 mg IV once daily. Renal diet. Maintain Medina catheter. Monitor for renal recovery. Last dialysis November 22, 2023. Morning labs pending.
[2023-11-24 11:14] LABS: African American GFR (CKD) 30 (>60 ml/min/1.73 sqM); Anion Gap 8 mmol/L; Blood Urea Nitrogen 49 mg/dL (9-20); Calcium 8.6 mg/dL (8.4-10.2); Carbon Dioxide 29 mmol/L (22-30); Chloride 103 mmol/L (98-107); Glucose 113 mg/dL (74-99); Magnesium 1.6 mg/dL (1.6-2.3); Non-African American GFR(CKD) 26 (>60 ml/min/1.73 sqM); Sodium 140 mmol/L (137-145)
--- NOTE | 2023-11-24 11:29 | P.PN ---
Subjective Progress Note Date: 11/24/23 HISTORY OF PRESENT ILLNESS: This is a 63-year-old male with a past medical history significant for hype rtension, gout, alcohol use, nicotine dependence, and AAA repair. [facility] [place] 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 We have been asked to see the patient in consultation for elevated BNP and troponin. Patient examined at the bedside. Patient states he got a fitbit watch and thought he was doing well from a cardiac standpoint so he stopped taking all of his cardiac medications. He reports he tripped and fell at home and laid on the floor for about 10 hours as he was unable to get up. Patient currently denies chest pain or pressure. He denies SOB. He reports increased lower extremity edema. Patients blood pressure was significantly elevated upon admission to the hospital. DIAGNOSTICS: - EKG reveals sinus mechanism with no signs of acute ischemia. - Chest xray right perihilar increased density persist which may reflect atelectasis and/or infiltrate. -CT of the brain: Negative for acute process - Laboratory data: WBC 7.0. Hemoglobin 14.8. Platelet count 169. Sodium 141. Potassium 5.2. BUN 41. Creatinine 2.29. Troponin 0.258. 0.256. 0.253. - Current home cardiac medications include none -Echocardiogram obtained revealing ejection fraction 35 to 40%, trace MR. -Previous echocardiogram from 2022 revealed ejection fraction 55 to 60% 11/17/2023 Patient examined this morning at the bedside. Patient denies chest pain or pressure. He denies shortness of breath. He remains on IV diuretics. Creatinine is stable today at 2.3. Patient's blood pressures remain elevated with a reading of 159/103 this morning. 11/18/2023 Creatinine slightly worse as compared to yesterday. Today 2.7 yesterday it was 2.3. Blood pressure still elevated. Patient's IV diuretics were held today. 11/19/2023 Creatinine is worse today. Creatinine is 3.5 today. Yesterday it was 2.7. Blood pressure ranging from 140s to 150s systolic. He was started on gentle h ydration 50 cc/h by nephrology team. 11/19 Patient denies any new complaints today. Blood pressure 130/53, heart rate in the 70s, pulse ox 93% on 3 L nasal cannula. Repeat blood work reveals worsening renal function and may require hemodialysis. Repeat blood work reveals BUN 73 creatinine 4.75, potassium 5.6. Diuretics were discontinued yesterday. Patient is on IV fluids managed by nephrology. Chest x-ray reveals mild cardiomegaly with similar to increased interstitial and patchy mid to lower lung opacities. Trace right pleural effusion. Correlate for mild pulmonary vascular congestion. Bibasilar opacities could represent patchy pulmonary edema versus infiltrates. 11/20 Again today, patient is in worsening of renal function. BUN is 79 and creatinine 6.48. Potassium 5.4. Blood pressure is running between 103/61- 139/76. Pulse ox was 85% on room air this morning and now 92% on 2 L. Heart rate is running in the 80s and 90s. 11/21 Patient has started on hemodialysis receiving treatment at this time. No complaints of shortness of breath. Blood pressure 187/93, heart rate 77, pulse ox 94% on 3 L nasal cannula. Repeat blood work ordered for tomorrow. 11/22 Patient states that he is feeling better today, energy is improved. Has minimal lower extremity edema. Patient has a negative fluid balance. Blood pressure 158/87, heart rate 78, pulse ox 95% on 3 L nasal cannula. Patient is scheduled for hemodialysis today. Repeat blood work reveals BUN 49, creatinine 3.26. 11/23 Patient has been on IV diuretics per nephrology and completed 2 hemodialysis treatments. He has been urinating well and Medina catheter in place. Patient denies having any chest pain or shortness of breath. Lower extremity edema is improved. Blood pressures have been elevated at 151/68, heart rate 91, pulse ox 92% on 2 L nasal cannula. Repeat blood work reveals sodium 140, potassium 4, BUN 49 creatinine 2.54. PHYSICAL EXAM: VITAL SIGNS: Reviewed. GENERAL: Well-developed in no acute distress. HEENT: Head is normocephalic. Pupils are equal, round. Sclerae anicteric. Mucous membranes of the mouth are moist. Neck supple. No JVD or thyromegaly LUNGS: Respirations even and unlabored. Lungs clear to auscultation bilaterally. HEART: Regular rate and rhythm. S1 and S2 heard. ABDOMEN: Soft. Nondistended. Nontender. EXTREMITIES: No clubbing or cyanosis. Peripheral pulses intact. Minimal lower extremity edema NEUROLOGIC: Awake and alert. 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%, ischemic versus nonischemic Medication noncompliance, patient stopped taking his blood pressure medications a month ago Acute heart failure with reduced EF, 35-40% Hypertension, uncontrolled History of alcohol abuse Nicotine dependence History of AAA repair History of gout Nicotine dependence Chronic hypoxic respiratory failure, on home o2 PRN PLAN: Continue diuretics as ordered by nephrology, currently at 60 mg IV daily Continue Coreg 6.25 mg BID, aspirin, atorvastatin, Imdur Increase hydralazine to 50 mg 3 times daily Continue dialysis per nephrology Smoking cessation recommended Abstinence from alcohol encouraged Patient will need eventual outpatient ischemic workup due to new onset cardiomyopathy. Nurse practitioner note has been reviewed, I agree with documented findings and plan of care. Patient was seen and examined. Objective - Vital Signs Vital signs: Vital Signs Temp 98.5 F 11/24/23 04:00 Pulse 74 11/24/23 04:00 Resp 18 11/24/23 04:00 BP 154/80 11/24/23 04:00 Pulse Ox 94 L 11/24/23 08:03 FiO2 Intake & Output 11/23/23 11/24/23 11/24/23 18:59 06:59 18:59 Intake Total 236 240 Output Total 1820 2900 Balance -1584 -2660 Weight 100.5 kg Intake: Oral 236 240 Output: Urine 1820 2900 Uretheral ([facility]) 20 Other: Voiding Method Indwelling Catheter Indwelling Catheter # Voids 0 # Bowel Movements 1 2 - Labs CBC & Chem 7: 11/16/23 06:41 11/24/23 10:31 Labs: Abnormal Lab Results - Last 24 Hours (Table) 11/23/23 Range/Units 09:07 BUN 49 H (9-20) mg/dL Creatinine 3.26 H (0.66-1.25) mg/dL Glucose 107 H (74-99) mg/dL Calcium 8.3 L (8.4-10.2) mg/dL
[2023-11-24] MEDS: MAGNESIUM SULFATE-D5W PMX 1 GM in DEXTROSE/WATER 1 100ML.BAG IVPB SCH (12:32)
[2023-11-24] MEDS: hydrALAZINE HCL 50 MG TAB PO SCH (15:37)
--- NOTE | 2023-11-25 05:52 | PN ---
PROGRESS NOTE CHIEF COMPLAINT: Acute congestive heart failure and renal failure. HISTORY OF PRESENT ILLNESS: This gentleman is doing slightly better. He is quite awake and alert. BUN and creatinine are slowly going down. He will be dialyzed today. REVIEW OF SYSTEMS: He denies any chest pain, abdominal pain, etc. PHYSICAL EXAMINATION: CHEST: Breath sounds are quite clear. CARDIAC: Unremarkable. ABDOMEN: Protuberant, soft. IMPRESSION: 1. Acute congestive heart failure. 2. Acute renal failure. 3. History of alcoholism. PLAN: Continue to monitor his cardiac output as well as his renal function. MMODL / IJN: [id number] /
[2023-11-25] MEDS: FUROSEMIDE 10 MG/ML 10 ML VIAL IV SCH (07:48)
[2023-11-25 09:16] LABS: HCT 43.2 % (39.0-53.0); HGB 13.6 gm/dL (13.0-17.5); Hypochromasia Moderate; MCH 34.4 pg (25.0-35.0); MCHC 31.5 g/dL (31.0-37.0); MCV 109.2 fL (80.0-100.0); Macrocytosis Marked; Mean Platelet Volume 10.1; Platelet Count 210 k/uL (150-450); RBC 3.96 m/uL (4.30-5.90); RDW 14.4 % (11.5-15.5); WBC 8.2 k/uL (3.8-10.6)
[2023-11-25 09:31] LABS: African American GFR (CKD) 35 (>60 ml/min/1.73 sqM); Anion Gap 8 mmol/L; Blood Urea Nitrogen 51 mg/dL (9-20); Calcium 9.2 mg/dL (8.4-10.2); Carbon Dioxide 31 mmol/L (22-30); Chloride 102 mmol/L (98-107); Glucose 178 mg/dL (74-99); Magnesium 2.1 mg/dL (1.6-2.3); Non-African American GFR(CKD) 30 (>60 ml/min/1.73 sqM); Potassium 4.2 mmol/L (3.5-5.1); Sodium 141 mmol/L (137-145)
--- NOTE | 2023-11-25 12:03 | P.PN ---
Subjective Progress Note Date: 11/25/23 Patient is seen in follow-up for acute kidney injury. Started on hemodialysis November 21, 2023 due to worsening renal function and oliguria. Completed second treatment of hemodialysis November 22, 2023. Nonoliguric. On IV Lasix. Urine output over 1.8 L in the last 24 hours. Has Medina catheter. Denies chest pain or shortness of breath. Vital signs are stable. General: No acute distress. HEENT: Head exam is unremarkable. On 3 L nasal cannula. LUNGS: No audible rhonchi or wheezes. HEART: Rate and Rhythm are regular. ABDOMEN: Nontender. EXTREMITITES: Trace edema. Objective - Vital Signs Vital signs: Vital Signs Temp 98.1 F 11/25/23 07:45 Pulse 77 11/25/23 07:45 Resp 20 11/25/23 07:45 BP 156/95 11/25/23 07:45 Pulse Ox 95 11/25/23 07:45 FiO2 Intake & Output 11/24/23 11/25/23 11/25/23 18:59 06:59 18:59 Intake Total 540 240 Output Total 1550 300 Balance -1010 -300 240 Weight 102 kg Intake: Oral 540 240 Output: Urine 1550 300 Other: Voiding Method Indwelling Catheter Indwelling Catheter Indwelling Catheter # Voids 1 # Bowel Movements 1 - Labs CBC & Chem 7: 11/25/23 08:00 11/25/23 08:00 Labs: Abnormal Lab Results - Last 24 Hours (Table) 11/24/23 11/25/23 11/25/23 Range/Units 10:31 08:00 08:00 RBC 3.96 L (4.30-5.90) m/uL MCV 109.2 H (80.0-100.0) fL Macrocytosis Marked A Carbon Dioxide 31 H (22-30) mmol/L BUN 49 H 51 H (9-20) mg/dL Creatinine 2.54 H 2.23 H (0.66-1.25) mg/dL Glucose 113 H 178 H (74-99) mg/dL Assessment and Plan Plan: Assessment: 1. Acute kidney injury secondary to ATN secondary to cardiorenal syndrome and uncontrolled hypertension. Right kidney atrophic. No hydronephrosis. Trace protein on UA, no blood. Bladder scans have been negative. Now has Medina catheter. Started on hemodialysis November 21, 2023 due to worsening renal function and oliguria. Has permacath. Last dialysis treatment was November 22, 2023. 2. Acute on chronic systolic CHF with ejection fraction of 35 to 40%. 3. Volume overload. Improved with diuresis and ultrafiltration. 4. Hypertension secondary to noncompliance with medications. 5. Hyperkalemia secondary to acute kidney injury and NSAIDs. Improved. 6. Metabolic acidosis secondary to acute kidney injury and IV fluids. Improved. Plan: Maintain IV Lasix - 60 mg IV once daily Renal diet. Maintain Medina catheter. Monitor for renal recovery. Last dialysis November 22, 2023. Creatinine continue to improve off HD, if remains off HD over weekend will have Permcath removed.
[2023-11-25] MEDS: carvediloL 12.5 MG TAB PO SCH (13:30)
--- NOTE | 2023-11-25 13:59 | P.PN ---
Subjective Progress Note Date: 11/25/23 This is a 63-year-old male with a past medical history significant for hypertension, gout, alcohol use, nicotine dependence, and AAA repair. [facility] [place] 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 We have been asked to see the patient in consultation for elevated BNP and troponi n. Patient examined at the bedside. Patient states he got a fitbit watch and thought he was doing well from a cardiac standpoint so he stopped taking all of his cardiac medications. He reports he tripped and fell at home and laid on the floor for about 10 hours as he was unable to get up. Patient currently denies chest pain or pressure. He denies SOB. He reports increased lower extremity edema. Patients blood pressure was significantly elevated upon admission to the hospital. DIAGNOSTICS: - EKG reveals sinus mechanism with no signs of acute ischemia. - Chest xray right perihilar increased density persist which may reflect atelectasis and/or infiltrate. -CT of the brain: Negative for acute process - Laboratory data: WBC 7.0. Hemoglobin 14.8. Platelet count 169. Sodium 141. Potassium 5.2. BUN 41. Creatinine 2.29. Troponin 0.258. 0.256. 0.253. - Current home cardiac medications include none -Echocardiogram obtained revealing ejection fraction 35 to 40%, trace MR. -Previous echocardiogram from 2022 revealed ejection fraction 55 to 60% 11/17/2023 Patient examined this morning at the bedside. Patient denies chest pain or pressure. He denies shortness of breath. He remains on IV diuretics. Creatinine is stable today at 2.3. Patient's blood pressures remain elevated with a reading of 159/103 this morning. 11/18/2023 Creatinine slightly worse as compared to yesterday. Today 2.7 yesterday it was 2.3. Blood pressure still elevated. Patient's IV diuretics were held today. 11/19/2023 Creatinine is worse today. Creatinine is 3.5 today. Yesterday it was 2.7. Blood pressure ranging from 140s to 150s systolic. He was started on gentle hydration 50 cc/h by nephrology team. 11/19 Patient denies any new complaints today. Blood pressure 130/53, heart rate in the 70s, pulse ox 93% on 3 L nasal cannula. Repeat blood work reveals worsening renal function and may require hemodialysis. Repeat blood work reveals BUN 73 creatinine 4.75, potassium 5.6. Diuretics were discontinued yesterday. Patient is on IV fluids managed by nephrology. Chest x-ray reveals mild cardiomegaly with similar to increased interstitial and patchy mid to lower lung opacities. Trace right pleural effusion. Correlate for mild pulmonary vascular congestion. Bibasilar opacities could represent patchy pulmonary edema versus infiltrates. 11/20 Again today, patient is in worsening of renal function. BUN is 79 and creatinine 6.48. Potassium 5.4. Blood pressure is running between 103/61- 139/76. Pulse ox was 85% on room air this morning and now 92% on 2 L. Heart rate is running in the 80s and 90s. 11/21 Patient has started on hemodialysis receiving treatment at this time. No comp laints of shortness of breath. Blood pressure 187/93, heart rate 77, pulse ox 94% on 3 L nasal cannula. Repeat blood work ordered for tomorrow. 11/22 Patient states that he is feeling better today, energy is improved. Has minimal lower extremity edema. Patient has a negative fluid balance. Blood pressure 158/87, heart rate 78, pulse ox 95% on 3 L nasal cannula. Patient is scheduled for hemodialysis today. Repeat blood work reveals BUN 49, creatinine 3.26. 11/23 Patient has been on IV diuretics per nephrology and completed 2 hemodialysis treatments. He has been urinating well and Medina catheter in place. Patient denies having any chest pain or shortness of breath. Lower extremity edema is improved. Blood pressures have been elevated at 151/68, heart rate 91, pulse ox 92% on 2 L nasal cannula. Repeat blood work reveals sodium 140, potassium 4, BUN 49 creatinine 2.54. 11/25/23 Patient was seen and examined resting comfortably in bed. Labs this morning sh owed further improvement in the renal function. He is being followed by nephrology with plans for possible removal of the dialysis catheter depending on renal function tomorrow. He has good urine output with Medina catheter in place. Lower extremity edema continues to improve. Blood pressure remains elevated. Objective - Vital Signs Vital signs: Vital Signs Temp 98.1 F 11/25/23 07:45 Pulse 77 11/25/23 13:37 Resp 20 11/25/23 11:04 BP 167/94 11/25/23 11:04 Pulse Ox 94 L 11/25/23 11:04 FiO2 Intake & Output 11/24/23 11/25/23 11/25/23 18:59 06:59 18:59 Intake Total 540 480 Output Total 1550 300 700 Balance -1010 -300 -220 Weight 102 kg Intake: Oral 540 480 Output: Urine 1550 300 700 Other: Voiding Method Indwelling Catheter Indwelling Catheter Indwelling Catheter # Voids 1 # Bowel Movements 1 - Exam GENERAL: Well-developed in no acute distress. HEENT: Head is normocephalic. Pupils are equal, round. Sclerae anicteric. Mucous membranes of the mouth are moist. Neck supple. No JVD or thyromegaly LUNGS: Respirations even and unlabored. Lungs clear to auscultation bilaterally. HEART: Regular rate and rhythm. S1 and S2 heard. ABDOMEN: Soft. Nondistended. Nontender. EXTREMITIES: No clubbing or cyanosis. Peripheral pulses intact. Minimal lower extremity edema NEUROLOGIC: Awake and alert. - Labs CBC & Chem 7: 11/25/23 08:00 11/25/23 08:00 Labs: Abnormal Lab Results - Last 24 Hours (Table) 11/25/23 11/25/23 Range/Units 08:00 08:00 RBC 3.96 L (4.30-5.90) m/uL MCV 109.2 H (80.0-100.0) fL Macrocytosis Marked A Carbon Dioxide 31 H (22-30) mmol/L BUN 51 H (9-20) mg/dL Creatinine 2.23 H (0.66-1.25) mg/dL Glucose 178 H (74-99) mg/dL Assessment and Plan Assessment: Status post fall, patient laid on the floor for approximately 8-10 hours Acute kidney injury with worsening renal function New onset cardiomyopathy, EF 35 to 40%, ischemic versus nonischemic Medication noncompliance, patient stopped taking his blood pressure medications a month ago Acute heart failure with reduced EF, 35-40% Hypertension, uncontrolled History of alcohol abuse Nicotine dependence History of AAA repair History of gout Nicotine dependence Chronic hypoxic respiratory failure, on home o2 PRN Plan: From cardiology's perspective continue diuretics as ordered by nephrology. We will increase carvedilol to 12.5 mg p.o. twice daily. Continue to encourage smoking cessation and abstinence from alcohol. Patient will require further workup in regards to cardiomyopathy. Will continue to follow renal function and provide further recommendations accordingly. FUNCTIONAL ARCHITECT note has been reviewed, I agree with a documented findings and plan of care. Patient was seen and examined.
[2023-11-26 07:58] LABS: HCT 39.6 % (39.0-53.0); HGB 12.2 gm/dL (13.0-17.5); Hypochromasia Moderate; MCH 33.5 pg (25.0-35.0); MCHC 30.9 g/dL (31.0-37.0); MCV 108.6 fL (80.0-100.0); Macrocytosis Marked; Mean Platelet Volume 8.3; Platelet Count 219 k/uL (150-450); RBC 3.64 m/uL (4.30-5.90); RDW 14.4 % (11.5-15.5); WBC 8.4 k/uL (3.8-10.6)
[2023-11-26 08:06] LABS: African American GFR (CKD) 33 (>60 ml/min/1.73 sqM); Anion Gap 10 mmol/L; Blood Urea Nitrogen 53 mg/dL (9-20); Calcium 8.9 mg/dL (8.4-10.2); Carbon Dioxide 28 mmol/L (22-30); Chloride 101 mmol/L (98-107); Glucose 103 mg/dL (74-99); Non-African American GFR(CKD) 28 (>60 ml/min/1.73 sqM); Potassium 4.5 mmol/L (3.5-5.1); Sodium 139 mmol/L (137-145)
[2023-11-26] MEDS: hydrALAZINE HCL 20 MG/ML 1 ML VIAL IVP PRN (11:14)
--- NOTE | 2023-11-26 11:22 | P.PN ---
Subjective Progress Note Date: 11/26/23 Patient is seen in follow-up for acute kidney injury. Started on hemodialysis November 21, 2023 due to worsening renal function and oliguria. Completed second treatment of hemodialysis November 22, 2023. Nonoliguric. On IV Lasix. Urine output over 1.8 L in the last 24 hours. Has Medina catheter. Denies chest pain or shortness of breath. Bleeding around Permcath overnight and this morning. Vital signs are stable. General: No acute distress. HEENT: Head exam is unremarkable. LUNGS: No audible rhonchi or wheezes. HEART: Rate and Rhythm are regular. ABDOMEN: Nontender. EXTREMITITES: Trace edema. Objective - Vital Signs Vital signs: Vital Signs Temp 98.0 F 11/26/23 07:28 Pulse 76 11/26/23 07:28 Resp 20 11/26/23 07:28 BP 164/93 11/26/23 07:28 Pulse Ox 94 L 11/26/23 07:28 FiO2 Intake & Output 11/25/23 11/26/23 11/26/23 18:59 06:59 18:59 Intake Total 1380 Output Total 1200 600 Balance 180 -600 Weight 107.5 kg Intake: Oral 1380 Output: Urine 1200 600 Other: Voiding Method Indwelling Catheter Indwelling Catheter Indwelling Catheter - Labs CBC & Chem 7: 11/26/23 07:28 11/26/23 07:24 Labs: Abnormal Lab Results - Last 24 Hours (Table) 11/26/23 11/26/23 Range/Units 07:24 07:28 RBC 3.64 L (4.30-5.90) m/uL Hgb 12.2 L (13.0-17.5) gm/dL MCV 108.6 H (80.0-100.0) fL MCHC 30.9 L (31.0-37.0) g/dL Macrocytosis Marked A BUN 53 H (9-20) mg/dL Creatinine 2.36 H (0.66-1.25) mg/dL Glucose 103 H (74-99) mg/dL Assessment and Plan Plan: Assessment: 1. Acute kidney injury secondary to ATN secondary to cardiorenal syndrome and uncontrolled hypertension. Right kidney atrophic. No hydronephrosis. Trace protein on UA, no blood. Bladder scans have been negative. Now has [facility] catheter. Started on hemodialysis November 21, 2023 due to worsening renal function and oliguria. Has permacath. Last dialysis treatment was November 22, 2023. 2. Acute on chronic systolic CHF with ejection fraction of 35 to 40%. 3. Volume overload. Improved with diuresis and ultrafiltration. 4. Hypertension secondary to noncompliance with medications. 5. Hyperkalemia secondary to acute kidney injury and NSAIDs. Improved. 6. Metabolic acidosis secondary to acute kidney injury and IV fluids. Improved. Plan: Maintain IV Lasix - 60 mg IV once daily Renal diet. Maintain Medina catheter. Monitor for renal recovery. Last dialysis November 22, 2023. Creatinine stable good urine output, will have vascular remove Permcath.
--- NOTE | 2023-11-26 12:28 | P.PN ---
Subjective Progress Note Date: 11/26/23 This is a 63-year-old male with a past medical history significant for hypertension, gout, alcohol use, nicotine dependence, and AAA repair. [facility] [place] He does not follow with a dry roller. We have been asked to see the patient in consultation for elevated BNP and troponi n. Patient examined at the bedside. Patient states he got a fitbit watch and thought he was doing well from a cardiac standpoint so he stopped taking all of his cardiac medications. He reports he tripped and fell at home and laid on the floor for about 10 hours as he was unable to get up. Patient currently denies chest pain or pressure. He denies SOB. He reports increased lower extremity edema. Patients blood pressure was significantly elevated upon admission to the hospital. DIAGNOSTICS: - EKG reveals sinus mechanism with no signs of acute ischemia. - Chest xray right perihilar increased density persist which may reflect atelectasis and/or infiltrate. -CT of the brain: Negative for acute process - Laboratory data: WBC 7.0. Hemoglobin 14.8. Platelet count 169. Sodium 141. Potassium 5.2. BUN 41. Creatinine 2.29. Troponin 0.258. 0.256. 0.253. - Current home cardiac medications include none -Echocardiogram obtained revealing ejection fraction 35 to 40%, trace MR. -Previous echocardiogram from 2022 revealed ejection fraction 55 to 60% 11/17/2023 Patient examined this morning at the bedside. Patient denies chest pain or pressure. He denies shortness of breath. He remains on IV diuretics. Creatinine is stable today at 2.3. Patient's blood pressures remain elevated with a reading of 159/103 this morning. 11/18/2023 Creatinine slightly worse as compared to yesterday. Today 2.7 yesterday it was 2.3. Blood pressure still elevated. Patient's IV diuretics were held today. 11/19/2023 Creatinine is worse today. Creatinine is 3.5 today. Yesterday it was 2.7. Blood pressure ranging from 140s to 150s systolic. He was started on gentle hydration 50 cc/h by nephrology team. 11/19 Patient denies any new complaints today. Blood pressure 130/53, heart rate in the 70s, pulse ox 93% on 3 L nasal cannula. Repeat blood work reveals worsening renal function and may require hemodialysis. Repeat blood work reveals BUN 73 creatinine 4.75, potassium 5.6. Diuretics were discontinued yesterday. Patient is on IV fluids managed by nephrology. Chest x-ray reveals mild cardiomegaly with similar to increased interstitial and patchy mid to lower lung opacities. Trace right pleural effusion. Correlate for mild pulmonary vascular congestion. Bibasilar opacities could represent patchy pulmonary edema versus infiltrates. 11/20 Again today, patient is in worsening of renal function. BUN is 79 and creatinine 6.48. Potassium 5.4. Blood pressure is running between 103/61- 139/76. Pulse ox was 85% on room air this morning and now 92% on 2 L. Heart rate is running in the 80s and 90s. 11/21 Patient has started on hemodialysis receiving treatment at this time. No comp laints of shortness of breath. Blood pressure 187/93, heart rate 77, pulse ox 94% on 3 L nasal cannula. Repeat blood work ordered for tomorrow. 11/22 Patient states that he is feeling better today, energy is improved. Has minimal lower extremity edema. Patient has a negative fluid balance. Blood pressure 158/87, heart rate 78, pulse ox 95% on 3 L nasal cannula. Patient is scheduled for hemodialysis today. Repeat blood work reveals BUN 49, creatinine 3.26. 11/23 Patient has been on IV diuretics per nephrology and completed 2 hemodialysis treatments. He has been urinating well and Medina catheter in place. Patient denies having any chest pain or shortness of breath. Lower extremity edema is improved. Blood pressures have been elevated at 151/68, heart rate 91, pulse ox 92% on 2 L nasal cannula. Repeat blood work reveals sodium 140, potassium 4, BUN 49 creatinine 2.54. 11/25/23 Patient was seen and examined resting comfortably in bed. Labs this morning sh owed further improvement in the renal function. He is being followed by nephrology with plans for possible removal of the dialysis catheter depending on renal function tomorrow. He has good urine output with Medina catheter in place. Lower extremity edema continues to improve. Blood pressure remains elevated. 11/26/2023 Patient was seen and examined sitting up in a chair. Patient developed some bleeding from the hemodialysis catheter site through the night. Dr. Medina has been made aware. Renal function has remained stable. He is anticipating dialysis catheter to be discontinued tomorrow. Blood pressure remains elevated. Objective - Vital Signs Vital signs: Vital Signs Temp 98.0 F 11/26/23 07:28 Pulse 75 11/26/23 11:17 Resp 20 11/26/23 11:17 BP 165/95 11/26/23 11:17 Pulse Ox 95 11/26/23 11:17 FiO2 Intake & Output 11/25/23 11/26/23 11/26/23 18:59 06:59 18:59 Intake Total 1380 Output Total 1200 600 600 Balance 180 -600 -600 Weight 107.5 kg Intake: Oral 1380 Output: Urine 1200 600 600 Other: Voiding Method Indwelling Catheter Indwelling Catheter Indwelling Catheter - Exam GENERAL: Well-developed in no acute distress. HEENT: Head is normocephalic. Pupils are equal, round. Sclerae anicteric. Mucous membranes of the mouth are moist. Neck supple. No JVD or thyromegaly LUNGS: Respirations even and unlabored. Lungs clear to auscultation bilaterally. HEART: Regular rate and rhythm. S1 and S2 heard. ABDOMEN: Soft. Nondistended. Nontender. EXTREMITIES: No clubbing or cyanosis. Peripheral pulses intact. Minimal lower extremity edema NEUROLOGIC: Awake and alert. - Labs CBC & Chem 7: 11/26/23 07:28 11/26/23 07:24 Labs: Abnormal Lab Results - Last 24 Hours (Table) 11/26/23 11/26/23 Range/Units 07:24 07:28 RBC 3.64 L (4.30-5.90) m/uL Hgb 12.2 L (13.0-17.5) gm/dL MCV 108.6 H (80.0-100.0) fL MCHC 30.9 L (31.0-37.0) g/dL Macrocytosis Marked A BUN 53 H (9-20) mg/dL Creatinine 2.36 H (0.66-1.25) mg/dL Glucose 103 H (74-99) mg/dL Assessment and Plan Assessment: Status post fall, patient laid on the floor for approximately 8-10 hours Acute kidney injury with worsening renal function New onset cardiomyopathy, EF 35 to 40%, ischemic versus nonischemic Medication noncompliance, patient stopped taking his blood pressure medications a month ago Acute heart failure with reduced EF, 35-40% Hypertension, uncontrolled History of alcohol abuse Nicotine dependence History of AAA repair History of gout Nicotine dependence Chronic hypoxic respiratory failure, on home o2 PRN Plan: From cardiology's perspective continue diuretics as ordered by nephrology. We will increase hydralazine to 100 mg p.o. 3 times daily. Continue to encourage smoking cessation and abstinence from alcohol. Patient will require further workup in regards to cardiomyopathy. Will continue to follow renal function and provide further recommendations accordingly. FREIGHT CAR CLEANER note has been reviewed, I agree with a documented findings and plan of care. Patient was seen and examined.
[2023-11-26] MEDS: hydrALAZINE HCL 50 MG TAB PO SCH (15:48)
[2023-11-26 17:23] LABS: HCT 39.8 % (39.0-53.0); HGB 12.3 gm/dL (13.0-17.5); Hypochromasia Slight; MCH 33.1 pg (25.0-35.0); MCHC 30.8 g/dL (31.0-37.0); MCV 107.4 fL (80.0-100.0); Macrocytosis Moderate; Mean Platelet Volume 9.6; Platelet Count 239 k/uL (150-450); RDW 14.4 % (11.5-15.5); WBC 8.6 k/uL (3.8-10.6)
[2023-11-26] MEDS: LIDOCAINE 2% INJ 20 MG/ML (20 ML MDV) SQ STA (22:20)
[2023-11-26] MEDS: LIDOCAINE 1% INJ 10MG/ML (20 ML MDV) SQ ONE (22:50)
--- NOTE | 2023-11-26 23:19 | OP ---
OPERATIVE REPORT DATE OF SERVICE : PROCEDURE: Removal of dialysis catheter, right jugular approach. DESCRIPTION OF PROCEDURE: This patient has history of chronic renal failure. The patient had a dialysis catheter placed. The patient has some bleeding from the exit site of catheter. The patient does not need more dialysis at this point. 1% lidocaine plain infiltrated site of the catheter. Stitches were removed and the catheter was removed and a pursestring suture applied at the exit site of catheter. Pressures were held. Pressure dressing applied at this point, no active bleeding was noted. Most likely, it was a tunnel bleed. Dressing applied. The patient tolerated the procedure well. MMODL / IJN: [id number] /
--- NOTE | 2023-11-26 23:40 | PN ---
PROGRESS NOTE DATE OF SERVICE: 11/23/2023 CHIEF COMPLAINT: Acute renal failure, congestive heart failure. HISTORY OF PRESENT ILLNESS: This gentleman is slowly improving. He is a little bit more awake and alert and BUN and creatinine are coming down very slowly. PHYSICAL EXAMINATION: CHEST: Demonstrates decreased breath sounds. CARDIAC: Normal. ABDOMEN: Protuberant, soft and nontender. IMPRESSION: 1. Acute congestive heart failure. 2. Acute renal failure. 3. Alcoholism. PLAN: Continue to monitor his kidney function, which is slowly improving. MMODL / IJN: [id number] /
--- NOTE | 2023-11-26 23:49 | PN ---
PROGRESS NOTE DATE OF SERVICE: 11/24/2023 CHIEF COMPLAINT: Acute congestive heart failure and renal failure. HISTORY OF PRESENT ILLNESS: This gentleman is improving. He has been started on dialysis. PHYSICAL EXAMINATION: GENERAL: He is awake and alert and oriented. He is not complaining of any chest pain or shortness of breath. CHEST: Breath sounds are heard bilaterally with no significant rales or rhonchi. CARDIAC: Sinus. ABDOMEN: Protuberant, soft and nontender. IMPRESSION: 1. Acute congestive heart failure. 2. Acute kidney injury. 3. History of alcoholism. PLAN: Continue with dialysis and monitor his renal function, which does seem to be slowly improving. MMODL / IJN: [id number] /
--- NOTE | 2023-11-27 05:43 | PN ---
PROGRESS NOTE DATE OF SERVICE: 11/25/2023 CHIEF COMPLAINT: Congestive heart failure, and renal failure. HISTORY OF PRESENT ILLNESS: This gentleman is improving. His kidney function is slowly getting better. He continues with dialysis. PHYSICAL EXAMINATION: CHEST: Clear. CARDIAC: Normal. ABDOMEN: Soft, nontender. IMPRESSION: 1. Acute kidney injury. 2. Acute congestive heart failure. PLAN: Continue with current management program as he is improving. MMODL / IJN: [id number] /
--- NOTE | 2023-11-27 06:04 | PN ---
PROGRESS NOTE DATE OF SERVICE: 11/26/2023 CHIEF COMPLAINT: Acute kidney injury and congestive heart failure. HISTORY OF PRESENT ILLNESS: This gentleman is doing well, but he has had a problem of bleeding from the dialysis catheter in the right upper anterior chest. He is no longer being dialyzed, so the catheter will be removed by Surgery. PHYSICAL EXAMINATION: CHEST: Clear. CARDIAC: Normal. ABDOMEN: Soft, nontender. IMPRESSION: 1. Bleeding from dialysis catheter site. 2. Acute kidney injury-improving. 3. Congestive heart failure. 4. Alcoholism. PLAN: Remove dialysis catheter and continue to monitor his cardiac and renal function with hopes of being discharged soon. MMODL / IJN: [id number] /
[2023-11-27 07:58] LABS: HCT 39.1 % (39.0-53.0); HGB 12.1 gm/dL (13.0-17.5); Hypochromasia Slight; MCH 33.5 pg (25.0-35.0); MCHC 30.9 g/dL (31.0-37.0); MCV 108.6 fL (80.0-100.0); Macrocytosis Marked; Mean Platelet Volume 8.6; Platelet Count 239 k/uL (150-450); RDW 14.3 % (11.5-15.5); WBC 8.4 k/uL (3.8-10.6)
[2023-11-27 08:18] LABS: Chloride 101 mmol/L (98-107)
[2023-11-27 08:20] LABS: African American GFR (CKD) 37 (>60 ml/min/1.73 sqM); Anion Gap 8 mmol/L; Blood Urea Nitrogen 55 mg/dL (9-20); Carbon Dioxide 29 mmol/L (22-30); Glucose 112 mg/dL (74-99); Non-African American GFR(CKD) 32 (>60 ml/min/1.73 sqM); Potassium 4.8 mmol/L (3.5-5.1); Sodium 138 mmol/L (137-145)
[2023-11-27] MEDS: carvediloL 12.5 MG TAB PO SCH (10:11)
--- NOTE | 2023-11-27 11:19 | P.PN ---
Subjective HISTORY OF PRESENT ILLNESS: This is a 63-year-old male with a past medical history significant for hypertension, gout, alcohol use, nicotine dependence, and AAA repair. [facility] [place] 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 We have been asked to see the patient in consultation for elevated BNP and troponin. Patient examined at the bedside. Patient states he got a fitbit watch and thought he was doing well from a cardiac standpoint so he stopped taking all of his cardiac medications. He reports he tripped and fell at home and laid on the floor for about 10 hours as he was unable to get up. Patient currently de nies chest pain or pressure. He denies SOB. He reports increased lower extremity edema. Patients blood pressure was significantly elevated upon admission to the hospital. DIAGNOSTICS: - EKG reveals sinus mechanism with no signs of acute ischemia. - Chest xray right perihilar increased density persist which may reflect atelectasis and/or infiltrate. -CT of the brain: Negative for acute process - Laboratory data: WBC 7.0. Hemoglobin 14.8. Platelet count 169. Sodium 141. Potassium 5.2. BUN 41. Creatinine 2.29. Troponin 0.258. 0.256. 0.253. - Current home cardiac medications include none -Echocardiogram obtained revealing ejection fraction 35 to 40%, trace MR. -Previous echocardiogram from 2022 revealed ejection fraction 55 to 60% 11/17/2023 Patient examined this morning at the bedside. Patient denies chest pain or pressure. He denies shortness of breath. He remains on IV diuretics. Creatinine is stable today at 2.3. Patient's blood pressures remain elevated with a reading of 159/103 this morning. 11/18/2023 Creatinine slightly worse as compared to yesterday. Today 2.7 yesterday it was 2.3. Blood pressure still elevated. Patient's IV diuretics were held today. 11/19/2023 Creatinine is worse today. Creatinine is 3.5 today. Yesterday it was 2.7. Blood pressure ranging from 140s to 150s systolic. He was started on gentle hydration 50 cc/h by nephrology team. 11/19 Patient denies any new complaints today. Blood pressure 130/53, heart rate in the 70s, pulse ox 93% on 3 L nasal cannula. Repeat blood work reveals worsening renal function and may require hemodialysis. Repeat blood work reveals BUN 73 creatinine 4.75, potassium 5.6. Diuretics were discontinued yesterday. Patient is on IV fluids managed by nephrology. Chest x-ray reveals mild cardiomegaly w ith similar to increased interstitial and patchy mid to lower lung opacities. Trace right pleural effusion. Correlate for mild pulmonary vascular congestion. Bibasilar opacities could represent patchy pulmonary edema versus infiltrates. 11/20 Again today, patient is in worsening of renal function. BUN is 79 and creatinine 6.48. Potassium 5.4. Blood pressure is running between 103/61- 139/76. Pulse ox was 85% on room air this morning and now 92% on 2 L. Heart rate is running in the 80s and 90s. 11/21 Patient has started on hemodialysis receiving treatment at this time. No complaints of shortness of breath. Blood pressure 187/93, heart rate 77, pulse ox 94% on 3 L nasal cannula. Repeat blood work ordered for tomorrow. 11/22 Patient states that he is feeling better today, energy is improved. Has minimal lower extremity edema. Patient has a negative fluid balance. Blood pressure 158/87, heart rate 78, pulse ox 95% on 3 L nasal cannula. Patient is scheduled for hemodialysis today. Repeat blood work reveals BUN 49, creatinine 3.26. 11/23 Patient has been on IV diuretics per nephrology and completed 2 hemodialysis treatments. He has been urinating well and Medina catheter in place. Patient denies having any chest pain or shortness of breath. Lower extremity edema is improved. Blood pressures have been elevated at 151/68, heart rate 91, pulse ox 92% on 2 L nasal cannula. Repeat blood work reveals sodium 140, potassium 4, BUN 49 creatinine 2.54. 11/25/23 Patient was seen and examined resting comfortably in bed. Labs this morning showed further improvement in the renal function. He is being followed by nephrology with plans for possible removal of the dialysis catheter depending on renal function tomorrow. He has good urine output with Medina catheter in place. Lower extremity edema continues to improve. Blood pressure remains elevated. 11/26/2023 Patient was seen and examined sitting up in a chair. Patient developed some bleeding from the hemodialysis catheter site through the night. Dr. Medina has been made aware. Renal function has remained stable. He is anticipating dialysis catheter to be discontinued tomorrow. Blood pressure remains elevated. 11/27/2023 Patient examined this morning at the bedside. Patient denies chest pain or pressure. He denies shortness of breath. Vital signs are stable. He remains on IV Lasix per nephrology. Patient is anxious to be discharged home today. After morning rounds, cardiology was made aware by nursing staff that the patient went into A-fib with RVR. The patient denies having a history of atrial fibrillation. He remains in atrial fibrillation with a heart rate in the low 100s. PHYSICAL EXAM: VITAL SIGNS: Reviewed. GENERAL: Well-developed in no acute distress. HEENT: Head is normocephalic. Pupils are equal, round. Sclerae anicteric. Mucous membranes of the mouth are moist. Neck supple. No JVD or thyromegaly LUNGS: Respirations even and unlabored. Lungs essentially clear to auscultation bilaterally. HEART: Tachycardic. Irregular rate and rhythm. S1 and S2 heard. ABDOMEN: Soft. Nondistended. Nontender. EXTREMITIES: Normal range of motion. No clubbing or cyanosis. Peripheral pulses intact. Minimal lower extremity edema NEUROLOGIC: Awake and alert. Oriented x 3. ASSESSMENT: Status post fall, patient laid on the floor for approximately 8-10 hours Acute kidney injury with worsening renal function, status post hemodialysis New onset cardiomyopathy, EF 35 to 40%, ischemic versus nonischemic Medication noncompliance, patient stopped taking his blood pressure medications a month ago Acute heart failure with reduced EF, 35-40% Hypertension, uncontrolled History of alcohol abuse Nicotine dependence History of AAA repair History of gout Nicotine dependence Chronic hypoxic respiratory failure, on home o2 PRN New onset atrial fibrillation with RVR PLAN: Continue current cardiac medications Continue IV diuretics per nephrology Increase carvedilol to 25 mg twice a day for optimal blood pressure and heart rate control Begin IV heparin. Will transition to oral anticoagulation tomorrow Check TSH Patient would benefit from KELLI/ARB when kidney function improves Smoking cessation recommended Abstinence from alcohol encouraged Patient will need eventual outpatient ischemic workup due to new onset cardiomyopathy Further recommendations pending patient course Nurse practitioner note has been reviewed by physician. Signing provider agrees with the documented findings, assessment, and plan of care documented by SENIOR DESIGNER/ART DIRECTOR as a scribe. Objective - Vital Signs Vital signs: Vital Signs Temp 98.4 F 11/27/23 08:06 Pulse 79 11/27/23 08:08 Resp 18 11/27/23 08:08 BP 165/87 11/27/23 08:06 Pulse Ox 95 11/27/23 08:06 FiO2 Intake & Output 11/26/23 11/27/23 11/27/23 18:59 06:59 18:59 Intake Total 180 Output Total 1500 551 Balance -1500 -551 180 Weight 104 kg Intake: Oral 180 Output: Urine 1500 550 Stool 1 Other: Voiding Method Indwelling Catheter Indwelling Catheter Indwelling Catheter - Labs CBC & Chem 7: 11/27/23 06:57 11/27/23 06:57 Labs: Abnormal Lab Results - Last 24 Hours (Table) 11/26/23 11/27/23 11/27/23 Range/Units 17:12 06:57 06:57 RBC 3.70 L 3.60 L (4.30-5.90) m/uL Hgb 12.3 L 12.1 L (13.0-17.5) gm/dL MCV 107.4 H 108.6 H (80.0-100.0) fL MCHC 30.8 L 30.9 L (31.0-37.0) g/dL Macrocytosis Marked A BUN 55 H (9-20) mg/dL Creatinine 2.14 H (0.66-1.25) mg/dL Glucose 112 H (74-99) mg/dL
--- NOTE | 2023-11-27 11:20 | P.PN ---
Subjective Patient is seen for follow-up for acute kidney injury. Status post temporary hemodialysis for ATN. Renal function has improved and dialysis catheter has been removed. Good urine output No significant complaints today. Maintained on IV Lasix 60 mg daily. Objective - Vital Signs Vital signs: Vital Signs Temp 98.4 F 11/27/23 08:06 Pulse 79 11/27/23 08:08 Resp 18 11/27/23 08:08 BP 165/87 11/27/23 08:06 Pulse Ox 95 11/27/23 08:06 FiO2 Intake & Output 11/26/23 11/27/23 11/27/23 18:59 06:59 18:59 Intake Total 180 Output Total 1500 551 Balance -1500 -551 180 Weight 104 kg Intake: Oral 180 Output: Urine 1500 550 Stool 1 Other: Voiding Method Indwelling Catheter Indwelling Catheter Indwelling Catheter - Exam Patient is awake, comfortable, no acute distress. Examination of the heart S1 and S2 Examination of the lungs bilateral breath sounds are heard Abdomen is soft nontender Examination of lower extremity shows trace edema FOOD SERVICE TEAM MEMBER exam grossly intact - Labs CBC & Chem 7: 11/27/23 06:57 11/27/23 06:57 Labs: Abnormal Lab Results - Last 24 Hours (Table) 11/26/23 11/27/23 11/27/23 Range/Units 17:12 06:57 06:57 RBC 3.70 L 3.60 L (4.30-5.90) m/uL Hgb 12.3 L 12.1 L (13.0-17.5) gm/dL MCV 107.4 H 108.6 H (80.0-100.0) fL MCHC 30.8 L 30.9 L (31.0-37.0) g/dL Macrocytosis Marked A BUN 55 H (9-20) mg/dL Creatinine 2.14 H (0.66-1.25) mg/dL Glucose 112 H (74-99) mg/dL Assessment and Plan Assessment: 1. Acute kidney injury, ATN, cardiorenal syndrome. Status post temporary hemodialysis. Renal function has improved and dialysis catheter has been removed. . UA shows trace protein 17 WBCs no blood. Ultrasound shows right renal atrophy with right kidney at about 7 cm. 2. Hypertension uncontrolled secondary to patient having stopped medications prior to admission. 3. Hyperkalemia associated with acute kidney injury 4. Status post fall with no rhabdomyolysis 5. Metabolic acidosis secondary to acute kidney injury, improved Plan: Okay for discharge from nephrology standpoint. Add amlodipine if blood pressure remains uncontrolled. Patient will need follow-up as outpatient for possible chronic kidney disease and acute kidney injury.
[2023-11-27] MEDS: HEPARIN SOD,PORK IN 0.45% NACL 25,000 UNIT in 0.45% NACL 1 250ML.BAG IV SCH (12:17)
[2023-11-27 12:18] LABS: Basophils % (A) 1 %; Eosinophils # (A) 0.3 k/uL (0-0.7); Eosinophils % (A) 4 %; HCT 39.6 % (39.0-53.0); HGB 12.2 gm/dL (13.0-17.5); Hypochromasia Slight; Lymphocytes # (A) 0.5 k/uL (1.0-4.8); Lymphocytes % (A) 7 %; MCH 33.3 pg (25.0-35.0); MCHC 30.9 g/dL (31.0-37.0); MCV 107.7 fL (80.0-100.0); Macrocytosis Moderate; Mean Platelet Volume 8.8; Monocytes # (A) 0.5 k/uL (0-1.0); Monocytes % (A) 7 %; Neutrophils # (A) 6.6 k/uL (1.3-7.7); Neutrophils % (A) 81 %; Platelet Count 205 k/uL (150-450); RBC 3.68 m/uL (4.30-5.90); RDW 14.1 % (11.5-15.5); WBC 8.1 k/uL (3.8-10.6)
[2023-11-27] MEDS: HEPARIN SODIUM 1,000 UN/ML (10ML VL) IV ONE (12:19)
[2023-11-27 12:38] LABS: Prothrombin Time 11.3 sec (10.0-12.5)
[2023-11-27] MEDS: ACETAMINOPHEN TAB 325 MG TAB PO PRN (23:12)
--- NOTE | 2023-11-27 23:55 | PN ---
PROGRESS NOTE DATE OF SERVICE: 11/27/2023 CHIEF COMPLAINT: Acute congestive heart failure and chronic renal failure. HISTORY OF PRESENT ILLNESS: This gentleman is slowly improving. Dialysis catheter is removed and he is not having any bleeding. PHYSICAL EXAMINATION: GENERAL: He is awake and alert. VITAL SIGNS: Normal. CHEST: Clear. CARDIAC: Normal. ABDOMEN: Protuberant, soft and nontender. IMPRESSION: 1. Acute congestive heart failure. 2. Acute renal failure. 3. History of alcoholism. 4. Cirrhosis. PLAN: Continue to monitor his renal function as this is only very slowly improving. He probably could go home soon and be followed as an outpatient. MMODL / IJN: [id number] /
[2023-11-28] MEDS: HEPARIN SODIUM 1,000 UN/ML (10ML VL) IV PRN (01:22)
[2023-11-28 09:48] LABS: Basophils # (A) 0.1 k/uL (0-0.2); Basophils % (A) 1 %; Eosinophils # (A) 0.2 k/uL (0-0.7); Eosinophils % (A) 3 %; HCT 36.8 % (39.0-53.0); HGB 11.2 gm/dL (13.0-17.5); Hypochromasia Moderate; Lymphocytes # (A) 0.7 k/uL (1.0-4.8); Lymphocytes % (A) 11 %; MCH 33.1 pg (25.0-35.0); MCHC 30.4 g/dL (31.0-37.0); Macrocytosis Marked; Mean Platelet Volume 8.3; Monocytes # (A) 0.4 k/uL (0-1.0); Monocytes % (A) 5 %; Neutrophils # (A) 5.1 k/uL (1.3-7.7); Neutrophils % (A) 78 %; Platelet Count 231 k/uL (150-450); RBC 3.37 m/uL (4.30-5.90); RDW 14.1 % (11.5-15.5); WBC 6.5 k/uL (3.8-10.6)
[2023-11-28 09:55] LABS: Prothrombin Time 11.3 sec (10.0-12.5)
--- NOTE | 2023-11-28 11:45 | P.PN ---
Subjective Patient is seen for follow-up for acute kidney injury. Status post temporary hemodialysis for ATN. Renal function has improved and dialysis catheter has been removed. Good urine output No significant complaints today. Maintained on IV Lasix 60 mg daily. Objective - Vital Signs Vital signs: Vital Signs Temp 98 F 11/28/23 11:40 Pulse 72 11/28/23 11:40 Resp 14 11/28/23 11:40 BP 141/76 11/28/23 11:40 Pulse Ox 97 11/28/23 11:40 FiO2 Intake & Output 11/27/23 11/28/23 11/28/23 18:59 06:59 18:59 Intake Total 424.733 159.021 537 Output Total 1900 400 Balance -1475.267 -240.979 537 Weight 102.8 kg Intake: Intake, IV Titration 64.733 159.021 57 Amount Heparin Sod,Pork in 0.45% 64.733 159.021 57 NaCl 25,000 unit In 0.45 % NaCl 1 250ml.bag @ 9. 615 UNITS/KG/HR 10 mls/hr IV .Q24H [facility] Rx#: [id number] Oral 360 480 Output: Urine 1900 400 Other: Voiding Method Indwelling Catheter Indwelling Catheter Indwelling Catheter # Bowel Movements 1 - Exam Patient is awake, comfortable, no acute distress. Examination of the heart S1 and S2 Examination of the lungs bilateral breath sounds are heard Abdomen is soft nontender Examination of lower extremity shows trace edema SOCIAL MEDIA CONTENT SPECIALIST exam grossly intact - Labs CBC & Chem 7: 11/28/23 08:59 11/27/23 06:57 Labs: Abnormal Lab Results - Last 24 Hours (Table) 11/27/23 11/27/23 11/28/23 Range/Units 11:52 17:06 00:33 RBC 3.68 L (4.30-5.90) m/uL Hgb 12.2 L (13.0-17.5) gm/dL Hct (39.0-53.0) % MCV 107.7 H (80.0-100.0) fL MCHC 30.9 L (31.0-37.0) g/dL Lymphocytes # 0.5 L (1.0-4.8) k/uL Macrocytosis APTT 35.9 H 34.7 H (22.0-30.0) sec 11/28/23 11/28/23 Range/Units 08:59 09:00 RBC 3.37 L (4.30-5.90) m/uL Hgb 11.2 L (13.0-17.5) gm/dL Hct 36.8 L (39.0-53.0) % MCV 109.0 H (80.0-100.0) fL MCHC 30.4 L (31.0-37.0) g/dL Lymphocytes # 0.7 L (1.0-4.8) k/uL Macrocytosis Marked A APTT 43.6 H (22.0-30.0) sec Assessment and Plan Assessment: 1. Acute kidney injury, ATN, cardiorenal syndrome. Status post temporary hemodialysis. Renal function has improved and dialysis catheter has been removed. . UA shows trace protein 17 WBCs no blood. Ultrasound shows right renal atrophy with right kidney at about 7 cm. 2. Hypertension uncontrolled secondary to patient having stopped medications prior to admission. 3. Hyperkalemia associated with acute kidney injury 4. Status post fall with no rhabdomyolysis 5. Metabolic acidosis secondary to acute kidney injury, improved Plan: Okay for discharge from nephrology standpoint. Switch to oral Lasix 60 mg daily upon discharge Patient will need follow-up as outpatient for possible chronic kidney disease and acute kidney injury.
[2023-11-28] MEDS: APIXABAN 5 MG TAB PO SCH (11:56)
--- NOTE | 2023-11-28 13:01 | P.PN ---
Subjective HISTORY OF PRESENT ILLNESS: This is a 63-year-old male with a past medical history significant for hypertension, gout, alcohol use, nicotine dependence, and AAA repair. [facility] [place] 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 We have been asked to see the patient in consultation for elevated BNP and troponin. Patient examined at the bedside. Patient states he got a fitbit watch and thought he was doing well from a cardiac standpoint so he stopped taking all of his cardiac medications. He reports he tripped and fell at home and laid on the floor for about 10 hours as he was unable to get up. Patient currently de nies chest pain or pressure. He denies SOB. He reports increased lower extremity edema. Patients blood pressure was significantly elevated upon admission to the hospital. DIAGNOSTICS: - EKG reveals sinus mechanism with no signs of acute ischemia. - Chest xray right perihilar increased density persist which may reflect atelectasis and/or infiltrate. -CT of the brain: Negative for acute process - Laboratory data: WBC 7.0. Hemoglobin 14.8. Platelet count 169. Sodium 141. Potassium 5.2. BUN 41. Creatinine 2.29. Troponin 0.258. 0.256. 0.253. - Current home cardiac medications include none -Echocardiogram obtained revealing ejection fraction 35 to 40%, trace MR. -Previous echocardiogram from 2022 revealed ejection fraction 55 to 60% 11/17/2023 Patient examined this morning at the bedside. Patient denies chest pain or pressure. He denies shortness of breath. He remains on IV diuretics. Creatinine is stable today at 2.3. Patient's blood pressures remain elevated with a reading of 159/103 this morning. 11/18/2023 Creatinine slightly worse as compared to yesterday. Today 2.7 yesterday it was 2.3. Blood pressure still elevated. Patient's IV diuretics were held today. 11/19/2023 Creatinine is worse today. Creatinine is 3.5 today. Yesterday it was 2.7. Blood pressure ranging from 140s to 150s systolic. He was started on gentle hydration 50 cc/h by nephrology team. 11/19 Patient denies any new complaints today. Blood pressure 130/53, heart rate in the 70s, pulse ox 93% on 3 L nasal cannula. Repeat blood work reveals worsening renal function and may require hemodialysis. Repeat blood work reveals BUN 73 creatinine 4.75, potassium 5.6. Diuretics were discontinued yesterday. Patient is on IV fluids managed by nephrology. Chest x-ray reveals mild cardiomegaly w ith similar to increased interstitial and patchy mid to lower lung opacities. Trace right pleural effusion. Correlate for mild pulmonary vascular congestion. Bibasilar opacities could represent patchy pulmonary edema versus infiltrates. 11/20 Again today, patient is in worsening of renal function. BUN is 79 and creatinine 6.48. Potassium 5.4. Blood pressure is running between 103/61- 139/76. Pulse ox was 85% on room air this morning and now 92% on 2 L. Heart rate is running in the 80s and 90s. 11/21 Patient has started on hemodialysis receiving treatment at this time. No complaints of shortness of breath. Blood pressure 187/93, heart rate 77, pulse ox 94% on 3 L nasal cannula. Repeat blood work ordered for tomorrow. 11/22 Patient states that he is feeling better today, energy is improved. Has minimal lower extremity edema. Patient has a negative fluid balance. Blood pressure 158/87, heart rate 78, pulse ox 95% on 3 L nasal cannula. Patient is scheduled for hemodialysis today. Repeat blood work reveals BUN 49, creatinine 3.26. 11/23 Patient has been on IV diuretics per nephrology and completed 2 hemodialysis treatments. He has been urinating well and Medina catheter in place. Patient denies having any chest pain or shortness of breath. Lower extremity edema is improved. Blood pressures have been elevated at 151/68, heart rate 91, pulse ox 92% on 2 L nasal cannula. Repeat blood work reveals sodium 140, potassium 4, BUN 49 creatinine 2.54. 11/25/23 Patient was seen and examined resting comfortably in bed. Labs this morning showed further improvement in the renal function. He is being followed by nephrology with plans for possible removal of the dialysis catheter depending on renal function tomorrow. He has good urine output with Medina catheter in place. Lower extremity edema continues to improve. Blood pressure remains elevated. 11/26/2023 Patient was seen and examined sitting up in a chair. Patient developed some bleeding from the hemodialysis catheter site through the night. Dr. Medina has been made aware. Renal function has remained stable. He is anticipating dialysis catheter to be discontinued tomorrow. Blood pressure remains elevated. 11/27/2023 Patient examined this morning at the bedside. Patient denies chest pain or pressure. He denies shortness of breath. Vital signs are stable. He remains on IV Lasix per nephrology. Patient is anxious to be discharged home today. After morning rounds, cardiology was made aware by nursing staff that the patient went into A-fib with RVR. The patient denies having a history of atrial fibrillation. He remains in atrial fibrillation with a heart rate in the low 100s. 11/28/2023 Patient examined this morning at the bedside. Patient denies chest pain or pres sure. He denies shortness of breath. Patient went into A-fib with RVR yesterday and was started on IV heparin. He has since converted to sinus mechanism and is maintaining sinus mechanism this morning. He remains on IV Lasix per nephrology. Vital signs are stable. PHYSICAL EXAM: VITAL SIGNS: Reviewed. GENERAL: Well-developed in no acute distress. HEENT: Head is normocephalic. Pupils are equal, round. Sclerae anicteric. Mucous membranes of the mouth are moist. Neck supple. No JVD or thyromegaly LUNGS: Respirations even and unlabored. Lungs essentially clear to auscultation bilaterally. HEART: Regular rate and rhythm. S1 and S2 heard. ABDOMEN: Soft. Nondistended. Nontender. EXTREMITIES: Normal range of motion. No clubbing or cyanosis. Peripheral pulses intact. Minimal lower extremity edema NEUROLOGIC: Awake and alert. Oriented x 3. ASSESSMENT: Status post fall, patient laid on the floor for approximately 8-10 hours Acute kidney injury with worsening renal function, status post hemodialysis New onset cardiomyopathy, EF 35 to 40%, ischemic versus nonischemic Medication noncompliance, patient stopped taking his blood pressure medications a month ago Acute heart failure with reduced EF, 35-40% Hypertension, uncontrolled History of alcohol abuse Nicotine dependence History of AAA repair History of gout Nicotine dependence Chronic hypoxic respiratory failure, on home o2 PRN New onset paroxysmal atrial fibrillation with RVR, currently maintaining sinus mechanism PLAN: Continue current cardiac medications Continue IV diuretics per nephrology Discontinue IV heparin. Begin Eliquis 5 mg twice a day Discontinue aspirin Patient would benefit from KELLI/ARB when kidney function improves Smoking cessation recommended Abstinence from alcohol encouraged Patient will need eventual outpatient ischemic workup due to new onset cardiomyopathy Patient is stable for discharge home today from a cardiac standpoint Further recommendations pending patient course Nurse practitioner note has been reviewed by physician. Signing provider agrees with the documented findings, assessment, and plan of care documented by TUBE COREMAKER as a scribe. Objective - Vital Signs Vital signs: Vital Signs Temp 97.9 F 11/28/23 08:00 Pulse 69 11/28/23 08:00 Resp 14 11/28/23 08:00 BP 134/76 11/28/23 08:00 Pulse Ox 95 11/28/23 08:00 FiO2 Intake & Output 11/27/23 11/28/23 11/28/23 18:59 06:59 18:59 Intake Total 424.733 159.021 Output Total 1900 400 Balance -1475.267 -240.979 Weight 102.8 kg Intake: Intake, IV Titration 64.733 159.021 Amount Heparin Sod,Pork in 0.45% 64.733 159.021 NaCl 25,000 unit In 0.45 % NaCl 1 250ml.bag @ 9. 615 UNITS/KG/HR 10 mls/hr IV .Q24H [facility] Rx#: [id number] Oral 360 Output: Urine 1900 400 Other: Voiding Method Indwelling Catheter Indwelling Catheter # Bowel Movements 1 - Labs CBC & Chem 7: 11/28/23 08:59 11/27/23 06:57 Labs: Abnormal Lab Results - Last 24 Hours (Table) 11/27/23 11/27/23 11/28/23 Range/Units 11:52 17:06 00:33 RBC 3.68 L (4.30-5.90) m/uL Hgb 12.2 L (13.0-17.5) gm/dL MCV 107.7 H (80.0-100.0) fL MCHC 30.9 L (31.0-37.0) g/dL Lymphocytes # 0.5 L (1.0-4.8) k/uL APTT 35.9 H 34.7 H (22.0-30.0) sec
--- NOTE | 2023-11-28 21:30 | PN ---
PROGRESS NOTE DATE OF SERVICE: 11/28/2023 CHIEF COMPLAINT: Acute renal and congestive heart failure. HISTORY OF PRESENT ILLNESS: This gentleman continues to improve. Renal function is slowly improving. He is not having any chest pain or shortness of breath. Nephrology feels that he could probably go home anytime. PHYSICAL EXAMINATION: CHEST: Clear. CARDIAC: Normal. . ABDOMEN: Soft and protuberant. IMPRESSION: 1. Acute congestive heart failure. 2. Acute renal failure. 3. Chronic kidney disease. 4. Alcoholism. PLAN: Probably home in the next day or so. MMODL / IJN: [id number] /
[2023-11-29 08:18] VITALS: RESP 15
--- NOTE | 2023-11-29 11:30 | P.PN ---
Subjective Patient is seen for follow-up for acute kidney injury. Status post temporary hemodialysis for ATN. Renal function has improved and dialysis catheter has been removed. Good urine output No significant complaints today. Maintained on IV Lasix 60 mg daily. Objective - Vital Signs Vital signs: Vital Signs Temp 98.1 F 11/29/23 07:54 Pulse 67 11/29/23 07:54 Resp 15 11/29/23 07:54 BP 143/76 11/29/23 07:54 Pulse Ox 92 L 11/29/23 07:54 FiO2 Intake & Output 11/28/23 11/29/23 11/29/23 18:59 06:59 18:59 Intake Total 537 474 Output Total 850 675 400 Balance -313 -201 -400 Weight 103.6 kg Intake: Intake, IV Titration 57 Amount Heparin Sod,Pork in 0.45% 57 NaCl 25,000 unit In 0.45 % NaCl 1 250ml.bag @ 9. 615 UNITS/KG/HR 10 mls/hr IV .Q24H [facility] Rx#: [id number] Oral 480 474 Output: Urine 850 675 400 Other: Voiding Method Indwelling Catheter Indwelling Catheter Indwelling Catheter - Exam Patient is awake, comfortable, no acute distress. Examination of the heart S1 and S2 Examination of the lungs bilateral breath sounds are heard Abdomen is soft nontender Examination of lower extremity shows trace edema FORENSIC PSYCHIATRIST exam grossly intact - Labs CBC & Chem 7: 11/28/23 08:59 11/27/23 06:57 Assessment and Plan Assessment: 1. Acute kidney injury, ATN, cardiorenal syndrome. Status post temporary hemodialysis. Renal function has improved and dialysis catheter has been removed. . UA shows trace protein 17 WBCs no blood. Ultrasound shows right renal atrophy with right kidney at about 7 cm. 2. Hypertension uncontrolled secondary to patient having stopped medications prior to admission. 3. Hyperkalemia associated with acute kidney injury 4. Status post fall with no rhabdomyolysis 5. Metabolic acidosis secondary to acute kidney injury, improved Plan: Okay for discharge from nephrology standpoint. Check labs today Patient will need follow-up as outpatient for possible chronic kidney disease a nd acute kidney injury.
[2023-11-29 11:53] LABS: African American GFR (CKD) 43 (>60 ml/min/1.73 sqM); Anion Gap 3 mmol/L; Blood Urea Nitrogen 47 mg/dL (9-20); Calcium 8.8 mg/dL (8.4-10.2); Carbon Dioxide 32 mmol/L (22-30); Chloride 102 mmol/L (98-107); Glucose 106 mg/dL (74-99); Non-African American GFR(CKD) 38 (>60 ml/min/1.73 sqM); Potassium 4.6 mmol/L (3.5-5.1); Sodium 137 mmol/L (137-145)
--- NOTE | 2023-11-29 12:00 | P.PN ---
Subjective HISTORY OF PRESENT ILLNESS: This is a 63-year-old male with a past medical history significant for hypertension, gout, alcohol use, nicotine dependence, and AAA repair. [facility] [place] He does not follow with a negative checker. We have been asked to see the patient in consultation for elevated BNP and troponin. Patient examined at the bedside. Patient states he got a fitbit watch and thought he was doing well from a cardiac standpoint so he stopped taking all of his cardiac medications. He reports he tripped and fell at home and laid on the floor for about 10 hours as he was unable to get up. Patient currently de nies chest pain or pressure. He denies SOB. He reports increased lower extremity edema. Patients blood pressure was significantly elevated upon admission to the hospital. DIAGNOSTICS: - EKG reveals sinus mechanism with no signs of acute ischemia. - Chest xray right perihilar increased density persist which may reflect atelectasis and/or infiltrate. -CT of the brain: Negative for acute process - Laboratory data: WBC 7.0. Hemoglobin 14.8. Platelet count 169. Sodium 141. Potassium 5.2. BUN 41. Creatinine 2.29. Troponin 0.258. 0.256. 0.253. - Current home cardiac medications include none -Echocardiogram obtained revealing ejection fraction 35 to 40%, trace MR. -Previous echocardiogram from 2022 revealed ejection fraction 55 to 60% 11/17/2023 Patient examined this morning at the bedside. Patient denies chest pain or pressure. He denies shortness of breath. He remains on IV diuretics. Creatinine is stable today at 2.3. Patient's blood pressures remain elevated with a reading of 159/103 this morning. 11/18/2023 Creatinine slightly worse as compared to yesterday. Today 2.7 yesterday it was 2.3. Blood pressure still elevated. Patient's IV diuretics were held today. 11/19/2023 Creatinine is worse today. Creatinine is 3.5 today. Yesterday it was 2.7. Blood pressure ranging from 140s to 150s systolic. He was started on gentle hydration 50 cc/h by nephrology team. 11/19 Patient denies any new complaints today. Blood pressure 130/53, heart rate in the 70s, pulse ox 93% on 3 L nasal cannula. Repeat blood work reveals worsening renal function and may require hemodialysis. Repeat blood work reveals BUN 73 creatinine 4.75, potassium 5.6. Diuretics were discontinued yesterday. Patient is on IV fluids managed by nephrology. Chest x-ray reveals mild cardiomegaly w ith similar to increased interstitial and patchy mid to lower lung opacities. Trace right pleural effusion. Correlate for mild pulmonary vascular congestion. Bibasilar opacities could represent patchy pulmonary edema versus infiltrates. 11/20 Again today, patient is in worsening of renal function. BUN is 79 and creatinine 6.48. Potassium 5.4. Blood pressure is running between 103/61- 139/76. Pulse ox was 85% on room air this morning and now 92% on 2 L. Heart rate is running in the 80s and 90s. 11/21 Patient has started on hemodialysis receiving treatment at this time. No complaints of shortness of breath. Blood pressure 187/93, heart rate 77, pulse ox 94% on 3 L nasal cannula. Repeat blood work ordered for tomorrow. 11/22 Patient states that he is feeling better today, energy is improved. Has minimal lower extremity edema. Patient has a negative fluid balance. Blood pressure 158/87, heart rate 78, pulse ox 95% on 3 L nasal cannula. Patient is scheduled for hemodialysis today. Repeat blood work reveals BUN 49, creatinine 3.26. 11/23 Patient has been on IV diuretics per nephrology and completed 2 hemodialysis treatments. He has been urinating well and Medina catheter in place. Patient denies having any chest pain or shortness of breath. Lower extremity edema is improved. Blood pressures have been elevated at 151/68, heart rate 91, pulse ox 92% on 2 L nasal cannula. Repeat blood work reveals sodium 140, potassium 4, BUN 49 creatinine 2.54. 11/25/23 Patient was seen and examined resting comfortably in bed. Labs this morning showed further improvement in the renal function. He is being followed by nephrology with plans for possible removal of the dialysis catheter depending on renal function tomorrow. He has good urine output with Medina catheter in place. Lower extremity edema continues to improve. Blood pressure remains elevated. 11/26/2023 Patient was seen and examined sitting up in a chair. Patient developed some bleeding from the hemodialysis catheter site through the night. Dr. Medina has been made aware. Renal function has remained stable. He is anticipating dialysis catheter to be discontinued tomorrow. Blood pressure remains elevated. 11/27/2023 Patient examined this morning at the bedside. Patient denies chest pain or pressure. He denies shortness of breath. Vital signs are stable. He remains on IV Lasix per nephrology. Patient is anxious to be discharged home today. After morning rounds, cardiology was made aware by nursing staff that the patient went into A-fib with RVR. The patient denies having a history of atrial fibrillation. He remains in atrial fibrillation with a heart rate in the low 100s. 11/28/2023 Patient examined this morning at the bedside. Patient denies chest pain or pres sure. He denies shortness of breath. Patient went into A-fib with RVR yesterday and was started on IV heparin. He has since converted to sinus mechanism and is maintaining sinus mechanism this morning. He remains on IV Lasix per nephrology. Vital signs are stable. 11/29/2023 Patient examined this morning at the bedside. Patient denies chest pain or pressure. He denies shortness of breath. Telemetry reveals sinus mechanism. He remains on IV Lasix per nephrology. However they have cleared the patient to transition to oral dosing. Vital signs are stable. Patient is hoping to be discharged home today. PHYSICAL EXAM: VITAL SIGNS: Reviewed. GENERAL: Well-developed in no acute distress. HEENT: Head is normocephalic. Pupils are equal, round. Sclerae anicteric. Mucous membranes of the mouth are moist. Neck supple. No JVD or thyromegaly LUNGS: Respirations even and unlabored. Lungs essentially clear to auscultation bilaterally. HEART: Regular rate and rhythm. S1 and S2 heard. ABDOMEN: Soft. Nondistended. Nontender. EXTREMITIES: Normal range of motion. No clubbing or cyanosis. Peripheral pulses intact. Minimal lower extremity edema NEUROLOGIC: Awake and alert. Oriented x 3. ASSESSMENT: Status post fall, patient laid on the floor for approximately 8-10 hours Acute kidney injury with worsening renal function, status post hemodialysis New onset cardiomyopathy, EF 35 to 40%, ischemic versus nonischemic Medication noncompliance, patient stopped taking his blood pressure medications a month ago Acute heart failure with reduced EF, 35-40% Hypertension, uncontrolled History of alcohol abuse Nicotine dependence History of AAA repair History of gout Nicotine dependence Chronic hypoxic respiratory failure, on home o2 PRN New onset paroxysmal atrial fibrillation with RVR, currently maintaining sinus mechanism PLAN: Continue current cardiac medications Discontinue IV Lasix. Begin oral Lasix 80 mg daily Patient would benefit from KELLI/ARB when kidney function improves Smoking cessation recommended Abstinence from alcohol encouraged Patient will need eventual outpatient ischemic workup due to new onset cardiomyopathy Patient is stable for discharge home today from a cardiac standpoint We will sign off. Please reconsult if needed. Nurse practitioner note has been reviewed by physician. Signing provider agrees with the documented findings, assessment, and plan of care documented by PRODUCTION SERVICE MANAGER as a scribe. Objective - Vital Signs Vital signs: Vital Signs Temp 98.1 F 11/29/23 07:54 Pulse 67 11/29/23 07:54 Resp 15 11/29/23 07:54 BP 143/76 11/29/23 07:54 Pulse Ox 92 L 11/29/23 07:54 FiO2 Intake & Output 11/28/23 11/29/23 11/29/23 18:59 06:59 18:59 Intake Total 537 474 Output Total 850 675 400 Balance -313 -201 -400 Weight 103.6 kg Intake: Intake, IV Titration 57 Amount Heparin Sod,Pork in 0.45% 57 NaCl 25,000 unit In 0.45 % NaCl 1 250ml.bag @ 9. 615 UNITS/KG/HR 10 mls/hr IV .Q24H [facility] Rx#: [id number] Oral 480 474 Output: Urine 850 675 400 Other: Voiding Method Indwelling Catheter Indwelling Catheter Indwelling Catheter - Labs CBC & Chem 7: 11/28/23 08:59 11/29/23 11:20 Labs: Abnormal Lab Results - Last 24 Hours (Table) 11/29/23 Range/Units 11:20 Carbon Dioxide 32 H (22-30) mmol/L BUN 47 H (9-20) mg/dL Creatinine 1.87 H (0.66-1.25) mg/dL Glucose 106 H (74-99) mg/dL
[2023-11-29 12:49] VITALS: TEMP 98.6
[2023-11-29 16:53] VITALS: BP 172/104; PULSE 70
--- NOTE | 2023-11-29 23:34 | DS ---
DISCHARGE SUMMARY CHIEF COMPLAINT: Shortness of breath. HISTORY OF PRESENT ILLNESS AND PHYSICAL EXAMINATION: Details of this man's history and physical can be found in the initial workup. LABORATORY STUDIES: While he was in the hospital, he had laboratory studies, details of which can be found in the laboratory section of his chart. COURSE IN THE HOSPITAL: After admission, he was placed on bedrest and started on intravenous fluids and seen by Cardiology and Nephrology. Troponins were elevated. He was in acute congestive heart failure. He also was in acute renal failure. He underwent a management and treatment of his heart failure with success and he was followed by Nephrology. Renal function remained stage 4 or 5 and then very slowly began to increase. He was dialyzed for several days and then this was withheld. GFR was steadily and slowly rising and he was doing well, it was felt by Cardiology and Nephrology that he could be discharged on the . He will go home on light activity about the house and he will follow up in several days in the office. FINAL DIAGNOSES: 1. Acute congestive heart failure. 2. Acute kidney injury. 3. History of alcoholism. 4. Chronic obstructive pulmonary disease. OPERATIONS: None. CONSULTATIONS: Cardiology, Nephrology. He is improved. MMODL / IJN: [id number] /
[2023-11-30] MEDS ORDERED: FUROSEMIDE 80 MG TAB PO SCH (09:00)
== END 2023-11-29 17:55 | disposition home or self-care (01) | DRG 291 ==
LOC: EC 06:40 → 3SCARD 08:10
PROVIDERS: ADMIT Family Medicine; ATTEND Family Medicine
PROC: 02HV33Z Insertion of Infusion Device into Superior Vena Cava, Percutaneous Approach (ICD-10-PCS; principal; 2023-11-21 14:15)
PROC: 5A1D70Z Performance of Urinary Filtration, Intermittent, Less than 6 Hours Per Day (ICD-10-PCS; principal; 2023-11-21 14:15)
PROC: 02PYX3Z Removal of Infusion Device from Great Vessel, External Approach (ICD-10-PCS; 2023-11-26)
DX: I13.2 Hypertensive heart and chronic kidney disease with heart failure and with stage 5 chronic kidney disease, or end stage renal disease (principal); I50.23 Acute on chronic systolic (congestive) heart failure; J96.21 Acute and chronic respiratory failure with hypoxia; N17.0 Acute kidney failure with tubular necrosis; E87.20 Acidosis, unspecified; T82.838A Hemorrhage due to vascular prosthetic devices, implants and grafts, initial encounter; N18.5 Chronic kidney disease, stage 5; D75.89 Other specified diseases of blood and blood-forming organs; E53.8 Deficiency of other specified B group vitamins; E87.5 Hyperkalemia; W01.0XXA Fall on same level from slipping, tripping and stumbling without subsequent striking against object, initial encounter; Y92.019 Unspecified place in single-family (private) house as the place of occurrence of the external cause; F17.210 Nicotine dependence, cigarettes, uncomplicated; I42.6 Alcoholic cardiomyopathy; I48.0 Paroxysmal atrial fibrillation; I5A Non-ischemic myocardial injury (non-traumatic); I49.3 Ventricular premature depolarization; I71.40 Abdominal aortic aneurysm, without rupture, unspecified; G62.9 Polyneuropathy, unspecified; J44.9 Chronic obstructive pulmonary disease, unspecified; K74.60 Unspecified cirrhosis of liver; F10.10 Alcohol abuse, uncomplicated; M10.9 Gout, unspecified; Z79.899 Other long term (current) drug therapy; Z91.128 Patient's intentional underdosing of medication regimen for other reason; Z99.81 Dependence on supplemental oxygen; Z28.310 Unvaccinated for COVID-19; Z11.52 Encounter for screening for COVID-19; Z71.6 Tobacco abuse counseling
CPT/HCPCS: 36415; 36558; 70450; 71045; 71046; 76770; 76937; 77001; 80048; 80053; 80320; 81001; 82550; 82607; 82746; 82784; 83036; 83605; 83735; 83880; 83921; 84100; 84132; 84145; 84207; 84443; 84484; 85025; 85027; 85610; 85730; 86038; 86140; 86334; 86706; 86780; 87040; 87340; 87636; 90935; 93005; 93306; 93880; 93970; 94760; 96374; 96375; 99285; 99406